=== PATIENT | female | born 1965 | race Caucasian/White ===

== ENCOUNTER 2023-05-20 13:52 | Outpatient (OUT) | payer OTHER, SELFPAY ==
--- NOTE | 2023-05-20 14:00 | XR_ITS ---
The [address] [address] Patient Name: GLORY MCKEON MRN: [id number] date: 1965 Sex: F Assigned Patient Location: [facility] Current Patient Location: [facility] Accession/Order Number: [id number] Exam Date: 05/20/2023 14:06 Report Date: 05/21/2023 07:06 At the request of: ÁLVARO SANTANA Procedure: XR lumbar spine 2-3V EXAMINATION: XR lumbar spine 2-3V HISTORY: Low back pain M54.50 COMPARISON: No relevant comparison available. FINDINGS: BONES: Normal alignment with no acute fracture or spondylolisthesis. Mild degenerative spondylosis. Moderate facet osteoarthropathy DISC SPACES: Normal. No significant disc height narrowing, subluxation, or endplate abnormality. PARASPINOUS: Negative. No paraspinous abnormality is seen. OTHER: Vascular calcifications. Moderate amount of stool throughout the colon IMPRESSION: Degenerative changes Electronically authenticated by: ROBYN MULLIGAN Date: 05/21/2023 07:06
== END 2023-05-20 13:53 ==
LOC: RAD 13:56
PROVIDERS: PCP Family Medicine; Visit Provider Family Medicine
DX: M54.50 Low back pain, unspecified (principal)
CPT/HCPCS: 72100

== ENCOUNTER 2023-05-22 09:10 | Day surgery (SDC) | payer OTHER, SELFPAY ==
[2023-05-22 09:25] VITALS: BP 125/67; PULSE 72; RESP 14; TEMP 36.4; O2SAT 99; BMI 29.9
[2023-05-22] MEDS: LACTATED RINGER'S SOLUTION 1,000 ML 50 ML IV (09:36)
[2023-05-22 11:11] VITALS: BP 126/75; PULSE 70; RESP 20; O2SAT 98
--- NOTE | 2023-05-22 11:12 | OP_ITS ---
OPERATION DATE: ??05/22/2023 PREOPERATIVE DIAGNOSIS:? Personal history of colon polyps, change in bowel habits. POSTOPERATIVE DIAGNOSIS:? Redundant colon with spasm. PROCEDURE:? Colonoscopy to cecum. SURGEON:? Gael Hong M.D. ANESTHESIA:? Monitored anesthesia care. ESTIMATED BLOOD LOSS:? Zero. INDICATIONS AND CONSENT:? Patient is a 57-year-old female with personal history of colon polyps.? 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 She recently had a diarrheal illness with Enterotoxigenic E. coli that has resolved.? She has had some looser stools that have been persistent and had recently formed back up to normal.? She now presents for surveillance colonoscopy. ??Indications, risks, benefits, alternatives of proceeding with colonoscopy were explained extensively to the patient, including the risks of bleeding, colon perforation or anesthetic complications.? All of her questions were answered.? Informed consent was obtained. PROCEDURE:? Patient brought to the operating room, placed in the left lateral decubitus position.? Monitored anesthesia care was provided.? Rectal exam was performed which showed no masses or blood.? The scope was inserted into the anal canal.? Under direct visualization was advanced.? With the aid of abdominal compression, it was advanced to the cecum where cecal markings were clearly identified.? There was noted to be redundancy of the colon with spasm.? There was a good prep.? Upon withdrawal of the scope, mucosal surfaces were carefully examined.? There were no mass lesions or polyps.? No inflammatory changes or ulcerations.? No significant diverticulosis.? The scope was retroflexed in the anal canal.? There was no significant hemorrhoidal disease.? Scope was then withdrawn.? Patient tolerated procedure well, was sent to recovery room in good condition. Follow up colonoscopy should be in five years due to the history of polyps. CC:? Patient?s family physician. FRANCIS
[2023-05-22 11:26] VITALS: BP 141/73; PULSE 61; RESP 20; O2SAT 100
== END 2023-05-22 11:45 ==
PROVIDERS: PCP Family Medicine; Visit Provider Surgery
PROC: (CPT 45378; principal; 2023-05-22 10:20)
DX: R19.4 Change in bowel habit (principal); Q43.8 Other specified congenital malformations of intestine; Z86.010 Personal history of colon polyps; J44.9 Chronic obstructive pulmonary disease, unspecified; M50.30 Other cervical disc degeneration, unspecified cervical region; F32.A Depression, unspecified; G47.33 Obstructive sleep apnea (adult) (pediatric); F17.210 Nicotine dependence, cigarettes, uncomplicated; F41.9 Anxiety disorder, unspecified; M47.817 Spondylosis without myelopathy or radiculopathy, lumbosacral region; Z79.82 Long term (current) use of aspirin; Z79.899 Other long term (current) drug therapy; Z79.890 Hormone replacement therapy
CPT/HCPCS: 45378; J2704

== ENCOUNTER 2023-10-19 18:28 | Observation (INO) | payer OTHER, SELFPAY ==
[2023-10-19 18:32] VITALS: BP 120/91; PULSE 83; RESP 18; TEMP 36.5; O2SAT 18; BMI 29.1
--- NOTE | 2023-10-19 18:33 | XR_ITS ---
The [address] [address] Patient Name: GLORY MCKEON MRN: [id number] date: 1965 Sex: F Assigned Patient Location: ER Current Patient Location: ED.MAIN Accession/Order Number: [id number] Exam Date: 10/19/2023 18:43 Report Date: 10/19/2023 19:37 At the request of: FEDERICO VILLAFANA Procedure: XR hand LT min 3V EXAM: XR hand LT min 3V HISTORY: Dog bite COMPARISON: None. TECHNIQUE: 3 views FINDINGS: IMPRESSION: No radiodense foreign body, osseous lesion, fracture, dislocation or subluxation. Joint spaces are normal. Approximately 3.4 mm of positive ulnar variance. No visualized effusion. No gross soft tissue edema. No soft tissue emphysema. Electronically authenticated by: ROBYN FULTON Date: 10/19/2023 19:37
--- NOTE | 2023-10-19 18:34 | ED_ITS ---
HPI - Extremity Injury (Upper) General Chief Complaint: Extremity Problem, Nontraumatic Stated Complaint: DOG BITE Time Seen by Provider: 10/19/23 18:31 History of Present Illness HPI narrative: 57-year-old female presents for dog bite to her left hand. This was sustained the day before yesterday. She contacted her doctor yesterday who phoned her in a prescription and she took her 1st dose today at 1:00. It's been more than ten years since her last tetanus shot. No other injury was sustained. Related Data Home Medications Medication Instructions Recorded Confirmed aripiprazole 2 mg tablet (Abilify) 2 mg PO DAILY 05/14/23 10/19/23 aspirin 81 mg tablet,delayed 81 mg PO DAILY 05/14/23 10/19/23 release desvenlafaxine 100 mg 100 mg PO DAILY 05/14/23 10/19/23 tablet,extended release 24 hr diltiazem HCl 240 mg 240 mg PO DAILY 05/14/23 10/19/23 capsule,extended release 24 hr (Cartia XT) dupilumab 200 mg/1.14 mL 300 mg subcut QWEEK 05/14/23 10/19/23 subcutaneous pen injector (Dupixent) famotidine 40 mg tablet 40 mg PO DAILY 05/14/23 10/19/23 ibuprofen 800 mg tablet 800 mg PO TID PRN pain 05/14/23 10/19/23 levothyroxine 75 mcg tablet 75 mcg PO DAILY 05/14/23 10/19/23 (Euthyrox) liothyronine 5 mcg tablet (Cytomel) 5 mcg PO DAILY 05/14/23 10/19/23 metoprolol succinate 25 mg 25 mg PO DAILY 05/14/23 10/19/23 tablet,extended release 24 hr amoxicillin 875 mg-potassium 1 tab PO Q12H 10/19/23 10/19/23 clavulanate 125 mg tablet Allergies Allergy/AdvReac Type Severity Reaction Status Date / Time ciprofloxacin Allergy Rash Verified 05/14/23 14:34 latex Allergy Rash Verified 05/14/23 14:34 Sulfa (Sulfonamide Allergy Rash Verified 05/14/23 14:34 Antibiotics) sulfamethoxazole AdvReac Intermediate Verified 10/19/23 18:32 [From Bactrim] trimethoprim [From Bactrim] AdvReac Intermediate Verified 10/19/23 18:32 Review of Systems ROS Narrative A ten point review of systems is negative except as noted above. [facility] Medical History (Updated 10/19/23 @ 18:58 by Ranjeet Lopez MD) Acid reflux ?K21.9 - Gastro-esophageal reflux disease without esophagitis (ICD-10) Anxiety ?F41.9 - Anxiety disorder, unspecified (ICD-10) Arm fracture ?S42.309A - Unspecified fracture of shaft of humerus, unspecified arm, initial encounter for closed fracture (ICD-10) Colorectal polyps ?K63.5 - Polyp of colon (ICD-10) ?K62.1 - Rectal polyp (ICD-10) Degenerative disc disease, cervical ?M50.30 - Other cervical disc degeneration, unspecified cervical region (ICD- 10) Depression ?F32.A - Depression, unspecified (ICD-10) Escherichia coli infection ?A49.8 - Other bacterial infections of unspecified site (ICD-10) Hypertension ?I10 - Essential (primary) hypertension (ICD-10) Insomnia ?G47.00 - Insomnia, unspecified (ICD-10) Lumbosacral spondylosis without myelopathy ?M47.817 - Spondylosis without myelopathy or radiculopathy, lumbosacral region (ICD-10) Menopause ?Z78.0 - Asymptomatic menopausal state (ICD-10) Migraine ?G43.909 - Migraine, unspecified, not intractable, without status migrainosus (ICD-10) Mitral valve prolapse ?I34.1 - Nonrheumatic mitral (valve) prolapse (ICD-10) Obstructive sleep apnea ?G47.33 - Obstructive sleep apnea (adult) (pediatric) (ICD-10) Panic disorder ?F41.0 - Panic disorder [episodic paroxysmal anxiety] (ICD-10) Surgical History (Updated 05/14/23 @ 14:34 by Tracy Boswell) H/O colonoscopy ?Z98.890 - Other specified postprocedural states (ICD-10) H/O excision of ganglion cyst ?Z98.890 - Other specified postprocedural states (ICD-10) History of kyphoplasty ?Z98.890 - Other specified postprocedural states (ICD-10) Hx of appendectomy ?Z90.49 - Acquired absence of other specified parts of digestive tract (ICD- 10) Family History (Updated 05/14/23 @ 14:08 by Tracy Boswell) Other Family history of hypertension Family history of stroke Social History (Updated 05/14/23 @ 14:42 by Tracy Boswell) Within the past year, how often did you have a drink containing alcohol: 2-3 times a week Within the past year, how many standard drinks containing alcohol did you have on a typical day: 1 or 2 Within the past year, how often did you have six or more drinks on one occasion: never Total score: 0 Score interpretation: Questions 2 and 3 are 0. It can be assumed that the patient's drinking is below the recommended limits. However, please confirm the accuracy of the patient's alcohol intake over the last few months. Smoking status: Former smoker What tobacco products do you use: cigarettes Pack-years instructions: Please document either packs per day or cigarettes per day in order for pack years to calculate correctly. If using both packs per day and cigarettes per day, please make sure that they denote the same thing. If they differ, pack- years will calculate based on packs per day. Packs Per Day Cigarettes Per Day 1/4 of a pack 5 1/2 a pack 10 3/4 of a pack 15 1 pack 20 1.5 pack 30 2 packs 40 2.5 packs 50 3 packs 60 Cigarettes per day: 10 Years smoked: 40 Smoking pack-years: 20.00 Smoking quit date/years: <= 15 years ago Non-prescribed substance use: denies use Exam Narrative Exam Narrative: Nurses note and vital signs reviewed and patient is not hypoxic. General: The patient appears well and in no apparent distress. Patient is resting comfortably on cart. Skin: Warm, dry, no pallor noted. There is no rash noted. Head: Normocephalic, atraumatic Eye: Normal conjunctiva, no drainage Ears, Nose, Mouth, and Throat: oral mucosa is moist. Nares patent. Cardiovascular: Regular Rate and Rhythm Respiratory: Patient is in no distress, no accessory muscle use, lungs are clear to auscultation, no wheezing, rales or rhonchi Back: non-tender GI: nontender Musculoskeletal: left hand is examined. There are healing puncture waller on the dorsum of her left hand. There is erythema and some mild swelling on the dorsum of her hand. Fingers have for range of motion. No lymphangitis. Neurological: A&O, normal speech Psychiatric: Cooperative Constitutional Vital Signs, click to edit/add: Last Vital Signs Temp 97.7 F 10/19/23 18:32 Pulse 83 10/19/23 18:32 Resp 18 10/19/23 18:32 BP 120/91 10/19/23 18:32 Pulse Ox 18 L 10/19/23 18:32 O2 Del Method Room Air 10/19/23 18:32 Course Vital Signs Vital signs: Vital Signs Temperature 97.7 F 10/19/23 18:32 Pulse Rate 83 10/19/23 18:32 Respiratory Rate 18 10/19/23 18:32 Blood Pressure 120/91 10/19/23 18:32 Pulse Oximetry 18 L 10/19/23 18:32 Oxygen Delivery Method Room Air 10/19/23 18:32 Temperature 97.7 F 10/19/23 18:32 Pulse Rate 83 10/19/23 18:32 Respiratory Rate 18 10/19/23 18:32 Blood Pressure 120/91 10/19/23 18:32 Pulse Oximetry 18 L 10/19/23 18:32 Oxygen Delivery Method Room Air 10/19/23 18:32 MDM - Extremity Injury (Upper) MDM Narrative Medical decision making narrative: tests are ordered including x-ray and the patient is signed out to Dr. Prieto at change of shift. Differential Diagnosis Differential diagnosis: Likely other (foreign body, fracture, cellulitis) Discharge Plan Discharge Chief Complaint: Extremity Problem, Nontraumatic Clinical Impression: Dog bite, Cellulitis Patient Disposition: Still a Patient Prescriptions / Home Meds: No Action aripiprazole [Abilify] 2 mg tablet 2 mg PO DAILY aspirin 81 mg tablet,delayed release (DR/EC) 81 mg PO DAILY diltiazem HCl [Cartia XT] 240 mg capsule,extended release 24hr 240 mg PO DAILY desvenlafaxine 100 mg tablet extended release 24 hr 100 mg PO DAILY Dupixent Pen 200 mg/1.14 mL pen injector 300 mg subcut QWEEK Patient Comments: takes every 2 weeks famotidine 40 mg tablet 40 mg PO DAILY ibuprofen 800 mg tablet 800 mg PO TID PRN (Reason: pain) Patient Comments: takes bid levothyroxine [Euthyrox] 75 mcg tablet 75 mcg PO DAILY liothyronine [Cytomel] 5 mcg tablet 5 mcg PO DAILY metoprolol succinate 25 mg tablet extended release 24 hr 25 mg PO DAILY amoxicillin-pot clavulanate 875-125 mg tablet 1 tab PO Q12H Referrals: Lonnie Sheehan MD [Primary Care Provider] - 1 week
[2023-10-19 18:53] LABS: Basophils Percent Auto 0.3 % (0.2-2.0); Eosinophils Absolute Auto 0.1 10^3/uL (0.0-0.7); Eosinophils Percent Auto 0.6 % (0.9-7.0); Hematocrit 41.3 % (36.0-48.0); Hemoglobin 13.9 g/dL (12.0-16.0); Immature Granulocytes Abs Auto 0.05 10^3/uL (0.00-0.03); Immature Granulocytes Pct Auto 0.5 % (0.0-0.5); Lymphocytes Absolute Auto 2.5 10^3/uL (1.2-3.8); Lymphocytes Percent Auto 24.2 % (20.5-60.0); Mean Corpuscular HGB Conc 33.7 g/dL (29.9-35.2); Mean Corpuscular Hemoglobin 32.1 pg (26.7-34.0); Mean Corpuscular Volume 95.4 fL (81.0-99.0); Mean Platelet Volume 8.4 fL (9.5-13.5); Monocytes Percent Auto 9.4 % (1.7-12.0); Neutrophils Absolute Auto 6.7 10^3/uL (1.4-6.5); Platelet Count 318 10^3/uL (150-450); Red Blood Count 4.33 10^6/uL (4.20-5.40); Red Cell Distribution Width 12.7 % (11.0-15.0); White Blood Count 10.3 10^3/uL (4.0-11.0)
[2023-10-19] MEDS: ADACEL DIPH,PERTUSS(ACELL),TET VAC/PF 0.5 ML ADULT SYRINGE IM (18:59)
[2023-10-19 19:04] LABS: Anion Gap 10.8; BUN Creatinine Ratio 8.5; Calcium 9.2 mg/dL (8.5-10.1); Carbon Dioxide 29.7 mmol/L (21.0-32.0); Chloride 98 mmol/L (98-107); Estimated GFR (African America 51 (>=60); Estimated GFR (Non-African Ame 42 (>=60); Glucose 98 mg/dL (74-106); Potassium 3.5 mmol/L (3.5-5.1); Sodium 135 mmol/L (136-145)
[2023-10-19 21:02] VITALS: BP 151/82; PULSE 64; RESP 20; TEMP 36.7; O2SAT 98; BMI 31.0
[2023-10-19] MEDS: 0.9 % SODIUM CHLORIDE 1,000 ML 100 ML IV (22:11)
[2023-10-19] MEDS: L. ACIDOPHILUS/L.BULGARICUS 1 PACKET GRAN.PACK PO (22:11)
--- NOTE | 2023-10-20 00:19 | P.PN_ITS ---
Progress Note: Subjective Subjective Interval history: Patient is a 57-year-old female with history of HTN, hypothyroid, sleep apnea not on CPAP presenting with complaint of left hand pain. Patient reports that her personal dog bit her left hand night, 2 to 3 days ago. She reports that it happened around 11 PM but she was able to go to sleep and only had mild discomfort initially. Upon waking up Saturday, she reports that she could barely move her hand but as the day progressed, she was able to move her hand with much more ease. She did call her PCP Dr. Burns earlier that day and was prescribed amoxicillin and an ointment cream. Patient states that she had difficulty with obtaining from the pharmacy therefore she was not able to start it until 10/19 as her first and only dose received. She reports that on Saturday, she noticed that her left hand was becoming incr easingly red and warm to touch. She sanchez a line around the red area and reports that the redness extended beyond that line therefore she decided to come to the ED. She denies any tracking of the left arm.. She denies any fever or chills at home and denies any drainage from the bite area. Upon arrival to the ED, vital signs were stable and patient was afebrile. Labs noted for sodium of 135, creatinine 1.29 otherwise rest of labs within normal limits including normal CBC. X-ray of left hand with 3.4 mm positive ulnar variance. No evidence of soft tissue edema, no fracture, no foreign body no dislocation, no effusion. Patient was treated in the ED with Unasyn and did receive a tetanus shot and she is being admitted for further management. Exam Constitutional Vital Signs, click to edit/add: Last Vital Signs Temp 98.0 F 10/19/23 21:02 Pulse 64 10/19/23 21:02 Resp 20 10/19/23 21:02 BP 151/82 H 10/19/23 21:02 Pulse Ox 98 10/19/23 21:02 O2 Del Method Room Air 10/19/23 21:12 Common normals: no apparent distress Exam limitations: altered mental status General appearance: cooperative and comfortable Orientation/consciousness: Yes awake, Yes oriented to person, Yes oriented to place and Yes oriented to time [facility] Common normals: normocephalic Head and scalp: normal to inspection Neck & C-Spine Common normals: full ROM General: normal visual inspection Respiratory Common normals: normal respiratory effort Auscultation: clear to auscultation bilaterally Cardio Common normals: regular rate, regular rhythm, S1 normal heart sound and S2 normal heart sound GI Inspection: normal to inspection Palpation: soft Extremity General: normal exam except as noted Other: left hand with punctured site abrasion from dig bite dorsum of hand just below index. no actuve drainage apprec. erythema of left hand incl 1st 4 fingers and dorsum area to mid hand. mild swelling mid left dorsum of hand. sensation intact.from of all fingers but some mild limitation with making a fist. no tracking apprec Neuro Common normals: oriented x3 and CN's II-XII intact bilaterally Sensorium/orientation: awake, alert, oriented to person, oriented to place and oriented to time Motor exam: strength 5/5 throughout Psych Common normals: mental status grossly normal and thought process normal Attitude: calm and engaged Activity/motor behavior: appropriate eye contact Insight: insight good Judgement: judgment good Progress Note: Objective Labs Labs: Short CBC 10/19/23 Range/Units 18:44 WBC 10.3 (4.0-11.0) 10^3/uL Hgb 13.9 (12.0-16.0) g/dL Hct 41.3 (36.0-48.0) % Plt Count 318 (150-450) 10^3/uL BMP 10/19/23 18:44 Sodium 135 L Potassium 3.5 Chloride 98 Carbon Dioxide 29.7 BUN 11.0 Creatinine 1.29 H Glucose 98 Calcium 9.2 Progress Note: A&P Assessment and Plan (1) Cellulitis: (2) Dog bite: (3) EMILIE (acute kidney injury): Plan Cellulitis of left hand from personal dog bite EMILIE HTN, controlled Hypothyroid Mild hyponatremia History of sleep apnea, not on CPAP Anxiety Plan: Continue Unasyn IV fluids Pain control with as needed Tylenol, [place] Arm elevation. Per RN, swelling of handappears to have improved since arrival to the floor with arm elevation. Continue Monitor renal function. Check UA Avoidance of nephrotoxic agents.. Hold ibuprofen Repeat BMP in a.m. IV fluids Continue home BP meds diltiazem, Toprol-XL Continue hypothyroid home meds DVT prophylaxis subcu heparin twice daily Full code Telemedicine Attestation Telemedicine Attestation I conducted this encounter from [] via secure live, [id number] video conference with the patient, located at [facility] with [Melissa]. Prior to the interview, the risks and benefits of telemedicine were discussed with the patient and verbal consent was obtained.
[2023-10-20] MEDS: HYDROCODONE/ACET 5-325 MG TABLET 1 TAB PO (00:38)
[2023-10-20 04:55] LABS: Basophils Absolute Auto 0.1 10^3/uL (0.0-0.1); Basophils Percent Auto 0.8 % (0.2-2.0); Eosinophils Absolute Auto 0.1 10^3/uL (0.0-0.7); Eosinophils Percent Auto 1.8 % (0.9-7.0); Hematocrit 39.2 % (36.0-48.0); Hemoglobin 12.8 g/dL (12.0-16.0); Immature Granulocytes Abs Auto 0.03 10^3/uL (0.00-0.03); Immature Granulocytes Pct Auto 0.5 % (0.0-0.5); Lymphocytes Absolute Auto 1.7 10^3/uL (1.2-3.8); Lymphocytes Percent Auto 25.9 % (20.5-60.0); Mean Corpuscular HGB Conc 32.7 g/dL (29.9-35.2); Mean Corpuscular Hemoglobin 31.8 pg (26.7-34.0); Mean Corpuscular Volume 97.3 fL (81.0-99.0); Mean Platelet Volume 8.6 fL (9.5-13.5); Monocytes Absolute Auto 0.7 10^3/uL (0.3-0.8); Monocytes Percent Auto 10.1 % (1.7-12.0); Neutrophils Percent Auto 60.9 % (43.0-75.0); Platelet Count 272 10^3/uL (150-450); Red Blood Count 4.03 10^6/uL (4.20-5.40); Red Cell Distribution Width 12.9 % (11.0-15.0); White Blood Count 6.6 10^3/uL (4.0-11.0)
[2023-10-20 05:13] LABS: Anion Gap 10.2; BUN Creatinine Ratio 10.7; Calcium 8.7 mg/dL (8.5-10.1); Carbon Dioxide 28.6 mmol/L (21.0-32.0); Chloride 104 mmol/L (98-107); Estimated GFR (African America 55 (>=60); Estimated GFR (Non-African Ame 45 (>=60); Glucose 152 mg/dL (74-106); Potassium 3.8 mmol/L (3.5-5.1); Sodium 139 mmol/L (136-145)
[2023-10-20 05:40] VITALS: BP 102/67; PULSE 66; RESP 20; TEMP 36.7; O2SAT 91
[2023-10-20] MEDS: AMPICILLIN SODIUM/SULBACTAM NA 3 GM in 0.9 % SODIUM CHLORIDE 100 ML IV ×2 (06:43→13:09)
[2023-10-20] MEDS: 0.9 % SODIUM CHLORIDE 1,000 ML 100 ML IV (06:43)
[2023-10-20] MEDS: ACETAMINOPHEN 325 MG TABLET 650 MG PO (09:24)
[2023-10-20] MEDS: L. ACIDOPHILUS/L.BULGARICUS 1 PACKET GRAN.PACK PO (09:24)
[2023-10-20 09:55] LABS: C Reactive Protein 4.34 mg/dL (<=0.30)
[2023-10-20 10:25] LABS: Erythrocyte Sedimentation Rate 23 mm/hr (<=30)
--- NOTE | 2023-10-20 10:53 | P.HP_ITS ---
H&P: HPI History of Present Illness Chief complaint: DOG BITE LEFT HAND CELLULITIS Narrative: Patient sustained a dog bite on her left hand. Started on oral antibiotics but pain and swelling increased. Presented to the emergency room. Has significant erythema going up her left arm. Unable to move fingers significantly secondary to swelling more so than pain upper arm. By my examination today of this morning she does have better range of motion in her fingers per patient, erythema is inside line of demarcation. Review of Systems ROS Status of ROS 10 or more systems reviewed and unremarkable except as noted in history and below [facility] Medical History (Updated 10/20/23 @ 05:57 by Sonya Kinney MD) Acid reflux ?K21.9 - Gastro-esophageal reflux disease without esophagitis (ICD-10) Anxiety ?F41.9 - Anxiety disorder, unspecified (ICD-10) Arm fracture ?S42.309A - Unspecified fracture of shaft of humerus, unspecified arm, initial encounter for closed fracture (ICD-10) Colorectal polyps ?K63.5 - Polyp of colon (ICD-10) ?K62.1 - Rectal polyp (ICD-10) Degenerative disc disease, cervical ?M50.30 - Other cervical disc degeneration, unspecified cervical region (ICD- 10) Depression ?F32.A - Depression, unspecified (ICD-10) Escherichia coli infection ?A49.8 - Other bacterial infections of unspecified site (ICD-10) Hypertension ?I10 - Essential (primary) hypertension (ICD-10) Insomnia ?G47.00 - Insomnia, unspecified (ICD-10) Lumbosacral spondylosis without myelopathy ?M47.817 - Spondylosis without myelopathy or radiculopathy, lumbosacral region (ICD-10) Menopause ?Z78.0 - Asymptomatic menopausal state (ICD-10) Migraine ?G43.909 - Migraine, unspecified, not intractable, without status migrainosus (ICD-10) Mitral valve prolapse ?I34.1 - Nonrheumatic mitral (valve) prolapse (ICD-10) Obstructive sleep apnea ?G47.33 - Obstructive sleep apnea (adult) (pediatric) (ICD-10) Panic disorder ?F41.0 - Panic disorder [episodic paroxysmal anxiety] (ICD-10) Surgical History (Updated 05/14/23 @ 14:34 by Tracy Boswell) H/O colonoscopy ?Z98.890 - Other specified postprocedural states (ICD-10) H/O excision of ganglion cyst ?Z98.890 - Other specified postprocedural states (ICD-10) History of kyphoplasty ?Z98.890 - Other specified postprocedural states (ICD-10) Hx of appendectomy ?Z90.49 - Acquired absence of other specified parts of digestive tract (ICD- 10) Family History (Updated 05/14/23 @ 14:08 by Tracy Boswell) Other Family history of hypertension Family history of stroke Social History (Updated 05/14/23 @ 14:42 by Tracy Boswell) Within the past year, how often did you have a drink containing alcohol: 2-3 times a week Within the past year, how many standard drinks containing alcohol did you have on a typical day: 1 or 2 Within the past year, how often did you have six or more drinks on one occasion: never Total score: 0 Score interpretation: Questions 2 and 3 are 0. It can be assumed that the patient's drinking is below the recommended limits. However, please confirm the accuracy of the patient's alcohol intake over the last few months. Smoking status: Former smoker What tobacco products do you use: cigarettes Pack-years instructions: Please document either packs per day or cigarettes per day in order for pack years to calculate correctly. If using both packs per day and cigarettes per day, please make sure that they denote the same thing. If they differ, pack- years will calculate based on packs per day. Packs Per Day Cigarettes Per Day 1/4 of a pack 5 1/2 a pack 10 3/4 of a pack 15 1 pack 20 1.5 pack 30 2 packs 40 2.5 packs 50 3 packs 60 Cigarettes per day: 10 Years smoked: 40 Smoking pack-years: 20.00 Smoking quit d ate/years: <= 15 years ago Non-prescribed substance use: denies use Highest level of school completed/degree received: some college, no degree Meds Home Medications and Allergies Home Medications Medication Instructions Recorded Confirmed Type aripiprazole 2 mg tablet (Abilify) 2 mg PO DAILY 05/14/23 10/19/23 History aspirin 81 mg tablet,delayed 81 mg PO DAILY 05/14/23 10/19/23 History release desvenlafaxine 100 mg 100 mg PO DAILY 05/14/23 10/19/23 History tablet,extended release 24 hr diltiazem HCl 240 mg 240 mg PO DAILY 05/14/23 10/19/23 History capsule,extended release 24 hr (Cartia XT) dupilumab 200 mg/1.14 mL 300 mg subcut QWEEK 05/14/23 10/19/23 History subcutaneous pen injector (Dupixent) famotidine 40 mg tablet 40 mg PO DAILY 05/14/23 10/19/23 History levothyroxine 75 mcg tablet 75 mcg PO DAILY 05/14/23 10/19/23 History (Euthyrox) liothyronine 5 mcg tablet (Cytomel) 5 mcg PO DAILY 05/14/23 10/19/23 History metoprolol succinate 25 mg 25 mg PO Q12H 05/14/23 10/20/23 History tablet,extended release 24 hr amoxicillin 875 mg-potassium 1 tab PO Q12H 10/19/23 10/19/23 History clavulanate 125 mg tablet olanzapine 2.5 mg tablet 2.5 mg PO DAILY 10/20/23 10/20/23 History Allergies Allergy/AdvReac Type Severity Reaction Status Date / Time ciprofloxacin Allergy Rash Verified 05/14/23 14:34 latex Allergy Rash Verified 05/14/23 14:34 Sulfa (Sulfonamide Allergy Rash Verified 05/14/23 14:34 Antibiotics) sulfamethoxazole AdvReac Intermediate Verified 10/19/23 18:32 [From Bactrim] trimethoprim [From Bactrim] AdvReac Intermediate Verified 10/19/23 18:32 Exam Constitutional Vital Signs, click to edit/add: Last Vital Signs Temp 98.0 F 10/20/23 05:40 Pulse 66 10/20/23 05:40 Resp 20 10/20/23 05:40 BP 102/67 10/20/23 05:40 Pulse Ox 91 L 10/20/23 05:40 O2 Del Method Room Air 10/20/23 05:40 Documenting provider has reviewed patient's vital signs: yes Common normals: no apparent distress Chest Common normals: inspection of chest normal Respiratory Common normals: normal respiratory effort, no retractions and clear to auscultation bilaterally Cardio Common normals: regular rate, regular rhythm and no murmurs Extremity Common normals: abnormal to inspection (Erythema of the left hand, inside the line of demarcation, ) Other: Good range of motion of fingers, no pain up forearm Results Labs Labs: Short CBC 10/19/23 10/20/23 Range/Units 18:44 04:22 WBC 10.3 6.6 (4.0-11.0) 10^3/uL Hgb 13.9 12.8 (12.0-16.0) g/dL Hct 41.3 39.2 (36.0-48.0) % Plt Count 318 272 (150-450) 10^3/uL BMP 10/19/23 10/20/23 18:44 04:22 Sodium 135 L 139 Potassium 3.5 3.8 Chloride 98 104 Carbon Dioxide 29.7 28.6 BUN 11.0 13.0 Creatinine 1.29 H 1.22 H Glucose 98 152 H Calcium 9.2 8.7 Assessment and Plan Assessment and Plan (1) Cellulitis: (2) Dog bite: (3) EMILIE (acute kidney injury): Plan Hyponatremia acute kidney injury likely secondary to dehydration or medication induced-secondary to cellulitis of left hand-improved so far with Unasyn. We will repeat doses later today. If stable later today discharged home. Acute kidney injury-somewhat better. Likely related to Motrin. We will DC that off her home medication list Significant hyperglycemia secondary to the above-we will monitor as an outpatient BP elevation-monitor as an outpatient Continue patient as observation status-likely discharged home later today
== END 2023-10-20 14:24 | disposition home or self-care (01) ==
LOC: ER 19:45 → MS 20:58
PROVIDERS: Internal Medicine; Admitting Provider Family Medicine; Emergency Provider Emergency Medicine; PCP Family Medicine; Visit Provider Family Medicine
DX: L03.114 Cellulitis of left upper limb (principal); S61.452A Open bite of left hand, initial encounter; N17.9 Acute kidney failure, unspecified; E87.1 Hypo-osmolality and hyponatremia; E86.0 Dehydration; R73.9 Hyperglycemia, unspecified; I10 Essential (primary) hypertension; E03.9 Hypothyroidism, unspecified; F41.9 Anxiety disorder, unspecified; K21.9 Gastro-esophageal reflux disease without esophagitis; W54.0XXA Bitten by dog, initial encounter; F32.A Depression, unspecified; G47.33 Obstructive sleep apnea (adult) (pediatric); I34.1 Nonrheumatic mitral (valve) prolapse; M50.30 Other cervical disc degeneration, unspecified cervical region; Z23 Encounter for immunization; Z90.49 Acquired absence of other specified parts of digestive tract; Z86.010 Personal history of colon polyps; Z87.19 Personal history of other diseases of the digestive system; Z98.890 Other specified postprocedural states; Z87.891 Personal history of nicotine dependence; Z79.899 Other long term (current) drug therapy; Z79.890 Hormone replacement therapy; Z78.0 Asymptomatic menopausal state; Z79.82 Long term (current) use of aspirin
CPT/HCPCS: 36415; 73130; 80048; 81001; 85025; 85652; 86140; 87040; 90471; 90715; 96365; 96366; 99285; G0378; J0295; Q3014

== ENCOUNTER 2023-11-18 16:47 | Outpatient (OUT) | payer OTHER, SELFPAY ==
[2023-11-18 17:05] LABS: Basophils Absolute Auto 0.1 10^3/uL (0.0-0.1); Basophils Percent Auto 0.6 % (0.2-2.0); Eosinophils Absolute Auto 0.1 10^3/uL (0.0-0.7); Eosinophils Percent Auto 1.7 % (0.9-7.0); Hemoglobin 13.9 g/dL (12.0-16.0); Immature Granulocytes Abs Auto 0.03 10^3/uL (0.00-0.03); Immature Granulocytes Pct Auto 0.4 % (0.0-0.5); Lymphocytes Absolute Auto 2.9 10^3/uL (1.2-3.8); Lymphocytes Percent Auto 35.1 % (20.5-60.0); Mean Corpuscular HGB Conc 33.1 g/dL (29.9-35.2); Mean Corpuscular Hemoglobin 31.9 pg (26.7-34.0); Mean Corpuscular Volume 96.3 fL (81.0-99.0); Mean Platelet Volume 8.4 fL (9.5-13.5); Monocytes Absolute Auto 0.6 10^3/uL (0.3-0.8); Monocytes Percent Auto 7.2 % (1.7-12.0); Neutrophils Absolute Auto 4.6 10^3/uL (1.4-6.5); Platelet Count 286 10^3/uL (150-450); Red Blood Count 4.36 10^6/uL (4.20-5.40); Red Cell Distribution Width 12.6 % (11.0-15.0); White Blood Count 8.3 10^3/uL (4.0-11.0)
[2023-11-18 17:47] LABS: Alanine Aminotransferase 28 U/L (14-59); Aspartate Amino Transferase 18 U/L (15-37)
== END 2023-11-18 16:48 | disposition home or self-care (01) ==
PROVIDERS: PCP Family Medicine
DX: L20.89 Other atopic dermatitis (principal)
CPT/HCPCS: 36415; 84450; 84460; 85025

== ENCOUNTER 2023-11-29 07:32 | Outpatient (OUT) | payer OTHER, SELFPAY ==
--- OUTSIDE RECORDS SUMMARY | 2023-11-29 07:35 | XMS_ITS | CCD ---
Author Name Unknown Address [address] [facility] [address] [place] [address] Organization [facility] Care Team Providers Care Theatre Program Director Name Role Phone PHYSICIAN, DEFAULT Unavailable Unavailable PHYSICIAN, DEFAULT Unavailable Unavailable HOY, ÁLVARO Unavailable Unavailable HOY, ÁLVARO Admitting Unavailable HOY, ÁLVARO Primary Care Unavailable HOY, ÁVLARO Attending Unavailable HOY, ÁLVARO Primary Care Unavailable HOY, ÁLVARO Consulting Unavailable HOY, ÁLVARO Attending Unavailable HOY, ÁLVARO Admitting Unavailable HOY, ÁLVARO Admitting Unavailable HOY, ÁLVARO Primary Care Unavailable HOY, ÁLVARO Attending Unavailable HOY, ÁLVARO Admitting Unavailable HOY, ÁLVARO Primary Care Unavailable HOY, ÁLVARO Consulting Unavailable HOY, ÁLVARO Attending Unavailable DR ASHIA OGDEN Consulting Unavailable HOY, ÁLVARO Primary Care Unavailable HOY, ÁLVARO Consulting Unavailable HOY, ÁLVARO Attending Unavailable HOY, ÁLVARO Admitting Unavailable Hoy, Álvaro Primary Care Physician [phone] Gael WATERS Attending Unavailable Gael WATERS Attending Unavailable Allergies Allergy Classification Reported Allergen(s) Allergy Type Date of Onset Reaction(s) Facility (2 sources) ciprofloxacin; Translations: [ciprofloxacin] Drug Allergy 2 AOF [facility] Repository (3 sources) sulfamethoxazole / trimethoprim Drug Allergy 2 AOF [facility] (2 sources) Ciprofloxacin Drug Allergy 5 [facility] Repository (4 sources) Latex; Translations: [Latex] Drug allergy (disorder) 5 Unknown (qualifier value) [facility] Repository (1 source) Ciprofloxacin; Translations: [ciprofloxacin] Drug Allergy 1 Eruption of skin (disorder) [facility] (2 sources) Sulfamethoxazole / Trimethoprim; Translations: [sulfamethoxazole-tr imethoprim] Drug Allergy 0 Unknown [facility] Medications Current Medications Medication Drug Class(es) Dates Sig (Normalized) Sig (Original) 1.14 ML dupilumab 175 MG/ML Auto-Injector [Dupixent] (1 source) Start: 04-26-2023 Dupixent Pre-filled Pen 200 mg/1.14 mL subcutaneous solution as directed, Refills(s) 0 Start Date: 04/26/23 Status: Ordered ARIPiprazole 2 mg oral tablet (1 source) Atypical Antipsychotic Start: 04-26-2023 24 hr dilTIAZem hydrochloride 240 mg extended release oral capsule (1 source) Calcium Channel Rubén Start: 04-26-2023 take 1 capsule by mouth once daily ibuprofen 800 mg oral tablet (1 source) Nonsteroidal Anti-inflammatory Drug Start: 04-26-2023 levothyroxine sodium 0.075 mg oral tablet (1 source) l-Thyroxine Start: 04-26-2023 liothyronine sodium 0.005 mg oral tablet (1 source) l-Triiodothyronine Start: 04-26-2023 24 hr metoprolol succinate 25 mg extended release oral tablet (1 source) beta-Adrenergic Rubén Start: 04-26-2023 take 1 tablet by mouth once daily metoprolol 25 mg ER Tab 25 mg = 1 tab(s), Oral, Daily, Refills(s) 0 Start Date: 04/26/23 Status: Ordered Completed/Discontinued Medications Medication Drug Class(es) Dates Sig (Normalized) Sig (Original) aspirin 81 mg delayed release oral tablet (1 source) Platelet Aggregation Inhibitor, Nonsteroidal Anti-inflammatory Drug Start: 04-26-2023 take 1 mg by mouth once daily desvenlafaxine 100 mg oral tablet (1 source) Serotonin and Norepinephrine Reuptake Inhibitor Start: 04-26-2023 take 1 tablet by mouth once daily famotidine 40 mg oral tablet (1 source) Histamine-2 Receptor Antagonist Start: 04-26-2023 take 1 mg by mouth in the morning Problems Active Problems Problem Classification Problem Date Documented Da te Episodic/Chronic Anxiety disorders (2 sources) Anxiety; Translations: [Panic disorder] 04-26-2023 Chronic Chronic obstructive pulmonary disease and bronchiectasis (1 source) Chronic obstructive lung disease 04-26-2023 Chronic Deficiency and other anemia (1 source) Anemia, unspecified; Translations: [ANEMIA UNSPECIFIED] Onset: 3 Episodic Diabetes mellitus without complication (1 source) Other abnormal glucose; Translations: [OTHER ABNORMAL GLUCOSE] Onset: 3 Episodic Headache; including migraine (1 source) Migraine 04-26-2023 Chronic Heart valve disorders (1 source) Mitral valve prolapse 04-26-2023 Chronic Intestinal infection (2 sources) Enterotoxigenic Escherichia coli gastrointestinal tract infection ; Translations: [Enterotoxigenic Escherichia coli infection] Onset: 3 Episodic Mood disorders (1 source) Depressive disorder 04-26-2023 Chronic Other and unspecified benign neoplasm (3 sources) History of polyp of colon; Translations: [Personal history of colonic polyps] Onset: 3 Episodic Other gastrointestinal disorders (2 sources) Altered bowel function; Translations: [Change in bowel habit] Onset: 3 Episodic Other nutritional; endocrine; and metabolic disorders (1 source) Body mass index 30+ - obesity 05-02-2023 Chronic Other screening for suspected conditions (not mental disorders or infectious disease) (1 source) Encounter for screening for malignant neoplasm of rectum; Translations: [ENC SCREEN MALIG NEOPLASM RECTUM] Onset: 3 Episodic Other upper respiratory disease (1 source) Allergic rhinitis 04-26-2023 Chronic Residual codes; unclassified (1 source) Obstructive sleep apnea syndrome 04-26-2023 Chronic Residual codes; unclassified (1 source) Insomnia 04-26-2023 Episodic Spondylosis; intervertebral disc disorders; other back problems (2 sources) Degeneration of cervical intervertebral disc; Translations: [Lumbosacral spondylosis without myelopathy] Onset: 0 04-26-2023 Chronic Unclassified (1 source) LOW BACK PAIN, UNSPECIFIED; Translations: [LOW BACK PAIN, UNSPECIFIED] Onset: 2 Past or Other Problems Problem Classification Problem Date Documented Da te Episodic/Chronic Other non-traumatic joint disorders (4 sources) Pain in right knee; Translations: [PAIN IN RIGHT KNEE] Onset: 04-20-2022 Episodic Results Test Name Value Interpretation Reference Range Facility Outside Colonoscopyon 2022 Outside Colonoscopy [id number]#1. 00CD:127 [facility] Reminderson 05-23-2023 Reminders - From: Radha Mi LPN To: N - Clinical; Sent: 05/23/2023 13:31:07 EDT Show up: 04/21/2028 07:00:00 EDT Subject: colonoscopy recall Due Date/Time: 05/22/2028 07:00:00 EDT Reminder/Recall Patient due for surveillance colonoscopy 05/22/2028. [facility] Pre-Certification Formon Pre-Certification Form [id number]# 1.00CD:127 [facility] Consent for Procedure/Surger yon 05-03-2023 Consent for Procedure/Surgery [id number] .00CD:127 [facility] Ambulatory Visit Summaryon 0 05-02-2023 Ambulatory Visit Summary GLORY MCKEON :1965 Visit Date:05/02/2023 Ambulatory Visit Instructions Your Diagnosis Change in bowel habits Your Care Team Attending Physician - EVELIN ROBLES, Gael Amaya Primary Care Physician - Álvaro Sheehan MD This Is Your Medications List aripiprazole (aripiprazole 2 mg Tab) aspirin (aspirin 81 mg Oral EC Tab) desvenlafaxine (desvenlafaxine 100 mg Tab-) diltiazem (Cartia XT 240 mg/24 hours oral capsule, extended release) dupilumab (Dupixent Pre-filled Pen 200 mg/1.14 mL subcutaneous solution) famotidine (famotidine 40 mg Tab) ibuprofen (ibuprofen 800 mg Tab) levothyroxine (levothyroxine 75 mcg (0.075 mg) Tab) liothyronine (liothyronine 5 mcg Tab) metoprolol (metoprolol 25 mg ER Tab) Procedures Performed Colonoscopy (2014), Appendectomy, Closed reduction of fracture of arm, Excision of ganglion cyst. Discharge Vitals Heart Rate (Peripheral) 63 Respiratory Rate 16 Blood Pressure 130/82 Height 162.56 cm Height 64 in Weight 81.6 kg Weight 179.52 lb BMI 30.88 Medications What How Much When Instructions Unchanged aripiprazole (aripiprazole 2 mg Tab) 2 Unknown, oral, 1 Refill(s), Take 2 mg by mouth daily. Unchanged aspirin (aspirin 81 mg Oral EC Tab) 81 Unknown, oral, 1 Refill(s), Take 81 mg by mouth daily. Unchanged desvenlafaxine (desvenlafaxine 100 mg Tab-) 1 Unknown, oral, 1 Refill(s), Take 1 tablet by mouth daily. Unchanged diltiazem (Cartia XT 240 mg/ 24 hours oral capsule, extended release) 1 Unknown, oral, 12 Refill(s), Take 1 capsule by mouth daily. Unchanged dupilumab (Dupixent Pre-filled Pen 200 mg/ 1.14 mL subcutaneous solution) as directed Unchanged famotidine (famotidine 40 mg Tab) 40 Unknown, oral, 1 Refill(s), Take 40 mg by mouth in the morning. Unchanged ibuprofen (ibuprofen 800 mg Tab) 2 times a day 800 Unknown, oral, 1 Refill(s), Take 1 tablet (800 mg total) by mouth in the morning and 1 tablet (800 mg total) at noon and 1 tablet (800 mg total) before bedtime. Unchanged levothyroxine (levothyroxine 75 mcg (0.075 mg) Tab) 1 Unknown, oral, 3 Refill(s), Take 1 tablet by mouth daily. Unchanged liothyronine (liothyronine 5 mcg Tab) 1 Unknown, oral, 12 Refill(s), Take 1 tablet by mouth daily. Unchanged metoprolol (metoprolol 25 mg ER Tab) 1 Tablets By Mouth Every day Allergies Latex (Unknown) ciprofloxacin (Eruption) sulfamethoxazole-trim ethoprim (Unknown) Problems Ongoing - Any problem that you are currently receiving treatment for. Allergic rhinitis Anxiety BMI 30.0-30.9,adult Change in bowel habits Chronic obstructive pulmonary disease DDD (degenerative disc disease), cervical Depression History of colon polyps Insomnia Lumbosacral spondylosis without myelopathy Migraines Mitral valve prolapse LAURA (obstructive sleep apnea) Panic disorder Normal [facility] Reportson 05-02-2023 Lab Reports [id number] .00CD:127 Normal [facility] 04-24-2023 Lab Reports [id number] .00CD:127 Normal [facility] Physician Referralon 023 Physician Referral [id number] .00CD:127 Normal [facility] C. DIFF PCRon 04-16-2023 C. DIFFICILE PCR Negative Normal NEGATIVE [facility] Comment on above: Performed By: #### C DIFPOC #### [facility] [address] [place] [address] Dr. Kassandra Bowen INSULINon 02-09-2023 Insulin 17.8 uIU/mL Normal 2.6-24.9 [facility] Comment on above: Performed By: #### I NSULIN ####[facility] [id number] [address]Dr. Kassandra Bowen CBC AUTO DIFFon 02-08-2023 BASO # 0.0 103/ul Normal 0.0-0.1 [facility] Comment on above: Performed By: #### C BC #### [facility] [address] [place] [address] Dr. Kassandra Bowen Basophils/100 WBC (Bld) 0.7 % Normal 0.2-2.0 [facility] Comment on above: Performed By: #### C BC #### [facility] [address] [place] [address] Dr. Kassandra Bowen EO # 0.1 103/ul Normal 0.0-0.7 [facility] Comment on above: Performed By: #### C BC #### [facility] [address] [place] [address] Dr. Kassandra Bowen Eosinophils/100 WBC (Bld) 2.5 % Normal 0.9-7.0 [facility] Comment on above: Performed By: #### C BC #### [facility] [address] [place] [address] Dr. Kassandra Bowen Erythrocyte distribution width (RBC) [Ratio] 12.4 % Normal 11.0-15.0 [facility] Comment on above: Performed By: #### C BC #### [facility] [address] [place] [address] Dr. Kassandra Bowen Hematocrit (Bld) [Volume fraction] 41.2 % Normal 36.0-48.0 [facility] Comment on above: Performed By: #### C BC #### [facility] [address] [place] [address] Dr. Kassandra Bowen Hemoglobin (Bld) [Mass/Vol] 13.8 g/dL Normal 12.0-16.0 [facility] Comment on above: Performed By: #### C BC #### [facility] [address] [place] [address] Dr. Kassandra Bowen IG # 0.02 10e3/ul Normal 0.00-0.03 [facility] Comment on above: Performed By: #### C BC #### [facility] [address] [place] [address] Dr. Kassandra Bowen IG % 0.4 % Normal 0.0-0.5 [facility] Comment on above: Performed By: #### C BC #### [facility] [address] [place] [address] Dr. Kassandra Bowen LYMPH # 1.5 103/ul Normal 1.2-3.8 [facility] Comment on above: Performed By: #### C BC #### [facility] [address] [place] [address] Dr. Kassandra Bowen Lymphocytes/100 WBC (Bld) 26.0 % Normal 20.5-60.0 [facility] Comment on above: Performed By: #### C BC #### [facility] [address] [place] [address] Dr. Kassandra Bowen MANUAL DIFF REQ NO Normal [facility] Comment on above: Performed By: #### C BC #### [facility] [address] [place] [address] Dr. Kassandra Bowen MCH (RBC) [Entitic mass] 31.5 pg Normal 26.7-34.0 [facility] Comment on above: Performed By: #### C BC #### [facility] [address] [place] [address] Dr. Kassandra Bowen MCHC (RBC) [Mass/Vol] 33.5 g/dL Normal 29.9-35.2 [facility] Comment on above: Performed By: #### C BC #### [facility] [address] [place] [address] Dr. Kassandra Bowen MCV (RBC) [Entitic vol] 94.1 fL Normal 81.0-99.0 [facility] Comment on above: Performed By: #### C BC #### [facility] [address] [place] [address] Dr. Kassandra Bowen MONO # 0.5 103/ul Normal 0.3-0.8 [facility] Comment on above: Performed By: #### C BC #### [facility] [address] [place] [address] Dr. Kassandra Bowen Monocytes/100 WBC (Bld) 8.7 % Normal 1.7-12.0 [facility] Comment on above: Performed By: #### C BC #### [facility] [address] [place] [address] Dr. Kassandra Bowen NEUT # 3.5 103/ul Normal 1.4-6.5 [facility] Comment on above: Performed By: #### C BC #### [facility] [address] [place] [address] Dr. Kassandra Bowen Neutrophils/100 WBC (Bld) 61.7 % Normal 43.0-75.0 [facility] Comment on above: Performed By: #### C BC #### [facility] [address] [place] [address] Dr. Kassandra Bowen Platelet mean volume (Bld) [Entitic vol] 8.3 fL Critically low 9.5-13.5 [facility] Comment on above: Performed By: #### C BC #### [facility] [address] [place] [address] Dr. Kassandra Bowen PLT 395 103/ul Normal 150-450 [facility] Comment on above: Performed By: #### C BC #### [facility] [address] [place] [address] Dr. Kassandra Bowen RBC 4.38 106/ul Normal 4.20-5.40 [facility] Comment on above: Performed By: #### C BC #### [facility] [address] [address] [address] Kassandra Bowen WBC 5.7 103/ul Normal 4.0-11.0 [facility] Comment on above: Performed By: #### C BC #### [facility] [address] [place] [address] Dr. Kassandra Bowen FREE THYROXINE INDEX T7on FTI 2.12 Normal 1.30-4.50 [facility] Comment on above: Performed By: #### L IPID, TSH, T7, CMP #### [facility] [address] [place] [address] Dr. Kassandra Bowen T3U 36.0 % Normal 30.0-39.0 [facility] Comment on above: Performed By: #### L IPID, TSH, T7, CMP #### [facility] [address] [place] [address] Dr. Kassandra Bowen T4 [Mass/Vol] 5.90 ug/dL Normal 4.80-13.90 [facility] Comment on above: Performed By: #### L IPID, TSH, T7, CMP #### [facility] [address] [place] [address] Dr. Kassandra Bowen GLYCOHEMOGLOBIN A1Con 2022 ADA RECOMMENDATION SEE BELOW Normal [facility] Comment on above: Result Comment: ADA RECOMMENDED LIMIT 4.0 - 6.0 ADA THERAPEUTIC TARGET < 7.0 ACTION SUGGESTED > 7.0 Performed By: #### A 1C #### [facility] [address] [place] [address] Dr. Kassandra Bowen Glucose [Mass/Vol] 114 mg/dL Normal [facility] Comment on above: Performed By: #### A 1C #### [facility] [address] [address] [address] Kassandra Bowen HbA1c (Bld) [Mass fraction] 5.6 % Normal 4.5-6.2 [facility] Comment on above: Performed By: #### A 1C #### [facility] [address] [address] [address] Kassandra Bowen IRONon 02-08-2023 Iron [Mass/Vol] 75.0 ug/dL Normal 50.0-170.0 [facility] Comment on above: Performed By: #### I LUCAS #### [facility] [address] [address] [address] Kassandra Bowen LIPID PROFILEon 02-08-2023 CHOL-HDL RATIO NORM SEE BELOW Normal [facility] Comment on above: Result Comment: 3.3 - 4.4 LOW RISK 4.4 - 7.1 AVERAGE RISK 7.1 - 11.0 MODERATE RISK >11.0 HIGH RISK Performed By: #### L IPID, TSH, T7, CMP #### [facility] [address] [address] [address] Kassandra Bowen Cholesterol [Mass/Vol] 211 mg/dL Critically high <=200 [facility] Comment on above: Performed By: #### L IPID, TSH, T7, CMP #### [facility] [address] [address] [address] Kassandra Bowen Cholesterol in HDL [Mass/Vol] 51 mg/dL Normal 40-60 [facility] Comment on above: Performed By: #### L IPID, TSH, T7, CMP #### [facility] [address] [address] [address] Kassandra Bowen Cholesterol in LDL [Mass/Vol] 147.2 mg/dL Normal [facility] Comment on above: Performed By: #### L IPID, TSH, T7, CMP #### [facility] [address] [address] [address] Kassandra Bowen Cholesterol.total/Cho lesterol in HDL [Mass ratio] 4.1 {ratio} Normal [facility] Comment on above: Performed By: #### L IPID, TSH, T7, CMP #### [facility] [address] [address] [address] Kassandra Bowen HDL NORMAL > or = 60 mg/dl - LO W CARDIOVASCULAR RISK <40 mg/dl - HIGH CARDIOVASCULAR RISK Normal [facility] Comment on above: Performed By: #### L IPID, TSH, T7, CMP #### [facility] [address] [address] [address] Kassandra Bowen LDL CALC NORMAL SEE BELOW Normal [facility] Comment on above: Result Comment: <100 mg/dl OPTIMAL 100 - 129 mg/dl NEAR OR ABOVE OPTIMAL 130 - 159 mg/dl BORDERLINE HIGH 160 - 189 mg/dl HIGH >190 mg/dl VERY HIGH Performed By: #### L IPID, TSH, T7, CMP #### [facility] [address] [address] [address] Kassandra Bowen Triglyceride [Mass/Vol] 64 mg/dL Normal <=150 [facility] Comment on above: Performed By: #### L IPID, TSH, T7, CMP #### [facility] [address] [address] [address] Kassandra Bowen VLDL CALC 12.8 mg/dL Normal [facility] Comment on above: Performed By: #### L IPID, TSH, T7, CMP #### [facility] [address] [address] [address] Kassandra Bowen PROF 14(COMP METB)on 023 Albumin [Mass/Vol] 3.6 g/dL Normal 3.4-5.0 [facility] Comment on above: Performed By: #### L IPID, TSH, T7, CMP #### [facility] [address] [address] [address] Kassandra Bowen Albumin/Globulin [Mass ratio] 1.0 {ratio} Normal [facility] Comment on above: Performed By: #### L IPID, TSH, T7, CMP #### [facility] [address] [address] [address] Kassandra Bowen ALP [Catalytic activity/Vol] 110 U/L Normal 46-116 [facility] Comment on above: Performed By: #### L IPID, TSH, T7, CMP #### [facility] [address] [address] [address] Kassandra Bowen ALT [Catalytic activity/Vol] 21 U/L Normal 14-59 [facility] Comment on above: Performed By: #### L IPID, TSH, T7, CMP #### [facility] [address] [place] [address] Dr. Kassandra Bowen Anion gap [Moles/Vol] 10.0 mmol/L Normal [facility] Comment on above: Performed By: #### L IPID, TSH, T7, CMP #### [facility] [address] [place] [address] Dr. Kassandra Bowen AST [Catalytic activity/Vol] 14 U/L Critically low 15-37 [facility] Comment on above: Performed By: #### L IPID, TSH, T7, CMP #### [facility] [address] [place] [address] Dr. Kassandra Bowen Bilirubin [Mass/Vol] 0.3 mg/dL Normal 0.2-1.0 [facility] Comment on above: Performed By: #### L IPID, TSH, T7, CMP #### [facility] [address] [place] [address] Dr. Kassandra Bowen Calcium [Mass/Vol] 9.5 mg/dL Normal 8.5-10.1 [facility] Comment on above: Performed By: #### L IPID, TSH, T7, CMP #### [facility] [address] [place] [address] Dr. Kassandra Bowen Chloride [Moles/Vol] 104 mmol/L Normal 98-107 [facility] Comment on above: Performed By: #### L IPID, TSH, T7, CMP #### [facility] [address] [place] [address] Dr. Kassandra Bowen CO2 [Moles/Vol] 28.4 mmol/L Normal 21.0-32.0 [facility] Comment on above: Performed By: #### L IPID, TSH, T7, CMP #### [facility] [address] [place] [address] Dr. Kassandra Bowen Creatinine [Mass/Vol] 1.20 mg/dL Critically high 0.55-1.02 [facility] Comment on above: Performed By: #### L IPID, TSH, T7, CMP #### [facility] [address] [address] [address] Kassandra Bowen EGFR-AF BOLIVIAN 56 mL/min/1.73m2 Critically low >=60 [facility] Comment on above: Performed By: #### L IPID, TSH, T7, CMP #### [facility] [address] [address] [address] Kassandra Bowen EGFR-NON AF BOLIVIAN 46 mL/min/1.73m2 Critically low >=60 [facility] Comment on above: Performed By: #### L IPID, TSH, T7, CMP #### [facility] [address] [place] [address] Dr. Kassandra Bowen Globulin (S) [Mass/Vol] 3.7 g/dL Normal [facility] Comment on above: Performed By: #### L IPID, TSH, T7, CMP #### [facility] [address] [address] [address] Kassandra Bowen Glucose [Mass/Vol] 120 mg/dL Critically high 74-106 [facility] Comment on above: Performed By: #### L IPID, TSH, T7, CMP #### [facility] [address] [address] [address] Kassandra Bowen Potassium [Moles/Vol] 4.4 mmol/L Normal 3.5-5.1 [facility] Comment on above: Performed By: #### L IPID, TSH, T7, CMP #### [facility] [address] [address] [address] Kassandra Bowen Protein [Mass/Vol] 7.3 g/dL Normal 6.4-8.2 [facility] Comment on above: Performed By: #### L IPID, TSH, T7, CMP #### [facility] [address] [address] [address] Kassandra Bowen Sodium [Moles/Vol] 138 mmol/L Normal 136-145 [facility] Comment on above: Performed By: #### L IPID, TSH, T7, CMP #### [facility] [address] [address] [address] Kassandra Bowen Urea nitrogen [Mass/Vol] 8.0 mg/dL Normal 7.0-18.0 [facility] Comment on above: Performed By: #### L IPID, TSH, T7, CMP #### [facility] [address] [address] [address] Kassandra Bowen Urea nitrogen/Creatinine [Mass ratio] 6.7 mg/mg Normal [facility] Comment on above: Performed By: #### L IPID, TSH, T7, CMP #### [facility] [address] [address] [address] Kassandra Bowen TSHon 02-08-2023 TSH 1.651 uIU/mL Normal 0.358-3.[address] [facility] Comment on above: Performed By: #### L IPID, TSH, T7, CMP #### [facility] [address] [address] [address] Kassandra Bowen XR LSPINE MIN 4 VIEWSon 04-02 XR LSPINE MIN 4 VIEWS EXAMINATION: XR LSPINE MIN 4 VIEWS HISTORY: Low back pain since falling one week ago COMPARISON: XR lumbar spine 08/03/2020 FINDINGS: BONES: Mild degenerative facet arthropathy L4-L5, L5-S1. No fracture spondylolisthesis. DISC SPACES: Slight narrowing L5-S1. PARASPINOUS: Atherosclerotic disease of aorta without visible aneurysm. OTHER: Negative. IMPRESSION: Mild degenerative changes of the lower lumbar spine; slightly progressed since prior study. Electronically authenticated by: ASHIA OGDEN Date: 2022-04-20 17:21 Normal [facility] Vital Signs Date Time Vital Sign Value Performing Clinician Joanna rothman 05-02-2023 08:56-0400 Blood Pressure Location Gael WATERS [facility] [place] 05-02-2023 08:56-0400 Diastolic blood pressure 82 mm[Hg] Gael WATERS [facility] 05-02-2023 08:56-0400 Heart rate 63 /min Gael NILL [facility] 05-02-2023 08:56-0400 Respiratory rate 16 /min Gael NILL [facility] 05-02-2023 08:56-0400 Systolic blood pressure 130 mm[Hg] Gael NILL [facility] Encounters Encounter Date Encounter Type Care Provider Facility Start: 05-22-2023 End: 05-23-2023 ambulatory Gael R NILL Facility:CD:[id number] Start: 05-02-2023 End: 05-03-2023 ambulatory Gael R NILL Facility: [place] Start: 05-02-2023 End: 05-02-2023 Patient encounter procedure Gael R NILL [facility] Start: 04-19-2023 ambulatory Gael NILL Facility: [facility] Start: 04-16-2023 ambulatory ÁLVARO HOY Facility:[facility] Start: 02-12-2023 Encounter for genera l adult medical examination without abnormal findings ÁLVARO HOY [facility] Start: 02-08-2023 End: 02-09-2023 ambulatory ÁLVARO HOY Facility:[facility] Start: 02-08-2023 End: 02-09-2023 Encounter for general adult medical examination without abnormal findings ÁLVARO HOY Facility:[facility] Start: 12-12-2022 ambulatory ÁLVARO HOY Facility:[facility] Start: 09-11-2022 ambulatory ÁLVARO HOY Facility:[facility] Start: 04-20-2022 End: 04-21-2022 ambulatory ÁLVARO HOY Facility:[facility] Start: 09-12-2017 End: 09-13-2017 Ambulatory DEFAULT PHYSICIAN Facility:[facility] Procedures Date Procedure Procedure Detail Performing Clinician Start: 12-02-2014 Colonoscopy Gael KIRBY Appendectomy Gael NILL Closed reduction of fracture of upper limb Gael WATERS Excision of ganglion cyst Yoli WATERS Immunizations Immunization Date Immunization Notes Care Provider Owen galarzadillon 08-31-2022 influenza virus vaccine, unspecified formulation Gael WATERS [facility] 08-31-2022 SARS-CoV-2 (COVID-19 ) mRNAMUL.[id number] Gael WATERS [facility] 09-24-2021 SARS-CoV-2 (COVID-19 ) mRNA-1273 vaccine Gael WATERS [facility] 08-22-2021 SARS-CoV-2 (COVID-19 ) mRNA-1273 vaccine Gael WATERS [facility] Payers Date Payer Category Payer Unknown [id number] 2.16.84 [id number] 1965 Unknown [id number] 2.16.84 [id number] 1965 Unknown [id number] 2.16.84 [id number] 1965 Unknown [id number] 2.16.84 [id number] 1965 Unknown [id number] 2.16.84 [id number] 1965 Unknown [id number] 2.16.8 [id number] 1965 Unknown [id number] 2.16.8 [id number] 1961 Self-pay [id number] 1961 Unknown [id number] 1961 Unknown [id number] Unknown Social History Date Type Detail Facility Start: 05-02-2023 Tobacco smoking status Light t obacco smoker (finding) [facility] Tobacco smoking status Never [facility] Sex Assigned At Female [facility] Functional Status Date Assessment Result Facility 05-02-2023 Functional Status N/A [facility] Clinical Note 05-02-2023 Note Date & Type Note Facility 05-02-2023 Note Chief Complaint consultation for diarrhea HPI Staff 57 year old female presents on consultation from Dr. Sheehan for diarrhea. Reports 5 week history of liquid to soft stools. Stools have been more formed and frequency of bowel movements have lessened. Prescribed Zithromax by PCP which did improve diarrhea. Stool studies completed. Denies abdominal or rectal pain. No rectal bleeding. No nausea or vomiting. No unexplained weight loss. Last colonoscopy completed 05/2015 with tubulovillous adenoma, internal hemorrhoids and IBS. History of Present Illness 57 yo female with h/o COPD, migraines, panic d/o; anxiety, DDD, cervical; depression, LAURA, referred for bowel changes; was having frequent loose stools for past several weeks, treated with Azithromycin; stools studies 8 days ago positive for enterotoxigenic E coli; frequent watery diarrhea resolved, still with softer stools in am, occasionally some urgency and soft stools later in day; no blood; abd operations significant for appendectomy; last colonoscopy 2014 with removal of 1 cm sigmoid tubulovillous adenoma; on baby asa daily, ibuprofen prn, no SBE prophylaxis; no fmhx of GI malignancy or IBD; smokes daily. Review of Systems PHQ Score Initial Depression Screen Score: 0 ROS - Provider Constitutional: no fever, no sweats, no weight loss. Eyes: yes glasses, no blurred vision, no visual loss. ENMT: no dentures, no hoarseness, no swallowing difficulties, no hearing loss, no ear infection(s), no nose bleeds. Cardiovascular: normal blood pressure, no chest pain, regular heartbeat, no heart murmur. Respiratory: no shortness of breath, no cough, no asthma, no wheezing. Gastrointestinal: no nausea, no vomiting, no diarrhea, no constipation, no blood in stool, no change in bowel habits, no abdominal pain, no hepatitis. Genitourinary: no kidney stones, no urine infection, no dysuria. Musculoskeletal: no pain, no weakness. Skin: no changing moles, no rash, no skin lumps. Neurologic: no seizures, no epilepsy, no headache. Psychiatric: no emotional or psychiatric problem. Heme/Lymph: no bleeding problems, no anemia, no blood clots, no transfusions. Allergy/Immunologic: no swollen lymph nodes/glands, no IV drug abuse. Other: Additional ROS info: Except as noted in the above Review of Systems and in the History of Present Illness, all other systems have been reviewed and are negative or noncontributory. Physical Exam Vitals & Measurements HR: 63(Peripheral) RR: 16 BP: 130/82 HT: 64 in HT: 162.56 cm WT: 81.6 kg WT: 179.52 lb BMI: 30.88 HEENT: normal conjunctiva, sclera clear, no scleral icterus, EOM intact, PERRLA, oral mucosa moist without lesions. Neck: trachea midline, no mass, symmetric, no thyromegaly or nodules, no adenopathy Respiratory: lungs CTA, respirations non labored. Cardiovascular: regular rate and rhythm, no murmur, no pedal edema or varicosities. Gastrointestinal: obese, soft, non distended, no tenderness, no masses, no palpable hernias, diastasis recti no, no hepatosplenomegaly; normal bs Lymphatic: no cervical adenopathy, no axillary adenopathy, no inguinal adenopathy. Musculoskeletal: normal gait, digits and nails without infection, nodes, cyanosis, clubbing. Skin: no rashes, no lesions, no ulcers, no subcutaneous nodules, induration. Psychiatric/Neuro: oriented to time, place, person, judgement normal, affect appropriate for age, insight intact, no focal deficits. Tests: labs reviewed, review of old records completed, Discussed surgical options, risks, and possible complications with patient. Assessment/Plan 1. Personal history of colonic polyps (Z86.010: Personal history of colonic polyps) plan surveillance colonoscopy under anesthesia, informed consent obtained. 2. Enterotoxigenic Escherichia coli infection (A04.1: Enterotoxigenic Escherichia coli infection) acute infection appears to have resolved; recommend yogurt or probiotic for next several weeks, no additional antibiotics required; call with problems/questions. 3. Change in bowel habits (R19.4: Change in bowel habit) see # 1 Follow-up No qualifying data available Problem List/Past Medical History Ongoing Allergic rhinitis Anxiety BMI 30.0-30.9,adult Change in bowel habits Chronic obstructive pulmonary disease DDD (degenerative disc disease), cervical Depression Enterotoxigenic Escherichia coli infection History of colon polyps Insomnia Lumbosacral spondylosis without myelopathy Migraines Mitral valve prolapse LAURA (obstructive sleep apnea) Panic disorder Personal history of colonic polyps Historical No qualifying data Procedure/Surgical History Colonoscopy (2014), Appendectomy, Closed reduction of fracture of arm, Excision of ganglion cyst. Medications aripiprazole 2 mg Tab aspirin 81 mg Oral EC Tab Cartia XT 240 mg/24 hours oral capsule, extended release desvenlafaxine 100 mg Tab- Dupixent Pre-filled Pen 200 mg/1.14 mL subcutaneous solution famoti (more content not included)... [facility] Comment on above: Result Comment: Elec tronically Signed By: EVELIN ROBLES, Gael Falcon.addy\Date and Time Signed: 05/02/23 16:35 EDT Clinical Note 04-20-2022 Note Date & Type Note Facility 04-20-2022 Note PROCEDURE: XR KNEE R T 4V or > HISTORY: Pain in right knee since falling one week ago COMPARISON: None. FINDINGS: BONES:No fracture, acute abnormality, or significant arthropathy. SOFT TISSUES:No visible soft tissue swelling. EFFUSION:None visible. OTHER: Negative. IMPRESSION: 1. No acute bone abnormality. Electronically authenticated by: ASHIA OGDEN Date: 2022-04-20 17:22 [facility] Evaluation + Plan note Note Date & Type Note Facility Evaluation + Plan note No data available for this section [facility] [place] [facility] Discharge instructions Note Date & Type Note Facility Hospital Discharge instructions No data available for this section [facility] [place] Progress note Note Date & Type Note Facility Progress note No data available for this section [facility] [place] Summary Purpose Family History No Family History Records FoundNo Family History Records FoundNo Family History Records Found Advance Directives No Advanced Directives Records FoundNo Advanced Directives Records FoundNo Advanced Directives Records Found Additional Source Comments INFORMATION SOURCE (unrecogn ized section and content) DATE CREATED AUTHOR 05/27/2018 [facility] DATE CREATED AUTHOR AUTHOR'S ORGANIZ ATION [facility]/17/2023 [facility] DATE CREATED AUTHOR AUTHOR'S ORGANIZ ATION 05/30/2023 [facility] informatio n (unrecognized section and content) Personnel Name: Álvaro Sheehan MD Address: Address: [address] [place] [address] FOR RECORDS PERTAINING TO PATIENTS WHO ARE OR HAVE BEEN ENROLLED IN A CHEMICAL DEPENDENCY/SUBSTANCEABUSE PROGRAM, SOME INFORMATION MAY BE OMITTED. This clinical summary was aggregated from multiple sources. Caution should be exercised in using it in the provision of clinical care. This summary normalizes information from multiple sources, and as a consequence, information in this document may materially change the coding, format and clinical context of patient data. In addition, data may be omitted in some cases. CLINICAL DECISIONS SHOULD BE BASED ON THE PRIMARY CLINICAL RECORDS. [facility] [employer] provides no warranty or guarantee of the accuracy or completeness of information in this document.
--- NOTE | 2023-11-29 07:36 | MR_ITS ---
[address] [address] Patient Name: GLORY MCKEON MRN: [facility]:[id number] date: 1965 Sex: F Assigned Patient Location: MRI Current Patient Location: MRI Accession/Order Number: [id number] Exam Date: 11/29/2023 07:47 Report Date: 11/29/2023 11:02 At the request of: ÁLVARO SANTANA Procedure: MR lumbar spine wo con EXAM: MR thoracic spine wo con, MR lumbar spine wo con HISTORY: Low Back Pain M54.50, Pain In Thoracic Spine M54.6 COMPARISON: MR thoracic spine 09/21/2020, MR lumbar spine 08/25/2020. TECHNIQUE: Multiplanar multisequence MR imaging of the thoracic and lumbar spine was performed without intravenous contrast. FINDINGS: Alignment: No substantial subluxation. Vertebrae: Vertebral body heights are maintained. No marrow signal abnormalities to suggest neoplasm. There is redemonstration of presumed vertebroplasty cement at T8. Spinal cord/Conus medullaris: The spinal cord and conus demonstrate normal signal and contour. Conus terminates at L2. Degenerative changes: Thoracic spine: Moderate degenerative change of the midthoracic spine with multilevel disc herniations with small right central protrusion at T5-T6, small left central protrusion at T6-T7 and small left central protrusion at T7-T8. There is associated minimal canal stenosis. Multilevel mild facet arthropathy. No substantial foraminal stenosis. Lumbar spine T12-L1: No substantial canal or foraminal stenosis. L1-L2: No substantial canal or foraminal stenosis. L2-L3: Disc desiccation without substantial disc bulge. Mild facet arthropathy. No substantial canal or foraminal stenosis. L3-L4: Disc desiccation without substantial disc height loss. Mild facet arthropathy. No substantial canal stenosis. Minimal bilateral foraminal stenosis. L4-L5: Disc desiccation without substantial disc height loss. Mild facet arthropathy.No substantial canal or foraminal stenosis. L5-S1: No substantial canal or foraminal stenosis. Upper Sacrum: No focal lesion identified. Additional comments: Visualized soft tissues of the chest and abdomen appear grossly unremarkable. MR/MR lumbar spine wo con IMPRESSION: 1. Redemonstration of vertebroplasty change at T8. 2. Multilevel small disc herniations involving the thoracic spine associated mild canal stenosis. 3. Minimal degenerative changes of the lumbar spine without substantial canal or foraminal stenosis. 4. No abnormal spinal cord signal. Electronically authenticated by: YAQUELIN OLIVA Date: 11/29/2023 11:02
--- NOTE | 2023-11-29 07:36 | MR_ITS ---
[address] [address] Patient Name: GLORY MCKEON MRN: [facility]:[id number] date: 1965 Sex: F Assigned Patient Location: MRI Current Patient Location: MRI Accession/Order Number: [id number] Exam Date: 11/29/2023 07:47 Report Date: 11/29/2023 11:02 At the request of: ÁLVARO SANTANA Procedure: MR thoracic spine wo con EXAM: MR thoracic spine wo con, MR lumbar spine wo con HISTORY: Low Back Pain M54.50, Pain In Thoracic Spine M54.6 COMPARISON: MR thoracic spine 09/21/2020, MR lumbar spine 08/25/2020. TECHNIQUE: Multiplanar multisequence MR imaging of the thoracic and lumbar spine was performed without intravenous contrast. FINDINGS: Alignment: No substantial subluxation. Vertebrae: Vertebral body heights are maintained. No marrow signal abnormalities to suggest neoplasm. There is redemonstration of presumed vertebroplasty cement at T8. Spinal cord/Conus medullaris: The spinal cord and conus demonstrate normal signal and contour. Conus terminates at L2. Degenerative changes: Thoracic spine: Moderate degenerative change of the midthoracic spine with multilevel disc herniations with small right central protrusion at T5-T6, small left central protrusion at T6-T7 and small left central protrusion at T7-T8. There is associated minimal canal stenosis. Multilevel mild facet arthropathy. No substantial foraminal stenosis. Lumbar spine T12-L1: No substantial canal or foraminal stenosis. L1-L2: No substantial canal or foraminal stenosis. L2-L3: Disc desiccation without substantial disc bulge. Mild facet arthropathy. No substantial canal or foraminal stenosis. L3-L4: Disc desiccation without substantial disc height loss. Mild facet arthropathy. No substantial canal stenosis. Minimal bilateral foraminal stenosis. L4-L5: Disc desiccation without substantial disc height loss. Mild facet arthropathy.No substantial canal or foraminal stenosis. L5-S1: No substantial canal or foraminal stenosis. Upper Sacrum: No focal lesion identified. Additional comments: Visualized soft tissues of the chest and abdomen appear grossly unremarkable. MR/MR thoracic spine wo con IMPRESSION: 1. Redemonstration of vertebroplasty change at T8. 2. Multilevel small disc herniations involving the thoracic spine associated mild canal stenosis. 3. Minimal degenerative changes of the lumbar spine without substantial canal or foraminal stenosis. 4. No abnormal spinal cord signal. Electronically authenticated by: YAQUELIN OLIVA Date: 11/29/2023 11:02
== END 2023-11-29 07:33 | disposition home or self-care (01) ==
LOC: MRI 07:32
PROVIDERS: PCP Family Medicine; Visit Provider Family Medicine
DX: M54.50 Low back pain, unspecified (principal); M54.6 Pain in thoracic spine
CPT/HCPCS: 72146; 72148

== ENCOUNTER 2024-02-21 10:02 | Outpatient (OUT) | payer OTHER, SELFPAY ==
--- NOTE | 2024-02-21 10:04 | US_ITS ---
The [address] [address] Patient Name: GLORY MCKEON MRN: [id number] date: 1965 Sex: F Assigned Patient Location: US Current Patient Location: US Accession/Order Number: [id number] Exam Date: 02/21/2024 10:10 Report Date: 02/21/2024 12:48 At the request of: ÁLVARO SANTANA Procedure: US venous doppler LE BI EXAMINATION: US venous doppler LE BI HISTORY: Bilateral Edema COMPARISON: No relevant comparison available. FINDINGS: REGION: Bilateral lower extremities THROMBI: None. COMPRESSIBILITY: Normal compressibility. FLOW: Normal waveform and antegrade flow between 5 and 20 cm/s. OTHER: None. US/US venous doppler LE BI IMPRESSION: 1. No deep vein thrombus within the right or left lower extremity. Electronically authenticated by: ASHIA OGDEN Date: 02/21/2024 12:48
--- OUTSIDE RECORDS SUMMARY | 2024-02-21 10:08 | XMS_ITS | CCD ---
Author Organization [facility] Care Team Providers Care Varnish Filterer Name Role Phone PHYSICIAN, DEFAULT Unavailable Unavailable PHYSICIAN, DEFAULT Unavailable Unavailable HOY, ÁLVARO Unavailable Unavailable HOY, ÁLVARO Admitting Unavailable HOY, ÁLVARO Primary Care Unavailable HOY, ÁLVARO Attending Unavailable HOY, ÁLVARO Primary Care Unavailable [...] Admitting Unavailable Hoy, Álvaro Primary Care Physician Gael WATERS Attending Unavailable Gael WATERS Attending Unavailable Allergies Allergy Classification Reported Allergen(s) Allergy Type Date of Onset Reaction(s) Facility (2 sources) ciprofloxacin; Translations: [ciprofloxacin] Drug Allergy 2 [facility] Repository (3 sources) sulfamethoxazole / trimethoprim Drug Allergy 2 [facility] Repository (2 sources) Ciprofloxacin Drug Allergy [address] [facility] Repository (4 sources) Latex; Translations: [Latex] Drug allergy (disorder) 5 Unknown (qualifier value) [facility] Repository (1 source) Ciprofloxacin; Translations: [ciprofloxacin] Drug Allergy 1 Eruption of skin (disorder) [facility] [place] (2 sources) Sulfamethoxazole / Trimethoprim; Translations: [sulfamethoxazole-tr imethoprim] Drug Allergy 0 Unknown [facility] [place] Medications Current Medications Medication Drug Class(es) Dates [...] Range Facility Outside Colonoscopyon 2022 Outside Colonoscopy [id number]#1. 00CD:127 [facility] Reminderson 05-23-2023 Reminders - From: Radha Mi LPN To: WALTER - Clinical; Sent: 05/23/2023 13:31:07 EDT Show up: 04/21/2028 07:00:00 EDT Subject: colonoscopy recall Due Date/Time: 05/22/2028 07:00:00 EDT Reminder/Recall Patient due for surveillance colonoscopy 05/22/2028. [facility] Pre-Certification Formon Pre-Certification Form [id number]# 1.00CD:127 [facility] Consent for Procedure/Surger yon 05-03-2023 Consent for Procedure/Surgery [id number] .00CD:127 [facility] Ambulatory Visit Summaryon 0 05-02-2023 Ambulatory [...] LAURA (obstructive sleep apnea) Panic disorder Normal [facility] Reportson 05-02-2023 Lab Reports [id number]#1 .00CD:127 Normal [facility] 04-24-2023 Lab Reports [id number]#1 .00CD:127 Normal [facility] Physician Referralon 023 Physician Referral [id number]#1 .00CD:127 Normal [facility] C. DIFF PCRon 04-16-2023 C. DIFFICILE PCR Negative Normal NEGATIVE [facility] Comment on above: Performed By: #### C DIFPOC #### [facility] [address] [address] [address] Kassandra Bowen INSULINon 02-09-2023 Insulin 17.8 uIU/mL Normal 2.6-24.9 [facility] Comment on above: Performed By: #### I NSULIN ####[facility] [id number] [address]Dr. Kassandra Boewn CBC AUTO DIFFon 02-08-2023 BASO # 0.0 103/ul Normal 0.0-0.1 [facility] Comment on above: Performed By: #### C BC #### [facility] [address] [address] [address] Kassandra Bowen Basophils/100 WBC (Bld) 0.7 % Normal 0.2-2.0 [facility] Comment on above: Performed By: #### C BC #### [facility] [address] [address] [address] Kassandra Bowen EO # 0.1 103/ul Normal 0.0-0.7 [facility] Comment on above: Performed By: #### C BC #### [facility] [address] [address] [address] Kassandra Bowen Eosinophils/100 WBC (Bld) 2.5 % Normal 0.9-7.0 [facility] Comment on above: Performed By: #### C BC #### [facility] [address] [place] [address] Dr. Kassandra Bowen Erythrocyte distribution width (RBC) [Ratio] 12.4 % Normal 11.0-15.0 [facility] Comment on above: Performed By: #### C BC #### [facility] [address] [place] [address] Dr. Kassandra Bowen Hematocrit (Bld) [Volume fraction] 41.2 % Normal 36.0-48.0 [facility] Comment on above: Performed By: #### C BC #### [facility] [address] [place] [address] Dr. Kassandra Bowen Hemoglobin (Bld) [Mass/Vol] 13.8 g/dL Normal 12.0-16.0 [facility] Comment on above: Performed By: #### C BC #### [facility] [address] [place] [address] Dr. Kassandra Bowen IG # 0.02 10e3/ul Normal 0.00-0.03 [facility] Comment on above: Performed By: #### C BC #### [facility] [address] [place] [address] Dr. Kassandra Bowen IG % 0.4 % Normal 0.0-0.5 [facility] Comment on above: Performed By: #### C BC #### [facility] [address] [place] [address] Dr. Kassandra Bowen LYMPH # 1.5 103/ul Normal 1.2-3.8 [facility] Comment on above: Performed By: #### C BC #### [facility] [address] [place] [address] Dr. Kassandra Bowen Lymphocytes/100 WBC (Bld) 26.0 % Normal 20.5-60.0 [facility] Comment on above: Performed By: #### C BC #### [facility] [address] [place] [address] Dr. Kassandra Bowen MANUAL DIFF REQ NO Normal [facility] Comment on above: Performed By: #### C BC #### [facility] [address] [place] [address] Dr. Kassandra Bowen MCH (RBC) [Entitic mass] 31.5 pg Normal 26.7-34.0 [facility] Comment on above: Performed By: #### C BC #### [facility] [address] [address] [address] Kassandra Bowen MCHC (RBC) [Mass/Vol] 33.5 g/dL Normal 29.9-35.2 [facility] Comment on above: Performed By: #### C BC #### [facility] [address] [address] [address] Kassandra Bowen MCV (RBC) [Entitic vol] 94.1 fL Normal 81.0-99.0 [facility] Comment on above: Performed By: #### C BC #### [facility] [address] [address] [address] Kassandra Bowen MONO # 0.5 103/ul Normal 0.3-0.8 [facility] Comment on above: Performed By: #### C BC #### [facility] [address] [place] [address] Dr. Kassandra Bowen Monocytes/100 WBC (Bld) 8.7 % Normal 1.7-12.0 [facility] Comment on above: Performed By: #### C BC #### [facility] [address] [address] [address] Kassandra Bowen NEUT # 3.5 103/ul Normal 1.4-6.5 [facility] Comment on above: Performed By: #### C BC #### [facility] [address] [place] [address] Dr. Kassandra Bowen Neutrophils/100 WBC (Bld) 61.7 % Normal 43.0-75.[address] [facility] Comment on above: Performed By: #### C BC #### [facility] [address] [place] [address] Dr. Kassandra Bowen Platelet mean volume (Bld) [Entitic vol] 8.3 fL Critically low 9.5-13.5 [facility] Comment on above: Performed By: #### C BC #### [facility] [address] [place] [address] Dr. Kassandra Bowen PLT 395 103/ul Normal 150-[address] [facility] Comment on above: Performed By: #### C BC #### [facility] [address] [place] [address] Dr. Kassandra Bowen RBC 4.38 106/ul Normal 4.20-5.40 [facility] Comment on above: Performed By: #### C BC #### [facility] [address] [place] [address] Dr. Kassandra Bowen WBC 5.7 103/ul Normal 4.0-11.0 [facility] Comment on above: Performed By: #### C BC #### [facility] [address] [place] [address] Dr. Kassandra Bowen FREE THYROXINE INDEX T7on FTI 2.12 Normal 1.30-4.50 [facility] Comment on above: Performed By: #### L IPID, TSH, T7, CMP #### [facility] [address] [place] [address] Dr. Kassandra Bowen T3U 36.0 % Normal 30.0-39.0 [facility] Comment on above: Performed By: #### L IPID, TSH, T7, CMP #### [facility] [address] [place] [address] Dr. Kassandra Bowen T4 [Mass/Vol] 5.90 ug/dL Normal 4.80-13.90 [facility] Comment on above: Performed By: #### L IPID, TSH, T7, CMP #### [facility] [address] [place] [address] Dr. Kassandra Bowen GLYCOHEMOGLOBIN A1Con 2022 ADA RECOMMENDATION SEE BELOW Normal [facility] Comment on above: Result Comment: ADA RECOMMENDED LIMIT 4.0 - 6.0 ADA THERAPEUTIC TARGET < 7.0 ACTION SUGGESTED > 7.0 Performed By: #### A 1C #### [facility] [address] [place] [address] Dr. Kassandra Bowen Glucose [Mass/Vol] 114 mg/dL Normal [facility] Comment on above: Performed By: #### A 1C #### [facility] [address] [place] [address] Dr. Kassandra Bowen HbA1c (Bld) [Mass fraction] 5.6 % Normal 4.5-6.2 [facility] Comment on above: Performed By: #### A 1C #### [facility] [address] [place] [address] Dr. Kassandra Bowen IRONon 02-08-2023 Iron [Mass/Vol] 75.0 ug/dL Normal 50.0-170.0 [facility] Comment on above: Performed By: #### I LUCAS #### [facility] [address] [place] [address] Dr. Kassandra Bowen LIPID PROFILEon 02-08-2023 CHOL-HDL RATIO NORM SEE BELOW Normal [facility] Comment on above: Result Comment: 3.3 - 4.4 LOW RISK 4.4 - 7.1 AVERAGE RISK 7.1 - 11.0 MODERATE RISK >11.0 HIGH RISK Performed By: #### L IPID, TSH, T7, CMP #### [facility] [address] [place] [address] Dr. Kassandra Bowen Cholesterol [Mass/Vol] 211 mg/dL Critically high <=200 [facility] Comment on above: Performed By: #### L IPID, TSH, T7, CMP #### [facility] [address] [place] [address] Dr. Kassandra Bowen Cholesterol in HDL [Mass/Vol] 51 mg/dL Normal 40-60 [facility] Comment on above: Performed By: #### L IPID, TSH, T7, CMP #### [facility] [address] [place] [address] Dr. Kassandra Bowen Cholesterol in LDL [Mass/Vol] 147.2 mg/dL Normal [facility] Comment on above: Performed By: #### L IPID, TSH, T7, CMP #### [facility] [address] [place] [address] Dr. Kassandra Bowen Cholesterol.total/Cho lesterol in HDL [Mass ratio] 4.1 {ratio} Normal [facility] Comment on above: Performed By: #### L IPID, TSH, T7, CMP #### [facility] [address] [place] [address] Dr. Kassandra Bowen HDL NORMAL > or = 60 mg/dl - LO W CARDIOVASCULAR RISK <40 mg/dl - HIGH CARDIOVASCULAR RISK Normal [facility] Comment on above: Performed By: #### L IPID, TSH, T7, CMP #### [facility] [address] [address] [address] Kassandra Bowen LDL CALC NORMAL SEE BELOW Normal [facility] Comment on above: Result Comment: <100 mg/dl OPTIMAL 100 - 129 mg/dl NEAR OR ABOVE OPTIMAL 130 - 159 mg/dl BORDERLINE HIGH 160 - 189 mg/dl HIGH >190 mg/dl VERY HIGH Performed By: #### L IPID, TSH, T7, CMP #### [facility] [address] [address] [address] Kassandra Bowen Triglyceride [Mass/Vol] 64 mg/dL Normal <=150 [facility] Comment on above: Performed By: #### L IPID, TSH, T7, CMP #### [facility] [address] [address] [address] Kassandra Bowen VLDL CALC 12.8 mg/dL Normal [facility] Comment on above: Performed By: #### L IPID, TSH, T7, CMP #### [facility] [address] [address] [address] Kassandra Bowen PROF 14(COMP METB)on 023 Albumin [Mass/Vol] 3.6 g/dL Normal 3.4-5.0 [facility] Comment on above: Performed By: #### L IPID, TSH, T7, CMP #### [facility] [address] [address] [address] Kassandra Bowen Albumin/Globulin [Mass ratio] 1.0 {ratio} Normal [facility] Comment on above: Performed By: #### L IPID, TSH, T7, CMP #### [facility] [address] [address] [address] Kassandra Bowen ALP [Catalytic activity/Vol] 110 U/L Normal 46-116 [facility] Comment on above: Performed By: #### L IPID, TSH, T7, CMP #### [facility] [address] [place], [place] [id number] Dr. Kassandra Bowen ALT [Catalytic activity/Vol] 21 U/L Normal 14-59 [facility] Comment on above: Performed By: #### L IPID, TSH, T7, CMP #### [facility] [address] [place] [address] Dr. Kassandra Bowen Anion gap [Moles/Vol] 10.0 mmol/L Normal [facility] Comment on above: Performed By: #### L IPID, TSH, T7, CMP #### [facility] [address] [place] [address] Dr. Kassandra Bowen AST [Catalytic activity/Vol] 14 U/L Critically low 15-37 [facility] Comment on above: Performed By: #### L IPID, TSH, T7, CMP #### [facility] [address] [place] [address] Dr. Kassandra Bowen Bilirubin [Mass/Vol] 0.3 mg/dL Normal 0.2-1.0 [facility] Comment on above: Performed By: #### L IPID, TSH, T7, CMP #### [facility] [address] [place] [address] Dr. Kassandra Bowen Calcium [Mass/Vol] 9.5 mg/dL Normal 8.5-10.1 [facility] Comment on above: Performed By: #### L IPID, TSH, T7, CMP #### [facility] [address] [place] [address] Dr. Kassandra Bowen Chloride [Moles/Vol] 104 mmol/L Normal 98-107 [facility] Comment on above: Performed By: #### L IPID, TSH, T7, CMP #### [facility] [address] [address] [address] Kassandra Bowen CO2 [Moles/Vol] 28.4 mmol/L Normal 21.0-32.0 [facility] Comment on above: Performed By: #### L IPID, TSH, T7, CMP #### [facility] [address] [address] [address] Kassandra Bowen Creatinine [Mass/Vol] 1.20 mg/dL Critically high 0.55-1.02 [facility] Comment on above: Performed By: #### L IPID, TSH, T7, CMP #### [facility] [address] [place] [address] Dr. Kassandra Bowen EGFR-AF SERBIAN 56 mL/min/1.73m2 Critically low >=60 [facility] Comment on above: Performed By: #### L IPID, TSH, T7, CMP #### [facility] [address] [place] [address] Dr. Kassandra Bowen EGFR-NON AF SERBIAN 46 mL/min/1.73m2 Critically low >=60 [facility] Comment on above: Performed By: #### L IPID, TSH, T7, CMP #### [facility] [address] [place] [address] Dr. Kassandra Bowen Globulin (S) [Mass/Vol] 3.7 g/dL Normal [facility] Comment on above: Performed By: #### L IPID, TSH, T7, CMP #### [facility] [address] [place] [address] Dr. Kassandra Bowen Glucose [Mass/Vol] 120 mg/dL Critically high 74-106 [facility] Comment on above: Performed By: #### L IPID, TSH, T7, CMP #### [facility] [address] [place] [address] Dr. Kassandra Bowen Potassium [Moles/Vol] 4.4 mmol/L Normal 3.5-5.1 [facility] Comment on above: Performed By: #### L IPID, TSH, T7, CMP #### [facility] [address] [place] [address] Dr. Kassandra Bowen Protein [Mass/Vol] 7.3 g/dL Normal 6.4-8.2 [facility] Comment on above: Performed By: #### L IPID, TSH, T7, CMP #### [facility] [address] [place] [address] Dr. Kassandra Bowen Sodium [Moles/Vol] 138 mmol/L Normal 136-145 [facility] Comment on above: Performed By: #### L IPID, TSH, T7, CMP #### [facility] [address] [address] [address] Kassandra Bowen Urea nitrogen [Mass/Vol] 8.0 mg/dL Normal 7.0-18.0 [facility] Comment on above: Performed By: #### L IPID, TSH, T7, CMP #### [facility] [address] [address] [address] Kassandra Bowen Urea nitrogen/Creatinine [Mass ratio] 6.7 mg/mg Normal [facility] Comment on above: Performed By: #### L IPID, TSH, T7, CMP #### [facility] [address] [address] [address] Kassandra Bowen TSHon 02-08-2023 TSH 1.651 uIU/mL Normal 0.358-3.740 [facility] Comment on above: Performed By: #### L IPID, TSH, T7, CMP #### [facility] [address] [address] [address] Kassandra Bowen XR LSPINE MIN 4 [...] by: ASHIA OGDEN Date: 2022-04-20 17:21 Normal [facility] Vital Signs Date Time Vital Sign Value Performing Clinician Jeromei lorna 05-02-2023 08:56-0400 Blood Pressure Location Gael WATERS [facility] [place] 05-02-2023 08:56-0400 Diastolic blood pressure 82 mm[Hg] Gael WATERS [facility] [place] 05-02-2023 08:56-0400 Heart rate 63 /min Gael NILL [facility] 05-02-2023 08:56-0400 Respiratory rate 16 /min Gael NILL [facility] 05-02-2023 08:56-0400 Systolic blood pressure 130 mm[Hg] Gael NILL [facility] Encounters Encounter Date Encounter Type Care Provider Facility Start: 05-22-2023 End: 05-23-2023 ambulatory Gael R NILL Facility:CD:[id number] Start: 05-02-2023 End: 05-03-2023 ambulatory Gael R NILL [facility] Start: 05-02-2023 End: 05-02-2023 Patient encounter procedure Gael R NILL [facility] Start: 04-19-2023 ambulatory Gael NILL Facility:[facility] [place] Start: 04-16-2023 ambulatory ÁLVARO HOY Facility:[facility] Start: 02-12-2023 Encounter for genera l adult medical examination without abnormal findings ÁLVARO HOY [facility] Start: 02-08-2023 End: 02-09-2023 ambulatory ÁLVARO HOY Facility:[facility] Start: 02-08-2023 End: 02-09-2023 Encounter for general adult medical examination without abnormal findings ÁLVARO HOY Facility:[facility] Start: 12-12-2022 ambulatory ÁLVARO HOY Facility:[facility] Start: 09-11-2022 ambulatory ÁLVARO HOY Facility:[facility] Start: 04-20-2022 End: 04-21-2022 ambulatory ÁLVARO HOY Facility:[facility] Start: 09-12-2017 End: 09-13-2017 Ambulatory DEFAULT PHYSICIAN Facility:[facility] Procedures Date Procedure Procedure Detail Performing Clinician Start: 12-02-2014 Colonoscopy Gael CHAVEZ LL Appendectomy Gael NILL Closed reduction of fracture of upper limb Gael NILL Excision of ganglion cyst Yoli WATERS Immunizations Immunization Date Immunization Notes Care Provider Fa cilidillon 08-31-2022 influenza virus vaccine, unspecified formulation Gael WATERS [facility] 08-31-2022 SARS-CoV-2 (COVID-19 ) mRNAMUL.[id number] Gael WATERS [facility] 09-24-2021 SARS-CoV-2 (COVID-19 ) mRNA-1273 vaccine Gael WATERS [facility] 08-22-2021 SARS-CoV-2 (COVID-19 ) mRNA-1273 vaccine Gael WATERS [facility] Payers Date Payer Category Payer Unknown [id number] 2.16.84 [id number] 1965 Unknown [id number] 2.16.84 [id number] 1963 Unknown [id number] 2.16.84 [id number] 1963 Unknown [id number] 2.16.84 [id number] 1963 Unknown [id number] 2.16.84 [id number] 1963 Unknown [id number] 2.16.8 [id number] 1963 Unknown [id number] 2.16.8 [id number] 1959 Self-pay [id number] 1959 Unknown [id number] 1961 Unknown [id number] Unknown Social History Date Type Detail Facility Start: 05-02-2023 Tobacco smoking status Light t obacco smoker (finding) [facility] [place] Tobacco smoking status Never [facility] Sex Assigned At Female [facility] Functional Status Date Assessment Result Facility 05-02-2023 Functional Status N/A [facility] Clinical Note 05-02-2023 Note Date & Type [...] subcutaneous solution famoti (more content not included)... [facility] Comment on above: Result Comment: Elec tronically [...] authenticated by: ASHIA OGDEN Date: 2022-04-20 17:22 [facility] Evaluation + Plan note Note Date & Type Note Facility Evaluation + Plan note No data available for this section [facility] [place] [facility] Discharge instructions Note Date & Type Note Facility Hospital Discharge instructions No data available for this section [facility] [place] Progress note Note Date & Type Note Facility Progress note No data available for this section [facility] [place] Summary Purpose Family History No Family History Records FoundNo Family History Records FoundNo Family History Records Found Advance Directives No Advanced Directives Records FoundNo Advanced Directives Records FoundNo Advanced Directives Records Found Additional Source Comments INFORMATION SOURCE (unrecogn ized section and content) DATE CREATED AUTHOR 05/27/2018 [facility] DATE CREATED AUTHOR AUTHOR'S ORGANIZ ATION 04/17/2023 [facility] DATE CREATED AUTHOR AUTHOR'S ORGANIZ ATION 05/30/2023 [place] [facility] Patient Care team informatio n (unrecognized section and content) Personnel Name: Álvaro Sheehan MD Address: Address: [address] [place] [address] FOR RECORDS PERTAINING TO PATIENTS WHO ARE [...] BE BASED ON THE PRIMARY CLINICAL RECORDS. [facility] [employer] provides no warranty or guarantee of the accuracy or completeness of information in this document.
--- NOTE | 2024-02-21 10:16 | US_ITS ---
[place] [id number] Patient Name: GLORY MCKEON MRN: [id number] date: 1965 Sex: F Assigned Patient Location: Current Patient Location: Accession/Order Number: [id number] Exam Date: 02/21/2024 10:20 Report Date: 02/24/2024 07:13 At the request of: ÁLVARO SANTANA Procedure: US arterial duplex LE BI EXAMINATION: US arterial duplex LE BI HISTORY: Edema COMPARISON: No relevant comparison available. TECHNIQUE: Color duplex Doppler ultrasound evaluation analysis was performed in the usual manner. FINDINGS: RIGHT LOWER EXTREMITY ARTERIAL Normal triphasic waveforms throughout the right leg External Iliac PSV: 160.2 cm/s External Iliac EDV: 10.3 cm/s Common Femoral PSV: 110.9 cm/s Common Femoral EDV: 12.3 cm/s Superficial Femoral Proximal PSV: 99.0 cm/s Proximal EDV: 0.0 cm/s Mid PSV: 116.7 cm/s Mid EDV: 0.0 cm/s Distal PSV: 67.4 cm/s Distal EDV: 0.0 cm/s Popliteal Proximal PSV: 41.7 cm/s Popliteal Proximal EDV: 0.0 cm/s Posterior Tibial Proximal PSV: 71.5 cm/s Proximal EDV: 5.5 cm/s Mid PSV: 74.1 cm/s Mid EDV: 0.0 cm/s Distal PSV: 74.1 cm/s Distal EDV: 8.1 cm/s Anterior Tibial Proximal PSV: 50.7 cm/s Proximal EDV: 0.0 cm/s Mid PSV: 63.7 cm/s Mid EDV: 0.0 cm/s Distal PSV: 56.0 cm/s Distal EDV: 5.5 cm/s LEFT LOWER EXTREMITY ARTERIAL Triphasic waveform throughout the left leg with the exception of the distal anterior tibial artery where a biphasic waveform is observed External Iliac PSV: 112.8 cm/s External Iliac EDV: 0.0 cm/s Common Femoral PSV: 65.5 cm/s Common Femoral EDV: 0.0 cm/s Superficial Femoral Proximal PSV: 112.8 cm/s Proximal EDV: 0.0 cm/s Mid PSV: 109.8 cm/s Mid EDV: 0.0 cm/s Distal PSV: 93.5 cm/s Distal EDV: 0.0 cm/s Popliteal Proximal PSV: Popliteal Proximal EDV: Posterior Tibial Proximal PSV: 62.4 cm/s Proximal EDV: 0.0 cm/s Mid PSV: 65.0 cm/s Mid EDV: 0.0 cm/s Distal PSV: 48.2 cm/s Distal EDV: Anterior Tibial Proximal PSV: 48.2 cm/s Proximal EDV: 0.0 cm/s Mid PSV: 70.1 cm/s Mid EDV: 0.0 cm/s Distal PSV: 48.2 cm/s Distal EDV: 0.0 cm/s US/US arterial duplex LE BI IMPRESSION: No flow significant arterial stenosis identified in the right leg Minimal biphasic ischemic waveform limited to the distal left anterior tibial artery, otherwise normal left leg Electronically authenticated by: ROBYN MULLIGAN Date: 02/24/2024 07:13
== END 2024-02-21 10:03 | disposition home or self-care (01) ==
LOC: US 10:02
PROVIDERS: PCP Family Medicine; Visit Provider Family Medicine
DX: L20.89 Other atopic dermatitis (principal); R60.9 Edema, unspecified
CPT/HCPCS: 36415; 84450; 84460; 85025; 93925; 93970

== ENCOUNTER 2024-02-21 11:07 | Outpatient (OUT) | payer OTHER, SELFPAY ==
--- OUTSIDE RECORDS SUMMARY | 2024-02-21 11:10 | XMS_ITS | CCD ---
Author Organization [facility] Care Team Providers Care Core Feeder Name Role Phone PHYSICIAN, DEFAULT Unavailable Unavailable [...] Translations: [ciprofloxacin] Drug Allergy [address] [facility] Repository (3 sources) sulfamethoxazole / trimethoprim Drug Allergy [address] [facility] Repository (2 sources) Ciprofloxacin Drug Allergy 5 [facility] Repository (4 sources) Latex; Translations: [Latex] Drug allergy (disorder) 5 Unknown (qualifier value) [facility] Repository (1 source) Ciprofloxacin; Translations: [ciprofloxacin] Drug Allergy 1 Eruption of skin (disorder) [facility] [place] (2 sources) Sulfamethoxazole / Trimethoprim; Translations: [sulfamethoxazole-tr imethoprim] Drug Allergy 0 Unknown [facility] [place] Medications Current Medications Medication Drug Class(es) Dates [...] Range Facility Outside Colonoscopyon 2022 Outside Colonoscopy [id number]#1. 00CD:127 [facility] Reminderson 05-23-2023 Reminders - From: Radha Mi LPN To: WALTER - Clinical; Sent: 05/23/2023 13:31:07 EDT Show up: 04/21/2028 07:00:00 EDT Subject: colonoscopy recall Due Date/Time: 05/22/2028 07:00:00 EDT Reminder/Recall Patient due for surveillance colonoscopy 05/22/2028. [facility] Pre-Certification Formon Pre-Certification Form [id number]# 1.00CD:127 [facility] Consent for Procedure/Surger yon 05-03-2023 Consent for Procedure/Surgery [id number]#1 .00CD:127 [facility] Ambulatory Visit Summaryon 0 05-02-2023 Ambulatory Visit [...] LAURA (obstructive sleep apnea) Panic disorder Normal [facility] Lab Reportson 05-02-2023 Lab Reports [id number] .00CD:127 Normal [facility] Lab Reportson 04-24-2023 Lab Reports [id number] .00CD:127 Normal [facility] Physician Referralon 023 Physician Referral [id number] .00CD:127 Normal [facility] C. DIFF PCRon 04-16-2023 C. DIFFICILE PCR Negative Normal NEGATIVE [facility] Comment on above: Performed By: #### C DIFPOC #### [facility] [address] [address] [address] Kassandra Bowen INSULINon 02-09-2023 Insulin 17.8 uIU/mL Normal 2.6-24.9 [facility] Comment on above: Performed By: #### I NSULIN ####[facility] [address] [place] [address]Dr. Kassandra Bowen CBC AUTO DIFFon 02-08-2023 BASO # 0.0 103/ul Normal 0.0-0.1 [facility] Comment on above: Performed By: #### C BC #### [facility] [address] [address] [address] Kassandra Bowen Basophils/100 WBC (Bld) 0.7 % Normal 0.2-2.0 [facility] Comment on above: Performed By: #### C BC #### [facility] [address] [address] [address] Kassandra Bowen EO # 0.1 103/ul Normal 0.0-0.7 [facility] Comment on above: Performed By: #### C BC #### [facility] [address] [address] [address] Kassandra Bowen Eosinophils/100 WBC (Bld) 2.5 % Normal 0.9-7.0 [facility] Comment on above: Performed By: #### C BC #### [facility] [address] [place] [address] Dr. Kassandra Bowen Erythrocyte distribution width (RBC) [Ratio] 12.4 % Normal 11.0-15.0 [facility] Comment on above: Performed By: #### C BC #### [facility] [address] [place] [address] Dr. Kassandra Bowen Hematocrit (Bld) [Volume fraction] 41.2 % Normal 36.0-48.0 [facility] Comment on above: Performed By: #### C BC #### [facility] [address] [place] [address] Dr. Kassandra Bowen Hemoglobin (Bld) [Mass/Vol] 13.8 g/dL Normal 12.0-16.0 [facility] Comment on above: Performed By: #### C BC #### [facility] [address] [place] [address] Dr. Kassandra Bowen IG # 0.02 10e3/ul Normal 0.00-0.03 [facility] Comment on above: Performed By: #### C BC #### [facility] [address] [place] [address] Dr. Kassandra Bowen IG % 0.4 % Normal 0.0-0.5 [facility] Comment on above: Performed By: #### C BC #### [facility] [address] [place] [address] Dr. Kassandra Bowen LYMPH # 1.5 103/ul Normal 1.2-3.8 [facility] Comment on above: Performed By: #### C BC #### [facility] [address] [place] [address] Dr. Kassandra Bowen Lymphocytes/100 WBC (Bld) 26.0 % Normal 20.5-60.0 [facility] Comment on above: Performed By: #### C BC #### [facility] [address] [place] [address] Dr. Kassandra Bowen MANUAL DIFF REQ NO Normal [facility] Comment on above: Performed By: #### C BC #### [facility] [address] [place] [address] Dr. Kassandra Bowen MCH (RBC) [Entitic mass] 31.5 pg Normal 26.7-34.0 [facility] Comment on above: Performed By: #### C BC #### [facility] [address] [address] [address] Kassandra Bowen MCHC (RBC) [Mass/Vol] 33.5 g/dL Normal 29.9-35.2 [facility] Comment on above: Performed By: #### C BC #### [facility] [address] [address] [address] Kassandra Bowen MCV (RBC) [Entitic vol] 94.1 fL Normal 81.0-99.0 [facility] Comment on above: Performed By: #### C BC #### [facility] [address] [address] [address] Kassandra Bowen MONO # 0.5 103/ul Normal 0.3-0.8 [facility] Comment on above: Performed By: #### C BC #### [facility] [address] [place] [address] Dr. Kassandra Bowen Monocytes/100 WBC (Bld) 8.7 % Normal 1.7-12.0 [facility] Comment on above: Performed By: #### C BC #### [facility] [address] [address] [address] Kassandra Bowen NEUT # 3.5 103/ul Normal 1.4-6.5 [facility] Comment on above: Performed By: #### C BC #### [facility] [address] [place] [address] Dr. Kassandra Bowen Neutrophils/100 WBC (Bld) 61.7 % Normal 43.0-75.0 [facility] Comment on above: Performed By: #### C BC #### [facility] [address] [place] [address] Dr. Kassandra Bowen Platelet mean volume (Bld) [Entitic vol] 8.3 fL Critically low 9.5-13.5 [facility] Comment on above: Performed By: #### C BC #### [facility] [address] [place] [address] Dr. Kassandra Bowen PLT 395 103/ul Normal 150-450 [facility] Comment on above: Performed By: #### C BC #### [facility] [address] [place] [address] Dr. Kassandra Bowen RBC 4.38 106/ul Normal 4.20-5.40 [facility] Comment on above: Performed By: #### C BC #### [facility] [address] [place] [address] Dr. Kassandra Bowen WBC 5.7 103/ul Normal 4.0-11.0 [facility] Comment on above: Performed By: #### C BC #### [facility] [address] [place] [address] Dr. Kassandra Bowen FREE THYROXINE INDEX T7on FTI 2.12 Normal 1.30-4.50 [facility] Comment on above: Performed By: #### L IPID, TSH, T7, CMP #### [facility] [address] [place] [address] Dr. Kassandra Bowen T3U 36.0 % Normal 30.0-39.0 [facility] Comment on above: Performed By: #### L IPID, TSH, T7, CMP #### [facility] [address] [place] [address] Dr. Kassandra Bowen T4 [Mass/Vol] 5.90 ug/dL Normal 4.80-13.90 [facility] Comment on above: Performed By: #### L IPID, TSH, T7, CMP #### [facility] [address] [place] [address] Dr. Kassandra Bowen GLYCOHEMOGLOBIN A1Con 2022 ADA RECOMMENDATION SEE BELOW Normal [facility] Comment on above: Result Comment: ADA RECOMMENDED LIMIT 4.0 - 6.0 ADA THERAPEUTIC TARGET < 7.0 ACTION SUGGESTED > 7.0 Performed By: #### A 1C #### [facility] [address] [place] [address] Dr. Kassandra Bowen Glucose [Mass/Vol] 114 mg/dL Normal [facility] Comment on above: Performed By: #### A 1C #### [facility] [address] [place] [address] Dr. Kassandra Bowen HbA1c (Bld) [Mass fraction] 5.6 % Normal 4.5-6.2 [facility] Comment on above: Performed By: #### A 1C #### [facility] [address] [place] [address] Dr. Kassandra Bowen IRONon 02-08-2023 Iron [Mass/Vol] 75.0 ug/dL Normal 50.0-170.0 [facility] Comment on above: Performed By: #### I LUCAS #### [facility] [address] [place] [address] Dr. Kassandra Bowen LIPID PROFILEon 02-08-2023 CHOL-HDL RATIO NORM SEE BELOW Normal [facility] Comment on above: Result Comment: 3.3 - 4.4 LOW RISK 4.4 - 7.1 AVERAGE RISK 7.1 - 11.0 MODERATE RISK >11.0 HIGH RISK Performed By: #### L IPID, TSH, T7, CMP #### [facility] [address] [place] [address] Dr. Kassandra Bowen Cholesterol [Mass/Vol] 211 mg/dL Critically high <=200 [facility] Comment on above: Performed By: #### L IPID, TSH, T7, CMP #### [facility] [address] [place] [address] Dr. Kassandra Bowen Cholesterol in HDL [Mass/Vol] 51 mg/dL Normal 40-60 [facility] Comment on above: Performed By: #### L IPID, TSH, T7, CMP #### [facility] [address] [place] [address] Dr. Kassandra Bowen Cholesterol in LDL [Mass/Vol] 147.2 mg/dL Normal [facility] Comment on above: Performed By: #### L IPID, TSH, T7, CMP #### [facility] [address] [place] [address] Dr. Kassandra Bowen Cholesterol.total/Cho lesterol in HDL [Mass ratio] 4.1 {ratio} Normal [facility] Comment on above: Performed By: #### L IPID, TSH, T7, CMP #### [facility] [address] [place] [address] Dr. Kassandra Bowen HDL NORMAL > or = 60 mg/dl - LO W CARDIOVASCULAR RISK <40 mg/dl - HIGH CARDIOVASCULAR RISK Normal [facility] Comment on above: Performed By: #### L IPID, TSH, T7, CMP #### [facility] [address] [address] [address] Kassandra Bowen LDL CALC NORMAL SEE BELOW Normal [facility] Comment on above: Result Comment: <100 mg/dl OPTIMAL 100 - 129 mg/dl NEAR OR ABOVE OPTIMAL 130 - 159 mg/dl BORDERLINE HIGH 160 - 189 mg/dl HIGH >190 mg/dl VERY HIGH Performed By: #### L IPID, TSH, T7, CMP #### [facility] [address] [address] [address] Kassandra Bowen Triglyceride [Mass/Vol] 64 mg/dL Normal <=150 [facility] Comment on above: Performed By: #### L IPID, TSH, T7, CMP #### [facility] [address] [address] [address] Kassandra Bowen VLDL CALC 12.8 mg/dL Normal [facility] Comment on above: Performed By: #### L IPID, TSH, T7, CMP #### [facility] [address] [address] [address] Kassandra Bowen PROF 14(COMP METB)on 023 Albumin [Mass/Vol] 3.6 g/dL Normal 3.4-5.0 [facility] Comment on above: Performed By: #### L IPID, TSH, T7, CMP #### [facility] [address] [address] [address] Kassandra Bowen Albumin/Globulin [Mass ratio] 1.0 {ratio} Normal [facility] Comment on above: Performed By: #### L IPID, TSH, T7, CMP #### [facility] [address] [address] [address] Kassandra Bowen ALP [Catalytic activity/Vol] 110 U/L Normal 46-116 [facility] Comment on above: Performed By: #### L IPID, TSH, T7, CMP #### [facility] [address] [place], [place] [id number] Dr. Kassandra Bowen ALT [Catalytic activity/Vol] 21 U/L Normal 14-59 [facility] Comment on above: Performed By: #### L IPID, TSH, T7, CMP #### [facility] [address] [place] [address] Dr. Kassandra Bowen Anion gap [Moles/Vol] 10.0 mmol/L Normal [facility] Comment on above: Performed By: #### L IPID, TSH, T7, CMP #### [facility] [address] [place] [address] Dr. Kassandra Bowen AST [Catalytic activity/Vol] 14 U/L Critically low 15-37 [facility] Comment on above: Performed By: #### L IPID, TSH, T7, CMP #### [facility] [address] [place] [address] Dr. Kassandra Bowen Bilirubin [Mass/Vol] 0.3 mg/dL Normal 0.2-1.0 [facility] Comment on above: Performed By: #### L IPID, TSH, T7, CMP #### [facility] [address] [place] [address] Dr. Kassandra Bowen Calcium [Mass/Vol] 9.5 mg/dL Normal 8.5-10.1 [facility] Comment on above: Performed By: #### L IPID, TSH, T7, CMP #### [facility] [address] [place] [address] Dr. Kassandra Bowen Chloride [Moles/Vol] 104 mmol/L Normal 98-107 [facility] Comment on above: Performed By: #### L IPID, TSH, T7, CMP #### [facility] [address] [address] [address] Kassandra Bowen CO2 [Moles/Vol] 28.4 mmol/L Normal 21.0-32.0 [facility] Comment on above: Performed By: #### L IPID, TSH, T7, CMP #### [facility] [address] [address] [address] Kassandra Bowen Creatinine [Mass/Vol] 1.20 mg/dL Critically high 0.55-1.02 [facility] Comment on above: Performed By: #### L IPID, TSH, T7, CMP #### [facility] [address] [place] [address] Dr. Kassandra Bowen EGFR-AF TOGOLESE 56 mL/min/1.73m2 Critically low >=60 [facility] Comment on above: Performed By: #### L IPID, TSH, T7, CMP #### [facility] [address] [place] [address] Dr. Kassandra Bowen EGFR-NON AF TOGOLESE 46 mL/min/1.73m2 Critically low >=60 [facility] Comment on above: Performed By: #### L IPID, TSH, T7, CMP #### [facility] [address] [place] [address] Dr. Kassandra Bowen Globulin (S) [Mass/Vol] 3.7 g/dL Normal [facility] Comment on above: Performed By: #### L IPID, TSH, T7, CMP #### [facility] [address] [place] [address] Dr. Kassandra Bowen Glucose [Mass/Vol] 120 mg/dL Critically high 74-106 [facility] Comment on above: Performed By: #### L IPID, TSH, T7, CMP #### [facility] [address] [place] [address] Dr. Kassandra Bowen Potassium [Moles/Vol] 4.4 mmol/L Normal 3.5-5.1 [facility] Comment on above: Performed By: #### L IPID, TSH, T7, CMP #### [facility] [address] [place] [address] Dr. Kassandra Bowen Protein [Mass/Vol] 7.3 g/dL Normal 6.4-8.2 [facility] Comment on above: Performed By: #### L IPID, TSH, T7, CMP #### [facility] [address] [place] [address] Dr. Kassandra Bowen Sodium [Moles/Vol] 138 mmol/L Normal 136-145 [facility] Comment on above: Performed By: #### L IPID, TSH, T7, CMP #### [facility] [address] [address] [address] Kassandra Bowen Urea nitrogen [Mass/Vol] 8.0 mg/dL Normal 7.0-18.0 [facility] Comment on above: Performed By: #### L IPID, TSH, T7, CMP #### [facility] [address] [address] [address] Kassandra Bowen Urea nitrogen/Creatinine [Mass ratio] 6.7 mg/mg Normal [facility] Comment on above: Performed By: #### L IPID, TSH, T7, CMP #### [facility] [address] [address] [address] Kassandra Bowen TSHon 02-08-2023 TSH 1.651 uIU/mL Normal 0.358-3.740 [facility] Comment on above: Performed By: #### L IPID, TSH, T7, CMP #### [facility] [address] [address] [address] Kassandra Bowen XR LSPINE MIN 4 [...] by: ASHIA OGDEN Date: 2022-04-20 17:21 Normal [facility] Vital Signs Date Time Vital Sign Value Performing Clinician Jeromei lorna 05-02-2023 08:56-0400 Blood Pressure Location Gael WATERS [facility] [place] 05-02-2023 08:56-0400 Diastolic blood pressure 82 mm[Hg] Gael WATERS [facility] [place] 05-02-2023 08:56-0400 Heart rate 63 /min Gael NILL [facility] 05-02-2023 08:56-0400 Respiratory rate 16 /min Gael NILL [facility] 05-02-2023 08:56-0400 Systolic blood pressure 130 mm[Hg] Gael NILL [facility] Encounters Encounter Date Encounter Type Care Provider Facility Start: 05-22-2023 End: 05-23-2023 ambulatory Gael R NILL Facility:CD:[id number] Start: 05-02-2023 End: 05-03-2023 ambulatory [facility] Start: 05-02-2023 End: 05-02-2023 Patient encounter procedure Gael R NILL [facility] Start: 04-19-2023 ambulatory Gael NILL Facility:[facility] [place] Start: 04-16-2023 ambulatory ÁLVARO HOY Facility:[facility] Start: 02-12-2023 Encounter for genera l adult medical examination without abnormal findings ÁLVARO HOY [facility] Start: 02-08-2023 End: 02-09-2023 ambulatory ÁLVARO HOY Facility:[facility] Start: 02-08-2023 End: 02-09-2023 Encounter for general adult medical examination without abnormal findings ÁLVARO HOY Facility:[facility] Start: 12-12-2022 ambulatory ÁLVARO HOY Facility:[facility] Start: 09-11-2022 ambulatory ÁLVARO HOY Facility:[facility] Start: 04-20-2022 End: 04-21-2022 ambulatory ÁLVARO HOY Facility:[facility] Start: 09-12-2017 End: 09-13-2017 Ambulatory DEFAULT PHYSICIAN Facility:[facility] Procedures Date Procedure Procedure Detail Performing Clinician Start: 12-02-2014 Colonoscopy Gael CHAVEZ LL Appendectomy Gael NILL Closed reduction of fracture of upper limb Gael NILL Excision of ganglion cyst Yoli WATERS Immunizations Immunization Date Immunization Notes Care Provider Fa cilidillon 08-31-2022 influenza virus vaccine, unspecified formulation Gael WATERS [facility] 08-31-2022 SARS-CoV-2 (COVID-19 ) [id number] Gael WATERS [facility] 09-24-2021 SARS-CoV-2 (COVID-19 ) mRNA-1273 vaccine Gael WATERS [facility] 08-22-2021 SARS-CoV-2 (COVID-19 ) mRNA-1273 vaccine Gael WATERS [facility] Payers Date Payer Category Payer Unknown [id number] 2.16.84 [id number] 1965 Unknown [id number] 2.16.84 [id number] 1965 Unknown [id number] 2.16.84 [id number] 1965 Unknown [id number] 2.16.84 [id number] 1965 Unknown [id number] 2.16.84 [id number] 1965 Unknown [id number] 2.16.8 [id number] 1965 Unknown [id number] 2.16.8 [id number] 1961 Self-pay [id number] 1961 Unknown [id number] 1961 Unknown [id number] Unknown Social History Date Type Detail Facility Start: 05-02-2023 Tobacco smoking status Light t obacco smoker (finding) [facility] [place] Tobacco smoking status Never [facility] Sex Assigned At Female [facility] Functional Status Date Assessment Result Facility 05-02-2023 Functional Status N/A [facility] Clinical Note 05-02-2023 Note Date & Type [...] subcutaneous solution famoti (more content not included)... [facility] Comment on above: Result Comment: Elec tronically [...] authenticated by: ASHIA OGDEN Date: 2022-04-20 17:22 [facility] Evaluation + Plan note Note Date & Type Note Facility Evaluation + Plan note No data available for this section [facility] [place] [facility] Discharge instructions Note Date & Type Note Facility Hospital Discharge instructions No data available for this section [facility] [place] Progress note Note Date & Type Note Facility Progress note No data available for this section [facility] [place] Summary Purpose Family History No Family History Records FoundNo Family History Records FoundNo Family History Records Found Advance Directives No Advanced Directives Records FoundNo Advanced Directives Records FoundNo Advanced Directives Records Found Additional Source Comments INFORMATION SOURCE (unrecogn ized section and content) DATE CREATED AUTHOR 05/27/2018 [facility] DATE CREATED AUTHOR AUTHOR'S ORGANIZ ATION 04/17/2023 [facility] DATE CREATED AUTHOR AUTHOR'S ORGANIZ ATION 05/30/2023 [place] Patient Care team informatio n (unrecognized section and content) Personnel Name: Álvaro Sheehan MD Address: Address: [address] [place] [address] FOR RECORDS PERTAINING TO PATIENTS WHO ARE [...] BE BASED ON THE PRIMARY CLINICAL RECORDS. [facility] [employer] provides no warranty or guarantee of the accuracy or completeness of information in this document.
[2024-02-21 11:41] LABS: Basophils Absolute Auto 0.1 10^3/uL (0.0-0.1); Basophils Percent Auto 0.9 % (0.2-2.0); Eosinophils Absolute Auto 0.1 10^3/uL (0.0-0.7); Hematocrit 41.5 % (36.0-48.0); Hemoglobin 13.6 g/dL (12.0-16.0); Immature Granulocytes Abs Auto 0.03 10^3/uL (0.00-0.03); Immature Granulocytes Pct Auto 0.4 % (0.0-0.5); Lymphocytes Absolute Auto 1.8 10^3/uL (1.2-3.8); Lymphocytes Percent Auto 23.6 % (20.5-60.0); Mean Corpuscular HGB Conc 32.8 g/dL (29.9-35.2); Mean Corpuscular Volume 100.7 fL (81.0-99.0); Mean Platelet Volume 8.5 fL (9.5-13.5); Monocytes Absolute Auto 0.7 10^3/uL (0.3-0.8); Monocytes Percent Auto 9.5 % (1.7-12.0); Neutrophils Percent Auto 64.6 % (43.0-75.0); Platelet Count 342 10^3/uL (150-450); Red Blood Count 4.12 10^6/uL (4.20-5.40); Red Cell Distribution Width 14.4 % (11.0-15.0); White Blood Count 7.7 10^3/uL (4.0-11.0)
[2024-02-21 12:30] LABS: Alanine Aminotransferase 67 U/L (14-59); Aspartate Amino Transferase 24 U/L (15-37)
== END 2024-02-21 11:08 | disposition home or self-care (01) ==
LOC: LAB 11:08
PROVIDERS: PCP Family Medicine
DX: L20.89 Other atopic dermatitis (principal)
CPT/HCPCS: 36415; 84450; 84460; 85025

== ENCOUNTER 2024-03-23 13:01 | Outpatient (OUT) | payer OTHER, SELFPAY ==
--- NOTE | 2024-03-23 13:02 | VEIN_ITS ---
Patient Name: GLORY MCKEON MR#: [id number] : 1965 Exam Date: 03/23/2024 Ordering Doctor: DR Lonnie Sheehan . RADIOLOGY REPORT PROCEDURE: VC EXT VENOUS REFLUX JULIEN LMTD COMPARISON: None. INDICATIONS: Edema R60.9 TECHNIQUE: Duplex imaging of the lower extremity to assess the deep and superficial venous system for the presence of deep or superficial venous incompetence and to document the location and severity of disease. The study includes evaluation of the great saphenous vein (GSV), anterior accessory saphenous vein (AASV) and small saphenous vein (SSV). Patient scanned in reverse Trendelenburg and standing. FINDINGS: RIGHT LOWER EXTREMITY: Saphenofemoral Junction Reflux: Yes 6.6mm 0.2 sec GSV: Diam (mm) Reflux/ Time (sec) Proximal Thigh 3.3 Yes 0.6 Mid Thigh 2.6 Yes 0.3 Distal Thigh 2.8 No Prox Calf 1.7 No Mid Calf 1.5 Yes 0.8 Saphenopopliteal Junction Reflux: 2.8mm Yes 0.3 SSV: Proximal Calf 1.9 Yes 0.3 Mid Calf 1.5 No AASV: Proximal Thigh 2.4 No Mid Thigh Distal Thigh Thrombi: No acute or chronic thrombus. Compressibility: Normal. Flow: Minimal deep venous reflux. Preforator: None. Tech Note: Thigh extention of SSV. No significant varicose veins. LEFT LOWER EXTREMITY: Saphenofemoral Junction Reflux: Yes 5.5 mm 0.6 sec GSV: Diam (mm) Reflux/Time (sec) Proximal Thigh 4.2 Yes 0.1 Mid Thigh 1.2 Yes 0.2 Distal Thigh 1.8 Yes 0.2 Prox Calf 1.1 Yes 0.1 Mid Calf 1.3 Yes 0.2 Saphenopopliteal Junction Relux: 2.7 mm Yes 2.0 SSV: Proximal Calf 1.7 Yes 0.2 Mid Calf 0.8 Yes 0.2 AASV: Proximal Thigh 2.4 Yes 0.4 Mid Thigh Distal Thigh Thrombi: No acute or chronic thrombus. Compressibility: Normal. Flow: Mild deep venous reflux. Sample Builder: None. Tech Note: Thigh extention of SSV. No significant varicose veins in left leg. CONCLUSION: 1. Minimal reflux identified in the right great saphenous vein with no saphenofemoral junction reflux 2. Minimal saphenofemoral junction reflux in the left great saphenous vein with otherwise normal great saphenous vein 3. Left saphenopopliteal junction reflux with otherwise normal small saphenous vein 4. Minimal right and mild left deep vein reflux 5. No significant varicose veins Dictated by: Rd Malone MD on 03/23/2024 at 14:34 Approved by: Rd Malone MD on 03/23/2024 at 14:36
== END 2024-03-23 13:02 | disposition home or self-care (01) ==
LOC: VC 13:01
PROVIDERS: PCP Family Medicine; Visit Provider Family Medicine
DX: R60.9 Edema, unspecified (principal)
CPT/HCPCS: 93970

== ENCOUNTER 2024-05-19 18:17 | Emergency (ER) | payer OTHER, SELFPAY ==
[2024-05-19 18:20] VITALS: BP 144/75; PULSE 97; TEMP 36.9; O2SAT 95; BMI 29.9
--- OUTSIDE RECORDS SUMMARY | 2024-05-19 18:26 | XMS_ITS | CCD ---
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 Name Role Phone PHYSICIAN, DEFAULT Unavailable Unavailable [...] Translations: [ciprofloxacin] Drug Allergy 2 [facility]OF [facility] Repository (3 sources) sulfamethoxazole / trimethoprim Drug Allergy 2 AOF [facility] (2 sources) Ciprofloxacin Drug Allergy 5 [facility] (4 sources) Latex; Translations: [Latex] Drug allergy (disorder) 5 Unknown (qualifier value) [facility] (1 source) Ciprofloxacin; Translations: [ciprofloxacin] Drug Allergy 1 Eruption of skin (disorder) [facility] (2 sources) Sulfamethoxazole / Trimethoprim; Translations: [sulfamethoxazole-tr imethoprim] Drug Allergy 0 Unknown [facility] Medications Current Medications Medication Drug Class(es) Dates [...] Range Facility Outside Colonoscopyon 2022 Outside Colonoscopy [id number]#1. 00CD:127 [facility] Reminderson 05-23-2023 Reminders - From: Radha Mi LPN To: Ricky - Clinical; Sent: 05/23/2023 13:31:07 EDT Show up: 04/21/2028 07:00:00 EDT Subject: colonoscopy recall Due Date/Time: 05/22/2028 07:00:00 EDT Reminder/Recall Patient due for surveillance colonoscopy 05/22/2028. [facility] Pre-Certification Formon Pre-Certification Form [id number]# 1.00CD:127 [facility] Consent for Procedure/Surger yon 05-03-2023 Consent for Procedure/Surgery [id number] .00CD:127 [facility] Ambulatory Visit Summaryon 0 05-02-2023 Ambulatory Visit Summary GLORY MCKEON :1965 Visit Date:05/02/2023 Ambulatory Visit Instructions Your Diagnosis Change in bowel habits Your Care Team Attending Physician - EVELIN ROBLES, Gael Amaya Primary Care Physician - Aguila ROBLES, Álvaro This Is Your Medications List aripiprazole (aripiprazole [...] LAURA (obstructive sleep apnea) Panic disorder Normal [facility] Lab Reportson 05-02-2023 Lab Reports [id number]#1 .00CD:127 Normal [facility] Lab Reportson 04-24-2023 Lab Reports [id number]#1 .00CD:127 Normal [facility] Physician Referralon 023 Physician Referral [id number] .00CD:127 Normal [facility] C. DIFF PCRon 04-16-2023 C. DIFFICILE PCR Negative Normal NEGATIVE [facility] Comment on above: Performed By: #### C DIFPOC #### [facility] [address] [place] [address] Dr. Kassandra Bowen INSULINon 02-09-2023 Insulin 17.8 uIU/mL Normal 2.6-24.9 [facility] Comment on above: Performed By: #### I NSULIN ####[facility] [address] [place], [place] [address]Dr. Kassandra Bowen CBC AUTO DIFFon 02-08-2023 BASO # 0.0 103/ul Normal 0.0-0.1 [facility] Comment on above: Performed By: #### C BC #### [facility] [address] [place] [address] Dr. Kassandra Bowen Basophils/100 WBC (Bld) 0.7 % Normal 0.2-2.0 [facility] Comment on above: Performed By: #### C BC #### [facility] [address] [place] [address] Dr. Kassandra Bowen EO # 0.1 103/ul Normal 0.0-0.7 [facility] Comment on above: Performed By: #### C BC #### [facility] [address] [place] [address] Dr. Kassandra Bowen Eosinophils/100 WBC (Bld) 2.5 % Normal 0.9-7.0 [facility] Comment on above: Performed By: #### C BC #### [facility] [address] [place] [address] Dr. Kassandra Bowen Erythrocyte distribution width (RBC) [Ratio] 12.4 % Normal 11.0-15.0 [facility] Comment on above: Performed By: #### C BC #### [facility] [address] [place] [address] Dr. Kassandra Bowen Hematocrit (Bld) [Volume fraction] 41.2 % Normal 36.0-48.0 [facility] Comment on above: Performed By: #### C BC #### [facility] [address] [place] [address] Dr. Kassandra Bowen Hemoglobin (Bld) [Mass/Vol] 13.8 g/dL Normal 12.0-16.0 [facility] Comment on above: Performed By: #### C BC #### [facility] [address] [place] [address] Dr. Kassandra Bowen IG # 0.02 10e3/ul Normal 0.00-0.03 [facility] Comment on above: Performed By: #### C BC #### [facility] [address] [place] [address] Dr. Kassandra Bowen IG % 0.4 % Normal 0.0-0.5 [facility] Comment on above: Performed By: #### C BC #### [facility] [address] [place] [address] Dr. Kassandra Bowen LYMPH # 1.5 103/ul Normal 1.2-3.8 [facility] Comment on above: Performed By: #### C BC #### [facility] [address] [place] [address] Dr. Kassandra Bowen Lymphocytes/100 WBC (Bld) 26.0 % Normal 20.5-60.0 [facility] Comment on above: Performed By: #### C BC #### [facility] [address] [place] [address] Dr. Kassandra Bowen MANUAL DIFF REQ NO Normal [facility] Comment on above: Performed By: #### C BC #### [facility] [address] [place] [address] Dr. Kassandra Bowen MCH (RBC) [Entitic mass] 31.5 pg Normal 26.7-34.0 [facility] Comment on above: Performed By: #### C BC #### [facility] [address] [address] [address] Kassandra Bowen MCHC (RBC) [Mass/Vol] 33.5 g/dL Normal 29.9-35.2 [facility] Comment on above: Performed By: #### C BC #### [facility] [address] [address] [address] Kassandra Bowen MCV (RBC) [Entitic vol] 94.1 fL Normal 81.0-99.0 [facility] Comment on above: Performed By: #### C BC #### [facility] [address] [address] [address] Kassandra Bowen MONO # 0.5 103/ul Normal 0.3-0.8 [facility] Comment on above: Performed By: #### C BC #### [facility] [address] [place] [address] Dr. Kassandra Bowen Monocytes/100 WBC (Bld) 8.7 % Normal 1.7-12.0 [facility] Comment on above: Performed By: #### C BC #### [facility] [address] [place] [address] Dr. Kassandra Bowen NEUT # 3.5 103/ul Normal 1.4-6.5 [facility] Comment on above: Performed By: #### C BC #### [facility] [address] [place] [address] Dr. Kassandra Bowen Neutrophils/100 WBC (Bld) 61.7 % Normal 43.0-75.0 [facility] Comment on above: Performed By: #### C BC #### [facility] [address] [address] [address] Kasasndra Bowen Platelet mean volume (Bld) [Entitic vol] 8.3 fL Critically low 9.5-13.5 [facility] Comment on above: Performed By: #### C BC #### [facility] [address] [address] [address] Kassandra Bowen PLT 395 103/ul Normal 150-450 [facility] Comment on above: Performed By: #### C BC #### [facility] [address] [place] [address] Dr. Kassandra Bowen RBC 4.38 106/ul Normal 4.20-5.40 [facility] Comment on above: Performed By: #### C BC #### [facility] [address] [place] [address] Dr. Kassandra Bowen WBC 5.7 103/ul Normal 4.0-11.0 [facility] Comment on above: Performed By: #### C BC #### [facility] [address] [place] [address] Dr. Kassandra Bowen FREE THYROXINE INDEX T7on FTI 2.12 Normal 1.30-4.50 [facility] Comment on above: Performed By: #### L IPID, TSH, T7, CMP #### [facility] [address] [place] [address] Dr. Kassandra Bowen T3U 36.0 % Normal 30.0-39.0 [facility] Comment on above: Performed By: #### L IPID, TSH, T7, CMP #### [facility] [address] [place] [address] Dr. Kassandra Bowen T4 [Mass/Vol] 5.90 ug/dL Normal 4.80-13.[address] [facility] Comment on above: Performed By: #### L IPID, TSH, T7, CMP #### [facility] [address] [place] [address] Dr. Kassandra Bowen GLYCOHEMOGLOBIN A1Con 2022 ADA RECOMMENDATION SEE BELOW Normal [facility] Comment on above: Result Comment: ADA RECOMMENDED LIMIT 4.0 - 6.0 ADA THERAPEUTIC TARGET < 7.0 ACTION SUGGESTED > 7.0 Performed By: #### A 1C #### [facility] [address] [place] [address] Dr. Kassandra Bowen Glucose [Mass/Vol] 114 mg/dL Normal [facility] Comment on above: Performed By: #### A 1C #### [facility] [address] [place] [address] Dr. Kassandra Bowen HbA1c (Bld) [Mass fraction] 5.6 % Normal 4.5-6.2 [facility] Comment on above: Performed By: #### A 1C #### [facility] [address] [place] [address] Dr. Kassandra Bowen IRONon 02-08-2023 Iron [Mass/Vol] 75.0 ug/dL Normal 50.0-170.[address] [facility] Comment on above: Performed By: #### I LUCAS #### [facility] [address] [place] [address] Dr. Kassandra Bowen LIPID PROFILEon 02-08-2023 CHOL-HDL RATIO NORM SEE BELOW Normal [facility] Comment on above: Result Comment: 3.3 - 4.4 LOW RISK 4.4 - 7.1 AVERAGE RISK 7.1 - 11.0 MODERATE RISK >11.0 HIGH RISK Performed By: #### L IPID, TSH, T7, CMP #### [facility] [address] [address] [address] Kassandra Bowen Cholesterol [Mass/Vol] 211 mg/dL Critically high <=200 [facility] Comment on above: Performed By: #### L IPID, TSH, T7, CMP #### [facility] [address] [place] [address] Dr. Kassandra Bowen Cholesterol in HDL [Mass/Vol] 51 mg/dL Normal 40-60 [facility] Comment on above: Performed By: #### L IPID, TSH, T7, CMP #### [facility] [address] [address] [address] Kassandra Bowen Cholesterol in LDL [Mass/Vol] 147.2 mg/dL Normal [facility] Comment on above: Performed By: #### L IPID, TSH, T7, CMP #### [facility] [address] [place] [address] Dr. Kassandra Bowen Cholesterol.total/Cho lesterol in HDL [Mass ratio] 4.1 {ratio} Normal [facility] Comment on above: Performed By: #### L IPID, TSH, T7, CMP #### [facility] [address] [place] [address] Dr. Kassandra Bowen HDL NORMAL > or = 60 mg/dl - LO W CARDIOVASCULAR RISK <40 mg/dl - HIGH CARDIOVASCULAR RISK Normal [facility] Comment on above: Performed By: #### L IPID, TSH, T7, CMP #### [facility] [address] [address] [address] Kassandra Bowen LDL CALC NORMAL SEE BELOW Normal [facility] Comment on above: Result Comment: <100 mg/dl OPTIMAL 100 - 129 mg/dl NEAR OR ABOVE OPTIMAL 130 - 159 mg/dl BORDERLINE HIGH 160 - 189 mg/dl HIGH >190 mg/dl VERY HIGH Performed By: #### L IPID, TSH, T7, CMP #### [facility] [address] [address] [address] Kassandra Bowen Triglyceride [Mass/Vol] 64 mg/dL Normal <=150 [facility] Comment on above: Performed By: #### L IPID, TSH, T7, CMP #### [facility] [address] [address] [address] Kassandra Bowen VLDL CALC 12.8 mg/dL Normal [facility] Comment on above: Performed By: #### L IPID, TSH, T7, CMP #### [facility] [address] [address] [address] Kassandra Bowen PROF 14(COMP METB)on 023 Albumin [Mass/Vol] 3.6 g/dL Normal 3.4-5.0 [facility] Comment on above: Performed By: #### L IPID, TSH, T7, CMP #### [facility] [address] [address] [address] Kassandra Bowen Albumin/Globulin [Mass ratio] 1.0 {ratio} Normal [facility] Comment on above: Performed By: #### L IPID, TSH, T7, CMP #### [facility] [address] [address] [address] Kassandra Bowen ALP [Catalytic activity/Vol] 110 U/L Normal 46-116 [facility] Comment on above: Performed By: #### L IPID, TSH, T7, CMP #### [facility] [address] [address] [address] Kassandra Bowen ALT [Catalytic activity/Vol] 21 U/L Normal 14-59 [facility] Comment on above: Performed By: #### L IPID, TSH, T7, CMP #### [facility] [address] [address] [address] Kassandra Bowen Anion gap [Moles/Vol] 10.0 mmol/L Normal [facility] Comment on above: Performed By: #### L IPID, TSH, T7, CMP #### [facility] [address] [address] [address] Kassandra Bowen AST [Catalytic activity/Vol] 14 U/L Critically low 15-37 [facility] Comment on above: Performed By: #### L IPID, TSH, T7, CMP #### [facility] [address] [address] [address] Kassandra Bowen Bilirubin [Mass/Vol] 0.3 mg/dL Normal 0.2-1.0 [facility] Comment on above: Performed By: #### L IPID, TSH, T7, CMP #### [facility] [address] [address] [address] Kassandra Bowen Calcium [Mass/Vol] 9.5 mg/dL Normal 8.5-10.1 [facility] Comment on above: Performed By: #### L IPID, TSH, T7, CMP #### [facility] [address] [address] [address] Kassandra Bowen Chloride [Moles/Vol] 104 mmol/L Normal 98-107 [facility] Comment on above: Performed By: #### L IPID, TSH, T7, CMP #### [facility] [address] [address] [address] Kassandra Bowen CO2 [Moles/Vol] 28.4 mmol/L Normal 21.0-32.0 [facility] Comment on above: Performed By: #### L IPID, TSH, T7, CMP #### [facility] [address] [address] [address] Kassandra Bowen Creatinine [Mass/Vol] 1.20 mg/dL Critically high 0.55-1.02 [facility] Comment on above: Performed By: #### L IPID, TSH, T7, CMP #### [facility] [address] [place] [address] Dr. Kassandra Bowen EGFR-AF MOSOTHO 56 mL/min/1.73m2 Critically low >=60 [facility] Comment on above: Performed By: #### L IPID, TSH, T7, CMP #### [facility] [address] [place] [address] Dr. Kassandra Bowen EGFR-NON AF [place] 46 mL/min/1.73m2 Critically low >=60 [facility] Comment on above: Performed By: #### L IPID, TSH, T7, CMP #### [facility] [address] [place] [address] Dr. Kassandra Bowen Globulin (S) [Mass/Vol] 3.7 g/dL Normal [facility] Comment on above: Performed By: #### L IPID, TSH, T7, CMP #### [facility] [address] [place] [address] Dr. Kassandra Bowen Glucose [Mass/Vol] 120 mg/dL Critically high 74-106 T [facility] Comment on above: Performed By: #### L IPID, TSH, T7, CMP #### [facility] [address] [place] [address] Dr. Kassandra Bowen Potassium [Moles/Vol] 4.4 mmol/L Normal 3.5-5.1 [facility] Comment on above: Performed By: #### L IPID, TSH, T7, CMP #### [facility] [address] [place] [address] Dr. Kassandra Bowen Protein [Mass/Vol] 7.3 g/dL Normal 6.4-8.2 [facility] Comment on above: Performed By: #### L IPID, TSH, T7, CMP #### [facility] [address] [place] [address] Dr. Kassandra Bowen Sodium [Moles/Vol] 138 mmol/L Normal 136-145 [facility] Comment on above: Performed By: #### L IPID, TSH, T7, CMP #### [facility] [address] [address] [address] Kassandra Bowen Urea nitrogen [Mass/Vol] 8.0 mg/dL Normal 7.0-18.0 [facility] Comment on above: Performed By: #### L IPID, TSH, T7, CMP #### [facility] [address] [address] [address] Kassandra Bowen Urea nitrogen/Creatinine [Mass ratio] 6.7 mg/mg Normal [facility] Comment on above: Performed By: #### L IPID, TSH, T7, CMP #### [facility] [address] [address] [address] Kassandra Bowen TSHon 02-08-2023 TSH 1.651 uIU/mL Normal 0.358-3.[address] [facility] Comment on above: Performed By: #### L IPID, TSH, T7, CMP #### [facility] [address] [address] [address] Kassandra Bowen XR LSPINE MIN 4 [...] by: ASHIA OGDEN Date: 2022-04-20 17:21 Normal [facility] Vital Signs Date Time Vital Sign Value Performing Clinician Joanna rothman 05-02-2023 08:56-0400 Blood Pressure Location Gael WATERS [facility] 05-02-2023 08:56-0400 Diastolic blood pressure 82 mm[Hg] Gael WATERS [facility] 05-02-2023 08:56-0400 Heart rate 63 /min Gael NILL [facility] 05-02-2023 08:56-0400 Respiratory rate 16 /min Gael NILL [facility] 05-02-2023 08:56-0400 Systolic blood pressure 130 mm[Hg] Gael NILL [facility] Encounters Encounter Date Encounter Type Care Provider Facility Start: 05-22-2023 End: 05-23-2023 ambulatory Gael R NILL Facility:CD:[id number] Start: 05-02-2023 End: 05-03-2023 ambulatory Gael R NILL Facility:[facility] Start: 05-02-2023 End: 05-02-2023 Patient encounter procedure Gael R NILL [facility] Start: 04-19-2023 ambulatory Gael NILL Facility:[facility] Start: 04-16-2023 ambulatory ÁLVARO HOY Facility:[facility] Start: 02-12-2023 Encounter for genera l adult medical examination without abnormal findings ÁLVARO HOY [facility] Start: 02-08-2023 End: 02-09-2023 ambulatory ÁLVARO HOY Facility:[facility] Start: 02-08-2023 End: 02-09-2023 Encounter for general adult medical examination without abnormal findings ÁLVARO HOY Facility:[facility] Start: 12-12-2022 ambulatory ÁLVARO HOY Facility:[facility] Start: 09-11-2022 ambulatory ÁLVARO HOY Facility:[facility] Start: 04-20-2022 End: 04-21-2022 ambulatory ÁLVARO HOY Facility:[facility] Start: 09-12-2017 End: 09-13-2017 Ambulatory DEFAULT PHYSICIAN Facility:[facility] Procedures Date Procedure Procedure Detail Performing Clinician Start: 12-02-2014 Colonoscopy Gael NI LL Appendectomy Gael NILL Closed reduction of fracture of upper limb Gael NILL Excision of ganglion cyst Yoli WATERS Immunizations Immunization Date Immunization Notes Care Provider Fa [facility] 08-31-2022 influenza virus vaccine, unspecified formulation Gael WATERS [facility] 08-31-2022 SARS-CoV-2 (COVID-19 ) mRNAMUL.ORD![id number] Gael WATERS [facility] 09-24-2021 SARS-CoV-2 (COVID-19 ) mRNA-1273 vaccine Gael WATERS [facility] 08-22-2021 SARS-CoV-2 (COVID-19 ) mRNA-1273 vaccine Gael WATERS [facility] Payers Date Payer Category Payer Unknown [id number] 2.16.84 [id number] 1965 Unknown [id number] 2.16.84 [id number] 1965 Unknown [id number] 2.16.84 [id number] 1965 Unknown [id number] 2.16.84 [id number] 1965 Unknown [id number] 2.16.84 [id number] 1965 Unknown [id number] 2.16.8 [id number] 1965 Unknown [id number] 2.16.8 [id number] 1961 Self-pay [id number] 1961 Unknown [id number] 1961 Unknown [id number] Unknown Social History Date Type Detail Facility Start: 05-02-2023 Tobacco smoking status Light t obacco smoker (finding) [facility] Tobacco smoking status Never [facility] Sex Assigned At Female [facility] Functional Status Date Assessment Result Facility 05-02-2023 Functional Status N/A [facility] Clinical Note 05-02-2023 Note Date [...] subcutaneous solution famoti (more content not included)... [facility] Comment on above: Result Comment: Elec [...] authenticated by: ASHIA OGDEN Date: 2022-04-20 17:22 [facility] Evaluation + Plan note Note Date & Type Note Facility Evaluation + Plan note No data available for this section [facility] Discharge instructions Note Date & Type Note Facility Hospital Discharge instructions No data available for this section [facility] Progress note Note Date & Type Note Facility Progress note No data available for this section [facility] Summary Purpose Family History No Family History Records FoundNo Family History Records FoundNo Family History Records Found Advance Directives No Advanced Directives Records FoundNo Advanced Directives Records FoundNo Advanced Directives Records Found Additional Source Comments INFORMATION SOURCE (unrecogn ized section and content) DATE CREATED AUTHOR 05/27/2018 [facility] DATE CREATED AUTHOR AUTHOR'S ORGANIZ ATION [facility]17/2023 [facility] DATE CREATED AUTHOR AUTHOR'S ORGANIZ ATION 05/30/2023 [facility] Care team informatio n (unrecognized section and content) Personnel Name: Álvaro Sheehan MD Address: Address: [address] [place] [address] FOR RECORDS PERTAINING TO PATIENTS WHO ARE [...] BE BASED ON THE PRIMARY CLINICAL RECORDS. [facility] [employer] provides no warranty or guarantee of the accuracy or completeness of information in this document.
--- NOTE | 2024-05-19 18:35 | US_ITS ---
The [address] [address] Patient Name: GLORY MCKEON MRN: [id number] date: 1965 Sex: F Assigned Patient Location: ED.MAIN Current Patient Location: Accession/Order Number: [id number] Exam Date: 05/19/2024 18:58 Report Date: 05/19/2024 20:13 At the request of: DHRUV GANDHI Procedure: US venous doppler LE RT EXAM: US venous doppler LE RT HISTORY: Concern for DVT, right leg tingling. COMPARISON: 02/21/2024 PROCEDURE: High resolution duplex sonography of the right lower extremity was performed using B-mode, color-flow, and spectral analysis. FINDINGS: The visualized deep veins of the right lower extremity are compressible. Venous segments show normal waveforms. Color doppler patency preserved. No abnormal intraluminal echogenicity to suggest thrombus. US/US venous doppler LE RT IMPRESSION: No evidence of deep venous thrombosis. Electronically authenticated by: DRE KEYES Date: 05/19/2024 20:13
--- NOTE | 2024-05-19 18:36 | ED.EXTPRO1 ---
HPI - Extremity Problem General Chief complaint: Extremity Problem, Nontraumatic Stated complaint: Lower Extremity Pain Time Seen by Provider: 05/19/24 18:19 Source: patient Mode of arrival: walk-in Limitations: no limitations History of Present Illness HPI Narrative: Is a 58-year-old female who presents to the emergency department for intermittent tingling in the right lower extremity for the last several weeks. She has an appointment tomorrow with her PCP for this, however she states she went to her mother's house this evening and reported tingling in the lower leg after she has been sitting for a long period of time and her mother was concerned she may have a blood clot. She states she has a family history of blood clots and this is her primary concern. She has not noticed any pain, redness or swelling to the lower leg. She states she initially noted the symptoms after sitting with her legs crossed for an extended period of time. She has no back or hip pain. No other focal medical complaints. Related Data Home Medications ?Medication ?Instructions ?Recorded ?Confirmed aripiprazole 2 mg tablet (Abilify) 2 mg PO DAILY 05/14/23 10/19/23 aspirin 81 mg tablet,delayed 81 mg PO DAILY 05/14/23 05/19/24 release desvenlafaxine 100 mg 100 mg PO DAILY 05/14/23 10/19/23 tablet,extended release 24 hr diltiazem HCl 240 mg 240 mg PO DAILY 05/14/23 05/19/24 capsule,extended release 24 hr (Cartia XT) dupilumab 200 mg/1.14 mL 300 mg subcut QWEEK 05/14/23 10/19/23 subcutaneous pen injector (Dupixent) famotidine 40 mg tablet 40 mg PO DAILY 05/14/23 05/19/24 levothyroxine 75 mcg tablet 75 mcg PO DAILY 05/14/23 05/19/24 (Euthyrox) liothyronine 5 mcg tablet (Cytomel) 5 mcg PO DAILY 05/14/23 05/19/24 metoprolol succinate 25 mg 25 mg PO Q12H 05/14/23 05/19/24 tablet,extended release 24 hr olanzapine 2.5 mg tablet 2.5 mg PO DAILY 10/20/23 05/19/24 Allergies Allergy/AdvReac Type Severity Reaction Status Date / Time ciprofloxacin Allergy Rash Verified 05/14/23 14:34 latex Allergy Rash Verified 05/14/23 14:34 Sulfa (Sulfonamide Allergy Rash Verified 05/14/23 14:34 Antibiotics) sulfamethoxazole AdvReac Intermediate Verified 10/19/23 18:32 [From Bactrim] trimethoprim [From Bactrim] AdvReac Intermediate Verified 10/19/23 18:32 Review of Systems ROS Constitutional Denies: fever or chills Ears, nose, mouth, and throat Denies: throat pain Respiratory Denies: shortness of breath or cough Gastrointestinal Denies: nausea or vomiting Musculoskeletal Denies: back pain Integumentary/Breast Denies: rash Neurological Denies: headache Hematologic/Lymphatic Denies: easy bruising or easy bleeding PFSH [facility] Medical History (Updated 05/19/24 @ 19:17 by SIMONE Wei) EMILIE (acute kidney injury) ?N17.9 - Acute kidney failure, unspecified (ICD-10) Cellulitis ?L03.90 - Cellulitis, unspecified (ICD-10) Dog bite ?W54.0XXA - Bitten by dog, initial encounter (ICD-10) Acid reflux ?K21.9 - Gastro-esophageal reflux disease without esophagitis (ICD-10) Hypertension ?I10 - Essential (primary) hypertension (ICD-10) Menopause ?Z78.0 - Asymptomatic menopausal state (ICD-10) Anxiety ?F41.9 - Anxiety disorder, unspecified (ICD-10) Degenerative disc disease, cervical ?M50.30 - Other cervical disc degeneration, unspecified cervical region (ICD-10) Depression ?F32.A - Depression, unspecified (ICD-10) Escherichia coli infection ?A49.8 - Other bacterial infections of unspecified site (ICD-10) Insomnia ?G47.00 - Insomnia, unspecified (ICD-10) Lumbosacral spondylosis without myelopathy ?M47.817 - Spondylosis without myelopathy or radiculopathy, lumbosacral region (ICD-10) Migraine ?G43.909 - Migraine, unspecified, not intractable, without status migrainosus (ICD-10) Mitral valve prolapse ?I34.1 - Nonrheumatic mitral (valve) prolapse (ICD-10) Obstructive sleep apnea ?G47.33 - Obstructive sleep apnea (adult) (pediatric) (ICD-10) Panic disorder ?F41.0 - Panic disorder [episodic paroxysmal anxiety] (ICD-10) Colorectal polyps ?K63.5 - Polyp of colon (ICD-10) ?K62.1 - Rectal polyp (ICD-10) Arm fracture ?S42.309A - Unspecified fracture of shaft of humerus, unspecified arm, initial encounter for closed fracture (ICD-10) Surgical History (Updated 05/14/23 @ 14:34 by Tracy Boswell) History of kyphoplasty ?Z98.890 - Other specified postprocedural states (ICD-10) H/O excision of ganglion cyst ?Z98.890 - Other specified postprocedural states (ICD-10) Hx of appendectomy ?Z90.49 - Acquired absence of other specified parts of digestive tract (ICD-10) H/O colonoscopy ?Z98.890 - Other specified postprocedural states (ICD-10) Family History (Updated 05/14/23 @ 14:08 by Tracy Boswell) Other Family history of hypertension Family history of stroke Social History Within the past year, how often did you have a drink containing alcohol: 2-3 times a week Within the past year, how many standard drinks containing alcohol did you have on a typical day: 1 or 2 Within the past year, how often did you have six or more drinks on one occasion: never Total score: 0 Score interpretation: Questions 2 and 3 are 0. It can be assumed that the patient's drinking is below the recommended limits. However, please confirm the accuracy of the patient's alcohol intake over the last few months. Smoking status: Former smoker What tobacco products do you use: cigarettes Cigarettes per day: 10 Years smoked: 40 Smoking pack-years: 20.00 Smoking quit date/years: <= 15 years ago Non-prescribed substance use: denies use Highest level of school completed/degree received: some college, no degree Exam Narrative Exam Narrative: Gen.: Awake, alert, in no distress Head: Normocephalic, atraumatic ENT: Moist mucous membranes Respiratory: No respiratory distress Extremities: Moves extremities equally, Calves are soft, symmetric bilaterally with no posterior calf pain. Normal dorsiflexion and plantarflexion in the right foot. Strong 2+ DP pulse in the right foot. Right leg is warm, no evidence of vascular compromise. Normal flexion and extension of the knees. Psych: Normal mood and affect Neuro: No focal neuro deficit Skin: Warm, dry, intact Constitutional Vital Signs, click to edit/add: Last Vital Signs Temp 98.4 F 05/19/24 18:20 Pulse 97 H 05/19/24 18:20 Resp 16 05/19/24 18:20 BP 144/75 H 05/19/24 18:20 Pulse Ox 95 05/19/24 18:20 Course Vital Signs Vital signs: Vital Signs Temperature 98.4 F 05/19/24 18:20 Pulse Rate 97 H 05/19/24 18:20 Respiratory Rate 16 05/19/24 18:20 Blood Pressure 144/75 H 05/19/24 18:20 Pulse Oximetry 95 05/19/24 18:20 Temperature 98.4 F 05/19/24 18:20 Pulse Rate 97 H 05/19/24 18:20 Respiratory Rate 16 05/19/24 18:20 Blood Pressure 144/75 H 05/19/24 18:20 Pulse Oximetry 95 05/19/24 18:20 MDM - Extremity (Nontraumatic) MDM Narrative Medical decision making narrative: Ultrasound with no evidence of DVT. No evidence of cellulitis, patient with no pain in the ER and stable vital signs. She has a strong DP pulse in the right foot, no evidence of vascular compromise and she is discharged home to follow-up with her PCP tomorrow as scheduled. SUPERVISED APC VISIT, PHYSICIAN ATTESTATION: Based on the medical record the care appears appropriate. ? Medical Records Attestation: I reviewed the patient's medical records. Imaging Data Venous US: Attestation: I have reviewed the pertinent imaging results. Discharge Plan Discharge Stand Alone Forms: Portal Instructions Chief Complaint: Extremity Problem, Nontraumatic Clinical Impression: Paresthesia of right leg Patient Disposition: Home, Self-Care Time of Disposition Decision: 19:16 Condition: Good Prescriptions / Home Meds: No Action aripiprazole [Abilify] 2 mg tablet 2 mg PO DAILY aspirin 81 mg tablet,delayed release (DR/EC) 81 mg PO DAILY diltiazem HCl [Cartia XT] 240 mg capsule,extended release 24hr 240 mg PO DAILY desvenlafaxine 100 mg tablet extended release 24 hr 100 mg PO DAILY Dupixent Pen 200 mg/1.14 mL pen injector 300 mg subcut QWEEK Patient Comments: takes every 2 weeks famotidine 40 mg tablet 40 mg PO DAILY levothyroxine [Euthyrox] 75 mcg tablet 75 mcg PO DAILY liothyronine [Cytomel] 5 mcg tablet 5 mcg PO DAILY metoprolol succinate 25 mg tablet extended release 24 hr 25 mg PO Q12H olanzapine 2.5 mg tablet 2.5 mg PO DAILY Print Language: Bahamian Instructions: Paresthesia (ED) Referrals: Lonnie Sheehan MD [Primary Care Provider] - 05/20/24
== END 2024-05-19 19:31 | disposition home or self-care (01) ==
PROVIDERS: Emergency Provider Emergency Medicine Emergency Medical Services; PCP Family Medicine
DX: R20.2 Paresthesia of skin (principal); Z87.891 Personal history of nicotine dependence
CPT/HCPCS: 93971; 99284

== ENCOUNTER 2024-12-14 11:27 | Outpatient (OUT) | payer OTHER, SELFPAY ==
--- OUTSIDE RECORDS SUMMARY | 2024-12-14 11:35 | XMS_ITS | CCD ---
Author Organization [facility] Care Team Providers Care Record Pressman Name Role Phone PHYSICIAN, DEFAULT Unavailable Unavailable [...] Translations: [ciprofloxacin] Drug Allergy 2 AOF [facility] Repository (3 sources) sulfamethoxazole / trimethoprim Drug Allergy 2 AOF [facility] Repository (2 sources) Ciprofloxacin Drug Allergy 5 The [facility] Repository (4 sources) Latex; Translations: [Latex] Drug allergy (disorder) 5 Unknown (qualifier value) [facility] Repository (1 source) Ciprofloxacin; Translations: [ciprofloxacin] Drug Allergy 1 Eruption of skin (disorder) [facility] [place] (2 sources) Sulfamethoxazole / Trimethoprim; Translations: [sulfamethoxazole-tr imethoprim] Drug Allergy 0 Unknown [facility] [place] Medications Current Medications Medication Drug Class(es) Dates [...] Range Facility Outside Colonoscopyon 2022 Outside Colonoscopy [id number]#1. 00CD:127 [facility] Reminderson 05-23-2023 Reminders - From: Radha Mi LPN To: Ricky - Clinical; Sent: 05/23/2023 13:31:07 EDT Show up: 04/21/2028 07:00:00 EDT Subject: colonoscopy recall Due Date/Time: 05/22/2028 07:00:00 EDT Reminder/Recall Patient due for surveillance colonoscopy 05/22/2028. [facility] Pre-Certification Formon Pre-Certification Form [id number]# 1.00CD:127 [facility] Consent for Procedure/Surger yon 05-03-2023 Consent for Procedure/Surgery [id number] .00CD:127 [facility] Ambulatory Visit Summaryon 0 05-02-2023 Ambulatory [...] LAURA (obstructive sleep apnea) Panic disorder Normal [facility] Lab Reportson 05-02-2023 Lab Reports [id number] .00CD:127 Normal [facility] Lab Reportson 04-24-2023 Lab Reports [id number] .00CD:127 Normal [facility] Physician Referralon 023 Physician Referral [id number] .00CD:127 Normal [facility] C. DIFF PCRon 04-16-2023 C. DIFFICILE PCR Negative Normal NEGATIVE [facility] Comment on above: Performed By: #### C DIFPOC #### [facility] [address] [place] [address] Dr. Kassandra Bowen INSULINon 02-09-2023 Insulin 17.8 uIU/mL Normal 2.6-24.9 [facility] Comment on above: Performed By: #### I NSULIN ####[facility] [address] [place], [place] [address]Dr. Kassandra Bowen CBC AUTO DIFFon 02-08-2023 BASO # 0.0 103/ul Normal 0.0-0.1 [facility] Comment on above: Performed By: #### C BC #### [facility] [address] [place] [address] Dr. Kassandra Bowen Basophils/100 WBC (Bld) 0.7 % Normal 0.2-2.0 [facility] Comment on above: Performed By: #### C BC #### [facility] [address] [place] [address] Dr. Kassandra Bowen EO # 0.1 103/ul Normal 0.0-0.7 [facility] Comment on above: Performed By: #### C BC #### [facility] [address] [place] [address] Dr. Kassandra Bowen Eosinophils/100 WBC (Bld) 2.5 % Normal 0.9-7.0 [facility] Comment on above: Performed By: #### C BC #### [facility] [address] [place] [address] Dr. Kassandra Bowen Erythrocyte distribution width (RBC) [Ratio] 12.4 % Normal 11.0-15.0 [facility] Comment on above: Performed By: #### C BC #### [facility] [address] [place] [address] Dr. Kassandra Bowen Hematocrit (Bld) [Volume fraction] 41.2 % Normal 36.0-48.0 [facility] Comment on above: Performed By: #### C BC #### [facility] [address] [place] [address] Dr. Kassandra Bowen Hemoglobin (Bld) [Mass/Vol] 13.8 g/dL Normal 12.0-16.0 [facility] Comment on above: Performed By: #### C BC #### [facility] [address] [place] [address] Dr. Kassandra Bowen IG # 0.02 10e3/ul Normal 0.00-0.03 [facility] Comment on above: Performed By: #### C BC #### [facility] [address] [place] [address] Dr. Kassandra Bowen IG % 0.4 % Normal 0.0-0.5 [facility] Comment on above: Performed By: #### C BC #### [facility] [address] [place] [address] Dr. Kassandra Bowen LYMPH # 1.5 103/ul Normal 1.2-3.8 [facility] Comment on above: Performed By: #### C BC #### [facility] [address] [place] [address] Dr. Kassandra Bowen Lymphocytes/100 WBC (Bld) 26.0 % Normal 20.5-60.0 [facility] Comment on above: Performed By: #### C BC #### [facility] [address] [place] [address] Dr. Kassandra Bowen MANUAL DIFF REQ NO Normal [facility] Comment on above: Performed By: #### C BC #### [facility] [address] [place] [address] Dr. Kassandra Bowen MCH (RBC) [Entitic mass] 31.5 pg Normal 26.7-34.0 [facility] Comment on above: Performed By: #### C BC #### [facility] [address] [address] [address] Kassandra Bowen MCHC (RBC) [Mass/Vol] 33.5 g/dL Normal 29.9-35.2 [facility] Comment on above: Performed By: #### C BC #### [facility] [address] [address] [address] Kassandra Bowen MCV (RBC) [Entitic vol] 94.1 fL Normal 81.0-99.0 [facility] Comment on above: Performed By: #### C BC #### [facility] [address] [address] [address] Kassandra Bowen MONO # 0.5 103/ul Normal 0.3-0.8 [facility] Comment on above: Performed By: #### C BC #### [facility] [address] [place] [address] Dr. Kassandra Bowen Monocytes/100 WBC (Bld) 8.7 % Normal 1.7-12.0 [facility] Comment on above: Performed By: #### C BC #### [facility] [address] [place] [address] Dr. Kassandra Bowen NEUT # 3.5 103/ul Normal 1.4-6.5 [facility] Comment on above: Performed By: #### C BC #### [facility] [address] [place] [address] Dr. Kassandra Bowen Neutrophils/100 WBC (Bld) 61.7 % Normal 43.0-75.0 [facility] Comment on above: Performed By: #### C BC #### [facility] [address] [address] [address] Kassandra Bowen Platelet mean volume (Bld) [Entitic vol] 8.3 fL Critically low 9.5-13.5 [facility] Comment on above: Performed By: #### C BC #### [facility] [address] [address] [address] Kassandra Bowen PLT 395 103/ul Normal 150-450 [facility] Comment on above: Performed By: #### C BC #### [facility] [address] [place] [address] Dr. Kassandra Bowen RBC 4.38 106/ul Normal 4.20-5.40 [facility] Comment on above: Performed By: #### C BC #### [facility] [address] [place] [address] Dr. Kassandra Bowen WBC 5.7 103/ul Normal 4.0-11.0 [facility] Comment on above: Performed By: #### C BC #### [facility] [address] [place] [address] Dr. Kassandra Bowen FREE THYROXINE INDEX T7on FTI 2.12 Normal 1.30-4.50 [facility] Comment on above: Performed By: #### L IPID, TSH, T7, CMP #### [facility] [address] [place] [address] Dr. Ksasandra Bowen T3U 36.0 % Normal 30.0-39.0 [facility] Comment on above: Performed By: #### L IPID, TSH, T7, CMP #### [facility] [address] [place] [address] Dr. Kassandra Bowen T4 [Mass/Vol] 5.90 ug/dL Normal 4.80-13.90 [facility] Comment on above: Performed By: #### L IPID, TSH, T7, CMP #### [facility] [address] [place] [address] Dr. Kassandra Bowen GLYCOHEMOGLOBIN A1Con 2022 ADA RECOMMENDATION SEE BELOW Normal [facility] Comment on above: Result Comment: ADA RECOMMENDED LIMIT 4.0 - 6.0 ADA THERAPEUTIC TARGET < 7.0 ACTION SUGGESTED > 7.0 Performed By: #### A 1C #### [facility] [address] [place] [address] Dr. Kassandra Bowen Glucose [Mass/Vol] 114 mg/dL Normal [facility] Comment on above: Performed By: #### A 1C #### [facility] [address] [place] [address] Dr. Kassandra Bowen HbA1c (Bld) [Mass fraction] 5.6 % Normal 4.5-6.2 [facility] Comment on above: Performed By: #### A 1C #### [facility] [address] [place] [address] Dr. Kassandra Bowen IRONon 02-08-2023 Iron [Mass/Vol] 75.0 ug/dL Normal 50.0-170.0 [facility] Comment on above: Performed By: #### I LUCAS #### [facility] [address] [place] [address] Dr. Kassandra Bowen LIPID PROFILEon 02-08-2023 CHOL-HDL RATIO NORM SEE BELOW Normal [facility] Comment on above: Result Comment: 3.3 - 4.4 LOW RISK 4.4 - 7.1 AVERAGE RISK 7.1 - 11.0 MODERATE RISK >11.0 HIGH RISK Performed By: #### L IPID, TSH, T7, CMP #### [facility] [address] [address] [address] Kassandra Bowen Cholesterol [Mass/Vol] 211 mg/dL Critically high <=200 [facility] Comment on above: Performed By: #### L IPID, TSH, T7, CMP #### [facility] [address] [place] [address] Dr. Kassandra Bowen Cholesterol in HDL [Mass/Vol] 51 mg/dL Normal 40-60 [facility] Comment on above: Performed By: #### L IPID, TSH, T7, CMP #### [facility] [address] [address] [address] Kassandra Bowen Cholesterol in LDL [Mass/Vol] 147.2 mg/dL Normal [facility] Comment on above: Performed By: #### L IPID, TSH, T7, CMP #### [facility] [address] [place] [address] Dr. Kassandra Bowen Cholesterol.total/Cho lesterol in HDL [Mass ratio] 4.1 {ratio} Normal [facility] Comment on above: Performed By: #### L IPID, TSH, T7, CMP #### [facility] [address] [place] [address] Dr. Kassandra Bowen HDL NORMAL > or = 60 mg/dl - LO W CARDIOVASCULAR RISK <40 mg/dl - HIGH CARDIOVASCULAR RISK Normal [facility] Comment on above: Performed By: #### L IPID, TSH, T7, CMP #### [facility] [address] [address] [address] Kassandra Bowen LDL CALC NORMAL SEE BELOW Normal [facility] Comment on above: Result Comment: <100 mg/dl OPTIMAL 100 - 129 mg/dl NEAR OR ABOVE OPTIMAL 130 - 159 mg/dl BORDERLINE HIGH 160 - 189 mg/dl HIGH >190 mg/dl VERY HIGH Performed By: #### L IPID, TSH, T7, CMP #### [facility] [address] [address] [address] Kassandra Bowen Triglyceride [Mass/Vol] 64 mg/dL Normal <=150 [facility] Comment on above: Performed By: #### L IPID, TSH, T7, CMP #### [facility] [address] [address] [address] Kassandra Bowen VLDL CALC 12.8 mg/dL Normal [facility] Comment on above: Performed By: #### L IPID, TSH, T7, CMP #### [facility] [address] [address] [address] Kassandra Bowen PROF 14(COMP METB)on 023 Albumin [Mass/Vol] 3.6 g/dL Normal 3.4-5.0 [facility] Comment on above: Performed By: #### L IPID, TSH, T7, CMP #### [facility] [address] [address] [address] Kassandra Bowen Albumin/Globulin [Mass ratio] 1.0 {ratio} Normal [facility] Comment on above: Performed By: #### L IPID, TSH, T7, CMP #### [facility] [address] [address] [address] Kassandra Bowen ALP [Catalytic activity/Vol] 110 U/L Normal 46-116 [facility] Comment on above: Performed By: #### L IPID, TSH, T7, CMP #### [facility] [address] [address] [address] Kassandra Bowen ALT [Catalytic activity/Vol] 21 U/L Normal 14-59 [facility] Comment on above: Performed By: #### L IPID, TSH, T7, CMP #### [facility] [address] [address] [address] Kassandra oBwen Anion gap [Moles/Vol] 10.0 mmol/L Normal [facility] Comment on above: Performed By: #### L IPID, TSH, T7, CMP #### [facility] [address] [address] [address] Kassandra Bowen AST [Catalytic activity/Vol] 14 U/L Critically low 15-37 [facility] Comment on above: Performed By: #### L IPID, TSH, T7, CMP #### [facility] [address] [address] [address] Kassandra Bowen Bilirubin [Mass/Vol] 0.3 mg/dL Normal 0.2-1.0 [facility] Comment on above: Performed By: #### L IPID, TSH, T7, CMP #### [facility] [address] [address] [address] Kassandra Bowen Calcium [Mass/Vol] 9.5 mg/dL Normal 8.5-10.1 [facility] Comment on above: Performed By: #### L IPID, TSH, T7, CMP #### [facility] [address] [address] [address] Kassandra Bowen Chloride [Moles/Vol] 104 mmol/L Normal 98-107 [facility] Comment on above: Performed By: #### L IPID, TSH, T7, CMP #### [facility] [address] [address] [address] Kassandra Bowen CO2 [Moles/Vol] 28.4 mmol/L Normal 21.0-32.0 [facility] Comment on above: Performed By: #### L IPID, TSH, T7, CMP #### [facility] [address] [address] [address] Kassandra Bowen Creatinine [Mass/Vol] 1.20 mg/dL Critically high 0.55-1.02 [facility] Comment on above: Performed By: #### L IPID, TSH, T7, CMP #### [facility] [address] [place] [address] Dr. Kassandra Bowen EGFR-AF PALESTINIAN 56 mL/min/1.73m2 Critically low >=60 [facility] Comment on above: Performed By: #### L IPID, TSH, T7, CMP #### [facility] [address] [place] [address] Dr. Kassandra Bowen EGFR-NON AF PALESTINIAN 46 mL/min/1.73m2 Critically low >=60 [facility] Comment on above: Performed By: #### L IPID, TSH, T7, CMP #### [facility] [address] [place] [address] Dr. Kassandra Bowen Globulin (S) [Mass/Vol] 3.7 g/dL Normal [facility] Comment on above: Performed By: #### L IPID, TSH, T7, CMP #### [facility] [address] [place] [address] Dr. Kassandra Bowen Glucose [Mass/Vol] 120 mg/dL Critically high 74-106 [facility] Comment on above: Performed By: #### L IPID, TSH, T7, CMP #### [facility] [address] [place] [address] Dr. Kassandra Bowen Potassium [Moles/Vol] 4.4 mmol/L Normal 3.5-5.1 [facility] Comment on above: Performed By: #### L IPID, TSH, T7, CMP #### [facility] [address] [place] [address] Dr. Kassandra Bowen Protein [Mass/Vol] 7.3 g/dL Normal 6.4-8.2 [facility] Comment on above: Performed By: #### L IPID, TSH, T7, CMP #### [facility] [address] [place] [address] Dr. Kassandra Bowen Sodium [Moles/Vol] 138 mmol/L Normal 136-145 [facility] Comment on above: Performed By: #### L IPID, TSH, T7, CMP #### [facility] [address] [address] [address] Kassandra Bowen Urea nitrogen [Mass/Vol] 8.0 mg/dL Normal 7.0-18.0 [facility] Comment on above: Performed By: #### L IPID, TSH, T7, CMP #### [facility] [address] [address] [address] Kassandra Bowen Urea nitrogen/Creatinine [Mass ratio] 6.7 mg/mg Normal [facility] Comment on above: Performed By: #### L IPID, TSH, T7, CMP #### [facility] [address] [address] [address] Kassandra Bowen TSHon 02-08-2023 TSH 1.651 uIU/mL Normal 0.358-3.740 [facility] Comment on above: Performed By: #### L IPID, TSH, T7, CMP #### [facility] [address] [address] [address] Kassandra Bowen XR LSPINE MIN 4 [...] by: ASHIA OGDEN Date: 2022-04-20 17:21 Normal [facility] Vital Signs Date Time Vital Sign Value Performing Clinician Joanna rothman 05-02-2023 08:56-0400 Blood Pressure Location Gael WATERS [facility] [place] 05-02-2023 08:56-0400 Diastolic blood pressure 82 mm[Hg] Gael WATERS [facility] [place] 05-02-2023 08:56-0400 Heart rate 63 /min Gael NILL [facility] 05-02-2023 08:56-0400 Respiratory rate 16 /min Gael NILL [facility] 05-02-2023 08:56-0400 Systolic blood pressure 130 mm[Hg] Gael NILL [facility] Encounters Encounter Date Encounter Type Care Provider Facility Start: 05-22-2023 End: 05-23-2023 ambulatory Gael R NILL Facility:CD:[id number] Start: 05-02-2023 End: 05-03-2023 ambulatory Gael R NILL Facility:[facility] Start: 05-02-2023 End: 05-02-2023 Patient encounter procedure Gael R NILL [facility] Start: 04-19-2023 ambulatory Gael NILL Facility:[facility] [place] Start: 04-16-2023 ambulatory ÁLVARO HOY Facility:[facility] Start: 02-12-2023 Encounter for genera l adult medical examination without abnormal findings ÁLVARO HOY [facility] Start: 02-08-2023 End: 02-09-2023 ambulatory ÁLVARO HOY Facility:[facility] Start: 02-08-2023 End: 02-09-2023 Encounter for general adult medical examination without abnormal findings ÁLVARO HOY Facility:[facility] Start: 12-12-2022 ambulatory ÁLVARO HOY Facility:[facility] Start: 09-11-2022 ambulatory ÁLVARO HOY Facility:[facility] Start: 04-20-2022 End: 04-21-2022 ambulatory ÁLVARO HOY Facility:[facility] Start: 09-12-2017 End: 09-13-2017 Ambulatory DEFAULT PHYSICIAN Facility:[facility] Procedures Date Procedure Procedure Detail Performing Clinician Start: 12-02-2014 Colonoscopy Gael NI LL Appendectomy Gael NILL Closed reduction of fracture of upper limb Gael NILL Excision of ganglion cyst Yoli WATERS Immunizations Immunization Date Immunization Notes Care Provider Fa [facility] 08-31-2022 influenza virus vaccine, unspecified formulation Gael WATERS [facility] 08-31-2022 SARS-CoV-2 (COVID-19 ) mRNAMUL.[id number] Gael WATERS [facility] 09-24-2021 SARS-CoV-2 (COVID-19 ) mRNA-1273 vaccine Gael WATERS [facility] 08-22-2021 SARS-CoV-2 (COVID-19 ) mRNA-1273 vaccine Gael WATERS [facility] Payers Date Payer Category Payer Unknown [id number] 2.16.84 [id number] 1965 Unknown [id number] 2.16.84 [id number] 1965 Unknown [id number] 2.16.84 [id number] 1965 Unknown [id number] 2.16.84 [id number] 1965 Unknown [id number] 2.16.84 [id number] 1965 Unknown [id number] 2.16.8 [id number] 1965 Unknown [id number] 2.16.8 [id number] 1961 Self-pay [id number] 1961 Unknown [id number] 1961 Unknown [id number] Unknown Social History Date Type Detail Facility Start: 05-02-2023 Tobacco smoking status Light t obacco smoker (finding) [facility] [place] Tobacco smoking status Never [facility] Sex Assigned At Female [facility] Functional Status Date Assessment Result Facility 05-02-2023 Functional Status N/A [facility] Clinical Note 05-02-2023 Note Date & [...] subcutaneous solution famoti (more content not included)... [facility] Comment on above: Result Comment: Elec tronically [...] authenticated by: ASHIA OGDEN Date: 2022-04-20 17:22 [facility] Evaluation + Plan note Note Date & Type Note Facility Evaluation + Plan note No data available for this section [facility] [place] [facility] Discharge instructions Note Date & Type Note Facility Hospital Discharge instructions No data available for this section [facility] [place] Progress note Note Date & Type Note Facility Progress note No data available for this section [facility] [place] Summary Purpose Family History No Family History Records FoundNo Family History Records FoundNo Family History Records Found Advance Directives No Advanced Directives Records FoundNo Advanced Directives Records FoundNo Advanced Directives Records Found Additional Source Comments INFORMATION SOURCE (unrecogn ized section and content) DATE CREATED AUTHOR 05/27/2018 [facility] DATE CREATED AUTHOR AUTHOR'S ORGANIZ ATION 04/17/2023 [facility] DATE CREATED AUTHOR AUTHOR'S ORGANIZ ATION 05/30/2023 [facility] team informatio n (unrecognized section and content) Personnel Name: Álvaro Sheehan MD Address: Address: [address] [place] [address] FOR RECORDS PERTAINING TO PATIENTS WHO ARE [...] BE BASED ON THE PRIMARY CLINICAL RECORDS. [facility] [employer] provides no warranty or guarantee of the accuracy or completeness of information in this document.
[2024-12-14 12:19] LABS: Basophils Percent Auto 0.7 % (0.2-2.0); Eosinophils Absolute Auto 0.1 10^3/uL (0.0-0.7); Eosinophils Percent Auto 0.9 % (0.9-7.0); Hematocrit 44.1 % (36.0-48.0); Hemoglobin 14.7 g/dL (12.0-16.0); Immature Granulocytes Abs Auto 0.08 10^3/uL (0.00-0.03); Immature Granulocytes Pct Auto 1.4 % (0.0-0.5); Lymphocytes Absolute Auto 1.6 10^3/uL (1.2-3.8); Lymphocytes Percent Auto 26.6 % (20.5-60.0); Mean Corpuscular HGB Conc 33.3 g/dL (29.9-35.2); Mean Corpuscular Hemoglobin 31.5 pg (26.7-34.0); Mean Corpuscular Volume 94.4 fL (81.0-99.0); Mean Platelet Volume 8.6 fL (9.5-13.5); Monocytes Absolute Auto 0.5 10^3/uL (0.3-0.8); Monocytes Percent Auto 8.1 % (1.7-12.0); Neutrophils Absolute Auto 3.6 10^3/uL (1.4-6.5); Neutrophils Percent Auto 62.3 % (43.0-75.0); Platelet Count 334 10^3/uL (150-450); Red Blood Count 4.67 10^6/uL (4.20-5.40); Red Cell Distribution Width 12.1 % (11.0-15.0); White Blood Count 5.8 10^3/uL (4.0-11.0)
[2024-12-14 12:54] LABS: Estimated Average Glucose 97 mg/dL
[2024-12-14 13:13] LABS: Alanine Aminotransferase 22 U/L (14-59); Albumin Globulin Ratio 0.9; Albumin Level 3.3 g/dL (3.4-5.0); Alkaline Phosphatase 109 U/L (46-116); Anion Gap 8.7; Aspartate Amino Transferase 12 U/L (15-37); BUN Creatinine Ratio 9.8; Bilirubin Total 0.3 mg/dL (0.2-1.0); Calcium 9.5 mg/dL (8.5-10.1); Carbon Dioxide 29.8 mmol/L (21.0-32.0); Chloride 107 mmol/L (98-107); Chol HDL Ratio 3.7; Cholesterol 205 mg/dL (<=200); Estimated GFR (African America 54 (>=60 mL/min/1.73m^2); Estimated GFR (Non-African Ame 45 (>=60 mL/min/1.73m^2); Free T3 2.21 pg/mL (2.18-3.98); Globulin 3.6 g/dL; Glucose 94 mg/dL (74-106); HDL Cholesterol 55 mg/dL (40-60); Potassium 4.5 mmol/L (3.5-5.1); Sodium 141 mmol/L (136-145); Thyroid Stimulating Hormone 0.088 uIU/mL (0.358-3.740); Total Protein 6.9 g/dL (6.4-8.2); Triglycerides 81 mg/dL (<=150); VLDL CHOLESTEROL 16.2 mg/dL
[2024-12-15 10:08] LABS: Insulin 12.8 uIU/mL (2.6-24.9)
== END 2024-12-14 11:28 | disposition home or self-care (01) ==
LOC: LAB 11:28
PROVIDERS: PCP Family Medicine; Visit Provider Family Medicine
DX: Z00.00 Encounter for general adult medical examination without abnormal findings (principal); E78.5 Hyperlipidemia, unspecified; R53.83 Other fatigue; R73.09 Other abnormal glucose; I10 Essential (primary) hypertension; D64.9 Anemia, unspecified; E03.9 Hypothyroidism, unspecified
CPT/HCPCS: 36415; 80053; 80061; 83036; 83525; 83540; 84436; 84443; 84481; 85025

== ENCOUNTER 2025-03-15 12:20 | Outpatient (OUT) | payer OTHER, SELFPAY ==
--- NOTE | 2025-03-15 12:26 | MR_ITS ---
The [address] [address] Patient Name: GLORY MCKEON MRN: [facility]:[id number] date: 1965 Sex: F Assigned Patient Location: MRI Current Patient Location: Accession/Order Number: [id number] Exam Date: 03/15/2025 15:14 Report Date: 03/16/2025 09:37 At the request of: ÁLVAOR SANTANA MD Procedure: MR head/brain wo/w con MRI the Brain with and without contrast TECHNIQUE: Multiplanar T1 and T2-weighted imaging of the brain. 14 cc of contrast HISTORY: Left facial droop. Lightheaded. Fatigue. COMPARISON: none VENTRICLES: Unremarkable BRAIN VOLUME: Adequate volume of brain parenchyma identified. BRAIN PARENCHYMAL SIGNAL INTENSITY: Scattered foci of increased T2/FLAIR signal intensity of the brain parenchyma is consistent with chronic small vessel ischemic changes. BLEED: None MASS EFFECT: No mass effect DIFFUSION RESTRICTION: None GRADIENT ECHO PARENCHYMAL SIGNAL LOSS: None MIDBRAIN: The midbrain structures are unremarkable. LARRY: Unremarkable MEDULLA: Unremarkable INTERNAL AUDITORY CANALS: Unremarkable SINUSES: Unremarkable ORBITS: Grossly unremarkable MASTOIDS: Unremarkable ENHANCEMENT: No pathologic enhancement MR/MR head/brain wo/w con IMPRESSION: No acute intracranial process. Mild diffuse atrophy and chronic small vessel ischemic changes. No pathologic enhancement. Impression dictated by: Juan Pablo Garcia M.D.03/16/2025 9:37 AM Dictation Location: [place] [address] Electronically authenticated by: [id number] Y Date: 03/16/2025 09:37
[2025-03-15 12:50] LABS: Estimated GFR (African America 51 (>=60 mL/min/1.73m^2); Estimated GFR (Non-African Ame 42 (>=60 mL/min/1.73m^2)
== END 2025-03-15 12:21 | disposition home or self-care (01) ==
PROVIDERS: PCP Family Medicine; Visit Provider Family Medicine
DX: R29.810 Facial weakness (principal)
CPT/HCPCS: 36415; 70553; 82565; A9575

== ENCOUNTER 2025-03-25 14:25 | Emergency (ER) | payer OTHER, SELFPAY ==
[2025-03-25] VITALS (9 sets, daily range): BP systolic 139–155; BP diastolic 83–106; PULSE 81–90; TEMP 36.4; O2SAT 98–100; BMI 27.5
--- NOTE | 2025-03-25 14:42 | ECG_ITS ---
The [facility] Test Date: 2025-03-25 Pat Name: GLORY MCKEON Department: Room: - Gender: Female Keno Writer: : 1965 Requested By: [id number] Order Number: [id number] Reading MD: EDDIE MCKEON M.D. Measurements Intervals [place] Rate: 79 P: 13 NC: 140 QRS: -4 QRSD: 84 T: 18 QT: 358 QTc: 393 Interpretive Statements 1100 Sinus rhythm [address] depression Abnormal ECG Compared to ECG 12/17/2019 13:26:58 Myocardial infarct finding no longer present ST (T wave) deviation still present Electronically Signed On 03-25-2025 20:45:47 EDT by EDDIE MCKEON M.D.
--- NOTE | 2025-03-25 14:43 | ED_ITS ---
HPI - SOB/Dyspnea General Chief Complaint: Shortness of Breath/Dyspnea Stated Complaint: SOB ARM NUMBNESS Time Seen by Provider: 03/25/25 14:31 Source: patient Mode of arrival: walk-in Limitations: no limitations History of Present Illness HPI Narrative: 59 year old female presents to the ED for generalized weakness, fatigue, SOB. Onset was 2 hours ago. Symptoms have been intermittent for the past 3 weeks. Denies fever, chills, KOEHLER, vision changes. Denies CP, cough, edema, emesis, diarrhea. Reports nausea. States she has been sleeping more than usual. She did have an MRI of her brain 03/15/25 that was negative for acute findings. She is requesting something for anxiety. Related Data Home Medications ?Medication ?Instructions ?Recorded ?Confirmed aripiprazole 2 mg tablet (Abilify) 2 mg PO DAILY 05/14/23 10/19/23 aspirin 81 mg tablet,delayed 81 mg PO DAILY 05/14/23 05/19/24 release desvenlafaxine 100 mg 100 mg PO DAILY 05/14/23 03/25/25 tablet,extended release 24 hr diltiazem HCl 240 mg 240 mg PO DAILY 05/14/23 03/25/25 capsule,extended release 24 hr (Cartia XT) dupilumab 200 mg/1.14 mL 300 mg subcut QWEEK 05/14/23 10/19/23 subcutaneous pen injector (Dupixent) famotidine 40 mg tablet 40 mg PO DAILY 05/14/23 03/25/25 levothyroxine 75 mcg tablet 75 mcg PO DAILY 05/14/23 03/25/25 (Euthyrox) liothyronine 5 mcg tablet (Cytomel) 5 mcg PO DAILY 05/14/23 03/25/25 metoprolol succinate 25 mg 25 mg PO Q12H 05/14/23 03/25/25 tablet,extended release 24 hr olanzapine 2.5 mg tablet 2.5 mg PO DAILY 10/20/23 05/19/24 aspirin 81 mg chewable tablet 03/25/25 dupixident 03/25/25 quetiapine 50 mg tablet 50 mg PO DAILY 03/25/25 03/25/25 semaglutide 2.5 mg/mL subcutaneous mg subcut 03/25/25 solution Allergies Allergy/AdvReac Type Severity Reaction Status Date / Time ciprofloxacin Allergy Rash Verified 03/25/25 14:29 latex Allergy Rash Verified 03/25/25 14:29 Sulfa (Sulfonamide Allergy Rash Verified 03/25/25 14:29 Antibiotics) sulfamethoxazole (From AdvReac Intermediate Rash Verified 03/25/25 14:29 Bactrim) trimethoprim (From Bactrim) AdvReac Intermediate Rash Verified 03/25/25 14:29 Review of Systems ROS Constitutional Reports: fatigue; Denies: fever or chills Ears, nose, mouth, and throat Denies: neck pain Cardiovascular Denies: chest pain Respiratory Reports: shortness of breath; Denies: cough, wheezing or stridor Gastrointestinal Reports: nausea; Denies: abdominal pain, vomiting or diarrhea Musculoskeletal Denies: back pain or neck pain Neurological Reports: dizziness; Denies: headache, numbness in extremities or weakness in extremities PFSH [facility] Medical History (Updated 03/25/25 @ 16:08 by Melina Heath) EMILIE (acute kidney injury) ?N17.9 - Acute kidney failure, unspecified (ICD-10) Cellulitis ?L03.90 - Cellulitis, unspecified (ICD-10) Dog bite ?W54.0XXA - Bitten by dog, initial encounter (ICD-10) Acid reflux ?K21.9 - Gastro-esophageal reflux disease without esophagitis (ICD-10) Hypertension ?I10 - Essential (primary) hypertension (ICD-10) Menopause ?Z78.0 - Asymptomatic menopausal state (ICD-10) Anxiety ?F41.9 - Anxiety disorder, unspecified (ICD-10) Degenerative disc disease, cervical ?M50.30 - Other cervical disc degeneration, unspecified cervical region (ICD- 10) Depression ?F32.A - Depression, unspecified (ICD-10) Escherichia coli infection ?A49.8 - Other bacterial infections of unspecified site (ICD-10) Insomnia ?G47.00 - Insomnia, unspecified (ICD-10) Lumbosacral spondylosis without myelopathy ?M47.817 - Spondylosis without myelopathy or radiculopathy, lumbosacral region (ICD-10) Migraine ?G43.909 - Migraine, unspecified, not intractable, without status migrainosus (ICD-10) Mitral valve prolapse ?I34.1 - Nonrheumatic mitral (valve) prolapse (ICD-10) Obstructive sleep apnea ?G47.33 - Obstructive sleep apnea (adult) (pediatric) (ICD-10) Panic disorder ?F41.0 - Panic disorder [episodic paroxysmal anxiety] (ICD-10) Colorectal polyps ?K63.5 - Polyp of colon (ICD-10) ?K62.1 - Rectal polyp (ICD-10) Arm fracture ?S42.309A - Unspecified fracture of shaft of humerus, unspecified arm, initial encounter for closed fracture (ICD-10) Surgical History (Updated 05/14/23 @ 14:34 by Tracy Boswell) History of kyphoplasty ?Z98.890 - Other specified postprocedural states (ICD-10) H/O excision of ganglion cyst ?Z98.890 - Other specified postprocedural states (ICD-10) Hx of appendectomy ?Z90.49 - Acquired absence of other specified parts of digestive tract (ICD- 10) H/O colonoscopy ?Z98.890 - Other specified postprocedural states (ICD-10) Family History (Updated 05/14/23 @ 14:08 by Tracy Boswell) Other Family history of hypertension Family history of stroke Social History Within the past year, how often did you have a drink containing alcohol: 2-3 times a week Within the past year, how many standard drinks containing alcohol did you have on a typical day: 1 or 2 Within the past year, how often did you have six or more drinks on one occasion: never Total score: 0 Score interpretation: Questions 2 and 3 are 0. It can be assumed that the patient's drinking is below the recommended limits. However, please confirm the accuracy of the patient's alcohol intake over the last few months. Smoking status: Former smoker What tobacco products do you use: cigarettes Cigarettes per day: 10 Years smoked: 40 Smoking pack-years: 20.00 Smoking quit date/years: <= 15 years ago Non-prescribed substance use: denies use Highest level of school completed/degree received: some college, no degree Little interest or pleasure in doing things: not at all Feeling down, depressed, or hopeless: not at all Exam Constitutional Vital Signs, click to edit/add: Last Vital Signs Temp 97.5 F L 03/25/25 14:29 Pulse 82 03/25/25 15:30 Resp 12 03/25/25 15:30 BP 155/83 H 03/25/25 15:04 Pulse Ox 99 03/25/25 15:30 O2 Del Method Room Air 03/25/25 14:29 Common normals: no apparent distress and oriented x3 General appearance: cooperative HENMT Common normals: moist oral mucous membranes Eye Common normals: conjunctivae normal and no scleral icterus Neck & C-Spine Common normals: supple Chest Chest: symmetrical chest wall rise Respiratory Common normals: normal respiratory effort and clear to auscultation bilaterally Effort & inspection: able to speak in complete sentences and symmetric chest movement Cardio Common normals: regular rate and regular rhythm Neuro Common normals: oriented x3, moves all extremities and no focal motor deficits Sensorium/orientation: awake and alert Speech: speech normal Gait (neuro): normal gait Psych Mood and affect: anxious Course Vital Signs Vital signs: Vital Signs Temperature 97.5 F L 03/25/25 14:29 Pulse Rate 90 03/25/25 14:29 Respiratory Rate 20 03/25/25 14:29 Blood Pressure 139/106 H 03/25/25 14:29 Pulse Oximetry 100 03/25/25 14:29 Oxygen Delivery Method Room Air 03/25/25 14:29 Temperature 97.5 F L 03/25/25 14:29 Pulse Rate 82 03/25/25 15:30 Respiratory Rate 12 03/25/25 15:30 Blood Pressure 155/83 H 03/25/25 15:04 Pulse Oximetry 99 03/25/25 15:30 Oxygen Delivery Method Room Air 03/25/25 14:29 MDM - SOB/Dyspnea MDM Narrative Medical decision making narrative: Laboratory studies were unremarkable. Chest x-ray was negative for acute findings. She was given Xanax here after requesting something to help her relax. Findings were discussed. The possibility of anxiety was discussed. She has a pcp appointment tomorrow; follow up as scheduled. Medical Records Attestation: I reviewed the patient's medical records. Lab Data Attestation: I reviewed the patient's lab results. Labs: Lab Results 03/25/25 Range/Units 14:40 WBC 7.4 (4.0-11.0) 10^3/uL RBC 4.55 (4.20-5.40) 10^6/uL Hgb 14.6 (12.0-16.0) g/dL Hct 41.9 (36.0-48.0) % MCV 92.1 (81.0-99.0) fL MCH 32.1 (26.7-34.0) pg MCHC 34.8 (29.9-35.2) g/dL RDW 12.6 (11.0-15.0) % Plt Count 353 (150-450) 10^3/uL MPV 8.5 L (9.5-13.5) fL Neut % (Auto) 53.5 (43.0-75.0) % Lymph % (Auto) 36.2 (20.5-60.0) % [place] % (Auto) 8.2 (1.7-12.0) % Eos % (Auto) 1.3 (0.9-7.0) % Baso % (Auto) 0.5 (0.2-2.0) % Neut # (Auto) 4.0 (1.4-6.5) 10^3/uL Lymph # (Auto) 2.7 (1.2-3.8) 10^3/uL [place] # (Auto) 0.6 (0.3-0.8) 10^3/uL Eos # (Auto) 0.1 (0.0-0.7) 10^3/uL Baso # (Auto) 0.0 (0.0-0.1) 10^3/uL Abs Immat Gran (auto) 0.02 (0.00-0.03) 10^3/uL Imm/Tot Granulo (auto) 0.3 (0.0-0.5) % D-Dimer 0.34 (<=0.59) mg/L FEU Sodium 137 (136-145) mmol/L Potassium 4.0 (3.5-5.1) mmol/L Chloride 101 (98-107) mmol/L Carbon Dioxide 26.1 (21.0-32.0) mmol/L Anion Gap 13.9 BUN 12.0 (7.0-18.0) mg/dL Creatinine 1.27 H (0.55-1.02) mg/dL Est GFR ( Amer) 52 L (>=60 mL/min/1.73m^2) Est GFR (Non-Af Amer) 43 L (>=60 mL/min/1.73m^2) BUN/Creatinine Ratio 9.4 Glucose 114 H (74-106) mg/dL Calcium 9.3 (8.5-10.1) mg/dL Total Bilirubin 0.3 (0.2-1.0) mg/dL AST 18 (15-37) U/L ALT 36 (14-59) U/L Alkaline Phosphatase 117 H (46-116) U/L Troponin I High Sens <4.0 L (4.0-51.3) pg/mL NT-Pro-B Natriuret Pep 61.0 (<=900.0) pg/mL Total Protein 7.1 (6.4-8.2) g/dL Albumin 3.7 (3.4-5.0) g/dL Globulin 3.4 g/dL Albumin/Globulin Ratio 1.1 Imaging Data Chest x-ray: Attestation: I have reviewed the pertinent imaging results. Radiologist's impression: No acute process. ECG Data Attestation: ?I have reviewed the pertinent ECG results. (EKG was reviewed by the attending physician. It showed sinus rhythm at a rate of 79. No STEMI) Interpretation: Measurements Intervals [place] Rate: 79 P: 13 PA: 140 QRS: -4 QRSD: 84 T: 18 QT: 358 QTc: 393 Interpretive Statements 1100 Sinus rhythm [address] depression 9130 borderline ECG No previous ECG available for comparison Discharge Plan Discharge Chief Complaint: Shortness of Breath/Dyspnea Clinical Impression: Dyspnea Patient Disposition: Home, Self-Care Time of Disposition Decision: 16:05 Condition: Good Mode of Transportation: Private Vehicle Prescriptions / Home Meds: No Action aspirin 81 mg tablet,chewable quetiapine 50 mg tablet 50 mg PO DAILY dupixident semaglutide 2.5 mg/mL solution subcut aripiprazole [Abilify] 2 mg tablet 2 mg PO DAILY aspirin 81 mg tablet,delayed release (DR/EC) 81 mg PO DAILY diltiazem HCl [Cartia XT] 240 mg capsule,extended release 24hr 240 mg PO DAILY desvenlafaxine 100 mg tablet extended release 24 hr 100 mg PO DAILY Dupixent Pen 200 mg/1.14 mL pen injector 300 mg subcut QWEEK Patient Comments: takes every 2 weeks famotidine 40 mg tablet 40 mg PO DAILY levothyroxine [Euthyrox] 75 mcg tablet 75 mcg PO DAILY liothyronine [Cytomel] 5 mcg tablet 5 mcg PO DAILY metoprolol succinate 25 mg tablet extended release 24 hr 25 mg PO Q12H olanzapine 2.5 mg tablet 2.5 mg PO DAILY Print Language: Croatian Instructions: Dyspnea (ED) Additional Instructions: Return to the ER for worsening symptoms. Follow up with Dr. Sheehan tomorrow as scheduled. Referrals: Lonnie Sheehan MD [Primary Care Provider] - 1 week
[2025-03-25 14:48] LABS: Basophils Percent Auto 0.5 % (0.2-2.0); Eosinophils Absolute Auto 0.1 10^3/uL (0.0-0.7); Eosinophils Percent Auto 1.3 % (0.9-7.0); Hematocrit 41.9 % (36.0-48.0); Hemoglobin 14.6 g/dL (12.0-16.0); Immature Granulocytes Abs Auto 0.02 10^3/uL (0.00-0.03); Immature Granulocytes Pct Auto 0.3 % (0.0-0.5); Lymphocytes Absolute Auto 2.7 10^3/uL (1.2-3.8); Lymphocytes Percent Auto 36.2 % (20.5-60.0); Mean Corpuscular HGB Conc 34.8 g/dL (29.9-35.2); Mean Corpuscular Hemoglobin 32.1 pg (26.7-34.0); Mean Corpuscular Volume 92.1 fL (81.0-99.0); Mean Platelet Volume 8.5 fL (9.5-13.5); Monocytes Absolute Auto 0.6 10^3/uL (0.3-0.8); Monocytes Percent Auto 8.2 % (1.7-12.0); Neutrophils Percent Auto 53.5 % (43.0-75.0); Platelet Count 353 10^3/uL (150-450); Red Blood Count 4.55 10^6/uL (4.20-5.40); Red Cell Distribution Width 12.6 % (11.0-15.0); White Blood Count 7.4 10^3/uL (4.0-11.0)
[2025-03-25 15:03] LABS: D Dimer 0.34 mg/L FEU (<=0.59)
[2025-03-25 15:06] LABS: Alanine Aminotransferase 36 U/L (14-59); Albumin Globulin Ratio 1.1; Albumin Level 3.7 g/dL (3.4-5.0); Alkaline Phosphatase 117 U/L (46-116); Anion Gap 13.9; Aspartate Amino Transferase 18 U/L (15-37); BUN Creatinine Ratio 9.4; Bilirubin Total 0.3 mg/dL (0.2-1.0); Calcium 9.3 mg/dL (8.5-10.1); Carbon Dioxide 26.1 mmol/L (21.0-32.0); Chloride 101 mmol/L (98-107); Estimated GFR (African America 52 (>=60 mL/min/1.73m^2); Estimated GFR (Non-African Ame 43 (>=60 mL/min/1.73m^2); Globulin 3.4 g/dL; Glucose 114 mg/dL (74-106); Sodium 137 mmol/L (136-145); Total Protein 7.1 g/dL (6.4-8.2)
[2025-03-25] MEDS: ALPRAZOLAM 0.5 MG TABLET PO (15:10)
[2025-03-25 15:14] LABS: Troponin I High Sensitivity <4.0 pg/mL (4.0-51.3)
== END 2025-03-25 16:13 | disposition home or self-care (01) ==
PROVIDERS: Nurse Practitioner Family; Emergency Provider Emergency Medicine; PCP Family Medicine
DX: R06.00 Dyspnea, unspecified (principal); Z90.49 Acquired absence of other specified parts of digestive tract; Z87.891 Personal history of nicotine dependence
CPT/HCPCS: 36415; 71045; 80053; 83880; 84484; 85025; 85378; 93005; 99285

== ENCOUNTER 2025-04-05 13:55 | Outpatient (OUT) | payer OTHER, SELFPAY ==
--- NOTE | 2025-04-05 14:21 | CT_ITS ---
The [address] [address] Patient Name: GLORY MCKEON MRN: [id number] date: 1965 Sex: F Assigned Patient Location: CT Current Patient Location: CT Accession/Order Number: [id number] Exam Date: 04/05/2025 15:15 Report Date: 04/05/2025 15:23 At the request of: ÁLVARO SANATNA MD Procedure: CT lung screening low-dose CT CHEST WITHOUT CONTRAST, LOW DOSE SCREENING: CLINICAL DATA: A 59-year old former smoker COMPARISON: None TECHNIQUE: Noncontrast axial CT scan images of the chest were obtained under the low dose screening CT protocol. Coronal and sagittal reconstructed images were also submitted. FINDINGS: Mediastinum : Suboptimal evaluation due to low-dose technique. Thoracic aorta appears normal in caliber. Pulmonary trunk appears nondilated. No pericardial effusion. No lymphadenopathy. The esophagus is grossly unremarkable. Lungs: No focal consolidation, pneumothorax or pleural effusion. Trachea and distal airways appear patent. Mild lung scarring. Emphysema. No suspicious noncalcified pulmonary nodule or mass. Upper abdomen: No acute findings. Liver cysts. Bony thorax and chest wall: Soft tissues surrounding the chest wall demonstrate no acute findings. Osseous structures demonstrate degenerative change. CT/CT lung screening low-dose IMPRESSION: LUNG - RADS Version 1.0 Assessment: Impression dictated by: Jack Leon Jr., D.O. 04/05/2025 3:23 PM Dictation Location: [place] [address] Electronically authenticated by: [id number] Y Date: 04/05/2025 15:23
--- NOTE | 2025-04-05 14:21 | CT_ITS ---
The [address] [address] Patient Name: GLORY MCKEON MRN: [id number] date: 1965 Sex: F Assigned Patient Location: CT Current Patient Location: CT Accession/Order Number: [id number] Exam Date: 04/05/2025 14:41 Report Date: 04/05/2025 15:15 At the request of: ÁLVARO SANTANA MD Procedure: CT sinus wo con CT PARANASAL SINUSES WITHOUT CONTRAST: CLINICAL HISTORY: Acute Sinusitis COMPARISON: None TECHNIQUE: Contiguous axial unenhanced images were obtained through the paranasal sinuses. Coronal reconstructions were also performed. This CT exam was performed using one or more following dose reduction techniques: Automated exposure control, adjustment of the mA and/or kV according to patient size, or use of iterative reconstruction technique. FINDINGS: There is appropriate development and pneumatization. There is no mucosal thickening or air-fluid levels. The ostiomeatal complexes are patent. There is no bony destruction. No soft tissue swelling. Nasopharynx appears unremarkable. CT/CT sinus wo con IMPRESSION: NO EVIDENCE OF INFLAMMATORY DISEASE Impression dictated by: Jack Leon Jr., D.O. 04/05/2025 3:15 PM Dictation Location: [place] [address] Electronically authenticated by: [id number] Y Date: 04/05/2025 15:15
== END 2025-04-05 13:56 | disposition home or self-care (01) ==
LOC: CT 13:56
PROVIDERS: PCP Family Medicine; Visit Provider Family Medicine
DX: J01.90 Acute sinusitis, unspecified (principal); Z72.0 Tobacco use
CPT/HCPCS: 70486; 71271

== ENCOUNTER 2025-06-09 14:17 | Emergency (ER) | payer OTHER, SELFPAY ==
--- OUTSIDE RECORDS SUMMARY | 2025-05-17 11:45 | XMS_ITS ---
Author Organization The [facility] in [place] Address [address] [place] [address] Care Team Providers Care Hvac Controls Technician Name Role Phone Konrad Sheehan Primary Care Provider [phone] Allergies Allergen (clinical drug ingredient) Drug/Non Drug Allergy documented on EMR Reaction Allergy Type Onset Date Status sulfamethoxazole / trimethoprim Bactrim Unknown Drug Allergy Active ciprofloxacin Cipro Unknown Drug Allergy Act jarvis Latex Latex Unknown Allergy Active Substance with sulfonamide structure and antibacterial mechanism of action (substance) Sulfa Antibiotics Unknown Drug Allergy A ctive REASON FOR VISIT med f/u to olanzapine, helping her anxiety some but still feels her anxiety Medications Medication SIG (Take, Route, Frequency, Duration) Notes Start Date End Date Status Liothyronine Sodium 5 MCG 1 tablet on an empty stomach Orally Once a day for 90 days Active Metoprolol Succinate ER 25 MG 1 tablet Orally Once a day- with 50mg tablet for 90 days 12/28/2024 Active Metoprolol Succinate ER 50 MG 1 tablet Orally Once a day for 90 days Active Semaglutide 2.268 mg/0.63 mL Buderer Active OLANZapine 10 MG 1 tablet Orally Once a day for 30 days 04/27/2025 Active Dupixent 300 MG/2ML as directed Subcutaneous Active Famotidine 40 MG 1 tablet at bedtime Orally Once a day for 90 days Active hydrOXYzine HCl 25 MG 1 tablet as needed Orally qid for 10 days 04/06/2025 Active Ibuprofen 800 MG 1 tablet with food o r milk as needed Orally every 8 hrs PRN Active Levothyroxine Sodium 75 MCG 1 tablet in the morning on an empty stomach Orally Once a day for 90 days Active Ammonium Lactate 12 % 1 application Exte rnally Twice a day 04/14/2025 Active Aspirin 81 81 MG 1 tablet Orally Once a day for 90 days Active Biotin Active Desvenlafaxine Succinate ER 100 MG 1 tablet Orally Once a day for 90 days Active dilTIAZem HCl ER Coated Beads 240 MG 1 capsule Orally Once a day for 90 days Active ALPRAZolam 0.5 MG 1 tablet Orally Twic e a day for 5 days 04/23/2025 Active Social History Tobacco Use: Social History Observation Description Date Details (start date - stop date) Former Smoker 12/02/1981 - 08/20/2024 Tobacco Control (Standard) Question Answer Notes Tobacco use: Former smoker When did you start smoking? 12/02/1981 When did you stop smoking? 08/20/2024 How long has it been since you last smoked? Less than 1 month Vital Signs Weight 171.6 lbs 05/17/2025 Height 64 in 05/17/2025 Blood pressure systolic 132 mm Hg 05/17/20 25 Blood pressure diastolic 80 mm Hg 025 BMI 29.45 kg/m2 05/17/2025 Encounters Encounter Location Date Provider Diagnosis [facility] [address] [place] [address] 05/17/2025 Konrad Sheehan Insomnia G47.00 ; Anxiety F41.9 and Depression F32.9 Assessments Encounter Date Diagnosis (ICD Code) Assessment Notes Treatment Notes Treatment Clinical Notes Section Notes 05/17/2025 Insomnia (ICD-10 - G47.00) 05/17/2025 Anxiety (ICD-10 - F41.9) 05/17/2025 Depression (ICD-10 - F32.9) Plan Of Treatment Medication Medication Name Sig Start Date Stop Date Notes OLANZapine 10 MG 1 tablet Orally Once a day for 30 days Next Appt Details Provider Name:Konrad Warren Aguila, 01:00:00 PM, [address] [place], [address], Progress Notes * Ciara KENDALL MDOB:[birth year] (59 yo F)Acc No.[id number]:05/17/2025 Progress Note Patient: Kelvin Ciara CR Provider: Jazzmine Sheehan ([facility])MD :1965 A ge:59 Y S ex:Female Date:05/17/2025 Address:[address] [place] [address], [id number] Check In:03:28 PM ESTCheck O ut:04:24 PM EST Subjective: * Chief Complaints: * M ed f/u to olanzapine, helping her anxiety some but still feels her anxiety * HPI: G eneral: Anxiety been acoituy up - just starting councelign cpmp;leted paperwork. * ROS: E ENT: hearing changes d enies. v isual changes d enies.?non-healing mouth sores d enies. s wollen glands or neck lumps d enies. h oarseness d enies. s ore throat d enies. d ifficulty swallowing d enies. n ose bleeds d enies. n sydnee congestion d enies. e ar ache d enies. e ar discharge?denies. r inging in ears d enies. l ight sensitivity d enies. e ye pain d enies. b lurring d enies. e ye irritation d enies. d ouble vision d enies.?vision loss d enies. G eneral/Constitutional: Sweats: D enies. F atigue d enies. S leep problems d enies. A norexia d enies. M alaise d enies. W eight loss d enies.?Fatigue or Weakness d enies. F ever or Chills d enies. C ardiovascular: Shortness of Breath w/lying flat d enies. L ightheadedness/dizziness d enies. C hest tightness/ heavy pressure d enies. S welling of legs, ankles, or feet d enies. W aking up with shortness of breath d enies. C hest pain denies. P alpitations d enies. W eight gain d enies. R espiratory: Chronic or frequent cough d enies. C oughing up blood?denies. D ifficulty breathing d enies. P roductive cough d enies. S noring?denies. S hortness of breath that awakens from sleep (PND) d enies. C hest pain d enies. S putum production d enies. W heezing d enies. M usculoskeletal: Joint pain d enies. J oint Fluid d enies. B ack pain d enies. K nee pain d enies. N jostin pain d enies. J oint Stiffness d enies. M uscle cramps d enies. W eakness of muscles d enies. A rthritis d enies. M uscle aches d enies. P ain in shoulder(s) d enies. S wollen joints d enies. 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 Modified On:01/17/2024U Status:confirmed M79.609 Pain in unspecified limb Modified On:04/04/2023 Status:confirmed N30.00 Acute cystitis witho ut hematuria Modified On:04/04/2023U Status:confirmed N30.01 Acute cystitis with hematuria Modified On:04/04/2023U Status:confirmed S93.412S Sprain of calcaneofi bular ligament of left ankle, sequela Modified On:04/04/2023U Status:confirmed R07.9 Chest pain Modified On:04/04/2023U Status:confirmed G43.909 Migraine headache Modified On:12/16/2023U Status:confirmed F41.9 Anxiety Modified On:10/02/2023U Status:confirmed I34.1 Mitral valve prolaps e Modified On:04/04/2023U Status:confirmed F32.9 Depression Modified On:10/02/2023U Status:confirmed G47.33 Obstructive sleep ap phuc Modified On:12/11/2023U Status:confirmed G47.00 Insomnia Modified On:04/04/2023U Status:confirmed M79.643 Pain in joint, hand Modified On:04/04/2023U Status:confirmed D12.6 Tubular adenoma of c olon Modified On:04/04/2023U Status:confirmed M25.561 Knee pain, right Modified On:04/04/2023 Status:confirmed K59.00 Constipation Modified On:04/04/2023 Status:confirmed Z00.00 Well adult Modified On:02/20/2024 Status:confirmed F41.0 Panic disorder Modified On:04/04/2023 Status:confirmed R55 Near syncope Modified On:04/04/2023 Status:confirmed M50.30 DDD (degenerative di sc disease), cervical Modified On:05/15/2023 Status:confirmed E66.3 Over weight Modified On:04/04/2023 Status:confirmed I80.8 Superficial phlebiti s of arm Modified On:04/04/2023 Status:confirmed J30.2 Allergic rhinitis, s easonal Modified On:04/04/2023 Status:confirmed R10.11 Abdominal pain, RUQ Modified On:04/04/2023 Status:confirmed J34.89 Rhinorrhea Modified On:04/04/2023 Status:confirmed I20.1 Coronary artery spas m Modified On:04/04/2023 Status:confirmed M75.40 Shoulder impingement syndrome Modified On:04/04/2023 Status:confirmed M54.50 Low back pain, unspe cified Modified On:10/15/2023 Status:confirmed R05.9 Cough, unspecified Modified On:12/16/2023 Status:confirmed J44.9 COPD, mild Modified On:04/04/2023 Status:confirmed J21.9 Acute bronchiolitis Modified On:04/15/2023 Status:confirmed R19.7 Acute diarrhea Modified On:04/15/2023 Status:confirmed R19.7 Diarrhea Modified On:04/30/2023 Status:confirmed Z86.010 Personal history of colonic polyps Modified On:05/15/2023 Status:confirmed R19.4 Change in bowel habi t Modified On:05/15/2023 Status:confirmed K58.9 Irritable bowel Modified On:06/14/2023W/U Status:confirmed W54.0XXA Dog bite Modified On:11/07/2023U Status:confirmed R60.9 Edema Modified On:02/24/2024U Status:confirmed M79.604 Right leg pain Modified On:02/20/2024U Status:confirmed I87.2 Venous insufficiency (chronic) (peripheral) Modified On:03/23/2024U Status:confirmed T63.301A Spider bite Modified On:05/04/2024U Status:confirmed M54.50 Low back pain at mul tiple sites Modified On:08/11/2024U Status:confirmed I10 Hypertension Modified On:09/03/2024U Status:confirmed H66.90 Otitis media Modified On:01/18/2025U Status:confirmed R29.810 Facial droop Modified On:03/04/2025U Status:confirmed R29.898 Arm weakness Modified On:03/04/2025U Status:confirmed R53.83 Fatigue Modified On:03/17/2025 Status:confirmed * Medical History: * Surgical History: A PPENDECTOMY Kyphoplasty Ganglion cyst removal Broken left arm- child Colonoscopy 05/2023 * Hospitalization/Major Diagno stic Procedure: P neumonia/Influenza B/Bronchitis Exhaustion * Family History: F ather: 48 yrs, stroke- 48 years old. M other: alive. B rother(s): alive.?Sister(s): alive. S on(s): alive. 1 brother(s) , 2 sister(s) . 1 son(s) . . * Social History: T obacco Use: T obacco Control (Standard) T obacco use: F ormer smoker W hen did you start smoking? 0 12/02/1981 W hen did you stop smoking? 0 08/20/2024 H ow long has it been since you last smoked??Less than 1 month * Medications: T akingALPRAZolam 0.5 MG Tablet 1 tablet Orally Twice a day Ammonium Lactate 12 % Lotion 1 application Externally Twice a day Aspirin 81(Aspirin) 81 MG Tablet Chewable 1 tablet Orally Once a day Biotin Desvenlafaxine Succinate ER 100 MG Tablet Extended Release 24 Hour 1 tablet Orally Once a day dilTIAZem HCl ER Coated Beads 240 MG Capsule Extended Release 24 Hour 1 capsule Orally Once a day Dupixent(Dupilumab) 300 MG/2ML Solution Prefilled Syringe as directed Subcutaneous Famotidine 40 MG Tablet 1 tablet at bedtime Orally Once a day hydrOXYzine HCl 25 MG Tablet 1 tablet as needed Orally qid Ibuprofen 800 MG Tablet 1 tablet with food or milk as needed Orally every 8 hrs , Notes to Pharmacist: PRNLevothyroxine Sodium 75 MCG Tablet 1 tablet in the morning on an empty stomach Orally Once a day Liothyronine Sodium 5 MCG Tablet 1 tablet on an empty stomach Orally Once a day Metoprolol Succinate ER 25 MG Tablet Extended Release 24 Hour 1 tablet Orally Once a day- with 50mg tablet Metoprolol Succinate ER 50 MG Tablet Extended Release 24 Hour 1 tablet Orally Once a day OLANZapine 5 MG Tablet 1 tablet Orally Once a day Semaglutide 2.268 mg/0.63 mL , Notes to Pharmacist: BudererMedication List reviewed and reconciled with the patientTaking ALPRAZolam 0.5 MG Tablet 1 tablet Orally Twice a day Taking Ammonium Lactate 12 % Lotion 1 application Externally Twice a day Taking Aspirin 81(Aspirin) 81 MG Tablet Chewable 1 tablet Orally Once a day Taking Biotin Taking Desvenlafaxine Succinate ER 100 MG Tablet Extended Release 24 Hour 1 tablet Orally Once a day Taking dilTIAZem HCl ER Coated Beads 240 MG Capsule Extended Release 24 Hour 1 capsule Orally Once a day Taking Dupixent(Dupilumab) 300 MG/2ML Solution Prefilled Syringe as directed Subcutaneous Taking Famotidine 40 MG Tablet 1 tablet at bedtime Orally Once a day Taking hydrOXYzine HCl 25 MG Tablet 1 tablet as needed Orally qid Taking Ibuprofen 800 MG Tablet 1 tablet with food or milk as needed Orally every 8 hrs , Notes to Pharmacist: PRNTaking Levothyroxine Sodium 75 MCG Tablet 1 tablet in the morning on an empty stomach Orally Once a day Taking Liothyronine Sodium 5 MCG Tablet 1 tablet on an empty stomach Orally Once a day Taking Metoprolol Succinate ER 25 MG Tablet Extended Release 24 Hour 1 tablet Orally Once a day- with 50mg tablet Taking Metoprolol Succinate ER 50 MG Tablet Extended Release 24 Hour 1 tablet Orally Once a day Taking OLANZapine 5 MG Tablet 1 tablet Orally Once a day Taking Semaglutide 2.268 mg/0.63 mL , Notes to Pharmacist: BudererMedication List reviewed and reconciled with the patient * Allergies: S ulfa AntibioticsLatex - Criticality HighBactrimCiprono[Allergies Verified] Objective: * Vitals: W t:171.6lbs, Ht: 64 in, BP:132/80mm Hg, BMI:29.45Index, Ht-cm: 162.56 cm, Wt-k.84 kg. * Examination: P hysical Exam: GENERAL: w ell developed, well nourished, in no acute distress. HEAD: n ormocephalic/atraumatic. EYES: p upils equal, round and reactive to light, conjunctivae and sclerae normal. EARS: n o deformity or lesion of external ear, canals and TM appear normal bilaterally, TM's intact, not inflamed with normal light reflex, hearing grossly normal to conversational speech. NOSE: n o deformity, discharge, inflammation, or lesions.? MOUTH: m ucous membranes moist, normal oropharynx and posterior pharynx without lesions or exudates, tongue normal, dentition normal. NECK: n jostin supple, no masses or palpable cervical nodes, trachea midline, thyroid without nodules, masses, tenderness, or enlargement. CHEST: n o chest wall deformity, no chest wall tenderness.? LUNGS: n ormal respiratory effort and clear to auscultation, no wheezes, rales, or rhonchi, good air exchange. CARDIO: r egular rate and rhythm, normal S1 and S2, nor murmur, rub, or gallop. PULSES: n ormal capillary refill. ABDOMEN: s oft, non-distended, non-tender, no masses. MUSCULOSKELETAL: n o deformity or scoliosis noted, normal range of motion, joints normal, no erythema, edema, effusion, or ecchymosis. EXTREMITY: n o clubbing, cyanosis, edema, or deformity with normal ROM in both upper and lower bilateral extremities. NEUROLOGIC: g rossly normal. SKIN: n o rashes, ulcerations, or suspicious lesions. LYMPH NODES: n o cervical adenopathy, nodes normal. MENTAL STATUS: a lert and oriented x3, normal mood and affect. Assessment: * Assessment: 1. I nsomnia - G47.00 (Primary) 2 . A nxiety - F41.9 3 .?Depression - F32.9 Plan: * Treatment: * Procedure Codes: * Preventive Medicine: Screenings/Counseling: B [place] ACTION PLAN Above Normal BMI Follow-up D ietary management education, guidance, and counseling * * Sign off status: Completed Visit Status: C HK (Check Out) true * Provider: Jazzmine Sheehan ([facility])MD Date: 0 05/17/2025 Generated for Printi ng/Faxing/eTransmitting on: 0 06/09/2025 02:57 PM EDT History and Physical Notes * HPI (History of Present Illness) Category Sub-Category Detail Notes Category Not es General Anxiety been acoituy up - just starting councelign cpmp;leted paperwork Examination Category Sub-Category Detail Notes Category Not es Physical Exam GENERAL: well developed, well nourished, in no acute distress HEAD: normocephalic/atraum atic EYES: pupils equal, round and reactive to light, conjunctivae and sclerae normal EARS: no deformity or lesi on of external ear, canals and TM appear normal bilaterally, TM's intact, not inflamed with normal light reflex, hearing grossly normal to conversational speech NOSE: no deformity, discha rge, inflammation, or lesions MOUTH: mucous membranes gildardo st, normal oropharynx and posterior pharynx without lesions or exudates, tongue normal, dentition normal NECK: neck supple, no mass es or palpable cervical nodes, trachea midline, thyroid without nodules, masses, tenderness, or enlargement CHEST: no chest wall deform ity, no chest wall tenderness LUNGS: normal respiratory e ffort and clear to auscultation, no wheezes, rales, or rhonchi, good air exchange CARDIO: regular rate and rhy thm, normal S1 and S2, nor murmur, rub, or gallop PULSES: normal capillary ref ill ABDOMEN: soft, non-distended, non-tender, no masses RECTAL: MUSCULOSKELETAL: no deformity or scol iosis noted, normal range of motion, joints normal, no erythema, edema, effusion, or ecchymosis EXTREMITY: no clubbing, cyanosi s, edema, or deformity with normal ROM in both upper and lower bilateral extremities NEUROLOGIC: grossly normal SKIN: no rashes, ulceratio ns, or suspicious lesions LYMPH NODES: no cervical adenopat hy, nodes normal MENTAL STATUS: alert and oriented x 3, normal mood and affect
--- OUTSIDE RECORDS SUMMARY | 2025-05-24 10:35 | XMS_ITS ---
Author Organization The [facility] in [place] Address [address] [place] [address] Care Team Providers Care Vessel Liner Name Role Phone Konrad Sheehan Primary Care Provider [phone] REASON FOR VISIT xanax refill Medications Medication SIG (Take, Route, Fr equency, Duration) Notes Start Date End Date Status ALPRAZolam 0.5 MG 1 tablet Orally Twic e a day for 5 days 05/24/2025 Active hydrOXYzine HCl 25 MG 1 tablet as needed Orally qid for 10 days 04/06/2025 Active Encounters Encounter Location Date Provider Diagnosis [facility] [address] [place] [address] 05/24/2025 Konrad Sheehan Insomnia G47.00 and Acute non-recurrent sinusitis, unspecified location J01.90 Assessments Encounter Date Diagnosis (ICD Code) Assessment Notes Treatment Notes Treatment Clinical Notes Section Notes 05/24/2025 Insomnia (ICD-10 - G47.00) 05/24/2025 Acute non-recurrent sinusitis, unspecified location (ICD-10 - J01.90) Plan Of Treatment Medication Medication Name Sig Start Date Stop Date Notes ALPRAZolam 0.5 MG 1 tablet Orally Twic e a day for 5 days 05/24/2025 hydrOXYzine HCl 25 MG 1 tablet as needed Orally qid for 10 days 04/06/2025 Next Appt Details Provider Name:Konrad Sheehan, 01:00:00 PM, [address] [place], [address], Progress Notes * Ciara KENDALL MDOB:[birth year] (59 yo F)Acc No.[id number]:05/24/2025 Patient: Ciara LONG :1965 A ge:59 Y S ex:Female Address:[address] [place] [id number] * Refills Refill hydrOXYzine HCl Tablet, 25 MG, Orally, 40 Tablet, 1 tablet as needed, qid, 10 days, Refills=0 Refill ALPRAZolam Tablet, 0.5 MG, Orally, 10 Tablet, 1 tablet, Twice a day, 5 days, Refills=0 * true * Date: Generated for Eli flannery/Nic/Tiaraitting on: 0 06/09/2025 02:56 PM EDT
--- OUTSIDE RECORDS SUMMARY | 2025-06-07 12:00 | XMS_ITS ---
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 Phone Konrad Sheehan Primary Care Provider Allergies Allergen (clinical drug ingredient) Drug/Non Drug Allergy documented on EMR Reaction Allergy Type Onset Date Status sulfamethoxazole / trimethoprim Bactrim Unknown Drug Allergy Active ciprofloxacin Cipro Unknown Drug Allergy Act jarvis Latex Latex Unknown Allergy Active Substance with sulfonamide structure and antibacterial mechanism of action (substance) Sulfa Antibiotics Unknown Drug Allergy A ctive REASON FOR VISIT patient would like to discuss panic attacks/anxiety she reports anxiety has improved some Medications Medication SIG (Take, Route, Frequency, Duration) Notes Start Date End Date Status hydrOXYzine HCl 25 MG 1 tablet as needed Orally qid for 10 days 04/06/2025 Not-Bridget g Semaglutide 2.268 mg/0.63 mL Buderer Active OLANZapine 10 MG 1 tablet Orally Once a day for 30 days 04/27/2025 Active Metoprolol Succinate ER 50 MG 1 tablet Orally Once a day for 90 days Active Metoprolol Succinate ER 25 MG 1 tablet Orally Once a day- with 50mg tablet for 90 days 12/28/2024 Active Liothyronine Sodium 5 MCG 1 tablet on an empty stomach Orally Once a day for 90 days Active Levothyroxine Sodium 75 MCG 1 tablet in the morning on an empty stomach Orally Once a day for 90 days Active Ibuprofen 800 MG 1 tablet with food o r milk as needed Orally every 8 hrs PRN Active Famotidine 40 MG 1 tablet at bedtime Orally Once a day for 90 days Active Dupixent 300 MG/2ML as directed Subcutaneous Active dilTIAZem HCl ER Coated Beads 240 MG 1 capsule Orally Once a day for 90 days Active Desvenlafaxine Succinate ER 100 MG 1 tablet Orally Once a day for 90 days Active Biotin Active Aspirin 81 81 MG 1 tablet Orally Once a day for 90 days Active Ammonium Lactate 12 % 1 application Externally Twice a day 04/14/2025 Active ALPRAZolam 0.5 MG 1 tablet Orally Twic e a day for 5 days 05/24/2025 Active Social History Tobacco Use: Social History Observation Description Date Details (start date - stop date) Former Smoker 12/02/1981 - 08/20/2024 Tobacco Control (Standard) Question Answer Notes Tobacco use: Former smoker When did you start smoking? 12/02/1981 When did you stop smoking? 08/20/2024 How long has it been since you last smoked? Less than 1 month AUDIT-C (Standard) Question Answer Notes Did you have a drink contain ing alcohol in the past year? Yes How often did you have a dri nk containing alcohol in the past year? Never (0 point) How many drinks did you have on a typical day when you were drinking in the past year? 1 or 2 drinks (0 point) How often did you have six o r more drinks on one occasion in the past year? 2 to 3 times per week (3 points) Points 3 Interpretation Positive Vital Signs Weight 174.4 lbs 06/07/2025 Height 64 in 06/07/2025 Blood pressure systolic 134 mm Hg 06/07/20 25 Blood pressure diastolic 70 mm Hg 025 BMI 29.93 kg/m2 06/07/2025 Encounters Encounter Location Date Provider Diagnosis [facility] [address] [place] [address] 06/07/2025 Konrad Sheehan Anxiety F41.9 and Hypertension I10 Assessments Encounter Date Diagnosis (ICD Code) Assessment Notes Treatment Notes Treatment Clinical Notes Section Notes 06/07/2025 Anxiety (ICD-10 - F41.9) just staterd 10 mg - needs 2 adde weeks for 06/07/2025 Hypertension (ICD-10 - I10) Plan Of Treatment Treatment Notes Assessment Notes Anxiety just staterd 10 mg - needs 2 adde weeks for Next Appt Details Provider Name:Konrad Sheehan, 01:00:00 PM, [address] [place], [address], Progress Notes * Ciara KENDALL MDOB:[birth year] (59 yo F)Acc No.[id number]:06/07/2025 Progress Note Patient: Ciara LONG Provider: Jazzmine Sheehan ([facility])MD :1965 A ge:59 Y S ex:Female Date:06/07/2025 Address:[address] [place], [place] [id number] Check In:03:40 PM ESTCheck O ut:04:55 PM EST Subjective: * Chief Complaints: * P atient would like to discuss panic attacks/anxiety she reports anxiety has improved some * HPI: G eneral: anxiety some better - just starte th3 10 mg - no SE so far. * ROS: E ENT: hearing changes d [...] Status:confirmed M79.609 Pain in unspecified limb Modified On:04/04/2023U Status:confirmed N30.00 Acute cystitis witho ut hematuria [...] phuc Modified On:12/11/2023U Status:confirmed G47.00 Insomnia Modified On:04/04/2023 Status:confirmed M79.643 Pain in joint, hand Modified On:04/04/2023 Status:confirmed D12.6 Tubular adenoma of jaylin dominguez Modified On:04/04/2023 Status:confirmed M25.561 Knee pain, right Modified On:04/04/2023 [...] diarrhea Modified On:04/15/2023 Status:confirmed R19.7 Diarrhea Modified On:05/30/2023W/U Status:confirmed Z86.010 Personal history of colonic polyps Modified On:05/15/2023 Status:confirmed R19.4 Change in bowel habi t Modified On:05/15/2023 Status:confirmed K58.9 Irritable bowel Modified On:05/15/2023 Status:confirmed W54.0XXA Dog bite Modified On:11/07/2023 Status:confirmed R60.9 Edema Modified On:02/24/2024U Status:confirmed M79.604 Right leg pain Modified On:02/20/2024U Status:confirmed I87.2 Venous insufficiency (chronic) (peripheral) Modified On:03/23/2024U Status:confirmed T63.301A Spider bite Modified On:05/04/2024 Status:confirmed M54.50 Low back pain at mul tiple sites Modified On:08/11/2024 Status:confirmed I10 Hypertension Modified On:09/03/2024 Status:confirmed H66.90 Otitis media Modified On:01/18/2025U Status:confirmed R29.810 Facial droop Modified On:03/04/2025 Status:confirmed R29.898 Arm weakness Modified On:03/04/2025 Status:confirmed R53.83 Fatigue Modified On:03/17/2025 Status:confirmed * [...] since you last smoked??Less than 1 month D rug/Alcohol: A GM-C (Standard) D id you have a drink containing alcohol in the past year? Y es H ow often did you have a drink containing alcohol in the past year? N ever (0 point) H ow many drinks did you have on a typical day when you were drinking in the past year? 1 or 2 drinks (0 point) H ow often did you have six or more drinks on one occasion in the past year? 2 to 3 times per week (3 points) P oints 3 I nterpretation P ositive * Medications: T akingALPRAZolam 0.5 MG Tablet [...] tablet at bedtime Orally Once a day Ibuprofen 800 MG Tablet 1 tablet with [...] 1 tablet Orally Once a day OLANZapine 10 MG Tablet 1 tablet Orally Once a day Semaglutide 2.268 mg/0.63 mL , Notes to Pharmacist: BudererTaking ALPRAZolam 0.5 MG Tablet 1 tablet Orally [...] at bedtime Orally Once a day Taking Ibuprofen 800 MG Tablet 1 tablet [...] tablet Orally Once a day Taking OLANZapine 10 MG Tablet 1 tablet Orally Once a day Taking Semaglutide 2.268 mg/0.63 mL , Notes to Pharmacist: BudererNot-Taking/PRNhydrOXYzine HCl 25 MG Tablet 1 tablet as needed Orally qid Medication List reviewed and reconciled with the patientNot-Taking/PRN hydrOXYzine HCl 25 MG Tablet 1 tablet as needed Orally qid Medication List reviewed and reconciled with the patient * Allergies: S ulfa AntibioticsLatex - Criticality HighBactrimCiprono[Allergies Verified] Objective: * Vitals: W t:174.4lbs, Ht: 64 in, BP:134/70mm Hg, BMI:29.93Index, Ht-cm: 162.56 cm, Wt-k.11 kg. * Examination: P hysical Exam: GENERAL: [...] mood and affect. Assessment: * Assessment: 1. H ypertension - I10 (Primary) 2 . A nxiety - F41.9 Plan: * Treatment: * Procedure Codes: * Preventive Medicine: Screenings/Counseling: B MN ACTION PLAN Above Normal BMI Follow-up D ietary management education, guidance, and counseling * * Sign off status: Completed Visit Status: C HK (Check Out) true * Provider: Jazzmine Sheehan ([facility])MD Date: 06/07/2025 Generated for Printi ng/Fayahairag/eTransmitting on: 06/09/2025 02:56 PM EDT History and Physical Notes * HPI (History of Present Illness) Category Sub-Category Detail Notes Category Not es General anxiety some be tter - just starte th3 10 mg - no SE so far Examination Category Sub-Category Detail Notes Category Not [...]
[2025-06-09] VITALS (25 sets, daily range): BP systolic 150–167; BP diastolic 80–106; PULSE 0–80; TEMP 36.8; O2SAT 98; BMI 29.2
--- NOTE | 2025-06-09 14:35 | ED.GENADUL1 ---
Documented by User: Ranjeet Lopez MD 06/09/25 18:26 HPI HPI - General Adult General Chief complaint: Dizziness Stated complaint: DIZINESS Time Seen by Provider: 06/09/25 14:30 Related Data Home Medications ?Medication ?Instructions ?Recorded ?Confirmed aripiprazole 2 mg tablet (Abilify) 2 mg PO DAILY 05/14/23 10/19/23 aspirin 81 mg tablet,delayed 81 mg PO DAILY 05/14/23 05/19/24 release desvenlafaxine 100 mg 100 mg PO DAILY 05/14/23 03/25/25 tablet,extended release 24 hr diltiazem HCl 240 mg 240 mg PO DAILY 05/14/23 06/09/25 capsule,extended release 24 hr (Cartia XT) dupilumab 200 mg/1.14 mL 300 mg subcut QWEEK 05/14/23 10/19/23 subcutaneous pen injector (Dupixent) famotidine 40 mg tablet 40 mg PO DAILY 05/14/23 06/09/25 levothyroxine 75 mcg tablet 75 mcg PO DAILY 05/14/23 06/09/25 (Euthyrox) liothyronine 5 mcg tablet (Cytomel) 5 mcg PO DAILY 05/14/23 06/09/25 metoprolol succinate 25 mg 25 mg PO Q12H 05/14/23 06/09/25 tablet,extended release 24 hr olanzapine 2.5 mg tablet 2.5 mg PO DAILY 10/20/23 05/19/24 aspirin 81 mg chewable tablet 03/25/25 dupixident 03/25/25 quetiapine 50 mg tablet 50 mg PO DAILY 03/25/25 03/25/25 semaglutide 2.5 mg/mL subcutaneous mg subcut 03/25/25 solution alprazolam 0.5 mg tablet mg 06/09/25 ammonium lactate 12 % lotion topical 06/09/25 desvenlafaxine succinate 100 mg mg PO 06/09/25 tablet,extended release 24 hr hydroxyzine HCl 25 mg tablet mg 06/09/25 metoprolol succinate 50 mg mg PO 06/09/25 tablet,extended release 24 hr olanzapine 10 mg tablet mg 06/09/25 Allergies Allergy/AdvReac Type Severity Reaction Status Date / Time ciprofloxacin Allergy Rash Verified 06/09/25 14:30 latex Allergy Rash Verified 06/09/25 14:30 Sulfa (Sulfonamide Allergy Rash Verified 06/09/25 14:30 Antibiotics) sulfamethoxazole (From AdvReac Intermediate Rash Verified 06/09/25 14:30 Bactrim) trimethoprim (From Bactrim) AdvReac Intermediate Rash Verified 06/09/25 14:30 Opioid HPI Opioid Management Most Recent Opioid Data: Last Pain Scale 0 10/20/23, 11:45 PFSH PFSH Medical History (Updated 06/09/25 @ 18:22 by Ranjeet Lopez MD) EMILIE (acute kidney injury) ?N17.9 - Acute kidney failure, unspecified (ICD-10) Cellulitis ?L03.90 - Cellulitis, unspecified (ICD-10) Dog bite ?W54.0XXA - Bitten by dog, initial encounter (ICD-10) Acid reflux ?K21.9 - Gastro-esophageal reflux disease without esophagitis (ICD-10) Hypertension ?I10 - Essential (primary) hypertension (ICD-10) Menopause ?Z78.0 - Asymptomatic menopausal state (ICD-10) Anxiety ?F41.9 - Anxiety disorder, unspecified (ICD-10) Degenerative disc disease, cervical ?M50.30 - Other cervical disc degeneration, unspecified cervical region (ICD-10) Depression ?F32.A - Depression, unspecified (ICD-10) Escherichia coli infection ?A49.8 - Other bacterial infections of unspecified site (ICD-10) Insomnia ?G47.00 - Insomnia, unspecified (ICD-10) Lumbosacral spondylosis without myelopathy ?M47.817 - Spondylosis without myelopathy or radiculopathy, lumbosacral region (ICD-10) Migraine ?G43.909 - Migraine, unspecified, not intractable, without status migrainosus (ICD-10) Mitral valve prolapse ?I34.1 - Nonrheumatic mitral (valve) prolapse (ICD-10) Obstructive sleep apnea ?G47.33 - Obstructive sleep apnea (adult) (pediatric) (ICD-10) Panic disorder ?F41.0 - Panic disorder [episodic paroxysmal anxiety] (ICD-10) Colorectal polyps ?K63.5 - Polyp of colon (ICD-10) ?K62.1 - Rectal polyp (ICD-10) Arm fracture ?S42.309A - Unspecified fracture of shaft of humerus, unspecified arm, initial encounter for closed fracture (ICD-10) Surgical History (Updated 05/14/23 @ 14:34 by Tracy Boswell) History of kyphoplasty ?Z98.890 - Other specified postprocedural states (ICD-10) H/O excision of ganglion cyst ?Z98.890 - Other specified postprocedural states (ICD-10) Hx of appendectomy ?Z90.49 - Acquired absence of other specified parts of digestive tract (ICD-10) H/O colonoscopy ?Z98.890 - Other specified postprocedural states (ICD-10) Family History (Updated 05/14/23 @ 14:08 by Tracy Boswell) Other Family history of hypertension Family history of stroke Social History Within the past year, how often did you have a drink containing alcohol: 2-3 times a week Within the past year, how many standard drinks containing alcohol did you have on a typical day: 1 or 2 Within the past year, how often did you have six or more drinks on one occasion: never Total score: 0 Score interpretation: Questions 2 and 3 are 0. It can be assumed that the patient's drinking is below the recommended limits. However, please confirm the accuracy of the patient's alcohol intake over the last few months. Smoking status: Former smoker What tobacco products do you use: cigarettes Cigarettes per day: 10 Years smoked: 40 Smoking pack-years: 20.00 Smoking quit date/years: <= 15 years ago Non-prescribed substance use: denies use Highest level of school completed/degree received: some college, no degree Little interest or pleasure in doing things: not at all Feeling down, depressed, or hopeless: not at all Exam Constitutional Vital Signs, click to edit/add: Last Vital Signs Temp 98.2 F 06/09/25 14:24 Pulse 76 06/09/25 17:40 Resp 13 06/09/25 17:40 BP 150/80 H 06/09/25 15:55 Pulse Ox 98 06/09/25 14:24 O2 Del Method Room Air 06/09/25 14:24 Course Vital Signs Vital signs: Vital Signs Temperature 98.2 F 06/09/25 14:24 Pulse Rate 76 06/09/25 14:24 Respiratory Rate 18 06/09/25 14:24 Blood Pressure 167/106 H 06/09/25 14:24 Pulse Oximetry 98 06/09/25 14:24 Oxygen Delivery Method Room Air 06/09/25 14:24 Temperature 98.2 F 06/09/25 14:24 Pulse Rate 76 06/09/25 17:40 Respiratory Rate 13 06/09/25 17:40 Blood Pressure 150/80 H 06/09/25 15:55 Pulse Oximetry 98 06/09/25 14:24 Oxygen Delivery Method Room Air 06/09/25 14:24 Medical Decision Making MDM Narrative Medical decision making narrative: Her workup including CTA head and neck is negative as well as her CT brain Lab Data Labs: Lab Results 06/09/25 Range/Units 15:15 WBC 9.3 (4.0-11.0) 10^3/uL RBC 4.58 (4.20-5.40) 10^6/uL Hgb 14.5 (12.0-16.0) g/dL Hct 43.3 (36.0-48.0) % MCV 94.5 (81.0-99.0) fL MCH 31.7 (26.7-34.0) pg MCHC 33.5 (29.9-35.2) g/dL RDW 12.7 (11.0-15.0) % Plt Count 348 (150-450) 10^3/uL MPV 8.4 L (9.5-13.5) fL Neut % (Auto) 74.1 (43.0-75.0) % Lymph % (Auto) 17.6 L (20.5-60.0) % [place] % (Auto) 7.2 (1.7-12.0) % Eos % (Auto) 0.2 L (0.9-7.0) % Baso % (Auto) 0.5 (0.2-2.0) % Neut # (Auto) 6.9 H (1.4-6.5) 10^3/uL Lymph # (Auto) 1.6 (1.2-3.8) 10^3/uL [place] # (Auto) 0.7 (0.3-0.8) 10^3/uL Eos # (Auto) 0.0 (0.0-0.7) 10^3/uL Baso # (Auto) 0.1 (0.0-0.1) 10^3/uL Abs Immat Gran (auto) 0.04 H (0.00-0.03) 10^3/uL Imm/Tot Granulo (auto) 0.4 (0.0-0.5) % Sodium 143 (136-145) mmol/L Potassium 4.2 (3.5-5.1) mmol/L Chloride 105 (98-107) mmol/L Carbon Dioxide 28.3 (21.0-32.0) mmol/L Anion Gap 13.9 BUN 13.0 (7.0-18.0) mg/dL Creatinine 1.02 (0.55-1.02) mg/dL Est GFR ( Amer) >60 (>=60 mL/min/1.73m^2) Est GFR (Non-Af Amer) 55 L (>=60 mL/min/1.73m^2) BUN/Creatinine Ratio 12.7 Glucose 94 (74-106) mg/dL Calcium 9.3 (8.5-10.1) mg/dL Troponin I High Sens 4.1 (4.0-51.3) pg/mL Discharge Plan Discharge Chief Complaint: Dizziness Clinical Impression: Dizziness Patient Disposition: Home, Self-Care Time of Disposition Decision: 18:22 Condition: Good Mode of Transportation: Private Vehicle Prescriptions / Home Meds: No Action aspirin 81 mg tablet,chewable quetiapine 50 mg tablet 50 mg PO DAILY dupixident semaglutide 2.5 mg/mL solution subcut ammonium lactate 12 % lotion TOPICAL metoprolol succinate 50 mg tablet extended release 24 hr PO olanzapine 10 mg tablet alprazolam 0.5 mg tablet hydroxyzine HCl 25 mg tablet desvenlafaxine succinate 100 mg tablet extended release 24 hr PO aripiprazole [Abilify] 2 mg tablet 2 mg PO DAILY aspirin 81 mg tablet,delayed release (DR/EC) 81 mg PO DAILY diltiazem HCl [Cartia XT] 240 mg capsule,extended release 24hr 240 mg PO DAILY desvenlafaxine 100 mg tablet extended release 24 hr 100 mg PO DAILY Dupixent Pen 200 mg/1.14 mL pen injector 300 mg subcut QWEEK Patient Comments: takes every 2 weeks famotidine 40 mg tablet 40 mg PO DAILY levothyroxine [Euthyrox] 75 mcg tablet 75 mcg PO DAILY liothyronine [Cytomel] 5 mcg tablet 5 mcg PO DAILY metoprolol succinate 25 mg tablet extended release 24 hr 25 mg PO Q12H olanzapine 2.5 mg tablet 2.5 mg PO DAILY Print Language: Mongolian Instructions: Dizziness (ED) Referrals: Lonnie Sheehan MD [Primary Care Provider, Family Practice] - 1 week Documented by User: Natalie Awan NP HPI HPI - General Adult General Chief complaint: Dizziness Stated complaint: DIZINESS Time Seen by Provider: 06/09/25 14:30 Source: patient Mode of arrival: walk-in Limitations: no limitations Related Data Home Medications ?Medication ?Instructions ?Recorded ?Confirmed aripiprazole 2 mg tablet (Abilify) 2 mg PO DAILY 05/14/23 10/19/23 aspirin 81 mg tablet,delayed 81 mg PO DAILY 05/14/23 05/19/24 release desvenlafaxine 100 mg 100 mg PO DAILY 05/14/23 03/25/25 tablet,extended release 24 hr diltiazem HCl 240 mg 240 mg PO DAILY 05/14/23 06/09/25 capsule,extended release 24 hr (Cartia XT) dupilumab 200 mg/1.14 mL 300 mg subcut QWEEK 05/14/23 10/19/23 subcutaneous pen injector (Dupixent) famotidine 40 mg tablet 40 mg PO DAILY 05/14/23 06/09/25 levothyroxine 75 mcg tablet 75 mcg PO DAILY 05/14/23 06/09/25 (Euthyrox) liothyronine 5 mcg tablet (Cytomel) 5 mcg PO DAILY 05/14/23 06/09/25 metoprolol succinate 25 mg 25 mg PO Q12H 05/14/23 06/09/25 tablet,extended release 24 hr olanzapine 2.5 mg tablet 2.5 mg PO DAILY 10/20/23 05/19/24 aspirin 81 mg chewable tablet 03/25/25 dupixident 03/25/25 quetiapine 50 mg tablet 50 mg PO DAILY 03/25/25 03/25/25 semaglutide 2.5 mg/mL subcutaneous mg subcut 03/25/25 solution alprazolam 0.5 mg tablet mg 06/09/25 ammonium lactate 12 % lotion topical 06/09/25 desvenlafaxine succinate 100 mg mg PO 06/09/25 tablet,extended release 24 hr hydroxyzine HCl 25 mg tablet mg 06/09/25 metoprolol succinate 50 mg mg PO 06/09/25 tablet,extended release 24 hr olanzapine 10 mg tablet mg 06/09/25 Allergies Allergy/AdvReac Type Severity Reaction Status Date / Time ciprofloxacin Allergy Rash Verified 06/09/25 14:30 latex Allergy Rash Verified 06/09/25 14:30 Sulfa (Sulfonamide Allergy Rash Verified 06/09/25 14:30 Antibiotics) sulfamethoxazole (From AdvReac Intermediate Rash Verified 06/09/25 14:30 Bactrim) trimethoprim (From Bactrim) AdvReac Intermediate Rash Verified 06/09/25 14:30 Opioid HPI Opioid Management Most Recent Opioid Data: Last Pain Scale 0 10/20/23, 11:45 PFSH PFS Medical History (Updated 06/09/25 @ 18:22 by Ranjeet Lopez MD) EMILIE (acute kidney injury) ?N17.9 - Acute kidney failure, unspecified (ICD-10) Cellulitis ?L03.90 - Cellulitis, unspecified (ICD-10) Dog bite ?W54.0XXA - Bitten by dog, initial encounter (ICD-10) Acid reflux ?K21.9 - Gastro-esophageal reflux disease without esophagitis (ICD-10) Hypertension ?I10 - Essential (primary) hypertension (ICD-10) Menopause ?Z78.0 - Asymptomatic menopausal state (ICD-10) Anxiety ?F41.9 - Anxiety disorder, unspecified (ICD-10) Degenerative disc disease, cervical ?M50.30 - Other cervical disc degeneration, unspecified cervical region (ICD-10) Depression ?F32.A - Depression, unspecified (ICD-10) Escherichia coli infection ?A49.8 - Other bacterial infections of unspecified site (ICD-10) Insomnia ?G47.00 - Insomnia, unspecified (ICD-10) Lumbosacral spondylosis without myelopathy ?M47.817 - Spondylosis without myelopathy or radiculopathy, lumbosacral region (ICD-10) Migraine ?G43.909 - Migraine, unspecified, not intractable, without status migrainosus (ICD-10) Mitral valve prolapse ?I34.1 - Nonrheumatic mitral (valve) prolapse (ICD-10) Obstructive sleep apnea ?G47.33 - Obstructive sleep apnea (adult) (pediatric) (ICD-10) Panic disorder ?F41.0 - Panic disorder [episodic paroxysmal anxiety] (ICD-10) Colorectal polyps ?K63.5 - Polyp of colon (ICD-10) ?K62.1 - Rectal polyp (ICD-10) Arm fracture ?S42.309A - Unspecified fracture of shaft of humerus, unspecified arm, initial encounter for closed fracture (ICD-10) Surgical History (Updated 05/14/23 @ 14:34 by Tracy Boswell) History of kyphoplasty ?Z98.890 - Other specified postprocedural states (ICD-10) H/O excision of ganglion cyst ?Z98.890 - Other specified postprocedural states (ICD-10) Hx of appendectomy ?Z90.49 - Acquired absence of other specified parts of digestive tract (ICD-10) H/O colonoscopy ?Z98.890 - Other specified postprocedural states (ICD-10) Family History (Updated 05/14/23 @ 14:08 by Tracy Boswell) Other Family history of hypertension Family history of stroke Social History Within the past year, how often did you have a drink containing alcohol: 2-3 times a week Within the past year, how many standard drinks containing alcohol did you have on a typical day: 1 or 2 Within the past year, how often did you have six or more drinks on one occasion: never Total score: 0 Score interpretation: Questions 2 and 3 are 0. It can be assumed that the patient's drinking is below the recommended limits. However, please confirm the accuracy of the patient's alcohol intake over the last few months. Smoking status: Former smoker What tobacco products do you use: cigarettes Cigarettes per day: 10 Years smoked: 40 Smoking pack-years: 20.00 Smoking quit date/years: <= 15 years ago Non-prescribed substance use: denies use Highest level of school completed/degree received: some college, no degree Little interest or pleasure in doing things: not at all Feeling down, depressed, or hopeless: not at all Exam Constitutional Vital Signs, click to edit/add: Last Vital Signs Temp 98.2 F 06/09/25 14:24 Pulse 76 06/09/25 17:40 Resp 13 06/09/25 17:40 BP 150/80 H 06/09/25 15:55 Pulse Ox 98 06/09/25 14:24 O2 Del Method Room Air 06/09/25 14:24 Course Vital Signs Vital signs: Vital Signs Temperature 98.2 F 06/09/25 14:24 Pulse Rate 76 06/09/25 14:24 Respiratory Rate 18 06/09/25 14:24 Blood Pressure 167/106 H 06/09/25 14:24 Pulse Oximetry 98 06/09/25 14:24 Oxygen Delivery Method Room Air 06/09/25 14:24 Temperature 98.2 F 06/09/25 14:24 Pulse Rate 76 06/09/25 17:40 Respiratory Rate 13 06/09/25 17:40 Blood Pressure 150/80 H 06/09/25 15:55 Pulse Oximetry 98 06/09/25 14:24 Oxygen Delivery Method Room Air 06/09/25 14:24 Medical Decision Making Lab Data Labs: Lab Results 06/09/25 Range/Units 15:15 WBC 9.3 (4.0-11.0) 10^3/uL RBC 4.58 (4.20-5.40) 10^6/uL Hgb 14.5 (12.0-16.0) g/dL Hct 43.3 (36.0-48.0) % MCV 94.5 (81.0-99.0) fL MCH 31.7 (26.7-34.0) pg MCHC 33.5 (29.9-35.2) g/dL RDW 12.7 (11.0-15.0) % Plt Count 348 (150-450) 10^3/uL MPV 8.4 L (9.5-13.5) fL Neut % (Auto) 74.1 (43.0-75.0) % Lymph % (Auto) 17.6 L (20.5-60.0) % [place] % (Auto) 7.2 (1.7-12.0) % Eos % (Auto) 0.2 L (0.9-7.0) % Baso % (Auto) 0.5 (0.2-2.0) % Neut # (Auto) 6.9 H (1.4-6.5) 10^3/uL Lymph # (Auto) 1.6 (1.2-3.8) 10^3/uL [place] # (Auto) 0.7 (0.3-0.8) 10^3/uL Eos # (Auto) 0.0 (0.0-0.7) 10^3/uL Baso # (Auto) 0.1 (0.0-0.1) 10^3/uL Abs Immat Gran (auto) 0.04 H (0.00-0.03) 10^3/uL Imm/Tot Granulo (auto) 0.4 (0.0-0.5) % Sodium 143 (136-145) mmol/L Potassium 4.2 (3.5-5.1) mmol/L Chloride 105 (98-107) mmol/L Carbon Dioxide 28.3 (21.0-32.0) mmol/L Anion Gap 13.9 BUN 13.0 (7.0-18.0) mg/dL Creatinine 1.02 (0.55-1.02) mg/dL Est GFR ( Amer) >60 (>=60 mL/min/1.73m^2) Est GFR (Non-Af Amer) 55 L (>=60 mL/min/1.73m^2) BUN/Creatinine Ratio 12.7 Glucose 94 (74-106) mg/dL Calcium 9.3 (8.5-10.1) mg/dL Troponin I High Sens 4.1 (4.0-51.3) pg/mL Discharge Plan Discharge Chief Complaint: Dizziness Clinical Impression: Dizziness Patient Disposition: Home, Self-Care Time of Disposition Decision: 18:22 Condition: Good Mode of Transportation: Private Vehicle Prescriptions / Home Meds: No Action aspirin 81 mg tablet,chewable quetiapine 50 mg tablet 50 mg PO DAILY dupixident semaglutide 2.5 mg/mL solution subcut ammonium lactate 12 % lotion TOPICAL metoprolol succinate 50 mg tablet extended release 24 hr PO olanzapine 10 mg tablet alprazolam 0.5 mg tablet hydroxyzine HCl 25 mg tablet desvenlafaxine succinate 100 mg tablet extended release 24 hr PO aripiprazole [Abilify] 2 mg tablet 2 mg PO DAILY aspirin 81 mg tablet,delayed release (DR/EC) 81 mg PO DAILY diltiazem HCl [Cartia XT] 240 mg capsule,extended release 24hr 240 mg PO DAILY desvenlafaxine 100 mg tablet extended release 24 hr 100 mg PO DAILY Dupixent Pen 200 mg/1.14 mL pen injector 300 mg subcut QWEEK Patient Comments: takes every 2 weeks famotidine 40 mg tablet 40 mg PO DAILY levothyroxine [Euthyrox] 75 mcg tablet 75 mcg PO DAILY liothyronine [Cytomel] 5 mcg tablet 5 mcg PO DAILY metoprolol succinate 25 mg tablet extended release 24 hr 25 mg PO Q12H olanzapine 2.5 mg tablet 2.5 mg PO DAILY Print Language: Mongolian Instructions: Dizziness (ED) Referrals: Lonnie Sheehan MD [Primary Care Provider, Family Practice] - 1 week
--- NOTE | 2025-06-09 14:53 | XR_ITS ---
[place] [id number] Patient Name: GLORY MCKEON MRN: [id number] date: 1965 Sex: F Assigned Patient Location: ED.MAIN Current Patient Location: ED.MAIN Accession/Order Number: [id number] Exam Date: 06/09/2025 16:07 Report Date: 06/09/2025 16:08 At the request of: FEDERICO VILLAFANA MD Procedure: XR chest 1V Plain film chest Single view HISTORY: Chest heaviness COMPARISON: 03/25/2025 FINDINGS: SUPPORT DEVICES: None POSTSURGICAL CHANGES: None HEART: Within normal limits PULMONARY EVELYN: Within normal limits MEDIASTINUM: Unremarkable LUNGS AND PLEURA: No acute lung process, pleural effusion or pneumothorax identified. Mild interstitial changes BONY STRUCTURES: Intact ADDITIONAL FINDINGS None XR/XR chest 1V IMPRESSION: No acute process. Impression dictated by: Juan Pablo Garcia M.D. 06/09/2025 4:08 PM Dictation Location: [place] [address] Electronically authenticated by: [id number] Y Date: 06/09/2025 16:08
--- NOTE | 2025-06-09 14:53 | ECG_ITS ---
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
--- NOTE | 2025-06-09 14:53 | CT_ITS ---
The [address] [address] Patient Name: GLORY MCKEON MRN: [id number] date: 1965 Sex: F Assigned Patient Location: ED.MAIN Current Patient Location: ED.MAIN Accession/Order Number: [id number] Exam Date: 06/09/2025 16:05 Report Date: 06/09/2025 16:07 At the request of: FEDERICO VILLAFANA MD Procedure: CT head/brain wo con Unenhanced head CT TECHNIQUE: Contiguous axial imaging of the head. The CT exam was performed using one or more the following dose reduction techniques: Automated exposure control, adjustment of the MA and/or Kv according to patient size, or use of the iterative reconstruction technique. COMPARISON: MRI the brain 03/15/2025 HISTORY: Tunnel vision this morning. VENTRICLES: Within normal limits ATROPHY: Similar atrophy BRAIN PARENCHYMA: Decreased density of the white matter is most consistent with chronic small vessel disease. HEMORRHAGE: None HERNIATION: No mass effect or herniation INFARCTION: No recent vascular distribution infarction is seen. EXTRA-AXIAL FLUID COLLECTIONS None MIDBRAIN: Unremarkable LARRY: Unremarkable MEDULLA: Unremarkable SINUSES: Unremarkable ORBITS: Grossly unremarkable MASTOIDS: Unremarkable BONY STRUCTURES Intact ADDITIONAL FINDINGS: CT/CT head/brain wo con IMPRESSION: No acute findings. Impression dictated by: Juan Pablo Garcia M.D. 06/09/2025 4:07 PM Dictation Location: [place] [address] Electronically authenticated by: [id number] Y Date: 06/09/2025 16:07
--- NOTE | 2025-06-09 14:53 | ED.GENADUL1 ---
HPI HPI - General Adult General Chief complaint: Dizziness Stated complaint: DIZINESS Time Seen by Provider: 06/09/25 14:30 Source: patient Mode of arrival: walk-in Limitations: no limitations History of Present Illness HPI narrative: 59-year-old female presents for symptoms of dizziness. She states that she became dizzy when she was a cigarette yesterday and was smoking. She states that her right arm was tingling but that went away. She has had blurry vision in both eyes and sometimes it looks like she is looking through a deflating balloon. Her vision is only minimally blurry now. She called her doctor's office who advised her to come here. Related Data Home Medications ?Medication ?Instructions ?Recorded ?Confirmed aripiprazole 2 mg tablet (Abilify) 2 mg PO DAILY 05/14/23 10/19/23 aspirin 81 mg tablet,delayed 81 mg PO DAILY 05/14/23 05/19/24 release desvenlafaxine 100 mg 100 mg PO DAILY 05/14/23 03/25/25 tablet,extended release 24 hr diltiazem HCl 240 mg 240 mg PO DAILY 05/14/23 06/09/25 capsule,extended release 24 hr (Cartia XT) dupilumab 200 mg/1.14 mL 300 mg subcut QWEEK 05/14/23 10/19/23 subcutaneous pen injector (Dupixent) famotidine 40 mg tablet 40 mg PO DAILY 05/14/23 06/09/25 levothyroxine 75 mcg tablet 75 mcg PO DAILY 05/14/23 06/09/25 (Euthyrox) liothyronine 5 mcg tablet (Cytomel) 5 mcg PO DAILY 05/14/23 06/09/25 metoprolol succinate 25 mg 25 mg PO Q12H 05/14/23 06/09/25 tablet,extended release 24 hr olanzapine 2.5 mg tablet 2.5 mg PO DAILY 10/20/23 05/19/24 aspirin 81 mg chewable tablet 03/25/25 dupixident 03/25/25 quetiapine 50 mg tablet 50 mg PO DAILY 03/25/25 03/25/25 semaglutide 2.5 mg/mL subcutaneous mg subcut 03/25/25 solution alprazolam 0.5 mg tablet mg 06/09/25 ammonium lactate 12 % lotion topical 06/09/25 desvenlafaxine succinate 100 mg mg PO 06/09/25 tablet,extended release 24 hr hydroxyzine HCl 25 mg tablet mg 06/09/25 metoprolol succinate 50 mg mg PO 06/09/25 tablet,extended release 24 hr olanzapine 10 mg tablet mg 06/09/25 Allergies Allergy/AdvReac Type Severity Reaction Status Date / Time ciprofloxacin Allergy Rash Verified 06/09/25 14:30 latex Allergy Rash Verified 06/09/25 14:30 Sulfa (Sulfonamide Allergy Rash Verified 06/09/25 14:30 Antibiotics) sulfamethoxazole (From AdvReac Intermediate Rash Verified 06/09/25 14:30 Bactrim) trimethoprim (From Bactrim) AdvReac Intermediate Rash Verified 06/09/25 14:30 Opioid HPI Opioid Management Most Recent Opioid Data: Last Pain Scale 0 10/20/23, 11:45 Review of Systems ROS Narrative A ten point review of systems is negative except as noted above. [facility] Medical History (Updated 06/09/25 @ 18:22 by Ranjeet Lopez MD) EMILIE (acute kidney injury) ?N17.9 - Acute kidney failure, unspecified (ICD-10) Cellulitis ?L03.90 - Cellulitis, unspecified (ICD-10) Dog bite ?W54.0XXA - Bitten by dog, initial encounter (ICD-10) Acid reflux ?K21.9 - Gastro-esophageal reflux disease without esophagitis (ICD-10) Hypertension ?I10 - Essential (primary) hypertension (ICD-10) Menopause ?Z78.0 - Asymptomatic menopausal state (ICD-10) Anxiety ?F41.9 - Anxiety disorder, unspecified (ICD-10) Degenerative disc disease, cervical ?M50.30 - Other cervical disc degeneration, unspecified cervical region (ICD-10) Depression ?F32.A - Depression, unspecified (ICD-10) Escherichia coli infection ?A49.8 - Other bacterial infections of unspecified site (ICD-10) Insomnia ?G47.00 - Insomnia, unspecified (ICD-10) Lumbosacral spondylosis without myelopathy ?M47.817 - Spondylosis without myelopathy or radiculopathy, lumbosacral region (ICD-10) Migraine ?G43.909 - Migraine, unspecified, not intractable, without status migrainosus (ICD-10) Mitral valve prolapse ?I34.1 - Nonrheumatic mitral (valve) prolapse (ICD-10) Obstructive sleep apnea ?G47.33 - Obstructive sleep apnea (adult) (pediatric) (ICD-10) Panic disorder ?F41.0 - Panic disorder [episodic paroxysmal anxiety] (ICD-10) Colorectal polyps ?K63.5 - Polyp of colon (ICD-10) ?K62.1 - Rectal polyp (ICD-10) Arm fracture ?S42.309A - Unspecified fracture of shaft of humerus, unspecified arm, initial encounter for closed fracture (ICD-10) Surgical History (Updated 05/14/23 @ 14:34 by Tracy Boswell) History of kyphoplasty ?Z98.890 - Other specified postprocedural states (ICD-10) H/O excision of ganglion cyst ?Z98.890 - Other specified postprocedural states (ICD-10) Hx of appendectomy ?Z90.49 - Acquired absence of other specified parts of digestive tract (ICD-10) H/O colonoscopy ?Z98.890 - Other specified postprocedural states (ICD-10) Family History (Updated 05/14/23 @ 14:08 by Tracy Boswell) Other Family history of hypertension Family history of stroke Social History Within the past year, how often did you have a drink containing alcohol: 2-3 times a week Within the past year, how many standard drinks containing alcohol did you have on a typical day: 1 or 2 Within the past year, how often did you have six or more drinks on one occasion: never Total score: 0 Score interpretation: Questions 2 and 3 are 0. It can be assumed that the patient's drinking is below the recommended limits. However, please confirm the accuracy of the patient's alcohol intake over the last few months. Smoking status: Former smoker What tobacco products do you use: cigarettes Cigarettes per day: 10 Years smoked: 40 Smoking pack-years: 20.00 Smoking quit date/years: <= 15 years ago Non-prescribed substance use: denies use Highest level of school completed/degree received: some college, no degree Little interest or pleasure in doing things: not at all Feeling down, depressed, or hopeless: not at all Exam Narrative Exam Narrative: Nurses note and vital signs reviewed and patient is not hypoxic. General: The patient appears well and in no apparent distress. Patient is resting comfortably on cart. Skin: Warm, dry, no pallor noted. There is no rash noted. Head: Normocephalic, atraumatic Eye: Normal conjunctiva, no drainage, EOMI. PERRL Ears, Nose, Mouth, and Throat: oral mucosa is moist. Nares patent. Cardiovascular: Regular Rate and Rhythm Respiratory: Patient is in no distress, no accessory muscle use, lungs are clear to auscultation, no wheezing, rales or rhonchi Back: non-tender, no CVA tenderness bilaterally to percussion. GI: Soft and nontender Musculoskeletal: The patient has no evidence of calf tenderness, no pitting edema, symmetrical pulses noted bilaterally Neurological: A&O x4, normal speech; cranial nerves II through XII intact, upper and lower extremity strength 5 out of 5 and symmetric Psychiatric: Cooperative, tearful Constitutional Vital Signs, click to edit/add: Last Vital Signs Temp 98.2 F 06/09/25 14:24 Pulse 76 06/09/25 17:40 Resp 13 06/09/25 17:40 BP 150/80 H 06/09/25 15:55 Pulse Ox 98 06/09/25 14:24 O2 Del Method Room Air 06/09/25 14:24 Course Vital Signs Vital signs: Vital Signs Temperature 98.2 F 06/09/25 14:24 Pulse Rate 76 06/09/25 14:24 Respiratory Rate 18 06/09/25 14:24 Blood Pressure 167/106 H 06/09/25 14:24 Pulse Oximetry 98 06/09/25 14:24 Oxygen Delivery Method Room Air 06/09/25 14:24 Temperature 98.2 F 06/09/25 14:24 Pulse Rate 76 06/09/25 17:40 Respiratory Rate 13 06/09/25 17:40 Blood Pressure 150/80 H 06/09/25 15:55 Pulse Oximetry 98 06/09/25 14:24 Oxygen Delivery Method Room Air 06/09/25 14:24 Medical Decision Making MDM Narrative Medical decision making narrative: Her workup including CAT scan of the brain and CT angiogram of head and neck are negative. The rest of her workup is negative as well. I suspect that her symptoms are due to stress. This was discussed with the patient and I spoke to Dr. Sheehan as well. She is discharged home. Treatment diagnosis and follow-up were discussed with the patient. Differential Diagnosis Differential Diagnosis: Anxiety, intracerebral hemorrhage, cerebral artery stenosis, anemia Lab Data Lab results reviewed: Yes I reviewed the patient's lab results Labs: Lab Results 06/09/25 Range/Units 15:15 WBC 9.3 (4.0-11.0) 10^3/uL RBC 4.58 (4.20-5.40) 10^6/uL Hgb 14.5 (12.0-16.0) g/dL Hct 43.3 (36.0-48.0) % MCV 94.5 (81.0-99.0) fL MCH 31.7 (26.7-34.0) pg MCHC 33.5 (29.9-35.2) g/dL RDW 12.7 (11.0-15.0) % Plt Count 348 (150-450) 10^3/uL MPV 8.4 L (9.5-13.5) fL Neut % (Auto) 74.1 (43.0-75.0) % Lymph % (Auto) 17.6 L (20.5-60.0) % Wright % (Auto) 7.2 (1.7-12.0) % Eos % (Auto) 0.2 L (0.9-7.0) % Baso % (Auto) 0.5 (0.2-2.0) % Neut # (Auto) 6.9 H (1.4-6.5) 10^3/uL Lymph # (Auto) 1.6 (1.2-3.8) 10^3/uL Wright # (Auto) 0.7 (0.3-0.8) 10^3/uL Eos # (Auto) 0.0 (0.0-0.7) 10^3/uL Baso # (Auto) 0.1 (0.0-0.1) 10^3/uL Abs Immat Gran (auto) 0.04 H (0.00-0.03) 10^3/uL Imm/Tot Granulo (auto) 0.4 (0.0-0.5) % Sodium 143 (136-145) mmol/L Potassium 4.2 (3.5-5.1) mmol/L Chloride 105 (98-107) mmol/L Carbon Dioxide 28.3 (21.0-32.0) mmol/L Anion Gap 13.9 BUN 13.0 (7.0-18.0) mg/dL Creatinine 1.02 (0.55-1.02) mg/dL Est GFR ( Amer) >60 (>=60 mL/min/1.73m^2) Est GFR (Non-Af Amer) 55 L (>=60 mL/min/1.73m^2) BUN/Creatinine Ratio 12.7 Glucose 94 (74-106) mg/dL Calcium 9.3 (8.5-10.1) mg/dL Troponin I High Sens 4.1 (4.0-51.3) pg/mL Imaging Data CT scan - head: Radiologist's impression: ITS Impressions Chest X-Ray 06/09/25 14:53 IMPRESSION: No acute process. Impression dictated by: Juan Pablo Garcia M.D. 06/09/2025 4:08 PM Dictation Location: [facility]-16 Electronically authenticated by: [id number] Y Date: 06/09/2025 16:[address] 06/09/25 14:53 IMPRESSION: No acute findings. Impression dictated by: Juan Pablo Garcia M.D. 06/09/2025 4:07 PM Dictation Location: [facility]16 Electronically authenticated by: [id number] Y Date: 06/09/2025 16:07 Head CTA 06/09/25 16:44 Impression: Negative for large vessel occlusion or hemodynamically stenosis. Impression dictated by: Arcenio Cardona M.D. 06/09/2025 6:10 PM Dictation Location: [facility]29 Electronically authenticated by: [id number] Y Date: 06/09/2025 18:10 Neck CTA 06/09/25 16:44 Impression: Negative for large vessel occlusion or hemodynamically stenosis. Impression dictated by: Arcenio Cardona M.D. 06/09/2025 6:10 PM Dictation Location: [facility]29 Electronically authenticated by: [id number] Y Date: 06/09/2025 18:10 ECG Data Attestation: I personally reviewed and interpreted this ECG as follows: (EKG on my interpretation shows sinus rhythm with a rate of 60 and no acute change) Discharge Plan Discharge Chief Complaint: Dizziness Clinical Impression: Dizziness Patient Disposition: Home, Self-Care Time of Disposition Decision: 18:22 Condition: Good Mode of Transportation: Private Vehicle Prescriptions / Home Meds: No Action aspirin 81 mg tablet,chewable quetiapine 50 mg tablet 50 mg PO DAILY dupixident semaglutide 2.5 mg/mL solution subcut ammonium lactate 12 % lotion TOPICAL metoprolol succinate 50 mg tablet extended release 24 hr PO olanzapine 10 mg tablet alprazolam 0.5 mg tablet hydroxyzine HCl 25 mg tablet desvenlafaxine succinate 100 mg tablet extended release 24 hr PO aripiprazole [Abilify] 2 mg tablet 2 mg PO DAILY aspirin 81 mg tablet,delayed release (DR/EC) 81 mg PO DAILY diltiazem HCl [Cartia XT] 240 mg capsule,extended release 24hr 240 mg PO DAILY desvenlafaxine 100 mg tablet extended release 24 hr 100 mg PO DAILY Dupixent Pen 200 mg/1.14 mL pen injector 300 mg subcut QWEEK Patient Comments: takes every 2 weeks famotidine 40 mg tablet 40 mg PO DAILY levothyroxine [Euthyrox] 75 mcg tablet 75 mcg PO DAILY liothyronine [Cytomel] 5 mcg tablet 5 mcg PO DAILY metoprolol succinate 25 mg tablet extended release 24 hr 25 mg PO Q12H olanzapine 2.5 mg tablet 2.5 mg PO DAILY Print Language: Vietnamese Instructions: Dizziness (ED) Referrals: Lonnie Sheehan MD [Primary Care Provider, Family Practice] - 1 week
--- OUTSIDE RECORDS SUMMARY | 2025-06-09 14:56 | XMS_ITS | Clinical Summary ---
Author Organization 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 Role Phone Lonnie Sheehan MD Primary Care Provider [phone] Social History Tobacco Use Types Packs/Day Years Used Date Smoking Tobacco: Never Assessed Comments Unknown Sex and Gender Information Value Date Recorded Sex Assigned at Not on file Legal Sex Female 8:04 AM EST Gender Identity Not on file Sexual Orientation Not on file Plan of Treatment Health Maintenance Due Date Last Done Comments Anxiety Screening 1981 Depression Screening 1981 HIV Screening 1981 Hepatitis C Screening 1981 DTaP,Tdap,Td Vaccine (1 - Tdap) 1982 Cervical Cancer Screening [address] Colonography 2008 Cologuard (FIT-DNA) 2008 Colonoscopy 2008 Colorectal Cancer Screening 2008 Diabetes Screening 2008 Fecal Occult Blood 2008 Lipid Screening 2008 Sigmoidoscopy 2008 Pneumococcal Vaccine: 50+ (1 of 1 - PCV) 2013 Shingrix Vaccine (1 of 2) 2013 Covid-19 Vaccine ( - 2023-25 season) 2024 Influenza Vaccine (Season Ended) 2025 RSV Vaccine (1 - 1-dose 75+ series) 2038 Care Teams Vegetable Farm Worker Relationship Specialty Start Date End Date Lonnie Sheehan MD PCP - General Family Medicine 01/19/16
--- OUTSIDE RECORDS SUMMARY | 2025-06-09 14:57 | XMS_ITS | Clinical Summary ---
Author Organization [employer] [facility] Address 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 Active desvenlafaxine (PRISTIQ) 100 mg 24 hr tablet Take 1 tablet by mouth daily. Active CARTIA XT 240 mg 24 hr capsule Take 1 capsule by mouth daily. 11 7 Active levothyroxine (SYNTHROID, LEVOTHROID) 75 MCG tablet Take 1 tablet by mouth daily. 2 7 Active liothyronine (CYTOMEL) 5 MCG tablet Take 1 tablet by mouth daily. 11 7 Active ibuprofen (ADVIL,MOTRIN) 800 mg tablet Take 800 mg by mouth every 6 (six) hours as needed for pain. Active aspirin 81 mg Take 81 mg by mouth daily. Active ALPRAZolam (XANAX) 0.25 mg tablet alprazolam 0.25 mg tablet Active ARIPiprazole (ABILIFY) 2 mg tablet Take 2 mg by mouth daily. 0 Active ibuprofen (ADVIL,MOTRIN) 800 mg tablet Take 1 tablet (800 mg total) by mouth in the morning and 1 tablet (800 mg total) at noon and 1 tablet (800 mg total) before bedtime. 21 tablet 2 Active Active Problems Problem Noted Date Diagnosed Date Lumbosacral spondylosis without myelopathy 09/22 Overview (09/22/2020): Added automatically from request for surgery [id number] Family History Medical History Relation Name Comments Stroke Father Breast cancer Neg Hx Colon cancer Neg Hx Relation Name Status Comments Father Mother Social History Tobacco Use Types Packs/Day Years Used Date Smoking Tobacco: Every Day Cigarettes 0.3 30 Smokeless Tobacco: Never Tobacco Cessation:Ready to Q uit: No; Counseling Given: Yes Comments:d/w pt. decreased risk of stroke, HTN Alcohol Use Standard Drinks/Week Comments Yes 0 (1 standard drink = 0.6 oz pur e alcohol) Childcare Answer Date Recorded Childcare Unknown 05/13/2019 Employment Answer Date Recorded Employment Unknown 05/13/2019 Hunger Screening Answer Date Recorded Within the past 12 months we worried whether our food would run out before we got money to buy more. Never True 01/26/2023 Within the past 12 months th e food we bought just didn't last and we didn't have money to get more. Never True 01/26/2023 Purpose - Life Answer Date Recorded Purpose and direction in life Unknown Comments No Sex and Gender Information Value Date Recorded Sex Assigned at Not on file Legal Sex Female 11:23 AM EDT Gender Identity Not on file Sexual Orientation Not on file Last Filed Vital Signs Vital Sign Reading Time Taken Comments Blood Pressure 89/78 01/26/2023 9:08 PM EST Pulse 87 01/26/2023 9:08 PM EST Temperature 36.7 C (98.1 F) 01/26/2023 9:08 PM EST Respiratory Rate 18 01/26/2023 9:08 PM EST Oxygen Saturation 97% 01/26/2023 9:08 PM EST Inhaled Oxygen Concentration - - Weight 77.1 kg (170 lb) 01/26/2023 9:08 PM EST Height 162.6 cm (5' 4 ) 01/26/2023 9:08 PM EST Body Mass Index 29.18 01/26/2023 9:08 PM EST Plan of Treatment Health Maintenance Due Date Last Done Comments Depression Screening 1975 Tobacco Screening 1975 DTaP,Tdap and Td Vaccines (1 - Tdap) 1982 Pap Smear 03/21/2020 03/21/2017, 03/21/2017 Adult BMI Screening 01/26/2024 01/26/2023 COVID-19 Vaccine (2023- 5 season) 2024 08/31/2022, 09/24/2021, 08/22/2021 Influenza Vaccine 08/02/2025 08/31/2022, , 09/19/2020 Zoster (Shingles) Vaccine Completed 01/25/2021, 03/2020 Medical Devices Not on file Procedures Procedure Name Priority Date/Time Associated Diagnosis Comments HIGH RISK HPV W/JATINDER Routine 03/21/2017 9:35 AM EDT Encounter for gynecological examination without abnormal finding from Last 3 Months or Most Recently Relevant to Health Maintenance Results * High risk HPV w/jatinder (03/21/2017 9:35 AM EDT) Hpv specimen type ThinPrep 03/25/2017 9:32 AM EDT [facility] Hpv 16 Negative Negative 03/26/2017 12:55 PM EDT [facility] Hpv 18 Negative Negative 03/26/2017 12:55 PM EDT [facility] Other high risk hpv Negative Negative 03/26/2017 12:55 PM EDT [facility] Comment: HPV types 31,33,35,39,45,52,56,58,59,66 and 68 DNA were undetectable. 03/21/2017 9:35 AM EDT 03/21/2017 9:35 AM EDT us Claudia Sheehan INNER TUBE TUBER MACHINE OPERATOR-CNM LAB BLOOD ORDERABLES Final Result [facility] [address] [place] [address], [place] [facility] from Last 3 Months or Most Recently Relevant to Health Maintenance [address] [place] [address] [employer] Care Teams Sole Leveling Machine Operator Relationship Specialty Start Date End Date Lonnie Sheehan MD PCP - General Family Medicine 01/26/23
--- OUTSIDE RECORDS SUMMARY | 2025-06-09 14:57 | XMS_ITS | Patient Health Record ---
Author Organization [facility] [place] Address [address] [place] [address] Care Team Providers Care Rn Orthopedic Name Role Phone AguilaKonrad Primary Care Provider [phone] Allergies Allergen (clinical drug ingredient) Drug/Non Drug Allergy documented on EMR Reaction Allergy Type Onset Date Status sulfamethoxazole / trimethoprim Bactrim Unknown Drug Allergy Active ciprofloxacin Cipro Unknown Drug Allergy Act jarvis Latex Latex Unknown Allergy Active Substance with sulfonamide structure and antibacterial mechanism of action (substance) Sulfa Antibiotics Unknown Drug Allergy A ctive Results Component Value Reference Range Notes FREE T3 Reviewed date:12/14/2024 01:23:32 PM Interpretation: Performing Lab: Notes/Report: [facility] , Free T3 2.21 2.18-3.98 pg/mL Performing Lab: see note ML - [facility] LB INSULIN Reviewed date:2024 04:22:39 PM Interpretation: Performing Lab: Notes/Report: [facility] , Insulin 12.8 2.6-24.9 uIU/mL Performed at: - [facility] [address] [id number] Requirements Analyst: Rico Hidalgo PhD, Phone: [phone] Performing Lab: see note LC - [facility] LB LIPID PROFILE Reviewed date:12/14/2024 01:23:32 PM Interpretation: Performing Lab: Notes/Report: [facility] , Triglycerides 81 <=150 mg/dL Cholesterol 205 <=200 mg/dL HDL Cholesterol 55 40-60 mg/dL <40 mg/dl - HIGH CARDIOVASCULAR RISK > or =60 mg/dl - LOW CARDIOVASCULAR RISK LDL Cholesterol Calculated 134.0 160-189 mg/dl HIGH <100 mg/dl OPTIMAL 130-159 mg/dl BORDERLINE HIGH 100-129 mg/dl NEAR OR ABOVE OPTIMAL >190 mg/dl VERY HIGH VLDL CHOLESTEROL 16.2 Chol HDL Ratio 3.7 4.4 - 7.1 AVERAGE RISK >11.0 HIGH RISK 3.3 - 4.4 LOW RISK 7.1 - 11.0 MODERATE RISK Performing Lab: see note ML - [facility] PROF 14(COMP METB) Reviewed date:12/14/2024 01:23:32 PM Interpretation: Performing Lab: Notes/Report: [facility] , Sodium 141 136-145 mmol/L Potassium 4.5 3.5-5.1 mmol/L Chloride 107 98-107 mmol/L Carbon Dioxide 29.8 21.0-32.0 mmol/L Anion Gap 8.7 Glucose 94 74-106 mg/dL Blood Urea Nitrogen 12.0 7.0-18.0 mg/dL Creatinine 1.23 0.55-1.02 mg/dL Estimated GFR ( Lupe 54 >=60 mL/min/1.73m 2 Estimated GFR (Non- Laura 45 >=60 mL/min/1.73m 2 BUN Creatinine Ratio 9.8 Calcium 9.5 8.5-10.1 mg/dL Bilirubin Total 0.3 0.2-1.0 mg/dL Aspartate Amino Transferase 12 15-37 U/L Alanine Aminotransferase 22 14-59 U/L Alkaline Phosphatase 109 46-116 U/L Total Protein 6.9 6.4-8.2 g/dL Albumin Level 3.3 3.4-5.0 g/dL Globulin 3.6 Albumin Globulin Ratio 0.9 Performing Lab: see note ML - [facility] LB T4 Reviewed date:12/14/2024 01:23:32 PM Interpretation: Performing Lab: Notes/Report: [facility] , T4 Thyroxine 6.70 4.80-13.90 ug/dL Performing Lab: see note ML - [facility] LB TSH Reviewed date:12/14/2024 01:23:32 PM Interpretation: Performing Lab: Notes/Report: [facility] , Thyroid Stimulating Hormone 0.088 0.358-3.740 uIU/mL Performing Lab: see note ML - [facility] LB CREATININE Reviewed date:03/15/2025 08:32:31 PM Interpretation: Performing Lab: Notes/Report: [facility] , Creatinine 1.29 0.55-1.02 mg/dL Estimated GFR ( Lupe 51 >=60 mL/min/1.73m 2 Estimated GFR (Non- Laura 42 >=60 mL/min/1.73m 2 Performing Lab: see note - [facility] LB BNP Reviewed date:03/25/2025 07:10:39 PM Interpretation: Performing Lab: Notes/Report: [facility] , NT Pro B Type Natriuretic Pept 61.0 <=900.0 pg/mL Performing Lab: see note - [facility] LB PROF 14(COMP METB) Reviewed date:03/25/2025 07:10:39 PM Interpretation: Performing Lab: Notes/Report: [facility] , Sodium 137 136-145 mmol/L Potassium 4.0 3.5-5.1 mmol/L Chloride 101 98-107 mmol/L Carbon Dioxide 26.1 21.0-32.0 mmol/L Anion Gap 13.9 Glucose 114 74-106 mg/dL Blood Urea Nitrogen 12.0 7.0-18.0 mg/dL Creatinine 1.27 0.55-1.02 mg/dL Estimated GFR ( Lupe 52 >=60 mL/min/1.73m 2 Estimated GFR (Non- Laura 43 >=60 mL/min/1.73m 2 BUN Creatinine Ratio 9.4 Calcium 9.3 8.5-10.1 mg/dL Bilirubin Total 0.3 0.2-1.0 mg/dL Aspartate Amino Transferase 18 15-37 U/L Alanine Aminotransferase 36 14-59 U/L Alkaline Phosphatase 117 46-116 U/L Total Protein 7.1 6.4-8.2 g/dL Albumin Level 3.7 3.4-5.0 g/dL Globulin 3.4 Albumin Globulin Ratio 1.1 Performing Lab: see note - [facility] LB Troponin I High Sensitivity Reviewed date:03/25/2025 07:10:39 PM Interpretation: Performing Lab: Notes/Report: [facility] , Troponin I High Sensitivity <4.0 4.0-51.3 pg/mL HAS BEEN CONFIRMED THE DECISION THRESHOLD FOR FL CUT-OFF POINTS HAVE BEEN ESTABLISHED BASED ON THE FOURTH NOTE: HIGH-SENSITIVITY TROPONIN ASSAY IS NOT INTENDED TO BE 99TH PERCENTILE = 51.4 PG/ML UNIVERSAL DEFINITION OF MYOCARDIAL INFARCTION. THE UPPER REFERENCE LIMIT (URL) OF TROPONIN, DEFINED THE 99TH DIAGNOSIS. PERCENTILE OF cTnI DISTRIBUTION IN A REFERENCE POPULATION, USED IN ISOLATION BUT SHOULD BE INTERPRETED IN CONJUNCTION WITH OTHER DIAGNOSTIC AND CLINICAL INFORMATION. Performing Lab: see note ML - [facility] CT lung screening low-dose Reviewed date:04/05/2025 07:51:39 PM Interpretation: Performing Lab: Notes/Report: Source Facility: [place] [address] [place] [address] CT Scan Report Signed Patient: GLORY KENDALL MR#: [id number] : 1965 Acct:[id number] Age/Sex: 59 / F ADM Date: 04/05/25 Loc: CT Attending Dr: Álvaro Santana M.D. Ordering Physician: Álvaro Santana M.D. Date of Service: 04/05/25 Procedure(s): CT lung screening low-dose Accession Number(s): [id number] cc: Álvaro Santana M.D. [place] [address] Patient Name: GLORY KENDALL MRN: [id number] date: 1965 Sex: F Assigned Patient Location: CT Current Patient Location: CT Accession/Order Number: [id number] Exam Date: 04/05/2025 15:15 Report Date: 04/05/2025 15:23 At the request of: ÁLVARO SANTANA MD Procedure: CT lung screening low-dose CT CHEST WITHOUT CONTRAST, LOW DOSE SCREENING: CLINICAL DATA: A 59-year old former smoker COMPARISON: None TECHNIQUE: Noncontrast axial CT scan images of the chest were obtained under the low dose screening CT protocol. Coronal and sagittal reconstructed images were also submitted. FINDINGS: Mediastinum : Suboptimal evaluation due to low-dose technique. Thoracic aorta appears normal in caliber. Pulmonary trunk appears nondilated. No pericardial effusion. No lymphadenopathy. The esophagus is grossly unremarkable. Lungs: No focal consolidation, pneumothorax or pleural effusion. Trachea and distal airways appear patent. Mild lung scarring. Emphysema. No suspicious noncalcified pulmonary nodule or mass. Upper abdomen: No acute findings. Liver cysts. Bony thorax and chest wall: Soft tissues surrounding the chest wall demonstrate no acute findings. Osseous structures demonstrate degenerative change. CT/CT lung screening low-dose IMPRESSION: LUNG - RADS Version 1.0 Assessment: Impression dictated by: Jack Leon Jr., D.O. 04/05/2025 3:23 PM Dictation Location: [place] [address] Electronically authenticated by: [id number] Y Date: 04/05/2025 15:23 Dictated By: Jack Leon M.D. Signed By: 04/05/25 1526 DD/ 22 TD/TT: Sign Installer: [place] [address] CT Scan Report Signed Patient: ODILIA KENDALL MR#: [id number] : 1965 Acct:[id number] Age/Sex: 59 / F ADM Date: 04/05/25 Loc: CT Attending Dr: Philly Santana M.D. Ordering Physician: Álvaro Santana M.D. Date of Service: 04/05/25 Procedure(s): CT ed g screening low-dose Accession Number(s): [id number] cc: Álvaro Santana M.D. [place] [address] Patient Name: GLORY KENDALL MRN: [id number] date: 1965 Sex: F Assigned Patient Location: CT Current Patient Loca tion: CT Accession/Order Numb er: [id number] Exam Date: 04/05/2025 15:15 Report Date: 04/05/2025 15:23 At the request of: ÁLVARO SANTANA MD Procedure: CT lung screening low-dose CT CHEST WITHOUT CONTRAST, LOW DOSE SCREENING: CLINICAL DATA: A 59- year old former smoker COMPARISON: None TECHNIQUE: Noncontra st axial CT scan images of the chest were obtained under the low dose [facility] CT protocol. Coronal and sagittal reconstructed images were also submitted. FINDINGS: Mediastinum : Subopt imal evaluation due to low-dose technique. Thoracic aorta appears normal in caliber. Pulmonary trunk appears nondilated. No pericardial effusion . No lymphadenopathy. The esophagus is grossly unremarkable. Lungs: No focal consolidation, pneumothorax or pleural effusion. Trachea and distal airways appea r patent. Mild lung scarring. Emphysema. No suspicious noncalcified pulmonary nodule or mass. Upper abdomen: No ac perez findings. Liver cysts. Bony thorax and ches t wall: Soft tissues surrounding the chest wall demonstrate no acute findings. Osseous structures demonstrate degenerative change. C T/CT lung screening low-dose IMPRESSION: LUNG - RADS Version 1.0 Assessment: Impression dictated by: Jack Leon Jr., DCitlalyOCitlaly 04/05/2025 3:23 PM Dictation Location: [place] [address] Electronically authenticated by: [id number] Y Date: 04/05/2025 15:23 Dictated By: Jack Leon M.D. Signed By: 04/05/25 1526 DD/ 1523 TD/TT: Sign Installer: CT sinus wo con Reviewed date:04/05/2025 07:51:39 PM Interpretation: Performing Lab: Notes/Report: Source Facility: [place] [address] CT Scan Report Signed Patient: GLORY KENDALL MR#: [id number] : 1965 Acct:[id number] Age/Sex: 59 / F ADM Date: 04/05/25 Loc: CT Attending Dr: Álvaro Santana M.D. Ordering Physician: Álvaro Santana M.D. Date of Service: 04/05/25 Procedure(s): CT sinus wo con Accession Number(s): [id number] cc: Álvaro Santana M.D. [place] [address] Patient Name: GLORY KENDALL MRN: [id number] date: 1965 Sex: F Assigned Patient Location: CT Current Patient Location: CT Accession/Order Number: [id number] Exam Date: 04/05/2025 14:41 Report Date: 04/05/2025 15:15 At the request of: ÁLVARO SANTANA MD Procedure: CT sinus wo con CT PARANASAL SINUSES WITHOUT CONTRAST: CLINICAL HISTORY: Acute Sinusitis COMPARISON: None TECHNIQUE: Contiguous axial unenhanced images were obtained through the paranasal sinuses. Coronal reconstructions were also performed. This CT exam was performed using one or more following dose reduction techniques: Automated exposure control, adjustment of the mA and/or kV according to patient size, or use of iterative reconstruction technique. FINDINGS: There is appropriate development and pneumatization. There is no mucosal thickening or air-fluid levels. The ostiomeatal complexes are patent. There is no bony destruction. No soft tissue swelling. Nasopharynx appears unremarkable. CT/CT sinus wo con IMPRESSION: NO EVIDENCE OF INFLAMMATORY DISEASE Impression dictated by: Jack Leon Jr., D.OCitlaly 04/05/2025 3:15 PM Dictation Location: [place] [address] Electronically authenticated by: [id number] Y Date: 04/05/2025 15:15 Dictated By: Jack Leon M.D. Signed By: 04/05/25 1517 DD/ 14 TD/TT: Sign Installer: The [address] [address] [address] Scan Report Signed Patient: ODILIA KENDALL MR#: [id number] : 1965 Acct:[id number] Age/Sex: 59 / F ADM Date: 04/05/25 Loc: CT Attending Dr: Philly Santana M.D. Ordering Physician: Álvaro Santana M.D. Date of Service: 04/05/25 Procedure(s): CT sin us wo con Accession Number(s): [id number] cc: Álvaro Santana M.D. [address] [address] Patient Name: GLORY KENDALL MRN: [id number] date: 1965 Sex: F Assigned Patient Location: CT Current Patient Loca tion: CT Accession/Order Numb er: [id number] Exam Date: 04/05/2025 14:41 Report Date: 04/05/2025 15:15 At the request of: ÁLVARO SANTANA MD Procedure: CT sinus wo con CT PARANASAL SINUSES WITHOUT CONTRAST: CLINICAL HISTORY: Ac perez Sinusitis COMPARISON: None TECHNIQUE: Contiguou s axial unenhanced images were obtained through the paranasal sinuses. Coronal reconstructions were also performed. This CT exam was performed using one or more following dose reduction techniques: Automated exposure control, adjustment of the mA and/or kV according to patient size, or use of iterative reconstruction technique. FINDINGS: There is appropriate development and pneumatization. There is no mucosal thickening o r air-fluid levels. The ostiomeatal complexes are patent. There is no bony destruction. No soft tissue swelling. Nasopharynx appears unremarkable. C T/CT sinus wo con IMPRESSION: NO EVIDENCE OF INFLAMMATORY DISEASE Impression dictated by: Jack Leon Jr., D.O. 04/05/2025 3:15 PM Dictation Location: [place] [address] Electronically authenticated by: [id number] Y Date: 04/05/2025 15:15 Dictated By: Jack Leon M.D. Signed By: 04/05/25 1517 DD/ 1515 TD/TT: Sign Installer: ECG 12 lead Reviewed date:03/25/2025 08:57:20 PM Interpretation: Performing Lab: Notes/Report: Source Facility: [facility]-[address] [place] [address] [place] [address] Electrocardiograph Report Signed Patient: GLORY KENDALL MR#: [id number] : 1965 Acct:[id number] Age/Sex: 59 / F ADM Date: 03/25/25 Loc: ER Attending Dr: Ordering Physician: Melina Heath Date of Service: 03/25/25 Procedure(s): ECG 12 lead Accession Number(s): [id number] cc: [facility] Test Date: 2025-03-25 Pat Name: GLORY KENDALL Department: Room: - Gender: Female 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 Measurements Intervals [place] Rate: 79 P: 13 NH: 140 QRS: -4 QRSD: 84 T: 18 QT: 358 QTc: 393 Interpretive Statements 1100 Sinus rhythm [address] depression Abnormal ECG Compared to ECG 12/17/2019 13:26:58 Myocardial infarct finding no longer present ST (T wave) deviation still present Electronically Signed On 03-25-2025 20:45:47 EDT by EDDIE MCKEON M.D. 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 Measurements Intervals [place] Rate: 79 P: 13 NH: 140 QRS: -4 QRSD: 84 T: 18 QT: 358 QTc: 393 Interpretive Statements 1100 Sinus rhythm [address] depression Abnormal ECG Compared to ECG 12/17/2019 13:26:58 Myocardial infarct finding no longer present ST (T wave) deviatio n still present Electronically [place] d On 03-25-2025 20:45:47 EDT by EDDIE MCKEON M.D. Dictated By: EDDIE MCKEON Signed By: 03/25/252044 DD/ 34 TD/TT: Sign Installer: SHUN Gaspar date:03/25/2025 07:10:39 PM Interpretation: Performing Lab: Notes/Report: [facility] , D Dimer 0.34 <=0.59 mg/L FEU Increases in D-Dimer concentration observed with event cannot be diagnosed with certainty on the basis of the size, and age of the thrombus. Therefore, a thromboembolic of disorders including advanced age, , coronary or anticoagulant therapy, stress, and generalized thromboembolic events can be variable due to localization, reference range. D-Dimers may also be elevated for a variety hematoma, DIC, trauma, post-surgery, diabetes, thrombolytic disease, cancer, liver disease, infection, inflammation, hospitalization. Performing Lab: see note ML - [facility] LB CBC AUTO DIFF Reviewed date:03/25/2025 07:10:39 PM Interpretation: Performing Lab: Notes/Report: [facility] , White Blood Count 7.4 4.0-11.0 10 3/uL Red Blood Count 4.55 4.20-5.40 10 6/uL Hemoglobin 14.6 12.0-16.0 g/dL Hematocrit 41.9 36.0-48.0 % Mean Corpuscular Volume 92.1 81.0-99.0 fL Mean Corpuscular Hemoglobin 32.1 26.7-34.0 pg Mean Corpuscular HGB Conc 34.8 29.9-35.2 g/dL Red Cell Distribution Width 12.6 11.0-15.0 % Platelet Count 353 150-450 10 3/uL Mean Platelet Volume 8.5 9.5-13.5 fL Neutrophils Percent Auto 53.5 43.0-75.0 % Lymphocytes Percent Auto 36.2 20.5-60.0 % Monocytes Percent Auto 8.2 1.7-12.0 % Eosinophils Percent Auto 1.3 0.9-7.0 % Basophils Percent Auto 0.5 0.2-2.0 % Immature Granulocytes Pct Auto 0.3 0.0-0.5 % Neutrophils Absolute Auto 4.0 1.4-6.5 10 3/uL Lymphocytes Absolute Auto 2.7 1.2-3.8 10 3/uL Monocytes Absolute Auto 0.6 0.3-0.8 10 3/uL Eosinophils Absolute Auto 0.1 0.0-0.7 10 3/uL Basophils Absolute Auto 0.0 0.0-0.1 10 3/uL Immature Granulocytes Abs Auto 0.02 0.00-0.03 10 3/uL Performing Lab: see note ML - [facility] LB MR head/brain wo/w con Reviewed date:03/16/2025 01:29:47 PM Interpretation: Performing Lab: Notes/Report: Source Facility: [facility]-[address] [place] [address] [place] [address] Magnetic Resonance Report Signed Patient: GLORY KENDALL MR#: [id number] : 1965 Acct:[id number] Age/Sex: 59 / F ADM Date: 03/15/25 Loc: MRI Attending Dr: Álvaro Santana M.D. Ordering Physician: Álvaro Santana M.D. Date of Service: 03/15/25 Procedure(s): MR head/brain wo/w con Accession Number(s): [id number] cc: Álvaro Santana M.D. [facility] [place] [address] Patient Name: GLORY KENDALL MRN: [id number] date: 1965 Sex: F Assigned Patient Location: MRI Current Patient Location: Accession/Order Number: [id number] Exam Date: 03/15/2025 15:14 Report Date: 03/16/2025 09:37 At the request of: ÁLVARO SANTANA MD Procedure: MR head/brain wo/w con MRI the Brain with and without contrast TECHNIQUE: Multiplanar T1 and T2-weighted imaging of the brain. 14 cc of contrast HISTORY: Left facial droop. Lightheaded. Fatigue. COMPARISON: none VENTRICLES: Unremarkable BRAIN VOLUME: Adequate volume of brain parenchyma identified. BRAIN PARENCHYMAL SIGNAL INTENSITY: Scattered foci of increased T2/FLAIR signal intensity of the brain parenchyma is consistent with chronic small vessel ischemic changes. BLEED: None MASS EFFECT: No mass effect DIFFUSION RESTRICTION: None GRADIENT ECHO PARENCHYMAL SIGNAL LOSS: None MIDBRAIN: The midbrain structures are unremarkable. LARRY: Unremarkable MEDULLA: Unremarkable INTERNAL AUDITORY CANALS: Unremarkable SINUSES: Unremarkable ORBITS: Grossly unremarkable MASTOIDS: Unremarkable ENHANCEMENT: No pathologic enhancement MR/MR head/brain wo/w con IMPRESSION: No acute intracranial process. Mild diffuse atrophy and chronic small vessel ischemic changes. No pathologic enhancement. Impression dictated by: Juan Pablo Garcia M.D.03/16/2025 9:37 AM Dictation Location: [place] [address] Electronically authenticated by: [id number] Y Date: 03/16/2025 09:37 Dictated By: Juan Pablo Garcia D.O. Signed By: 03/16/25939 DD/ 6 TD/TT: Sign Installer: [place] [address] Magnetic Resonance Report Signed Patient: ODILIA KENDALL MR#: [id number] : 1965 Acct:[id number] Age/Sex: 59 / F ADM Date: 03/15/25 Loc: MRI Attending Dr: Philly Santana M.D. Ordering Physician: Álvaro Santana M.D. Date of Service: 03/15/25 Procedure(s): MR head/brain wo/w con Accession Number(s): [id number] cc: Álvaro Santana M.D. [place] [address] Patient Name: GLORY KENDALL MRN: [facility]:[id number] date: 1965 Sex: F Assigned Patient Location: MRI Current Patient Location: Accession/Order Numb er: [id number] Exam Date: 03/15/2025 15:14 Report Date: 03/16/2025 09:37 At the request of: ÁLVARO SANTANA MD Procedure: MR head/b rain wo/w con MRI the Brain with a nd without contrast TECHNIQUE: Multiplan ar T1 and T2-weighted imaging of the brain. 14 cc of contrast HISTORY: Left facial droop. Lightheaded. Fatigue. COMPARISON: none VENTRICLES: Unremarkable BRAIN VOLUME: Adequa te volume of brain parenchyma identified. BRAIN PARENCHYMAL SI GNAL INTENSITY: Scattered foci of increased T2/FLAIR signal intensity of the brain parenchyma is consistent with chronic small vessel ischemic changes. BLEED: None MASS EFFECT: No mass effect DIFFUSION RESTRICTIO N: None GRADIENT ECHO PARENC HYMAL SIGNAL LOSS: None MIDBRAIN: The midbra in structures are unremarkable. LARRY: Unremarkable MEDULLA: Unremarkable INTERNAL AUDITORY CA NALS: Unremarkable SINUSES: Unremarkable ORBITS: Grossly unremarkable MASTOIDS: Unremarkable ENHANCEMENT: No pathologic enhancement M R/MR head/brain wo/w con IMPRESSION: No acute intracranial process. Mild diffuse atrophy and chronic small vessel ischemi c changes. No pathologic enhancement. Impression dictated by: Juan Pablo Garcia M.D.03/16/2025 9:37 AM Dictation Location: [place] [address] Electronically authenticated by: [id number] Y Date: 03/16/2025 09:37 Dictated By: Bony Garcia D.O. Signed By: 03/16/2540 DD/ 6 TD/TT: Sign Installer: ADRIAN Reviewed date:12/14/2024 01:23:32 PM Interpretation: Performing Lab: Notes/Report: [facility] , Iron 82.0 50.0-170.0 ug/dL Performing Lab: see note - [facility] LB GLYCOHEMOGLOBIN A1C Reviewed date:12/14/2024 01:23:32 PM Interpretation: Performing Lab: Notes/Report: [facility] , Glycohemoglobin A1C 5.0 4.5-6.2 % ADA THERAPEUTIC TARGET < 7.0 ADA RECOMMENDED LIMIT 4.0 - 6.0 ACTION SUGGESTED > 7.0 Estimated Average Glucose 97 Performing Lab: see note - [facility] LB CBC AUTO DIFF Reviewed date:12/14/2024 01:23:32 PM Interpretation: Performing Lab: Notes/Report: [facility] , White Blood Count 5.8 4.0-11.0 10 3/uL Red Blood Count 4.67 4.20-5.40 10 6/uL Hemoglobin 14.7 12.0-16.0 g/dL Hematocrit 44.1 36.0-48.0 % Mean Corpuscular Volume 94.4 81.0-99.0 fL Mean Corpuscular Hemoglobin 31.5 26.7-34.0 pg Mean Corpuscular HGB Conc 33.3 29.9-35.2 g/dL Red Cell Distribution Width 12.1 11.0-15.0 % Platelet Count 334 150-450 10 3/uL Mean Platelet Volume 8.6 9.5-13.5 fL Neutrophils Percent Auto 62.3 43.0-75.0 % Lymphocytes Percent Auto 26.6 20.5-60.0 % Monocytes Percent Auto 8.1 1.7-12.0 % Eosinophils Percent Auto 0.9 0.9-7.0 % Basophils Percent Auto 0.7 0.2-2.0 % Immature Granulocytes Pct Auto 1.4 0.0-0.5 % Neutrophils Absolute Auto 3.6 1.4-6.5 10 3/uL Lymphocytes Absolute Auto 1.6 1.2-3.8 10 3/uL Monocytes Absolute Auto 0.5 0.3-0.8 10 3/uL Eosinophils Absolute Auto 0.1 0.0-0.7 10 3/uL Basophils Absolute Auto 0.0 0.0-0.1 10 3/uL Immature Granulocytes Abs Auto 0.08 0.00-0.03 10 3/uL Performing Lab: see note ML - [facility] Reason For Referral Diagnosis 1 Acute non-recurrent sinusitis, unspecified location (J01.90) Referral Organization [facility] Referring Provider First Name Konrad Referring Provider Last Name Aguila Referring Provider Speciality Family [facility] Referred Provider Katherine Cotton Referred Provider Specialty Otolaryngolo gy Referral Priority Routine Medications Medication SIG (Take, Route, Frequency, Duration) Notes Start Date End Date Status dilTIAZem HCl ER Coated Beads 240 MG 1 capsule Orally Once a day for 90 days Active Desvenlafaxine Succinate ER 100 MG 1 tablet Orally Once a day for 90 days Active hydrOXYzine HCl 25 MG 1 tablet as needed Orally qid for 10 days 04/06/2025 Not-Takin g Biotin Active Semaglutide 2.268 mg/0.63 mL Buderer Active Aspirin 81 81 MG 1 tablet Orally Once a day for 90 days Active OLANZapine 10 MG 1 tablet Orally Once a day for 30 days 04/27/2025 Active Ammonium Lactate 12 % 1 application Externally Twice a day 04/14/2025 Active Metoprolol Succinate ER 50 MG 1 tablet Orally Once a day for 90 days Active ALPRAZolam 0.5 MG 1 tablet Orally Twic e a day for 5 days 05/24/2025 Active Metoprolol Succinate ER 25 MG 1 [...] Dupixent 300 MG/2ML as directed Subcutaneous Active Social History Tobacco Use: Social History Observation Description Date Details (start date - stop date) Former Smoker 12/02/1981 - 08/20/2024 Alcohol Screen (Audit-C) Question Answer Notes Did you have a drink contain ing alcohol in the past year? Yes How often did you have 6 or more drinks on one occasion in the past year? Never (0 point) How many drinks did you have on a typical day when you were drinking in the past year? 1 or 2 drinks (0 point) How often did you have a dri nk containing alcohol in the past year? Weekly (3 points) Points 3 Interpretation Positive Tobacco Control (Standard) Question Answer Notes Tobacco [...] week (3 points) Points 3 Interpretation Positive Problems Problem Type SNOMED Code ICD Code Onset Dates Problem Status W/U Status Risk Notes Problem Syringomyelia and syringobulbia (671644984) Syringomyelia and syringobulbia (G95.0) Active confirmed Problem 78162940 Venous insufficiency (chronic) (peripheral) (I87.2) Active confirmed Problem Pain in limb (26068067) Pain in unspecified limb (M79.609) Active confirmed Problem Acute cystitis (96898524) Acute cystitis without hematuria (N30.00) Active confirmed Problem Acute cystitis (26982433) Acute cystitis with hematuria (N30.01) Active confirmed Problem 95369725 Change in bowel habit (R19.4) Active confirmed Problem Sprain of calcaneofibular ligament of left ankle, sequela (S93.412S) Active confirmed Problem 861932665 Personal history of colonic polyps (Z86.010) Active confirmed Problem Chest pain (08470634) Chest pain (R07.9) Active confirmed Problem Fatigue (68192501) Fatigue (R53.83) Active conf irmed Problem Migraine variant with headache (disorder) (075930948) Migraine headache (G43.909) Active confirmed Problem Hypertension (79395211) Hypertension (I10) Active confirmed Problem Anxiety (54307178) Anxiety (F41.9) Active confi rmed Problem Mitral valve prolapse (517564718) Mitral valve prolapse (I34.1) Active confirmed Problem Edema (96099638) Edema (R60.9) Active confirmed Problem Depression (150638584) Depression (F32.9) Active confirmed Problem Obstructive sleep apnea (25644771) Obstructive sleep apnea (G47.33) Active confirmed Problem Insomnia (898905958) Insomnia (G47.00) Active confirmed Problem Pain in limb (75349892) Pain in joint, hand (M79.643) Active confirmed Problem Tubular adenoma of colon (261132547) Tubular adenoma of colon (D12.6) Active confirmed Problem Pain of right knee region (finding) (203976358494101) Knee pain, right (M25.561) Active confirmed Problem Otitis media (76913304) Otitis media (H66.90) Active confirmed Problem Facial palsy (296072351) Facial droop (R29.810) Active confirmed Problem Constipation (11261209) Constipation (K59.00) Active confirmed Problem Diarrhea (16757512) Diarrhea (R19.7) Active confirmed Problem Well adult (998713110) Well adult (Z00.00) Active confirmed Problem Panic disorder (940979525) Panic disorder (F41.0) Active confirmed Problem Near syncope (993437535) Near syncope (R55) Active confirmed Problem Cervical disc disorder (780112579) DDD (degenerative disc disease), cervical (M50.30) Active confirmed Problem Overweight (627282865) Over weight (E66.3) Active confirmed Problem Superficial phlebitis of arm (I80.8) Active confirmed Problem Seasonal allergic rhinitis (335564114) Allergic rhinitis, seasonal (J30.2) Active confirmed Problem Pain in right leg (362174089) Right leg pain (M79.604) Active confirmed Problem Right upper quadrant pain (441587879) Abdominal pain, RUQ (R10.11) Active confirmed Problem Rhinorrhea (29192200) Rhinorrhea (J34.89) Active confirmed Problem Dog bite (296682128) Dog bite (W54.0XXA) Active confirmed Problem Acute diarrhea (196022330) Acute diarrhea (R19.7) Active confirmed Problem Chronic obstructive pulmonary disease (36512837) COPD, mild (J44.9) Active confirmed Problem Acute bronchiolitis (8178023) Acute bronchiolitis (J21.9) Active confirmed Problem Irritable bowel (78057316) Irritable bowel (K58.9) Active confirmed Problem Coronary artery spasm (80325482) Coronary artery spasm (I20.1) Active confirmed Problem Shoulder impingement syndrome (910871106) Shoulder impingement syndrome (M75.40) Active confirmed Problem Spider bite wound (492451551) Spider bite (T63.301A) Active confirmed Problem Disorder of musculoskeletal system (778390) Arm weakness (R29.898) Active confirmed Problem Low back pain (984321153) Low back pain, unspecified (M54.50) Active confirmed Problem Cough (finding) (07242058) Cough, unspecified (R05.9) Active confirmed Problem Low back pain (finding) (219710347) Low back pain at multiple sites (M54.50) Active confirmed Vital Signs Blood pressure diastolic 70 mm Hg 06/07/2025 Height 64 in 06/07/2025 Blood pressure systolic 134 mm Hg 06/07/2025 Weight 174.4 lbs 06/07/2025 BMI 29.93 kg/m2 06/07/2025 Procedures Procedure Date Ordered Date Performed Result Body Sit e Sleep Study: Retitration BIPAP/CPAP 03/04/2025 N/A Encounters Encounter Location Date Provider Diagnosis [facility] [address] [place] [address] 04/06/2025 Konrad Hoy Insomnia G47.00 ; Pa arnoldo disorder F41.0 and Hypertension I10 [address] [address] 04/22/2025 Konrad Hoy Anxiety F41.[address] [address] 05/17/2025 Konrad Hoy Insomnia G47.00 ; Anxiety F41.9 and Depression F32.[address] [address] 11/27/2024 Konrad Hoy Well adult Z00.[address] [address] 01/18/2025 Konrad Hoy Migraine headache G43.909 ; Panic disorder F41.0 ; Hypertension I10 and Otitis media H66.[address] [address] 02/12/2025 Konrad Hoy Acute non-recurrent sinusitis, unspecified location J01.90 and Nasal congestion R09.[address] [address] 03/04/2025 Konrad Hoy Facial droop R29.810 ; Arm weakness R29.898 and Obstructive sleep apnea G47.[address] [address] 03/17/2025 Konrad Hoy Hypertension I10 ; Fatigue R53.83 and Anxiety F41.[address] [address] 03/26/2025 Konrad Hoy Acute non-recurrent sinusitis, unspecified location J01.90 and Nasal congestion R09.[address] [address] 08/11/2024 Konrad Hoy Low back pain at multiple sites M54.50 ; Anxiety F41.9 and Obstructive sleep apnea G47.[address] [address] 08/25/2024 Konrad Hoy BP (high blood press ure) I10 ; Low back pain at multiple sites M54.50 and Anxiety F41.9 [facility] [address] [place] [address] 09/03/2024 Konrad Hoy Hypertension I10 [facility] [address] [facility] [facility] [place] [address] 06/07/2025 Konrad Hoy Anxiety F41.9 and Hypertension I10 [facility] [address] [facility] [facility] [place] [address] 04/28/2025 Konrad Hoy [facility] [address] [facility] [place] [address] 05/24/2025 Konrad Hoy Insomnia G47.00 and Acute non-recurrent sinusitis, unspecified location J01.90 [facility] [address] [facility] [facility] [place] [address] 04/05/2025 Konrad Hoy [facility] [address] [facility] [place] [address] 04/12/2025 Konrad Hoy Acute non-recurrent sinusitis, unspecified location J01.90 [facility] [address] [place] [address] 04/14/2025 Konrad Hoy [facility] [address] [place] [address] 04/23/2025 Konrad Hoy Acute non-recurrent sinusitis, unspecified location J01.90 [facility] [address] [place] [address] 04/23/2025 Konrad Hoy [facility] [address] [place] [address] 04/27/2025 Konrad Hoy Anxiety F41.9 [facility] [address] [place] [address] 01/19/2025 Konrad Hoy [facility] [address] [place] [address] 01/19/2025 Konrad Hoy [facility] [address] [place] [address] 01/25/2025 Konrad Hoy [facility] [address] [place] [address] 02/09/2025 Konrad yaron [facility] [address] [place] [address] 03/15/2025 Konrad yaron [facility] [address] [place] [address] 03/16/2025 Konrad yaron [facility] [address] [place] [address] 11/29/2024 Konrad [facility] [address] [place] [address] 12/14/2024 Konrad yaron [facility] [address] [facility] [place] [address] 12/14/2024 Konrad [facility] [address] [facility] [facility] [place] [address] 12/28/2024 Konrad Santana BP (high blood press ure) I10 and Hypertension I10 [facility] [address] [facility] [place] [address] 12/28/2024 Konrad Linyaron [facility] [address] [place] [address] 12/30/2024 Konrad Linyaron [facility] [address] [place] [address] 07/24/2024 Konrad yaron [facility] [address] [place] [address] 08/31/2024 Konrad Santana BP (high blood press ure) I10 [facility] [address] [place] [address] 09/01/2024 Konrad Santana [facility] [address] [place] [address] 10/13/2024 Konrad [facility] [address] [place] [address] 11/23/2024 Konrad yaron [facility] [address] [place] [address] 11/27/2024 Konrad Santana [facility] [address] [facility] [place] [address] 06/24/2024 Konrad Santana [facility] [address] [facility] [place] [address] 07/23/2024 Konrad Santana Assessments Encounter Date Diagnosis (ICD Code) Assessment Notes Treatment Notes Treatment Clinical Notes Section Notes 08/11/2024 Low back pain at multiple sites (ICD-10 - M54.50) adding musclke relaxers 08/11/2024 Anxiety (ICD-10 - F41.9) in the past neded xanax 08/25/2024 BP (high blood pressure) (ICD-10 - I10) 08/25/2024 Low back pain at multiple sites (ICD-10 - M54.50) 09/03/2024 Hypertension (ICD-10 - I10) neeeds FMLA for intermittand uncontrolled HTN 11/27/2024 Well adult (ICD-10 - Z00.00) doing well on jim jazlyn,eglutids 01/18/2025 Migraine headache (ICD-10 - G43.909) 01/18/2025 Panic disorder (ICD-10 - F41.0) 02/12/2025 Acute non-recurrent sinusitis, unspecified location (ICD-10 - J01.90) Rest and drink more liquids, especially water. You may use a humidifier or vaporizer to help keep the drainage moist. Ketj-yix-jrrrocp Nasal Saline may help the stuffy and runny nose. Use Ibuprofen and or Tylenol as needed for fever, chills, body aches or pain. Children 5 years old should not be given wiqv-oyc-mrtrsno cough and cold medications such as guaifenesin and dextromethorphan. If you're over age 5, you may try okxo-tkb-owsmhgv cold medications such as guaifenesin and dextromethorphan, or multi-symptom cold reliever such as Dayquil to help reduce the symptoms. Antibiotics have been prescribed. You should take these until completed and follow the directions. Antibiotics can sometimes cause upset stomach, and in rare cases, serious allergic reactions or serious gastrointestinal problems. If you start having severe abdominal pain, severe vomiting, or bloody diarrhea, you should be reevaluated by your physician or urgent care immediately. Follow up with your Primary Care Provider or return to clinic if symptoms do not improve within 3-5 days 03/04/2025 Facial droop (ICD-10 - R29.810) 03/04/2025 Arm weakness (ICD-10 - R29.898) 03/17/2025 Hypertension (ICD-10 - I10) 03/17/2025 Fatigue (ICD-10 - R53.83) 03/26/2025 Acute non-recurrent sinusitis, unspecified location (ICD-10 - J01.90) Rest and drink more liquids, especially water. You may use a humidifier or vaporizer to help keep the drainage moist. Wgdc-gum-qvflenc Nasal Saline may help the stuffy and runny nose. Use Ibuprofen and or Tylenol as needed for fever, chills, body aches or pain. Children 5 years old should not be given ijlx-vrq-zkdrial cough and cold medications such as guaifenesin and dextromethorphan. If you're over age 5, you may try cicn-zbj-wujoxqg cold medications such as guaifenesin and dextromethorphan, or multi-symptom cold reliever such as Dayquil to help reduce the symptoms. Antibiotics have been prescribed. You should take these until completed and follow the directions. Antibiotics can sometimes cause upset stomach, and in rare cases, serious allergic reactions or serious gastrointestinal problems. If you start having severe abdominal pain, severe vomiting, or bloody diarrhea, you should be reevaluated by your physician or urgent care immediately. Follow up with your Primary Care Provider or return to clinic if symptoms do not improve within 3-5 days 04/22/2025 Anxiety (ICD-10 - F41.9) failec on seroquel - needs rezulty - side effects and still having anxiety - despite being on the seroquel at 150 05/17/2025 Insomnia (ICD-10 - G47.00) 05/17/2025 Anxiety (ICD-10 - F41.9) 08/31/2024 BP (high blood pressure) (ICD-10 - I10) 12/28/2024 BP (high blood pressure) (ICD-10 - I10) 06/07/2025 Anxiety (ICD-10 - F41.9) just staterd 10 mg - needs 2 adde weeks for 06/07/2025 Hypertension (ICD-10 - I10) 04/12/2025 Acute non-recurrent sinusitis, unspecified location (ICD-10 - J01.90) 04/23/2025 Acute non-recurrent sinusitis, unspecified location (ICD-10 - J01.90) 04/27/2025 Anxiety (ICD-10 - F41.9) 05/24/2025 Insomnia (ICD-10 - G47.00) 04/06/2025 Insomnia (ICD-10 - G47.00) 04/06/2025 Panic disorder (ICD-10 - F41.0) 04/06/2025 Hypertension (ICD-10 - I10) 05/24/2025 Acute non-recurrent sinusitis, unspecified location (ICD-10 - J01.90) 12/28/2024 Hypertension (ICD-10 - I10) 05/17/2025 Depression (ICD-10 - F32.9) 03/26/2025 Nasal congestion (ICD-10 - R09.81) 03/17/2025 Anxiety (ICD-10 - F41.9) 03/04/2025 Obstructive sleep apnea (ICD-10 - G47.33) 02/12/2025 Nasal congestion (ICD-10 - R09.81) 01/18/2025 Hypertension (ICD-10 - I10) 08/25/2024 Anxiety (ICD-10 - F41.9) 08/11/2024 Obstructive sleep apnea (ICD-10 - G47.33) 01/18/2025 Otitis media (ICD-10 - H66.90) Plan Of Treatment Pending Test Test Name Order Date CMP (COMPLETE METABOLIC PANEL) CMP (COMPLETE METABOLIC PANEL) HEMOGLOBIN A1C (GLYCO) 04/24/2024 HEMOGLOBIN A1C (GLYCO) 11/27/2024 IRON, TOTAL 11/27/2024 LIPID PANEL (CHOL/TRIG/HDL/LDL) 04/24/20 LIPID PANEL (CHOL/TRIG/HDL/LDL) 11/27/20 CBC WITH DIFF 11/27/2024 CBC WITH DIFF 04/24/2024 XR Lumbar Spine (2-3 views) * 05/15/2023 US Lower Extremity LT 02/20/2024 US Lower Extremity RT 02/20/2024 Dressing Change- performed 10/21/2023 Insulin Level 11/27/2024 Sleep Study: Retitration BIPAP/CPAP 01/2025 CT Chest Low Dose for Screening* 024 Venous Insufficiency Study 02/23/2024 STOOL OCCULT BLOOD 04/24/2024 AMMONIA 12/16/2023 CBC AUTO DIFF 12/16/2023 CULTURE SPUTUM 04/15/2023 GI PANEL (PCR) 04/15/2023 PROF 14(COMP METB) 12/16/2023 SED RATE WESTERGREN 12/16/2023 MRI BRAIN WO W CON 03/04/2025 MRI LSPINE WO CON 10/13/2023 MRI TSPINE WO CON 10/13/2023 US ARTERY LEG JULIEN 02/20/2024 XR LSPINE 2_3 VIEWS 05/20/2023 THYROID PANEL (T4/TSH/FREE T3) 4 THYROID PANEL (T4/TSH/FREE T3) 4 MM screening mammo BI 11/27/2024 CT CHEST LOW DOSE (LDCT) 11/27/2024 CT CHEST LOW DOSE (LDCT) 03/26/2025 CT sinus w con 03/26/2025 Next Appt Details Provider Name:Konrad Santana, 01:00:00 PM, [address] [place], [address], Insurance Providers Payer Name Payer Address Payer Phone Subscriber Number Group Number Insured Name Patient Relationship to Insured Coverage Start Date Coverage End Date [employer] [address] [address] [place] [address] [id number] Faiza Glory Self - patient is the insured Medications Administered Medication Instructions Date of Administration Dosage Notes Ozempic 04/03/2024 0.25 mL Medical (General) History Medical History History ICD Code Shoulder impingement syndrome M75.40 Over weight E66.3 Sprain of calcaneofibular ligament of le ft ankle, sequela S93.412S Knee pain, right M25.561 Acute cystitis with hematuria N30.01 Cough, unspecified R05.9 Rhinorrhea J34.89 Pain in unspecified limb M79.609 Acute cystitis without hematuria N30.00 Well adult Z00.00 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 Low back pain, unspecified M54.50 Abdominal pain, RUQ R10.11 Chest pain R07.9 COPD, mild J44.9 Near syncope R55 Tubular adenoma of colon D12.6 Pain in joint, hand M79.643 DDD (degenerative disc disease), cervica l M50.30 Superficial phlebitis of arm I80.8 Obstructive sleep apnea G47.33 Insomnia G47.00 Coronary artery spasm I20.1 Migraine headache G43.909 Panic disorder F41.0 Allergic rhinitis, seasonal J30.2 Mitral valve prolapse I34.1 Anxiety F41.9 Depression F32.9 Constipation K59.00 Surgical History Surgery Date(Month/Year) Colonoscopy 05/2023 APPENDECTOMY Kyphoplasty Ganglion cyst removal Broken left arm- child Hospitalization History Reason Date(Month/Year) Exhaustion Pneumonia/Influenza B/Bronchitis
--- OUTSIDE RECORDS SUMMARY | 2025-06-09 14:57 | XMS_ITS | Encounter Summary ---
Author Organization [facility] Address [address] [place] [address] Care Team Providers Care Burglar Alarm Superintendent Name Role Phone Lonnie Sheehan MD Primary Care Provider + Reason for Visit * Reason Comments Medication Refill Encounter Details Date Type Department Care Team ([facility] Contact Info) Description 10[facility]08[facility] [address], [address] [place] [address] Guy Olguin MD Medication Refill Social History Tobacco Use Types Packs/Day Years Used Date Smoking Tobacco: Some Days Smokeless Tobacco: Never Comments Unknown Sex and Gender Information Value Date Recorded Sex Assigned at Not on file Legal Sex Female 3:21 PM EDT Gender Identity Not on file Sexual Orientation Not on file documented as of this encounter Plan of Treatment Not on file documented as of this encounter Visit Diagnoses Diagnosis Syringohydromyelia (HCC) Lumbar spondylosis Lumbosacral spondylosis without myelopathy Lumbar degenerative disc disease Degeneration of lumbar or lumbosacral intervertebral disc Thoracic back pain, unspecified back pain laterality, unspecified chronicity documented in this encounter Care Teams Burglar Alarm Superintendent Relationship Specialty Start Date End Date Lonnie Sheehan MD [address] [place] [address] PCP - General Family Medicine 08/30/20 documented as of this encounter
--- OUTSIDE RECORDS SUMMARY | 2025-06-09 14:58 | XMS_ITS | Encounter Summary ---
Author Organization [facility] tem Address [facility] [id number] [address] [place] [address] Care Team Providers Care Site Auditor Name Role Phone Lonnie Sheehan MD Primary Care Provider [phone] Encounter Details Date Type Department Care Team ([facility] st Contact Info) Description 09/22/2020 Orders Only [facility] [address] [place] [address] Lonnie Sheehan MD [address] [place] [address] Social History Tobacco Use Types Packs/Day Years Used Date Smoking Tobacco: Former Cigarettes 1 30 Smokeless Tobacco: Never Alcohol Use Standard Drinks/Week Comments Yes 5 (1 standard drink = 0.6 oz pur e alcohol) Childcare Answer Date Recorded Childcare Unknown 05/13/2019 Employment Answer Date Recorded Employment Unknown 05/13/2019 Comments No Sex and Gender Information Value Date Recorded Sex Assigned at Not on file Legal Sex Female 11:23 AM EDT Gender Identity Not on file Sexual Orientation Not on file COVID-19 Exposure Response Date Recorded In the last month, have you been in contact with someone who was confirmed or suspected to have Coronavirus / COVID-19? No / Unsure 09/22/2020 1:30 PM EDT documented as of this encounter Plan of Treatment Not on file documented as of this encounter Procedures Procedure Name Priority Date/Time Associated Diagnosis Comments MR THORACIC SPINE WO CONT Routine 08/25/2020 documented in this encounter Results * MR thoracic spine without contrast (08/25/2020) Anatomical Region Laterality Modality MSK, Neuro, Spine, T-spine, Spine Covera N/A Magnetic Resonance us Lonnie Sheehan MD IMG MRI ORDERABLES Final Result documented in this encounter Visit Diagnoses Not on filedocumented in this encounter Additional Health Concerns Assessment Noted Time A Body Mass Index follow-up plan has been documented for the patient 03/20/2017 6:34 PM EDT documented as of this encounter Care Teams Site Auditor Relationship Specialty Start Date End Date Lonnie Sheehan MD PCP - General Family Medicine 01/26/23 documented as of this encounter
--- OUTSIDE RECORDS SUMMARY | 2025-06-09 14:58 | XMS_ITS | Clinical Summary ---
Author Organization [facility] Healthcare Address [address] [place] [address] Care Team Providers Care Scarifier Operator Name Role Phone Lonnie Sheehan MD Primary Care Provider [phone] Allergies Active Allergy Reactions Criticality Noted Date Comments Ciprofloxacin 04/05/2025 Other Reaction(s): Unknown Latex 03/20/2017 Other Reaction(s): Not available, Unknown Sulfamethoxazole-Trimethoprim 2019 Other Reaction(s): Not available, Unknown Medications ALPRAZolam (Xanax) 0.25 MG tablet Take 1 tablet 3 times a day by oral route. Active aspirin 81 MG chewable tablet Chew 1 tablet every day by oral route. Active desvenlafaxine (Pristiq) 100 MG 24 hr tablet Take 100 mg by mouth Daily Active Dupilumab (Dupixent) 100 MG/0.67ML solution prefilled syringe as directed Subcutaneous Active ibuprofen 800 MG tablet every 8 (eight) hours Active levothyroxine (Synthroid, Levoxyl) 75 MCG tablet Take 75 mcg by mouth Daily Active liothyronine (Cytomel) 5 MCG tablet Take 5 mcg by mouth Daily Active metoprolol succinate XL (Toprol-XL) 25 MG 24 hr tablet Take 25 mg by mouth Daily Active metoprolol succinate XL (Toprol-XL) 50 MG 24 hr tablet Acti ve dilTIAZem CD (Cartia XT) 240 MG 24 hr capsule Take 1 capsule every day by oral route. Active ammonium lactate (Amlactin) 12 % cream Apply topically if needed for dry skin Active biotin 1 MG capsule Take by mouth Active famotidine (Pepcid) 40 MG tablet Take by mouth Active Semaglutide-Matt ght Management 2.4 MG/0.75ML solution auto-injector Inject under the skin Active QUEtiapine (SEROquel) 50 MG tablet Take 50 mg by mouth at bedtime Active loratadine (Claritin) 10 MG tablet Take by mouth Active Fluticasone Propionate (FLONASE ALLERGY RELIEF NA) Administer into affected nostril(s) Active mupirocin (Bactroban) 2 % ointmentIndicat ions:Chronic rhinitis Apply to each side of the nasal septum twice daily 15 g 1 Active Active Problems Problem Noted Date Diagnosed Date 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 Lumbosacral spondylosis without myelopathy 09/22 Overview (04/05/2025): Added automatically from request for surgery [id number] Anxiety 09/18/2017 Asthma 09/18/2017 Cervical disc disorder 09/18/2017 Coronary artery spasm 09/18/2017 Depressive disorder 09/18/2017 Migraine 09/18/2017 Mitral valve prolapse 09/18/2017 Obstructive sleep apnea syndrome 09/12/2017 Encounters Date Type Department Care Team Description 04/07/2025 2:00 PM EDT Office Visit [facility] [address] [facility] [address] [place] [address] Katherine Cotton MD Nasal septal perforation (Primary Dx); Chronic rhinitis 04/07/2025 Bamboo flowsheet [facility] [address] [place] [address] [place] [address] Katherine Cotton MD 04/07/2025 Travel from Last 3 Months Social History Tobacco Use Types Packs/Day Years Used Date Smoking Tobacco: Former Cigarettes Smokeless Tobacco: Never Tobacco Cessation:Counseling Given: Not Answered Alcohol Use Standard Drinks/Week Comments Yes 0 (1 standard drink = 0.6 oz pur e alcohol) occ Comments Unknown Sex and Gender Information Value Date Recorded Sex Assigned at Not on file Legal Sex Female 7:25 PM EDT Gender Identity Not on file Sexual Orientation Not on file Last Filed Vital Signs Vital Sign Reading Time Taken Comments Blood Pressure 108/80 04/07/2025 2:02 PM EDT Pulse 67 04/07/2025 2:02 PM EDT Temperature - - Respiratory Rate - - Oxygen Saturation - - Inhaled Oxygen Concentration - - Weight 72.6 kg (160 lb) 04/07/2025 2:02 PM EDT Height 162.6 cm (5' 4 ) 04/07/2025 2:02 PM EDT Body Mass Index 27.46 04/07/2025 2:02 PM EDT Plan of Treatment Health Maintenance Due Date Last Done Comments CT Colonography 1965 Colonoscopy 1965 Colorectal Cancer Screening 1965 FIT-DNA 1965 FIT 1965 FOBT 1965 Sigmoidoscopy 1963 Pap Smear 1984 Cervical Cancer Screening 1993 HPV/Cotest 1993 Mammogram 2003 Influenza Vaccine (#1) 2025 3, 08/31/2022, 08/10/2021, Additional history exists Insurance [employer] Care Teams Scarifier Operator Relationship Specialty Start Date End Date Lonnie Sheehan MD [address] [place] [address] PCP - General Family Medicine 04/07/25
--- OUTSIDE RECORDS SUMMARY | 2025-06-09 14:58 | XMS_ITS | Clinical Summary ---
Author Organization [facility] Address [address] [place] [address] Care Team Providers Care Final Touch Up Painter Name Role Phone Lonnie Sheehan MD Primary Care Provider [phone] Allergies Active Allergy Reactions Criticality Noted Date Comments Latex 09/09/2020 Medications BABY ASPIRIN PO Take by mouth Active ibuprofen (ADVIL;MOTRIN) 800 MG tablet Take 800 mg by mouth every 6 hours as needed for Pain Active diclofenac (VOLTAREN) 50 MG EC tabletIndications :Syringohydromyel ia (HCC),Lumbar spondylosis,Lumba r degenerative disc disease,Thoracic back pain, unspecified back pain laterality, unspecified chronicity Take 1 tablet by mouth 2 times daily 60 tablet 09/09/2020 Active Family History Medical History Relation Name Comments Stroke Father Relation Name Status Comments Father Social History Tobacco Use Types Packs/Day Years Used Date Smoking Tobacco: Some Days Smokeless Tobacco: Never Comments Unknown Sex and Gender Information Value Date Recorded Sex Assigned at Not on file Legal Sex Female 3:21 PM EDT Gender Identity Not on file Sexual Orientation Not on file Last Filed Vital Signs Vital Sign Reading Time Taken Comments Blood Pressure - - Pulse - - Temperature 36.3 C (97.4 F) 09/09/2020 11:50 AM EDT Respiratory Rate - - Oxygen Saturation - - Inhaled Oxygen Concentration - - Weight 76.2 kg (168 lb) 09/09/2020 11:50 AM EDT Height 162.6 cm (5' 4 ) 09/09/2020 11:50 AM EDT Body Mass Index 28.84 09/09/2020 11:50 AM EDT Plan of Treatment Not on file Insurance [employer] Care Teams Final Touch Up Painter Relationship Specialty Start Date End Date Lonnie Sheehan MD [address] [place] [address] PCP - General Family Medicine 08/30/20
[2025-06-09 15:33] LABS: Hematocrit 43.3 % (36.0-48.0); Hemoglobin 14.5 g/dL (12.0-16.0); Immature Granulocytes Abs Auto 0.04 10^3/uL (0.00-0.03); Immature Granulocytes Pct Auto 0.4 % (0.0-0.5); Lymphocytes Absolute Auto 1.6 10^3/uL (1.2-3.8); Mean Corpuscular HGB Conc 33.5 g/dL (29.9-35.2); Mean Corpuscular Hemoglobin 31.7 pg (26.7-34.0); Mean Corpuscular Volume 94.5 fL (81.0-99.0); Platelet Count 348 10^3/uL (150-450); Red Blood Count 4.58 10^6/uL (4.20-5.40); White Blood Count 9.3 10^3/uL (4.0-11.0)
[2025-06-09] MEDS: LORAZEPAM 1 MG TABLET PO (15:46)
[2025-06-09 15:55] LABS: Anion Gap 13.9; Blood Urea Nitrogen 13.0 mg/dL (7.0-18.0); Calcium 9.3 mg/dL (8.5-10.1); Carbon Dioxide 28.3 mmol/L (21.0-32.0); Chloride 105 mmol/L (98-107); Estimated GFR (African America >60 (>=60 mL/min/1.73m^2); Estimated GFR (Non-African Ame 55 (>=60 mL/min/1.73m^2); Glucose 94 mg/dL (74-106); Potassium 4.2 mmol/L (3.5-5.1); Sodium 143 mmol/L (136-145)
--- NOTE | 2025-06-09 16:44 | CT_ITS ---
The [address] [address] Patient Name: GLORY MCKEON MRN: [id number] date: 1965 Sex: F Assigned Patient Location: ER Current Patient Location: Accession/Order Number: [id number] Exam Date: 06/09/2025 18:00 Report Date: 06/09/2025 18:10 At the request of: FEDERICO VILLAFANA MD Procedure: CT angio neck CT angiogram head and neck HISTORY: Dizziness COMPARISON: CT head 06/09/2025 TECHNIQUE: Contiguous CT angiogram imaging head and neck performed with coronal and sagittal reformats. Evaluation degree of ICA narrowing was performed utilizing NASCET criteria. MIP reconstructions performed. The CT exam was performed using one or more the following dose reduction techniques: Automated exposure control, adjustment of the MA and/or Kv according to patient size, or use of the iterative reconstruction technique FINDINGS: Bovine configuration aortic arch. Mild plaque identified involving the great vessels. Mild to moderate plaque both bifurcations extending into the ICAs. Otherwise no significant stenosis identified. Left dominant vertebral artery. Vertebral arteries are patent throughout their course. Intracranial ICAs are patent. Mild plaque involving the ICAs. ICAs are otherwise patent. Both carotid termini patent. ACAs are patent. ACAs are patent. Distal vertebral arteries join from the basilar artery. Basilar tip and basilar bifurcation unremarkable. Posterior cerebral arteries are patent. Major dural venous sinuses are patent. No saccular aneurysm. CT/CT angio neck Impression: Negative for large vessel occlusion or hemodynamically stenosis. Impression dictated by: Arcenio Cardona M.D. 06/09/2025 6:10 PM Dictation Location: [place] [address] Electronically authenticated by: [id number] Y Date: 06/09/2025 18:10
--- NOTE | 2025-06-09 16:44 | CT_ITS ---
The [address] [address] Patient Name: GLORY MCKEON MRN: [id number] date: 1965 Sex: F Assigned Patient Location: ER Current Patient Location: Accession/Order Number: [id number] Exam Date: 06/09/2025 18:00 Report Date: 06/09/2025 18:10 At the request of: FEDERICO VILLAFANA MD Procedure: CT angio neck CT angiogram head and neck HISTORY: Dizziness COMPARISON: CT head 06/09/2025 TECHNIQUE: Contiguous CT angiogram imaging head and neck performed with coronal and sagittal reformats. Evaluation degree of ICA narrowing was performed utilizing NASCET criteria. MIP reconstructions performed. The CT exam was performed using one or more the following dose reduction techniques: Automated exposure control, adjustment of the MA and/or Kv according to patient size, or use of the iterative reconstruction technique FINDINGS: Bovine configuration aortic arch. Mild plaque identified involving the great vessels. Mild to moderate plaque both bifurcations extending into the ICAs. Otherwise no significant stenosis identified. Left dominant vertebral artery. Vertebral arteries are patent throughout their course. Intracranial ICAs are patent. Mild plaque involving the ICAs. ICAs are otherwise patent. Both carotid termini patent. ACAs are patent. ACAs are patent. Distal vertebral arteries join from the basilar artery. Basilar tip and basilar bifurcation unremarkable. Posterior cerebral arteries are patent. Major dural venous sinuses are patent. No saccular aneurysm. CT/CT angio head Impression: Negative for large vessel occlusion or hemodynamically stenosis. Impression dictated by: Arcenio Cardona M.D. 06/09/2025 6:10 PM Dictation Location: [place] [address] Electronically authenticated by: [id number] Y Date: 06/09/2025 18:10
== END 2025-06-09 18:48 | disposition home or self-care (01) ==
PROVIDERS: Emergency Provider Emergency Medicine; PCP Family Medicine
DX: R42 Dizziness and giddiness (principal); Z90.49 Acquired absence of other specified parts of digestive tract; F17.210 Nicotine dependence, cigarettes, uncomplicated
CPT/HCPCS: 36415; 70450; 70496; 70498; 71045; 80048; 84484; 85025; 93005; 99285; Q9967

== ENCOUNTER 2025-06-25 13:55 | Outpatient (OUT) | payer OTHER, SELFPAY ==
--- OUTSIDE RECORDS SUMMARY | 2025-06-07 12:00 | XMS_ITS ---
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 Phone Konrad Sheehan Primary Care [...] 06/07/2025 Encounters Encounter Location Date Provider Diagnosis [facility] [address] [place] [address] 06/07/2025 Konrad Sheehan Anxiety F41.9 and Hypertension [...] for Next Appt Details Provider Name:Konrad Sheehan, 04:30:00 PM, [address] [place], [address], Progress Notes * Ciara KENDALL MDOB:[birth year] (59 yo F)Acc No.[id number]:06/07/2025 Progress Note Patient: Ciara LONG Provider: Jazzmine Sheehan ([facility])MD :1965 A ge:59 Y S ex:Female Date:06/07/2025 Address:[address] [place], [place] [id number] Check In:03:40 PM ESTCheck O ut:04:55 PM [...] Procedure Codes: * Preventive Medicine: Screenings/Counseling: B PR ACTION PLAN Above Normal BMI Follow-up D ietary management education, guidance, and counseling * * Sign off status: Completed Visit Status: C HK (Check Out) true * Provider: Jazzmine Sheehan ([facility])MD Date: 06/07/2025 Generated for Printi ng/Fayahairag/eTransmitting on: 06/25/2025 01:57 PM EDT History and Physical Notes * [...]
--- OUTSIDE RECORDS SUMMARY | 2025-06-14 11:15 | XMS_ITS ---
Author Organization The [facility] [place] Address [address] [place] [address] Care Team Providers Care Phosphoric Acid Supervisor Name Role Phone Konrad Sheehan Primary Care Provider [phone] Allergies Allergen (clinical drug ingredient) Drug/Non Drug Allergy documented on EMR Reaction Allergy Type Onset Date Status sulfamethoxazole / trimethoprim Bactrim Unknown Drug Allergy Active ciprofloxacin Cipro Unknown Drug Allergy Act jarvis Latex Latex Unknown Allergy Active Substance with sulfonamide structure and antibacterial mechanism of action (substance) Sulfa Antibiotics Unknown Drug Allergy A ctive REASON FOR VISIT ER FU-Anxiety, asking for more testing, she wants to make sure its anxiety and more more serious Medications Medication SIG (Take, Route, Frequency, Duration) Notes Start Date End Date Status Semaglutide 2.268 mg/0.63 mL Buderer Active OLANZapine 10 MG 1 tablet Orally Once a day for 30 days 04/27/2025 Active Metoprolol Succinate ER 50 MG 1 tablet Orally Once a day for 90 days Active Metoprolol Succinate ER 25 MG 1 tablet Orally Once a day- with 50mg tablet for 90 days 12/28/2024 Active hydrOXYzine HCl 25 MG 1 tablet as needed Orally qid for 10 days 04/06/2025 Not-Bridget g Liothyronine Sodium 5 MCG 1 tablet on [...] Dupixent 300 MG/2ML as directed Subcutaneous Active Biotin Active Aspirin 81 81 MG 1 tablet Orally Once a day for 90 days Active Ammonium Lactate 12 % 1 application Externally Twice a day 04/14/2025 Active dilTIAZem HCl ER Coated Beads 240 MG 1 capsule Orally Once a day for 90 days Not-Taking Desvenlafaxine Succinate ER 100 MG 1 tablet Orally Once a day for 90 days Active ALPRAZolam 0.5 MG 1 tablet Orally Twic e a day for 5 days 05/24/2025 Not-Taking Social History Tobacco Use: Social History Observation [...] Points 3 Interpretation Positive Vital Signs Weight 178.2 lbs 06/14/2025 Height 64 in 06/14/2025 Blood pressure systolic 144 mm Hg 06/14/20 25 Blood pressure diastolic 80 mm Hg 025 BMI 30.58 kg/m2 06/14/2025 Encounters Encounter Location Date Provider Diagnosis [facility] Medicine [address] [place] [address] 06/14/2025 Konrad Hoy Chest pain R07.9 and Anxiety F41.9 Assessments Encounter Date Diagnosis (ICD Code) Assessment Notes Treatment Notes Treatment Clinical Notes Section Notes 06/14/2025 Chest pain (ICD-10 - R07.9) 06/14/2025 Anxiety (ICD-10 - F41.9) Plan Of Treatment Pending Test Test Name Order Date HEMOGLOBIN A1C (GLYCO) 06/14/2025 IRON, TOTAL 06/14/2025 LIPID PANEL (CHOL/TRIG/HDL/LDL) 06/14/20 25 VITAMIN D, 25 LEVEL (TOTAL) 06/14/2025 Insulin Level 06/14/2025 AMMONIA 06/14/2025 THYROID PANEL (T4/TSH/FREE T3) 5 CMP (COMP MET SIMMONS) w/eGFR CKD-EPI 2024 CBC WITH DIFF 06/14/2025 Next Appt Details Provider Name:Konrad Warren Aguila, 04:30:00 PM, [address] [place], [address], Progress Notes * Ciara KENDALL MDOB:[birth year] (59 yo F)Acc No.[id number]:06/14/2025 Progress Note Patient: Ciara LONG Provider: Jazzmine Sheehan ([facility])MD :1965 A ge:59 Y S ex:Female Date:06/14/2025 Address:[address] [place], [place] [address] Check In:03:06 PM ESTCheck O ut:03:42 PM EST Subjective: * Chief Complaints: * E R FU-AnxietyAsking for more testing, she wants to make sure its anxiety and more more serious * ROS: E ENT: hearing changes d [...] headache Modified On:12/16/2023U Status:confirmed F41.9 Anxiety Modified On:10/02/2023 Status:confirmed I34.1 Mitral valve prolaps e Modified On:04/04/2023 Status:confirmed F32.9 Depression Modified On:10/02/2023 Status:confirmed G47.33 Obstructive sleep ap phuc Modified On:12/11/2023 Status:confirmed G47.00 Insomnia Modified On:04/04/2023 Status:confirmed M79.643 Pain in joint, hand Modified On:04/04/2023 Status:confirmed D12.6 Tubular adenoma of c olon Modified On:04/04/2023 Status:confirmed M25.561 Knee pain, right [...] Modified On:10/15/2023 Status:confirmed R05.9 Cough, unspecified Modified On:01/15/2024W/U Status:confirmed J44.9 COPD, mild Modified On:04/04/2023U Status:confirmed J21.9 Acute bronchiolitis Modified On:04/15/2023U Status:confirmed R19.7 Acute diarrhea Modified On:04/15/2023U Status:confirmed R19.7 Diarrhea Modified On:04/30/2023U Status:confirmed Z86.010 Personal history of colonic polyps Modified On:05/15/2023U Status:confirmed R19.4 Change in bowel habi t Modified On:05/15/2023U Status:confirmed K58.9 Irritable bowel Modified On:05/15/2023U Status:confirmed W54.0XXA Dog bite Modified On:11/07/2023U Status:confirmed [...] weakness Modified On:03/04/2025U Status:confirmed R53.83 Fatigue Modified On:03/17/2025U Status:confirmed * Medical History: * Surgical History: [...] I nterpretation P ositive * Medications: T akingAmmonium Lactate 12 % Lotion 1 application Externally Twice a day Aspirin 81(Aspirin) 81 MG Tablet Chewable 1 tablet Orally Once a day Biotin Desvenlafaxine Succinate ER 100 MG Tablet Extended Release 24 Hour 1 tablet Orally Once a day Dupixent(Dupilumab) 300 MG/2ML [...] mg/0.63 mL , Notes to Pharmacist: BudererTaking Ammonium Lactate 12 % Lotion 1 application Externally Twice a day Taking Aspirin 81(Aspirin) 81 MG Tablet Chewable 1 tablet Orally Once a day Taking Biotin Taking Desvenlafaxine Succinate ER 100 MG Tablet Extended Release 24 Hour 1 tablet Orally Once a day Taking Dupixent(Dupilumab) 300 [...] 2.268 mg/0.63 mL , Notes to Pharmacist: BudererNot-Taking/PRNALPRAZolam 0.5 MG Tablet 1 tablet Orally Twice a day dilTIAZem HCl ER Coated Beads 240 MG Capsule Extended Release 24 Hour 1 capsule Orally Once a day hydrOXYzine HCl 25 MG Tablet 1 tablet as needed Orally qid Medication List reviewed and reconciled with the patientNot-Taking/PRN ALPRAZolam 0.5 MG Tablet 1 tablet Orally Twice a day Not-Taking/PRN dilTIAZem HCl ER Coated Beads 240 MG Capsule Extended Release 24 Hour 1 capsule Orally Once a day Not-Taking/PRN hydrOXYzine HCl 25 MG Tablet 1 tablet as needed Orally qid Medication List reviewed and reconciled with the patient * Allergies: S ulfa AntibioticsLatex - Criticality HighBactrimCiprono[Allergies Verified] Objective: * Vitals: W t:178.2lbs, Ht: 64 in, BP:144/80mm Hg, BMI:30.58Index, Ht-cm: 162.56 cm, Wt-k.83 kg. * Examination: P hysical Exam: GENERAL: [...] mood and affect. Assessment: * Assessment: 1. C hest pain - R07.9 (Primary) 2 . A nxiety - F41.9 Plan: * Treatment: 2. A nxiety L AB: HEMOGLOBIN A1C (GLYCO) L AB: IRON, TOTAL L AB: LIPID PANEL (CHOL/TRIG/HDL/LDL) L AB: VITAMIN D, 25 LEVEL (TOTAL) L AB: Insulin Level L AB: THYROID PANEL (T4/TSH/FREE T3) L AB: CMP (COMP MET SIMMONS) w/eGFR CKD-EPI L AB: CBC WITH DIFF * Procedure Codes: * Preventive Medicine: Screenings/Counseling: B [employer] ACTION PLAN Above Normal BMI Follow-up D ietary management education, guidance, and counseling * * Sign off status: Completed Visit Status: C HK (Check Out) true * Provider: Jazzmine Sheehan ([facility])MD Date: 06/14/2025 Generated for Printi ng/Faxing/eTransmitting on: 06/25/2025 01:57 PM EDT History and Physical Notes * Examination Category Sub-Category Detail Notes Category Not [...]
--- OUTSIDE RECORDS SUMMARY | 2025-06-23 09:00 | XMS_ITS ---
Author Organization The [facility] [place] Address [address] [place] [address] Care Team Providers Care Brick Burner Name Role Phone Konrad Sheehan Primary Care Provider [phone] Allergies Allergen (clinical drug ingredient) Drug/Non Drug Allergy documented on EMR Reaction Allergy Type Onset Date Status sulfamethoxazole / trimethoprim Bactrim Unknown Drug Allergy Active ciprofloxacin Cipro Unknown Drug Allergy Act jarvis Latex Latex Unknown Allergy Active Substance with sulfonamide structure and antibacterial mechanism of action (substance) Sulfa Antibiotics Unknown Drug Allergy A ctive REASON FOR VISIT 2wk f/u, Anxiety, Seems to be some better, patient states can take a breath now, Right Arm Issue/ Tinging and Numbness Medications Medication SIG (Take, Route, Frequency, Duration) Notes Start Date End Date Status OLANZapine 10 MG 1 tablet Orally Once a day for 30 days 04/27/2025 Active ALPRAZolam 0.5 MG 1 tablet Orally Twic e a day for 5 days 05/24/2025 Active Semaglutide 2.268 mg/0.63 mL Buderer Active hydrOXYzine HCl 25 MG 1 tablet as needed Orally qid for 10 days 04/06/2025 Active dilTIAZem HCl ER Coated Beads 240 [...] for 90 days Active Metoprolol Succinate ER 50 MG 1 tablet Orally Once a day for 90 days Active Ibuprofen 800 MG 1 tablet with food o r milk as needed Orally every 8 hrs PRN Active Biotin Active Aspirin 81 81 MG 1 tablet Orally Once a day for 90 days Active Dupixent 300 MG/2ML as directed Subcutaneous Active Desvenlafaxine Succinate ER 100 MG 1 tablet Orally Once a day for 90 days Active Famotidine 40 MG 1 tablet at bedtime Orally Once a day for 90 days Active Ammonium Lactate 12 % 1 application Exte rnally Twice a day 04/14/2025 Active Social History Tobacco Use: Social History [...] Answer Notes Did you have a drink containing alcohol in the p ast year? No Points 0 Interpretation Negative Vital Signs Weight 178 lbs 06/23/2025 Height 64 in 06/23/2025 Blood pressure systolic 144 mm Hg 06/23/20 25 Blood pressure diastolic 84 mm Hg 025 BMI 30.55 kg/m2 06/23/2025 Encounters Encounter Location Date Provider Diagnosis [address] [place] [address] 06/23/2025 Konrad Hoyaron Hypertension I10 ; P anic disorder F41.0 and Arm pain, lateral, unspecified laterality M79.603 Assessments Encounter Date Diagnosis (ICD Code) Assessment Notes Treatment Notes Treatment Clinical Notes Section Notes 06/23/2025 Hypertension (ICD-10 - I10) improvin anxiety - still to help with BP 06/23/2025 Panic disorder (ICD-10 - F41.0) 06/23/2025 Arm pain, lateral, unspecified laterality (ICD-10 - M79.603) arm paoin wrse wtih use - concerning fo circulation issues - needs u/s vasscular Plan Of Treatment Treatment Notes Assessment Notes Hypertension improvin anxiety - s till to help with BP Arm pain, lateral, unspecified lateralit y arm paoin wrse wtih use - concerning fo circulation issues - needs u/s vasscular Pending Test Test Name Order Date US arterial duplex UE BI 06/23/2025 Next Appt Details Provider Name:Konrad Warren Aguila, 04:30:00 PM, [address] [place], [address], Progress Notes * Ciara KENDALL MDOB:[birth year] (59 yo F)Acc No.[id number]:06/23/2025 Progress Note Patient: Ciara LONG Provider: Jazzmine Sheehan ([facility])MD :1965 A ge:59 Y S ex:Female Date:06/23/2025 Address:[address] [place], [place] [id number] Check In:12:58 PM ESTCheck O ut:01:28 PM EST Subjective: * Chief Complaints: * 2 wk f/uAnxietySeems to be some better, patient states can take a breath nowRight Arm Issue/ Tinging and Numbness * HPI: G eneral: stil with some anxiety -= unable to focus wel enough to go back to work. * ROS: E ENT: hearing changes d [...] Modified On:12/16/2023 Status:confirmed J44.9 COPD, mild Modified On:05/04/2023W/U Status:confirmed J21.9 Acute bronchiolitis Modified On:04/15/2023 Status:confirmed R19.7 Acute diarrhea Modified On:04/15/2023 Status:confirmed R19.7 Diarrhea Modified On:04/30/2023 Status:confirmed Z86.010 Personal history of colonic polyps Modified On:05/15/2023 Status:confirmed R19.4 Change in bowel habi t Modified On:05/15/2023 Status:confirmed K58.9 Irritable bowel Modified On:05/15/2023 Status:confirmed W54.0XXA Dog bite Modified On:11/07/2023 Status:confirmed R60.9 Edema Modified On:02/24/2024 Status:confirmed M79.604 Right leg pain Modified On:02/20/2024U Status:confirmed I87.2 Venous insufficiency (chronic) (peripheral) Modified On:03/23/2024U Status:confirmed T63.301A Spider bite Modified On:05/04/2024U Status:confirmed M54.50 Low back pain at mul tiple sites Modified On:08/11/2024 Status:confirmed I10 Hypertension Modified On:09/03/2024 Status:confirmed H66.90 Otitis media Modified On:01/18/2025 Status:confirmed R29.810 Facial droop Modified On:03/04/2025 Status:confirmed R29.898 Arm weakness Modified On:03/04/2025U Status:confirmed [...] containing alcohol in the past year? N o P oints 0 I nterpretation N egative * Medications: T akingALPRAZolam 0.5 MG Tablet [...] Criticality HighBactrimCiprono[Allergies Verified] Objective: * Vitals: W t:178lbs, Ht: 64 in, BP:144/84mm Hg, BMI:30.55Index, Ht-cm: 162.56 cm, Wt-k.74 kg. * Examination: P hysical Exam: GENERAL: [...] H ypertension - I10 (Primary) 2 . P anic disorder - F41.0 ?3. A rm pain, lateral, unspecified laterality - M79.603 Plan: * Treatment: 2. A rm pain, lateral, unspecified laterality Notes: arm paoin wrse wtih use - concerning fo circulation issues - needs u/s vasscular * Procedure Codes: * Preventive Medicine: Screenings/Counseling: B [place] ACTION PLAN Above Normal BMI Follow-up D ietary management education, guidance, and counseling * * Sign off status: Completed Visit Status: C HK (Check Out) true * Provider: Jazzmine Sheehan ([facility])MD Date: 06/23/2025 Generated for Printi ng/Faxing/eTransmitting on: 0 06/25/2025 01:57 PM EDT History and Physical Notes * HPI (History of Present Illness) Category Sub-Category Detail Notes Category Not es General stil with some anxiety -= unable to focus wel enough to go back to work Examination Category Sub-Category Detail Notes Category Not [...]
--- OUTSIDE RECORDS SUMMARY | 2025-06-25 13:57 | XMS_ITS | Clinical Summary ---
Author Organization [facility] Address [address] [place] [address] Care Team Providers Care Traffic Division Commanding Officer Name Role Phone Lonnie Sheehan MD Primary Care Provider [phone] Social History Tobacco Use Types Packs/Day Years [...] Vaccine (1 of 2) 2013 Covid-19 Vaccine (1 - 2023-25 season) 2024 Influenza Vaccine (#1) 2025 RSV Vaccine (1 - 1-dose 75+ series) 2038 Care Teams Traffic Division Commanding Officer Relationship Specialty Start Date End Date Lonnie Sheehan MD PCP - General Family Medicine 01/19/16
--- OUTSIDE RECORDS SUMMARY | 2025-06-25 13:57 | XMS_ITS | Encounter Summary ---
Author Organization [facility] Address [address] [place] [address] Care Team Providers Care Agricultural Research Director Name Role Phone Lonnie Sheehan MD Primary Care Provider [phone] Reason for Visit * Reason Onset Date Comments rx question 06/11/2025 Encounter Details Date Type Department Care Team ([facility] st Contact Info) Description 06/11/2025 Telephone [facility] [address] [facility] [address] [place] [phone] Katherine Cotton MD [address] [facility] [address] [place] [address] rx question Social History Tobacco Use Types Packs/Day Years Used Date Smoking Tobacco: Former Cigarettes Smokeless Tobacco: Never Alcohol Use Standard Drinks/Week Comments Yes 0 (1 standard drink = 0.6 oz pur e alcohol) occ Comments Unknown Sex and Gender Information Value Date Recorded Sex Assigned at Not on file Legal Sex Female 7:25 PM EDT Gender Identity Not on file Sexual Orientation Not on file documented as of this encounter Miscellaneous Notes * Telephone Encounter - Idalia Yury - 06/11/2025 3:59 PM EDT Pharmacy wants to know if she can change it from 15 to 22 for the ointment. documented in this encounter Plan of Treatment Not on file documented as of this encounter Visit Diagnoses Diagnosis Nasal septal perforation- Primary Other diseases of nasal cavity and sinuses documented in this encounter Care Teams Agricultural Research Director Relationship Specialty Start Date End Date Lonnie Sheehan MD [address] [place] [address] PCP - General Family Medicine 04/07/25 documented as of this encounter
--- OUTSIDE RECORDS SUMMARY | 2025-06-25 13:57 | XMS_ITS | Encounter Summary ---
Author Organization [facility] Address [address] [place] [address] Care Team Providers Care Medical Clerical Assistant Name Role Phone Lonnie Sheehan MD Primary Care Provider [phone] Reason for Visit * Reason Onset Date Comments lost ointment 06/11/2025 Encounter Details Date Type Department Care Team (Late st Contact Info) Description 06/11/2025 Telephone [facility] [address] [place] [address] [place] [id number] Katherine Cotton MD [address] [facility] [address] [place] [address] lost ointment Social History Tobacco Use Types Packs/Day Years [...] Miscellaneous Notes * Telephone Encounter - Idalia Cotton - 06/11/2025 3:45 PM EDT Called pt/pt verbalized understanding * Telephone Encounter - Katherine Cotton MD - 06/11/2025 3:24 PM EDT done * Telephone Encounter - Idalia Cotton - 06/11/2025 3:06 PM EDT Pt would like to know if she can have a refill on the nose ointment that was prescribed to her. [facility] the medicine. She uses [facility] in [place]. documented in this encounter Plan of Treatment Not on file documented as of this encounter Visit Diagnoses Diagnosis Nasal septal perforation- Primary Other diseases of nasal cavity and sinuses documented in this encounter Care Teams Medical Clerical Assistant Relationship Specialty Start Date End Date Lonnie Sheehan MD [address] [place] [phone] PCP - General Family Medicine 04/07/25 documented as of this encounter
--- OUTSIDE RECORDS SUMMARY | 2025-06-25 13:58 | XMS_ITS | Encounter Summary ---
Author Organization [facility] Address [address], [address] [place] [address] Care Team Providers Care Sew Out Operator Name Role Phone Lonnie Sheehan MD Primary Care Provider [phone]- Reason for Visit * Reason Comments Medication Refill Encounter Details Date Type Department Care Team ([facility] st Contact Info) Description 10/08/2020 Refill [facility] [address], [address] [place] [address] Guy Olguin MD Medication Refill Social History [...] chronicity documented in this encounter Care Teams Sew Out Operator Relationship Specialty Start Date End Date Lonnie Sheehan MD [address] [place] [address] PCP - General Family Medicine 08/30/20 documented as of this encounter
--- OUTSIDE RECORDS SUMMARY | 2025-06-25 13:58 | XMS_ITS | Clinical Summary ---
Author Organization [facility] Address [address], [address] [place] [address] Care Team Providers Care Processing Assistant Name Role Phone Lonnie Sheehan MD Primary Care Provider [phone] Allergies Active Allergy Reactions Criticality Noted Date [...] on file Insurance [employer] Care Teams Processing Assistant Relationship Specialty Start Date End Date Lonnie Sheehan MD [address] [place] [address] PCP - General Family Medicine 08/30/20
--- OUTSIDE RECORDS SUMMARY | 2025-06-25 13:58 | XMS_ITS | Clinical Summary ---
Author Organization [facility] Address [address] [place] [address] Care Team Providers Care Credit Investigator Name Role Phone Lonnie Sheehan MD Primary Care Provider [phone] Allergies Active Allergy Reactions Criticality Noted Date [...] XL (Toprol-XL) 50 MG 24 hr tablet Active dilTIAZem CD (Cartia XT) 240 MG 24 hr capsule Take 1 capsule every day by oral route. Active ammonium lactate (Amlactin) 12 % cream Apply topically if needed for dry skin Active biotin 1 MG capsule Take by mouth Active famotidine (Pepcid) 40 MG tablet Take by mouth Active Semaglutide-We ight Management 2.4 MG/0.75ML solution auto-injector Inject under the skin Active QUEtiapine (SEROquel) 50 MG tablet Take 50 mg by mouth at bedtime Active loratadine (Claritin) 10 MG tablet Take by mouth Active Fluticasone Propionate (FLONASE ALLERGY RELIEF NA) Administer into affected nostril(s) Active mupirocin (Bactroban) 2 % ointmentIndica tions:Nasal septal perforation Apply to each side of the nose BID 15 g 1 06/11/20 25 Active mupirocin (Bactroban) 2 % ointmentIndica tions:Chronic rhinitis Apply to each side of the nasal septum twice daily 15 g 1 04/07/20 25 025 Discontinued mupirocin (Bactroban) 2 % ointmentIndica tions:Nasal septal perforation Apply to each side of the nose twice daily for 1 month 15 g 1 06/11/20 25 025 Discontinued Active Problems Problem Noted Date Diagnosed Date 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 Lumbosacral spondylosis without myelopathy 09/22 Overview (04/05/2025): Added automatically from request for surgery [id number] Anxiety 09/18/2017 Asthma 09/18/2017 Cervical disc disorder 09/18/2017 Coronary artery spasm 09/18/2017 Depressive disorder 09/18/2017 Migraine 09/18/2017 Mitral valve prolapse 09/18/2017 Obstructive sleep apnea syndrome 09/12/2017 Encounters Date Type Department Care Team Description 06/11/2025 Telephone [facility] [address] [place] [address] [place] [phone] Katherine Cotton MD rx question 06/11/2025 Telephone [facility] [address] [place] [address] [place] [phone] Katherine Cotton MD lost ointment 04/07/2025 2:00 PM EDT Office Visit [facility] [address] [place] [address] [place] [phone] Katherine Cotton MD Nasal septal perforation (Primary Dx); Chronic rhinitis 04/07/2025 Bamboo flowsheet [facility] [address] [place] [address] [place] [address] Katherine Cotton MD 04/07/2025 Travel from Last [...] 08/31/2022, 08/10/2021, Additional history exists [place] [address] Care Teams Credit Investigator Relationship Specialty Start Date End Date Lonnie Sheehan MD [address] [place] [address] PCP - General Family Medicine 04/07/25
--- OUTSIDE RECORDS SUMMARY | 2025-06-25 13:58 | XMS_ITS | Encounter Summary ---
Author Organization [facility] Address [id number] [address] [place] [address] Care Team Providers Care Photo Cartographer Name Role Phone Lonnie Sheehan MD Primary Care Provider [phone] Encounter Details Date Type Department Care Team ([facility] st Contact Info) Description 09/22/2020 Orders Only [facility] [address] [place] [phone] Lonnie Sheehan MD [address] [place] [address] Social History Tobacco Use Types Packs/Day Years [...] documented as of this encounter Care Teams Photo Cartographer Relationship Specialty Start Date End Date Lonnie Sheehan MD PCP - General Family Medicine 01/26/23 documented as of this encounter
--- OUTSIDE RECORDS SUMMARY | 2025-06-25 13:58 | XMS_ITS | Clinical Summary ---
Author Organization [facility] Address [id number] [address] [place] [address] Care Team Providers Care Restoration Silversmith Name Role Phone Lonnie Sheehan MD Primary Care Provider [phone] Allergies Active Allergy Reactions Criticality Noted Date [...] (09/22/2020): Added automatically from request for surgery [id number] Family History Medical History Relation Name Comments [...] 16 Negative Negative 03/26/2017 12:55 PM EDT [facility] Hpv 18 Negative Negative 03/26/2017 12:55 PM EDT [facility] Other high risk hpv Negative Negative 03/26/2017 12:55 PM EDT [facility] Comment: HPV types 31,33,35,39,45,52,56,58,59,66 and 68 DNA were undetectable. 03/21/2017 9:35 AM EDT 03/21/2017 9:35 AM EDT us Claudia Sheehan FOOD SERVICE DRIVER-CNM LAB BLOOD ORDERABLES Final Result [facility] [address] [place] [address], [place] from Last 3 Months or Most Recently Relevant to Health Maintenance Insurance [address] [place] [address] [employer] Care Teams Restoration Silversmith Relationship Specialty Start Date End Date Lonnie Sheehan MD PCP - General Family Medicine 01/26/23
--- OUTSIDE RECORDS SUMMARY | 2025-06-25 13:58 | XMS_ITS | Patient Health Record ---
Author Organization [facility] in [place] Address [address] [place] [address] Care Team Providers Care Exercise Rider Name Role Phone Konrad Sheehan Primary Care [...] ctive Results Component Value Reference Range Notes CREATININE Reviewed date:03/15/2025 08:32:31 PM Interpretation: Performing Lab: Notes/Report: [facility] , Creatinine 1.29 0.55-1.02 mg/dL Estimated GFR ( Lupe 51 >=60 mL/min/1.73m 2 Estimated GFR (Non- Laura 42 >=60 mL/min/1.73m 2 Performing Lab: see note ML - [facility] LB MR head/brain wo/w con Reviewed date:03/16/2025 01:29:47 PM Interpretation: Performing Lab: Notes/Report: Source Facility: [facility]-[address] [place] [address] [place] [address] Magnetic Resonance Report Signed Patient: GLORY MCKEON MR#: [id number] : 1965 Acct:[id number] Age/Sex: 59 / F ADM Date: 03/15/25 Loc: MRI Attending Dr: Álvaro Sheehan M.D. Ordering Physician: Álvaro Sheehan M.D. Date of Service: 03/15/25 Procedure(s): MR head/brain wo/w con Accession Number(s): [id number] cc: Álvaro Sheehan M.D. The [place] [address] Patient Name: GLORY MCKEON MRN: [facility]:[id number] date: 1965 Sex: F Assigned Patient Location: MRI Current Patient Location: Accession/Order Number: [id number] Exam Date: 03/15/2025 15:14 Report Date: 03/16/2025 09:37 At the request of: ÁLVARO SHEEHAN MD Procedure: MR head/brain wo/w con MRI [...] Pablo Garcia M.D.03/16/2025 9:37 AM Dictation Location: [place] [address] Electronically authenticated by: [id number] Y Date: 03/16/2025 09:37 Dictated By: Juan Pablo Garcia D.O. Signed By: 03/16/2540 DD/ 6 TD/TT: Online Program Coordinator: [place] [address] Magnetic Resonance Report Signed Patient: ODILIA MCKEON MR#: [id number] : 1965 Acct:[id number] Age/Sex: 59 / F ADM Date: 03/15/25 Loc: MRI Attending Dr: Philly Sheehan M.D. Ordering Physician: Álvaro Sheehan M.D. Date of Service: 03/15/25 Procedure(s): MR head/brain wo/w con Accession Number(s): [id number] cc: Álvaro Sheehan M.D. [place] [address] Patient Name: GLORY MCKEON MRN: [facility]:[id number] date: 1965 Sex: F Assigned Patient Location: MRI Current Patient Location: Accession/Order Numb er: [id number] Exam Date: 03/15/2025 15:14 Report Date: 03/16/2025 09:37 At the request of: ÁLVARO SHEEHAN MD Procedure: MR head/b rain wo/w con [...] Pablo Garcia M.D.03/16/2025 9:37 AM Dictation Location: [place] [address] Electronically authenticated by: [id number] Y Date: 03/16/2025 09:37 Dictated By: Bony Garcia D.O. Signed By: 03/16/2540 DD/ 6 TD/TT: Online Program Coordinator: SHUN Reviewed date:03/25/2025 07:10:39 PM Interpretation: Performing Lab: Notes/Report: [facility] , D Dimer 0.34 <=0.59 mg/L FEU [...] hospitalization. Performing Lab: see note ML - [facility] PROF CHEM 8 (RUPERT CHA) Reviewed date:06/09/2025 07:02:15 PM Interpretation: Performing Lab: Notes/Report: [facility] , Sodium 143 136-145 mmol/L Potassium 4.2 3.5-5.1 mmol/L Chloride 105 98-107 mmol/L Carbon Dioxide 28.3 21.0-32.0 mmol/L Anion Gap 13.9 Glucose 94 74-106 mg/dL Blood Urea Nitrogen 13.0 7.0-18.0 mg/dL Creatinine 1.02 0.55-1.02 mg/dL Estimated GFR ( Lupe >60 >=60 mL/min/1.73m 2 Estimated GFR (Non- Laura 55 >=60 mL/min/1.73m 2 BUN Creatinine Ratio 12.7 Calcium 9.3 8.5-10.1 mg/dL Performing Lab: see note ML - [facility] Troponin I High Sensitivity Reviewed date:06/09/2025 07:02:15 PM Interpretation: Performing Lab: Notes/Report: [facility] , Troponin I High Sensitivity 4.1 4.0-51.3 pg/mL PERCENTILE OF cTnI DISTRIBUTION IN A REFERENCE POPULATION, USED IN ISOLATION BUT SHOULD BE INTERPRETED IN CONJUNCTION CUT-OFF POINTS HAVE BEEN ESTABLISHED BASED ON THE FOURTH 99TH PERCENTILE = 51.4 PG/ML DIAGNOSIS. REFERENCE LIMIT (URL) OF TROPONIN, DEFINED THE 99TH NOTE: HIGH-SENSITIVITY TROPONIN ASSAY IS NOT INTENDED TO BE HAS BEEN CONFIRMED THE DECISION THRESHOLD FOR CA UNIVERSAL DEFINITION OF MYOCARDIAL INFARCTION. THE UPPER WITH OTHER DIAGNOSTIC AND CLINICAL INFORMATION. Performing Lab: see note ML - [facility] LB CT angio neck Reviewed date:06/09/2025 07:02:15 PM Interpretation: Performing Lab: Notes/Report: Source Facility: [facility]-[address] [place] [address] [place] [address] CT Scan Report Signed Patient: GLORY MCKEON MR#: [id number] : 1965 Acct:[id number] Age/Sex: 59 / F ADM Date: 06/09/25 Loc: ER Attending Dr: Ordering Physician: Federico Villafana M.D. Date of Service: 06/09/25 Procedure(s): CT angio neck Accession Number(s): [id number] cc: Álvaro Sheehan M.D. [place] [address] Patient Name: GLORY MCKEON MRN: [id number] date: 1965 Sex: F Assigned Patient Location: ER Current Patient Location: ER Accession/Order Number: [id number] Exam Date: 06/09/2025 18:00 Report Date: 06/09/2025 18:10 At the request of: FEDERICO VILLAFANA MD Procedure: CT angio neck CT angiogram head and neck HISTORY: Dizziness COMPARISON: CT head 06/09/2025 TECHNIQUE: Contiguous CT angiogram imaging head and neck performed with coronal and sagittal reformats. Evaluation degree of ICA narrowing was performed utilizing NASCET criteria. MIP reconstructions performed. The CT exam was performed using one or more the following dose reduction techniques: Automated exposure control, adjustment of the MA and/or Kv according to patient size, or use of the iterative reconstruction technique FINDINGS: Bovine configuration aortic arch. Mild plaque identified involving the great vessels. Mild to moderate plaque both bifurcations extending into the ICAs. Otherwise no significant stenosis identified. Left dominant vertebral artery. Vertebral arteries are patent throughout their course. Intracranial ICAs are patent. Mild plaque involving the ICAs. ICAs are otherwise patent. Both carotid termini patent. ACAs are patent. ACAs are patent. Distal vertebral arteries join from the basilar artery. Basilar tip and basilar bifurcation unremarkable. Posterior cerebral arteries are patent. Major dural venous sinuses are patent. No saccular aneurysm. CT/CT angio neck Impression: Negative for large vessel occlusion or hemodynamically stenosis. Impression dictated by: Arcenio Cardona M.D. 06/09/2025 6:10 PM Dictation Location: [place] [address] Electronically authenticated by: [id number] Y Date: 06/09/2025 18:10 Dictated By: Arcenio Cardona M.D. Signed By: 06/09/251811 DD/ 09 TD/TT: Online Program Coordinator: [place] [address] CT Scan Report Signed Patient: ODILIA MCKEON MR#: [id number] : 1965 Acct:[id number] Age/Sex: 59 / F ADM Date: 06/09/25 Loc: ER Attending Dr: Ordering Physician: Fdeerico Villafana M.D. Date of Service: 06/09/25 Procedure(s): CT ang io neck Accession Number(s): [id number] cc: Álvaro Sheehan M.D. [place] [address] Patient Name: GLORY MCKEON MRN: [facility]:[id number] date: 1965 Sex: F Assigned Patient Location: ER Current Patient Loca tion: ER Accession/Order Numb er: [id number] Exam Date: 06/09/2025 18:00 Report Date: 06/09/2025 18:10 At the request of: FEDERICO VILLAFANA MD Procedure: CT angio neck CT angiogram head an d neck HISTORY: Dizziness COMPARISON: CT head 06/09/2025 TECHNIQUE: Contiguou s CT angiogram imaging head and neck performed with coronal and sagittal reformats. Evaluation degree of ICA narrowing was performed utilizing NASCET criteria. MIP reconstructions performed. The CT exam was perf ormed using one or more the following dose reduction techniques: Automate d exposure control, adjustment of the MA and/or Kv according to patient size, or use of the iterative reconstruction technique FINDINGS: Bovine configuration aortic arch. Mild plaque identified involving the great vessels. Mild to mod erate plaque both bifurcations extending into the ICAs. Otherwise no signifi cant stenosis identified. Left dominant vertebral artery. Vertebral arteries a re patent throughout their course. Intracranial ICAs ar e patent. Mild plaque involving the ICAs. ICAs are otherwise patent. Guy th carotid termini patent. ACAs are patent. ACAs are patent. Distal vertebral art eries join from the basilar artery. Basilar tip and basilar bifurcation unremarkable. Posterior cerebral arteries are patent. Major dural venous sinuses are patent. No saccular aneurysm. C T/CT angio neck Impression: Negative for large v essel occlusion or hemodynamically stenosis. Impression dictated by: Arcenio Cardona M.D. 06/09/2025 6:10 PM Dictation Location: [place] [address] Electronically authenticated by: [id number] Y Date: 06/09/2025 18:10 Dictated By: Carolina Cardona M.D. Signed By: 06/09/251811 DD/ 09 TD/TT: Online Program Coordinator: CT angio head Reviewed date:06/09/2025 07:02:15 PM Interpretation: Performing Lab: Notes/Report: Source Facility: [place] [address] CT Scan Report Signed Patient: GLORY MCKEON MR#: [id number] : 1965 Acct:[id number] Age/Sex: 59 / F ADM Date: 06/09/25 Loc: ER Attending Dr: Ordering Physician: Federico Villafana M.D. Date of Service: 06/09/25 Procedure(s): CT angio head Accession Number(s): [id number] cc: Álvaro Sheehan M.D. [place] [address] Patient Name: GLORY MCKEON MRN: [id number] date: 1965 Sex: F Assigned Patient Location: ER Current Patient Location: ER Accession/Order Number: [id number] Exam Date: 06/09/2025 18:00 Report Date: 06/09/2025 18:10 At the request of: FEDERICO VILLAFANA MD Procedure: CT angio neck CT angiogram head and neck HISTORY: Dizziness COMPARISON: CT head 06/09/2025 TECHNIQUE: Contiguous CT angiogram imaging head and neck performed with coronal and sagittal reformats. Evaluation degree of ICA narrowing was performed utilizing NASCET criteria. MIP reconstructions performed. The CT exam was performed using one or more the following dose reduction techniques: Automated exposure control, adjustment of the MA and/or Kv according to patient size, or use of the iterative reconstruction technique FINDINGS: Bovine configuration aortic arch. Mild plaque identified involving the great vessels. Mild to moderate plaque both bifurcations extending into the ICAs. Otherwise no significant stenosis identified. Left dominant vertebral artery. Vertebral arteries are patent throughout their course. Intracranial ICAs are patent. Mild plaque involving the ICAs. ICAs are otherwise patent. Both carotid termini patent. ACAs are patent. ACAs are patent. Distal vertebral arteries join from the basilar artery. Basilar tip and basilar bifurcation unremarkable. Posterior cerebral arteries are patent. Major dural venous sinuses are patent. No saccular aneurysm. CT/CT angio head Impression: Negative for large vessel occlusion or hemodynamically stenosis. Impression dictated by: Arcenio Cardona M.D. 06/09/2025 6:10 PM Dictation Location: [place] [address] Electronically authenticated by: [id number] Y Date: 06/09/2025 18:10 Dictated By: Arcenio Cardona M.D. Signed By: 06/09/251811 DD/ 09 TD/TT: Online Program Coordinator: [place] [address] CT Scan Report Signed Patient: ODILIA MCKEON MR#: [id number] : 1965 Acct:[id number] Age/Sex: 59 / F ADM Date: 06/09/25 Loc: ER Attending Dr: Ordering Physician: Federico Villafana M.D. Date of Service: 06/09/25 Procedure(s): CT ang io head Accession Number(s): [id number] cc: Álvaro Sheehan M.D. [place] [id number] Patient Name: GLORY MCKEON MRN: [id number] date: 1965 Sex: F Assigned Patient Location: ER Current Patient Loca tion: ER Accession/Order Numb er: [id number] Exam Date: 06/09/2025 18:00 Report Date: 06/09/2025 18:10 At the request of: FEDERICO VILLAFANA MD Procedure: CT angio neck CT angiogram head an d neck HISTORY: Dizziness COMPARISON: CT head 06/09/2025 TECHNIQUE: Contiguou s CT angiogram imaging head and neck performed with coronal and sagittal reformats. Evaluation degree of ICA narrowing was performed utilizing NASCET criteria. MIP reconstructions performed. The CT exam was perf ormed using one or more the following dose reduction techniques: Automate d exposure control, adjustment of the MA and/or Kv according to patient size, or use of the iterative reconstruction technique FINDINGS: Bovine configuration aortic arch. Mild plaque identified involving the great vessels. Mild to mod erate plaque both bifurcations extending into the ICAs. Otherwise no signifi cant stenosis identified. Left dominant vertebral artery. Vertebral arteries a re patent throughout their course. Intracranial ICAs ar e patent. Mild plaque involving the ICAs. ICAs are otherwise patent. Guy th carotid termini patent. ACAs are patent. ACAs are patent. Distal vertebral art eries join from the basilar artery. Basilar tip and basilar bifurcation unremarkable. Posterior cerebral arteries are patent. Major dural venous sinuses are patent. No saccular aneurysm. C T/CT angio head Impression: Negative for large v essel occlusion or hemodynamically stenosis. Impression dictated by: Arcenio Cardona M.D. 06/09/2025 6:10 PM Dictation Location: [place] [address] Electronically authenticated by: [id number] Y Date: 06/09/2025 18:10 Dictated By: Carolina Cardona M.D. Signed By: 06/09/251811 DD/ 09 TD/TT: Online Program Coordinator: [employer] chest 1V Reviewed date:06/09/2025 07:02:15 PM Interpretation: Performing Lab: Notes/Report: Source Facility: [place] [address] [place] [address] XRay Report Signed Patient: GLORY MCKEON MR#: [id number] : 1965 Acct:[id number] Age/Sex: 59 / F ADM Date: 06/09/25 Loc: ER Attending Dr: Ordering Physician: Federico Villafana M.D. Date of Service: 06/09/25 Procedure(s): XR chest 1V Accession Number(s): [id number] cc: Álvaro Sheehan M.D.; Federico Villafana M.D. [place] [id number] Patient Name: GLORY MCKEON MRN: [facility]:[id number] date: 1965 Sex: F Assigned Patient Location: ED.MAIN Current Patient Location: ED.MAIN Accession/Order Number: [id number] Exam Date: 06/09/2025 16:07 Report Date: 06/09/2025 16:08 At the request of: FEDERICO VILLAFANA MD Procedure: XR chest 1V Plain film chest Single view HISTORY: Chest heaviness COMPARISON: 03/25/2025 FINDINGS: SUPPORT DEVICES: None POSTSURGICAL CHANGES: None HEART: Within normal limits PULMONARY EVELYN: Within normal limits MEDIASTINUM: Unremarkable LUNGS AND PLEURA: No acute lung process, pleural effusion or pneumothorax identified. Mild interstitial changes BONY STRUCTURES: Intact ADDITIONAL FINDINGS None XR/XR chest 1V IMPRESSION: No acute process. Impression dictated by: Juan Pablo Garcia M.D. 06/09/2025 4:08 PM Dictation Location: [place] [address] Electronically authenticated by: [id number] Y Date: 06/09/2025 16:08 Dictated By: Juan Pablo Garcia D.O. Signed By: 06/09/25 1610 DD/ 1608 TD/TT: Online Program Coordinator: The [place] [id number] XRay Report Signed Patient: ODILIA MCKEON MR#: [id number] : 1965 Acct:[id number] Age/Sex: 59 / F ADM Date: 06/09/25 Loc: ER Attending Dr: Ordering Physician: Federico Villafana M.D. Date of Service: 06/09/25 Procedure(s): XR chest 1V Accession Number(s): [id number] cc: Álvaro Sheehan M.D. ; Federico Villafana M.D. [address] [address] Patient Name: GLORY MCKEON MRN: [facility]:[id number] date: 1965 Sex: F Assigned Patient Location: ED.MAIN Current Patient Loca tion: ED.MAIN Accession/Order Numb er: [id number] Exam Date: 06/09/2025 16:07 Report Date: 06/09/2025 16:08 At the request of: FEDERICO VILLAFANA MD Procedure: XR chest 1V Plain film chest Sin gle view HISTORY: Chest heaviness COMPARISON: 03/25/2025 FINDINGS: SUPPORT DEVICES: None POSTSURGICAL CHANGES : None HEART: Within normal limits PULMONARY EVELYN: With in normal limits MEDIASTINUM: Unremarkable LUNGS AND PLEURA: No acute lung process, pleural effusion or pneumothorax identified. Mild interstitial changes BONY STRUCTURES: Intact ADDITIONAL FINDINGS None X R/XR chest 1V IMPRESSION: No acute process. Impression dictated by: Juan Pablo Garcia M.D. 06/09/2025 4:08 PM Dictation Location: [place] [address] Electronically authenticated by: [id number] Y Date: 06/09/2025 16:08 Dictated By: Juan Pablo Garcia D.O. Signed By: 06/09/25 1610 DD/ 1608 TD/TT: Online Program Coordinator: ECG 12 lead Reviewed date:06/10/2025 06:46:40 PM Interpretation: Performing Lab: Notes/Report: Source Facility: [place] [address] Electrocardiograph Report Signed Patient: GLORY MCKEON MR#: [id number] : 1965 Acct:[id number] Age/Sex: 59 / F ADM Date: 06/09/25 Loc: ER Attending Dr: Ordering Physician: Federico Villafana M.D. Date of Service: 06/09/25 Procedure(s): ECG 12 lead Accession Number(s): [id number] cc: [facility] Test Date: 2025-06-09 Pat Name: GLORY MCKEON Department: Room: - Gender: Female [employer]: : 1965 Requested By: 1030 Order Number: [id number] Reading MD: MAVERICK RUBIO Measurements Intervals [place] Rate: 60 P: 22 CT: 150 QRS: 27 QRSD: 82 T: 18 QT: 386 QTc: 386 Interpretive Statements 1100 Sinus rhythm [address] depression 9130 borderline ECG Compared to ECG 03/25/2025 14:35:41 No significant changes Electronically Signed On 06-10-2025 9:55:26 EDT by MAVERICK RUBIO Dictated By: Maverick Rubio M.D. Signed By: 06/10/25 0955 DD/ 1513 TD/TT: Online Program Coordinator: [place] [address] Electrocardiograph Report Signed Patient: ODILIA MCKEON MR#: [id number] : 1965 Acct:[id number] Age/Sex: 59 / F ADM Date: 06/09/25 Loc: ER Attending Dr: Ordering Physician: Federico Villafana M.D. 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 Signed By: 06/10/25 0955 DD/ 1513 TD/TT: Online Program Coordinator: CBC AUTO DIFF Reviewed date:06/09/2025 07:02:15 PM Interpretation: Performing Lab: Notes/Report: [facility] , White Blood Count 9.3 4.0-11.0 10 3/uL Red Blood Count 4.58 4.20-5.40 10 6/uL Hemoglobin 14.5 12.0-16.0 g/dL Hematocrit 43.3 36.0-48.0 % Mean Corpuscular Volume 94.5 81.0-99.0 fL Mean Corpuscular Hemoglobin 31.7 26.7-34.0 pg Mean Corpuscular HGB Conc 33.5 29.9-35.2 g/dL Red Cell Distribution Width 12.7 11.0-15.0 % Platelet Count 348 150-450 10 3/uL Mean Platelet Volume 8.4 9.5-13.5 fL Neutrophils Percent Auto 74.1 43.0-75.0 % Lymphocytes Percent Auto 17.6 20.5-60.0 % Monocytes Percent Auto 7.2 1.7-12.0 % Eosinophils Percent Auto 0.2 0.9-7.0 % Basophils Percent Auto 0.5 0.2-2.0 % Immature Granulocytes Pct Auto 0.4 0.0-0.5 % Neutrophils Absolute Auto 6.9 1.4-6.5 10 3/uL Lymphocytes Absolute Auto 1.6 1.2-3.8 10 3/uL Monocytes Absolute Auto 0.7 0.3-0.8 10 3/uL Eosinophils Absolute Auto 0.0 0.0-0.7 10 3/uL Basophils Absolute Auto 0.1 0.0-0.1 10 3/uL Immature Granulocytes Abs Auto 0.04 0.00-0.03 10 3/uL Performing Lab: see note ML - [facility] LB CT sinus wo con Reviewed date:04/05/2025 07:51:39 PM Interpretation: Performing Lab: Notes/Report: Source Facility: [facility], [place] [address] [address] [address] Scan Report Signed Patient: GLORY MCKEON MR#: [id number] : 1965 Acct:[id number] Age/Sex: 59 / F ADM Date: 04/05/25 Loc: CT Attending Dr: Álvrao Sheehan M.D. Ordering Physician: Álvaro Sheehan M.D. Date of Service: 04/05/25 Procedure(s): CT sinus wo con Accession Number(s): [id number] cc: Álvaro Sheehan M.D. [address] [address] Patient Name: GLORY MCKEON MRN: [id number] date: 1965 Sex: F Assigned Patient Location: CT Current Patient Location: CT Accession/Order Number: [id number] Exam Date: 04/05/2025 14:41 Report Date: 04/05/2025 15:15 At the request of: ÁLVARO SHEEHAN MD Procedure: CT sinus wo con CT [...] Jr., D.O. 04/05/2025 3:15 PM Dictation Location: [place] [address] Electronically authenticated by: [id number] Y Date: 04/05/2025 15:15 Dictated By: Jack Leon M.D. Signed By: 04/05/25 1517 DD/ 14 TD/TT: Online Program Coordinator: The [address] [place] [address] CT Scan Report Signed Patient: ODILIA MCKEON MR#: [id number] : 1965 Acct:[id number] Age/Sex: 59 / F ADM Date: 04/05/25 Loc: CT Attending Dr: Philly Sheehan M.D. Ordering Physician: Álvaro Sheehan M.D. Date of Service: 04/05/25 Procedure(s): CT sin us wo con Accession Number(s): [id number] cc: Álvaro Sheehan M.D. [place] [id number] Patient Name: GLORY MCKEON MRN: [id number] date: 1965 Sex: F Assigned Patient Location: CT Current Patient Loca tion: CT Accession/Order Numb er: [id number] Exam Date: 04/05/2025 14:41 Report Date: 04/05/2025 15:15 At the request of: ÁLVARO SHEEHAN MD Procedure: CT sinus wo con CT PARANASAL SINUSES WITHOUT CONTRAST: CLINICAL HISTORY: Ac osage Sinusitis COMPARISON: None TECHNIQUE: Contiguou s axial [...] Jr., D.O. 04/05/2025 3:15 PM Dictation Location: [place] [address] Electronically authenticated by: [id number] Y Date: 04/05/2025 15:15 Dictated By: Jack Leon M.D. Signed By: 04/05/25 1517 DD/ 14 TD/TT: Online Program Coordinator: CT lung screening low-dose Reviewed date:04/05/2025 07:51:39 PM Interpretation: Performing Lab: Notes/Report: Source Facility: [place] [address] CT Scan Report Signed Patient: GLORY MCKEON MR#: [id number] : 1965 Acct:[id number] Age/Sex: 59 / F ADM Date: 04/05/25 Loc: CT Attending Dr: Álvaro Sheehan M.D. Ordering Physician: Álvaro Sheehan M.D. Date of Service: 04/05/25 Procedure(s): CT lung screening low-dose Accession Number(s): [id number] cc: Álvaro Sheehan M.D. [place] [address] Patient Name: GLORY MCKEON MRN: [id number] date: 1965 Sex: F Assigned Patient Location: CT Current Patient Location: CT Accession/Order Number: [id number] Exam Date: 04/05/2025 15:15 Report Date: 04/05/2025 15:23 At the request of: ÁLVARO SHEEHAN MD Procedure: CT lung screening low-dose CT [...] Jr., D.O. 04/05/2025 3:23 PM Dictation Location: [place] [address] Electronically authenticated by: [id number] Y Date: 04/05/2025 15:23 Dictated By: Jack Leon M.D. Signed By: 04/05/25 1526 DD/ 1523 TD/TT: Online Program Coordinator: [place] [address] CT Scan Report Signed Patient: ODILIA MCKEON MR#: [id number] : 1965 Acct:[id number] Age/Sex: 59 / F ADM Date: 04/05/25 Loc: CT Attending Dr: Philly Sheehan M.D. Ordering Physician: Álvaro Sheehan M.D. Date of Service: 04/05/25 Procedure(s): CT ed g screening low-dose Accession Number(s): [id number] cc: Álvaro Sheehan M.D. [place] [address] Patient Name: GLORY MCKEON MRN: [id number] date: 1965 Sex: F Assigned Patient Location: CT Current Patient Loca tion: CT Accession/Order Numb er: [id number] Exam Date: 04/05/2025 15:15 Report Date: 04/05/2025 15:23 At the request of: ÁLVARO SHEEHAN MD Procedure: CT lung screening low-dose CT CHEST WITHOUT CONTRAST, LOW DOSE SCREENING: CLINICAL DATA: A 59- year old former smoker COMPARISON: None TECHNIQUE: Noncontra st axial CT scan images of the chest were obtained under the low dose screeni CT protocol. Coronal and sagittal reconstructed images [...] nodule or mass. Upper abdomen: No ac osage findings. Liver cysts. Bony thorax and ches t wall: Soft tissues surrounding the chest wall demonstrate no acute findings. Osseous structures demonstrate degenerative change. C T/CT lung screening low-dose IMPRESSION: LUNG - RADS Version 1.0 Assessment: Impression dictated by: Jack Leon Jr., D.O. 04/05/2025 3:23 PM Dictation Location: [place] [address] Electronically authenticated by: [id number] Y Date: 04/05/2025 15:23 Dictated By: Jack Leon M.D. 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 Measurements Intervals [place] Rate: 79 P: 13 CT: 140 QRS: -4 QRSD: 84 T: 18 QT: 358 QTc: 393 Interpretive Statements 1100 Sinus rhythm [address] depression Abnormal ECG Compared to ECG 12/17/2019 13:26:58 Myocardial infarct finding no longer present ST (T wave) deviation still present Electronically Signed On 03-25-2025 20:45:47 EDT by EDDIE MCKEON M.D. 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 Measurements Intervals [place] Rate: 79 P: 13 CT: 140 QRS: -4 QRSD: 84 T: 18 QT: 358 QTc: 393 Interpretive Statements 1100 Sinus rhythm [address] depression Abnormal ECG Compared to ECG 12/17/2019 13:26:58 Myocardial infarct finding no longer present ST (T wave) deviatio n still present Electronically Suyapa d On 03-25-2025 20:45:47 EDT by EDDIE MCKEON M.D. Dictated By: EDDIE MCKEON Signed By: 03/25/252044 DD/ 34 TD/TT: Online Program Coordinator: Troponin I High Sensitivity Reviewed date:03/25/2025 07:10:39 PM Interpretation: Performing Lab: Notes/Report: The [facility] , Troponin I High Sensitivity <4.0 4.0-51.3 pg/mL HAS BEEN CONFIRMED THE DECISION THRESHOLD FOR CA CUT-OFF POINTS HAVE BEEN ESTABLISHED BASED ON [...] Performing Lab: see note ML - The [facility] LB PROF 14(COMP METB) Reviewed date:03/25/2025 07:10:39 PM Interpretation: Performing Lab: Notes/Report: The [facility] , Sodium 137 136-145 mmol/L Potassium 4.0 [...] Globulin Ratio 1.1 Performing Lab: see note ML - [facility] LB CBC AUTO DIFF Reviewed date:03/25/2025 07:10:39 PM Interpretation: Performing Lab: Notes/Report: The [facility] , White Blood Count 7.4 4.0-11.0 10 [...] 3/uL Performing Lab: see note ML - [facility] LB BNP Reviewed date:03/25/2025 07:10:39 PM Interpretation: Performing Lab: Notes/Report: The [facility] , NT Pro B Type Natriuretic Pept 61.0 <=900.0 pg/mL Performing Lab: see note ML - [facility] LB TSH Reviewed date:12/14/2024 01:23:32 PM Interpretation: Performing Lab: Notes/Report: The [facility] , Thyroid Stimulating Hormone 0.088 0.358-3.740 uIU/mL Performing Lab: see note ML - [facility] LB T4 Reviewed date:12/14/2024 01:23:32 PM Interpretation: Performing Lab: Notes/Report: The [facility] , T4 Thyroxine 6.70 4.80-13.90 ug/dL Performing Lab: see note ML - [facility] LB PROF 14(COMP METB) Reviewed date:12/14/2024 01:23:32 PM Interpretation: Performing Lab: Notes/Report: The [facility] , Sodium 141 136-145 mmol/L Potassium 4.5 [...] 0.9 Performing Lab: see note ML - [facility] LIPID PROFILE Reviewed date:12/14/2024 01:23:32 PM Interpretation: Performing Lab: Notes/Report: [facility] , Triglycerides 81 <=150 mg/dL Cholesterol 205 [...] 11.0 MODERATE RISK Performing Lab: see note - [facility] IRON Reviewed date:12/14/2024 01:23:32 PM Interpretation: Performing Lab: Notes/Report: [facility] , Iron 82.0 50.0-170.0 ug/dL Performing Lab: see note ML - [facility] INSULIN Reviewed date:2024 04:22:39 PM Interpretation: Performing Lab: Notes/Report: [facility] , Insulin 12.8 2.6-24.9 uIU/mL Performed at: [facility] [address] [id number] Egg Producer: Rico Hidalgo PhD, Phone: [phone] Performing Lab: see note [facility] LB GLYCOHEMOGLOBIN A1C Reviewed date:12/14/2024 01:23:32 PM Interpretation: Performing Lab: Notes/Report: The [facility] , Glycohemoglobin A1C 5.0 4.5-6.2 % ADA THERAPEUTIC TARGET < 7.0 ADA RECOMMENDED LIMIT 4.0 - 6.0 ACTION SUGGESTED > 7.0 Estimated Average Glucose 97 Performing Lab: see note ML - The [facility] LB FREE T3 Reviewed date:12/14/2024 01:23:32 PM Interpretation: Performing Lab: Notes/Report: The [facility] , Free T3 2.21 2.18-3.98 pg/mL Performing Lab: see note ML - [facility] LB CBC AUTO DIFF Reviewed date:12/14/2024 01:23:32 PM Interpretation: Performing Lab: Notes/Report: [facility] , White Blood Count 5.8 4.0-11.0 10 [...] Performing Lab: see note ML - [facility] LB CT head/brain wo con Reviewed date:06/09/2025 07:02:15 PM Interpretation: Performing Lab: Notes/Report: Source Facility: [facility] [place] [address] CT Scan Report Signed Patient: GLORY MCKEON MR#: [id number] : 1965 Acct:[id number] Age/Sex: 59 / F ADM Date: 06/09/25 Loc: ER Attending Dr: Ordering Physician: Federico Villafana M.D. Date of Service: 06/09/25 Procedure(s): CT head/brain wo con Accession Number(s): [id number] cc: Álvaro Sheehan M.D. [place] [address] Patient Name: GLORY MCKEON MRN: [id number] date: 1965 Sex: F Assigned Patient Location: ED.MAIN Current Patient Location: ED.MAIN Accession/Order Number: [id number] Exam Date: 06/09/2025 16:05 Report Date: 06/09/2025 16:07 At the request of: FEDERICO VILLAFANA MD Procedure: CT head/brain wo con Unenhanced head CT TECHNIQUE: Contiguous axial imaging of the head. The CT exam was performed using one or more the following dose reduction techniques: Automated exposure control, adjustment of the MA and/or Kv according to patient size, or use of the iterative reconstruction technique. COMPARISON: MRI the brain 03/15/2025 HISTORY: Tunnel vision this morning. VENTRICLES: Within normal limits ATROPHY: Similar atrophy BRAIN PARENCHYMA: Decreased density of the white matter is most consistent with chronic small vessel disease. HEMORRHAGE: None HERNIATION: No mass effect or herniation INFARCTION: No recent vascular distribution infarction is seen. EXTRA-AXIAL FLUID COLLECTIONS None MIDBRAIN: Unremarkable LARRY: Unremarkable MEDULLA: Unremarkable SINUSES: Unremarkable ORBITS: Grossly unremarkable MASTOIDS: Unremarkable BONY STRUCTURES Intact ADDITIONAL FINDINGS: CT/CT head/brain wo con IMPRESSION: No acute findings. Impression dictated by: Juan Pablo Garcia M.D. 06/09/2025 4:07 PM Dictation Location: [place] [address] Electronically authenticated by: [id number] Y Date: 06/09/2025 16:07 Dictated By: Juan Pablo Garcia D.O. Signed By: 06/09/25 1609 DD/ 160 TD/TT: Online Program Coordinator: [place] [address] CT Scan Report Signed Patient: ODILIA MCKEON MR#: [id number] : 1965 Acct:[id number] Age/Sex: 59 / F ADM Date: 06/09/25 Loc: ER Attending Dr: Ordering Physician: Federico Villafana M.D. Date of Service: 06/09/25 Procedure(s): CT head/brain wo con Accession Number(s): [id number] cc: Álvaro Sheehan M.D. [place] [address] Patient Name: GLORY MCKEON MRN: [id number] date: 1965 Sex: F Assigned Patient Location: ED.MAIN Current Patient Loca tion: ED.MAIN Accession/Order Numb er: [id number] Exam Date: 06/09/2025 16:05 Report Date: 06/09/2025 16:07 At the request of: FEDERICO VILLAFANA MD Procedure: CT head/b rain wo con Unenhanced head CT TECHNIQUE: Contiguou s axial imaging of the head. The CT exam was performed using one or more th e following dose reduction techniques: Automated exposure control, adjustment of the MA and/or Kv according to patient size, or use of the iterative reconstruction technique. COMPARISON: MRI the brain 03/15/2025 HISTORY: Tunnel visi on this morning. VENTRICLES: Within n ormal limits ATROPHY: Similar atrophy BRAIN PARENCHYMA: Decreased density of the white matter is most consistent with chronic small v essel disease. HEMORRHAGE: None HERNIATION: No mass effect or herniation INFARCTION: No recen t vascular distribution infarction is seen. EXTRA-AXIAL FLUID COLLECTIONS None MIDBRAIN: Unremarkable LARRY: Unremarkable MEDULLA: Unremarkable SINUSES: Unremarkable ORBITS: Grossly unremarkable MASTOIDS: Unremarkable BONY STRUCTURES Intact ADDITIONAL FINDINGS: C T/CT head/brain wo con IMPRESSION: No acute findings. Impression dictated by: Juan Pablo Garcia M.D. 06/09/2025 4:07 PM Dictation Location: [place] [address] Electronically authenticated by: [id number] Y Date: 06/09/2025 16:07 Dictated By: Bony Garcia D.O. Signed By: 06/09/25 1609 DD/ 06 TD/TT: Online Program Coordinator: Reason For Referral Diagnosis 1 Acute non-recurrent sinusitis, unspecified location (J01.90) Referral Organization [facility] Medicine Referring Provider First Name Konrad Referring Provider Last Name Aguila Referring Provider Speciality [facility] Referred Provider Katherine Cotton Referred Provider Specialty Otolaryngolo gy Referral Priority Routine Medications Medication SIG (Take, Route, Frequency, Duration) Notes Start Date End Date Status Levothyroxine Sodium 75 MCG 1 tablet in [...] Exte rnally Twice a day 04/14/2025 Active OLANZapine 10 MG 1 tablet Orally Once a day for 30 days 04/27/2025 Active Metoprolol Succinate ER 50 MG 1 tablet Orally Once a day for 90 days Active Biotin Active ALPRAZolam 0.5 MG 1 tablet Orally Twic e a day for 5 days 05/24/2025 Active Aspirin 81 81 MG 1 tablet Orally Once a day for 90 days Active Semaglutide 2.268 mg/0.63 mL Buderer Active Dupixent 300 MG/2ML as directed Subcutaneous Active hydrOXYzine HCl 25 MG 1 tablet as needed Orally qid for 10 days 04/06/2025 Active Desvenlafaxine Succinate ER 100 MG 1 [...] Once a day for 90 days Active Social History Tobacco Use: Social History [...] ast year? No Points 0 Interpretation Negative Problems Problem Type SNOMED Code ICD Code Onset Dates Problem Status W/U Status Risk Notes Problem Syringomyelia and syringobulbia (117658839) Syringomyelia and syringobulbia (G95.0) Active confirmed Problem 58439551 Venous insufficiency (chronic) (peripheral) (I87.2) Active confirmed Problem Pain in limb (04396401) Pain in unspecified limb (M79.609) Active confirmed Problem Acute cystitis (26651046) Acute cystitis without hematuria (N30.00) Active confirmed Problem Acute cystitis (89400653) Acute cystitis with hematuria (N30.01) Active confirmed Problem 50357421 Change in bowel habit (R19.4) Active confirmed Problem Sprain of calcaneofibular ligament of left ankle, sequela (S93.412S) Active confirmed Problem 960060523 Personal history of colonic polyps (Z86.010) Active confirmed Problem Chest pain (23742828) Chest pain (R07.9) Active confirmed Problem Fatigue (87823418) Fatigue (R53.83) Active conf irmed Problem Migraine variant with headache (disorder) (112476118) Migraine headache (G43.909) Active confirmed Problem Hypertension (63263668) Hypertension (I10) Active confirmed Problem Anxiety (42654542) Anxiety (F41.9) Active confi rmed Problem Mitral valve prolapse (186470640) Mitral valve prolapse (I34.1) Active confirmed Problem Edema (37261613) Edema (R60.9) Active confirmed Problem Depression (916322846) Depression (F32.9) Active confirmed Problem Obstructive sleep apnea (87029015) Obstructive sleep apnea (G47.33) Active confirmed Problem Insomnia (785621436) Insomnia (G47.00) Active confirmed Problem Pain in limb (73953198) Pain in joint, hand (M79.643) Active confirmed Problem Tubular adenoma of colon (420421224) Tubular adenoma of colon (D12.6) Active confirmed Problem Pain of right knee region (finding) (481212356549873) Knee pain, right (M25.561) Active confirmed Problem Otitis media (83538728) Otitis media (H66.90) Active confirmed Problem Facial palsy (632889017) Facial droop (R29.810) Active confirmed Problem Constipation (86693577) Constipation (K59.00) Active confirmed Problem Diarrhea (87136948) Diarrhea (R19.7) Active confirmed Problem Well adult (989885696) Well adult (Z00.00) Active confirmed Problem Panic disorder (066314048) Panic disorder (F41.0) Active confirmed Problem Near syncope (128722243) Near syncope (R55) Active confirmed Problem Cervical disc disorder (858579338) DDD (degenerative disc disease), cervical (M50.30) Active confirmed Problem Overweight (962558629) Over weight (E66.3) Active confirmed Problem Superficial phlebitis of arm (I80.8) Active confirmed Problem Seasonal allergic rhinitis (555423227) Allergic rhinitis, seasonal (J30.2) Active confirmed Problem Pain in right leg (486121040) Right leg pain (M79.604) Active confirmed Problem Right upper quadrant pain (430561125) Abdominal pain, RUQ (R10.11) Active confirmed Problem Rhinorrhea (66389149) Rhinorrhea (J34.89) Active confirmed Problem Dog bite (531288844) Dog bite (W54.0XXA) Active confirmed Problem Acute diarrhea (597997586) Acute diarrhea (R19.7) Active confirmed Problem Chronic obstructive pulmonary disease (73682856) COPD, mild (J44.9) Active confirmed Problem Acute bronchiolitis (6041232) Acute bronchiolitis (J21.9) Active confirmed Problem Irritable bowel (98929349) Irritable bowel (K58.9) Active confirmed Problem Coronary artery spasm (78020013) Coronary artery spasm (I20.1) Active confirmed Problem Shoulder impingement syndrome (295413008) Shoulder impingement syndrome (M75.40) Active confirmed Problem Spider bite wound (160219878) Spider bite (T63.301A) Active confirmed Problem Disorder of musculoskeletal system (135239) Arm weakness (R29.898) Active confirmed Problem Low back pain (444185392) Low back pain, unspecified (M54.50) Active confirmed Problem Cough (finding) (66325112) Cough, unspecified (R05.9) Active confirmed Problem Low back pain (finding) (741785831) Low back pain at multiple sites (M54.50) Active confirmed Vital Signs Blood pressure diastolic 84 mm Hg 06/23/2025 Height 64 in 06/23/2025 Blood pressure systolic 144 mm Hg 06/23/2025 Weight 178 lbs 06/23/2025 BMI 30.55 kg/m2 06/23/2025 Procedures Procedure Date Ordered Date Performed Result Body Sit e Sleep Study: Retitration BIPAP/CPAP 03/04/2025 N/A Encounters Encounter Location Date Provider Diagnosis [facility] [address] [place] [address] 04/28/2025 Konrad Sheehan [facility] [address] [place] [address] 05/24/2025 Konrad Sheehan Insomnia G47.00 and Acute non-recurrent sinusitis, unspecified location J01.90 [facility] [address] [place] [address] 04/05/2025 Konrad Sheehan [facility] [address] [place] [address] 04/12/2025 Konrad Liny Acute non-recurrent sinusitis, unspecified location J01.90 [facility] [address] [place] [address] 04/14/2025 Konrad Rileyy [facility] [address] [place] [address] 04/23/2025 Konrad Sheehan Acute non-recurrent sinusitis, unspecified location J01.90 [facility] [address] [place] [address] 04/23/2025 Konrad Aguila [facility] [address] [place] [address] 04/27/2025 Konrad Sheehan Anxiety F41.9 [facility] [address] [place] [address] 01/19/2025 Konrad Sheehan [facility] [address] [place] [address] 01/19/2025 Konrad Sheehan [facility] [address] [place] [address] 01/25/2025 Konrad Sheehan [facility] [address] [place] [address] 02/09/2025 Konrad Sheehan [facility] [address] [place] [address] 03/15/2025 Konrad Sheehan [facility] [address] [place] [address] 03/16/2025 Konrad yaron [facility] [address] [place] [address] 11/29/2024 Konrad Sheehan [facility] [address] [place] [address] 12/14/2024 Konrad Sheehan [facility] [address] [place] [address] 12/14/2024 Konrad Sheehan [facility] [address] [place] [address] 12/28/2024 Konrad Sheehan BP (high blood press ure) I10 and Hypertension I10 [facility] [address] [place] [address] 12/28/2024 Konrad Sheehan [facility] [address] [place] [address] 12/30/2024 Konrad Liny [facility] [address] [facility] [address] 07/24/2024 Konrad Linyaron [facility] [address] [facility] [address] 08/31/2024 Konrad Sheehan BP (high blood press ure) I10 [facility] [address] [place] [address] 09/01/2024 Konrad Liny [facility] [address] [email or web address] [place] [address] 10/13/2024 Konrad Linyaron [facility] [address] [facility] [address] 11/23/2024 Konrad yaron [facility] [address] [facility] [address] 11/27/2024 Konrad Aguila [facility] [address] [facility] [address] 07/23/2024 Konrad Liny [facility] [address] [facility] [address] 06/07/2025 Konrad Hoy Anxiety F41.9 and Hypertension I10 [facility] [address] [facility] [address] 04/06/2025 Konrad Hoy Insomnia G47.00 ; Pa arnoldo disorder F41.0 and Hypertension I10 [facility] [address] [facility] [address] 04/22/2025 Konrad Hoy Anxiety F41.9 [facility] [address] [facility] [address] 05/17/2025 Konrad Hoy Insomnia G47.00 ; Anxiety F41.9 and Depression F32.9 [facility] [address] [facility] [address] 06/14/2025 Konrad Hoy Chest pain R07.9 and Anxiety F41.9 [facility] [address] [facility] [address] 06/23/2025 Konrad Hoy Hypertension I10 ; P anic disorder F41.0 and Arm pain, lateral, unspecified laterality M79.[address] [address] 11/27/2024 Konrad Hoy Well adult Z00.[address] [address] 01/18/2025 Konrad Hoy Migraine headache G43.909 ; Panic disorder F41.0 ; Hypertension I10 and Otitis media H66.[address] [address] 02/12/2025 Konrad Hoy Acute non-recurrent sinusitis, unspecified location J01.90 and Nasal congestion R09.[address] [address] 03/04/2025 Konrad Hoy Facial droop R29.810 ; Arm weakness R29.898 and Obstructive sleep apnea G47.[address] [address] 03/17/2025 Konrad Hoy Hypertension I10 ; Fatigue R53.83 and Anxiety F41.[address] [address] 03/26/2025 Konrad Hoy Acute non-recurrent sinusitis, unspecified location J01.90 and Nasal congestion R09.[address] [address] 08/11/2024 Konrad Hoy Low back pain at multiple sites M54.50 ; Anxiety F41.9 and Obstructive sleep apnea G47.[address] [address] 08/25/2024 Konrad Hoy BP (high blood press ure) I10 ; Low back pain at multiple sites M54.50 and Anxiety F41.[address] [address] 09/03/2024 Konrad Hoy Hypertension I10 Assessments Encounter Date Diagnosis (ICD [...] vaporizer to help keep the drainage moist. Dcki-vkh-rzjjtzq Nasal Saline may help the stuffy and runny nose. Use Ibuprofen and or Tylenol as needed for fever, chills, body aches or pain. Children 5 years old should not be given nisl-gwb-yufjeyy cough and cold medications such as guaifenesin and dextromethorphan. If you're over age 5, you may try zfpp-pii-ukvfsry cold medications such as guaifenesin and dextromethorphan, [...] vaporizer to help keep the drainage moist. Ubrg-npb-ujgkual Nasal Saline may help the stuffy and runny nose. Use Ibuprofen and or Tylenol as needed for fever, chills, body aches or pain. Children 5 years old should not be given wxzy-mld-mczagql cough and cold medications such as guaifenesin and dextromethorphan. If you're over age 5, you may try zlmw-kdp-enkfktg cold medications such as guaifenesin and dextromethorphan, [...] - G47.00) 05/17/2025 Anxiety (ICD-10 - F41.9) 06/07/2025 Anxiety (ICD-10 - F41.9) just staterd 10 mg - needs 2 adde weeks for 06/07/2025 Hypertension (ICD-10 - I10) 06/23/2025 Hypertension (ICD-10 - I10) improvin anxiety - still to help with BP 06/23/2025 Panic disorder (ICD-10 - F41.0) 06/14/2025 Chest pain (ICD-10 - R07.9) 06/14/2025 Anxiety (ICD-10 - F41.9) 08/31/2024 BP (high blood pressure) (ICD-10 - I10) 12/28/2024 BP (high blood pressure) (ICD-10 - I10) 04/12/2025 Acute non-recurrent sinusitis, [...] G47.33) 01/18/2025 Otitis media (ICD-10 - H66.90) 06/23/2025 Arm pain, lateral, unspecified laterality (ICD-10 - M79.603) arm paoin wrse wtih use - concerning fo circulation issues - needs u/s vasscular Plan Of Treatment Pending Test Test Name Order Date CMP (COMPLETE METABOLIC PANEL) CMP (COMPLETE METABOLIC PANEL) HEMOGLOBIN A1C (GLYCO) 04/24/2024 HEMOGLOBIN A1C (GLYCO) 11/27/2024 HEMOGLOBIN A1C (GLYCO) 06/14/2025 IRON, TOTAL 06/14/2025 IRON, TOTAL 11/27/2024 LIPID PANEL (CHOL/TRIG/HDL/LDL) 07/14/20 25 LIPID PANEL (CHOL/TRIG/HDL/LDL) 11/27/20 24 LIPID PANEL (CHOL/TRIG/HDL/LDL) 04/24/20 24 CBC WITH DIFF 04/24/2024 CBC WITH DIFF 11/27/2024 VITAMIN D, 25 LEVEL (TOTAL) 06/14/2025 XR Lumbar Spine (2-3 views) * 05/15/2023 US Lower Extremity LT 02/20/2024 US Lower Extremity RT 02/20/2024 Dressing Change- performed 10/21/2023 Insulin Level 11/27/2024 Insulin Level 06/14/2025 Sleep Study: Retitration BIPAP/CPAP 01/2025 CT Chest Low Dose for Screening* 024 Venous Insufficiency Study 02/23/2024 STOOL OCCULT BLOOD 04/24/2024 AMMONIA 12/16/2023 AMMONIA 06/14/2025 CBC AUTO DIFF 12/16/2023 CULTURE SPUTUM 04/15/2023 GI PANEL (PCR) 04/15/2023 PROF 14(COMP METB) 12/16/2023 SED RATE WESTERGREN 12/16/2023 MRI BRAIN WO W CON 03/04/2025 MRI LSPINE WO CON 10/13/2023 MRI TSPINE WO CON 10/13/2023 US ARTERY LEG JULIEN 02/20/2024 XR LSPINE 2_3 VIEWS 05/20/2023 THYROID PANEL (T4/TSH/FREE T3) 4 THYROID PANEL (T4/TSH/FREE T3) 4 THYROID PANEL (T4/TSH/FREE T3) 5 MM screening mammo BI 11/27/2024 US arterial duplex UE BI 06/23/2025 CT CHEST LOW DOSE (LDCT) 03/26/2025 CT CHEST LOW DOSE (LDCT) 11/27/2024 CT sinus w con 03/26/2025 CMP (COMP MET SIMMONS) w/eGFR CKD-EPI 2024 CBC WITH DIFF 06/14/2025 Next Appt Details Provider Name:Konrad Warren Aguila, 04:30:00 PM, [address] [place], [address], Insurance Providers Payer Name Payer Address Payer Phone Subscriber Number Group Number Insured Name Patient Relationship to Insured Coverage Start Date Coverage End Date [employer] [address] [address] [place] [address] [id number] Glory Mckeon Self - patient is the insured Medications [...] K59.00 Surgical History Surgery Date(Month/Year) Colonoscopy 05/2023 Broken left arm- child Ganglion cyst removal Kyphoplasty APPENDECTOMY Hospitalization History Reason Date(Month/Year) Exhaustion Pneumonia/Influenza B/Bronchitis
== END 2025-06-25 13:56 | disposition home or self-care (01) ==
LOC: US 13:55
PROVIDERS: PCP Family Medicine; Visit Provider Family Medicine
DX: I10 Essential (primary) hypertension (principal)
CPT/HCPCS: 93930

== ENCOUNTER 2025-09-27 09:53 | Outpatient (OUT) | payer OTHER, SELFPAY ==
--- OUTSIDE RECORDS SUMMARY | 2025-09-27 10:00 | XMS_ITS | Clinical Summary ---
Author Organization [facility] Address [address] [place] [address] Care Team Providers Care Veterinary Toxicologist Name Role Phone Lonnie Sheehan MD Primary Care Provider [phone] Social History Tobacco UseTypesPacks/DayYears UsedDateSmoking Tobacco: Never Assessed CommentsUnknownSex and Gender InformationValueDate RecordedSex Assigned at Not on fileLegal SznDgrqps10/02/2012 8:04 AM ESTGender IdentityNot on fileSexual OrientationNot on file Plan of Treatment Health MaintenanceDue DateLast DoneCommentsAnxiety Dnwgmdhqj26/14/1982Depression Xmsosutrg37/14/1982HIV Lztxspooh13/14/1982Hepatitis C Hkhywvxqt45/14/1982 DTaP,Tdap,Td Vaccine (1 - Tdap)1982Cervical Cancer Xqdhknyxp60/14/1985 Mammogram Rqzhpumpw74/14/2004CT Mwnkvdcfnkjw01/14/2009Cologuard (FIT-DNA) 12/15/20086591Wqyfqmmmrzn85/14/2009Colorectal Cancer Krpqaqwfa08/14/2009Diabetes Cxypewiel80/14/2009Fecal Occult Blood2008Lipid Cacdiqqnh46/14/2009 Tmwasoaeccjij47/14/2009Pneumococcal Vaccine: 50+ (1 of 1 - PCV)2013 Shingrix Vaccine (1 of 2)2013Covid-19 Vaccine (1 - season) 2025Influenza Vaccine (#1)2025RSV Vaccine (1 - 1-dose 75+ series) 2038 Care Teams Team MemberRelationshipSpecialtyStart DateEnd Date Lonnie Sheehan MD [facility]
--- OUTSIDE RECORDS SUMMARY | 2025-09-27 10:00 | XMS_ITS | Clinical Summary ---
Author Organization [facility] Address [address], [address] [place] [address] Care Team Providers Care Cloth Printing Back Tender Name Role Phone Lonnie Sheehan MD Primary Care Provider [phone] Allergies Active AllergyReactionsCriticalityNoted WnhiOjagknaqBwdzf18/09/2020 Medications MedicationSigDispense QuantityRefillsLast FilledStart DateEnd DateStatus BABY ASPIRIN PO Take by mouthActive ibuprofen (ADVIL;MOTRIN) 800 MG tablet Take 800 mg by mouth every 6 hours as needed for PainActive diclofenac (VOLTAREN) 50 MG EC tablet Indications:Syringohydromyelia (HCC),Lumbar spondylosis,Lumbar degenerative disc disease,Thoracic back pain, unspecified back pain laterality, unspecified chronicityTake 1 tablet by mouth 2 times daily 60 tablet 09/09/2020Active Family History Medical HistoryRelationNameCommentsStrokeFatherRelationNameStatusCommentsFather Social History Tobacco UseTypesPacks/DayYears UsedDateSmoking Tobacco: Some DaysSmokeless Tobacco: NeverCommentsUnknownSex and Gender InformationValueDate RecordedSex Assigned at BirthNot on fileLegal TblFrkwin08/28/2020 3:21 PM EDT Gender IdentityNot on fileSexual OrientationNot on file Last Filed Vital Signs Vital SignReadingTime TakenCommentsBlood Pressure--Pulse--Crtjmrsnbld84.3 ??C (97.4 ??F)09/09/2020 11:50 AM EDTRespiratory Rate--Oxygen Saturation--Inhaled Oxygen Concentration--Jodohe16.2 kg (168 lb)09/09/2020 11:50 AM UEUKltnuy178.6 cm (5' 4 )09/09/2020 11:50 AM EDTBody Mass Index28.8409/09/2020 11:50 AM EDT Plan of Treatment Not on file Insurance Care Teams Team MemberRelationshipSpecialtyStart DateEnd Date Lonnie Sheehan MD [address] [place] [address] PCP - GeneralFamily Medicine08/30/20
--- OUTSIDE RECORDS SUMMARY | 2025-09-27 10:00 | XMS_ITS | Clinical Summary ---
Author Organization [employer] s tem Address [facility] [address] [place] [address] Care Team Providers Care Vp Ad Sales West Name Role Phone Lonnie Sheehan MD Primary Care Provider [phone] Allergies Active AllergyReactionsCriticalityNoted DateCommentsCiprofloxacin HclRashMedium 1Latex, Natural Hbfpoy5503/20/2017Sulfamethoxazole-Xhklkfxdvwfh13/22/2020 Medications MedicationSigDispense QuantityRefillsLast FilledStart DateEnd DateStatus metoprolol tartrate (LOPRESSOR) 25 mg tablet Take 1 tablet by mouth daily.Active desvenlafaxine (PRISTIQ) 100 mg 24 hr tablet Take 1 tablet by mouth daily.Active CARTIA XT 240 mg 24 hr capsule Take 1 capsule by mouth daily.Active levothyroxine (SYNTHROID, LEVOTHROID) 75 MCG tablet Take 1 tablet by mouth daily.Active liothyronine (CYTOMEL) 5 MCG tablet Take 1 tablet by mouth daily.Active ibuprofen (ADVIL,MOTRIN) 800 mg tablet Take 800 mg by mouth every 6 (six) hours as needed for pain. Active aspirin 81 mg Take 81 mg by mouth daily.Active ALPRAZolam (XANAX) 0.25 mg tablet alprazolam 0.25 mg tabletActive ARIPiprazole (ABILIFY) 2 mg tablet Take 2 mg by mouth daily.08/31/2020Active ibuprofen (ADVIL,MOTRIN) 800 mg tablet Take 1 tablet (800 mg total) by mouth in the morning and 1 tablet (800 mg total) at noon and 1 tablet (800 mg total) before bedtime. 21 tablet 2Active Active Problems ProblemNoted DateDiagnosed DateLumbosacral spondylosis without myelopathy 09/22/2020 Overview (09/22/2020): Added automatically from request for surgery [id number] Family History Medical HistoryRelationNameCommentsStrokeFatherBreast cancerNeg HxColon cancer Neg HxRelationNameStatusCommentsFatherDeceasedMotherDeceased Social History Tobacco UseTypesPacks/DayYears UsedDateSmoking Tobacco: Every DayCigarettes0.330 Smokeless Tobacco: Never Tobacco Cessation:Ready to Q uit: No; Counseling Given: Yes Comments:d/w pt. decreased risk of stroke, HTN Alcohol UseStandard Drinks/WeekCommentsYes0 (1 standard drink = 0.6 oz pure alcohol)ChildcareAnswerDate ZnwlkvmpUoalspjklMcrfmhl80/12/2019EmploymentAnswer Date CvmvqxuhVfowrlblfvXvpzpbh53/12/2019Hunger ScreeningAnswerDate Recorded Within the past 12 months we worried whether our food would run out before we got money to buy more.Never True01/26/2023Within the past 12 months the food we bought just didn't last and we didn't have money to get more.Never True 3Purpose - LifeAnswerDate RecordedPurpose and direction in lifeUnknown 1CommentsNoSex and Gender InformationValueDate RecordedSex Assigned at BirthNot on fileLegal KlpUcwcxt05/06/2015 11:23 AM EDTGender IdentityNot on fileSexual OrientationNot on file Last Filed Vital Signs Vital SignReadingTime TakenCommentsBlood Juotkgxn05/78001/26/2023 9:08 PM EST Lmnae327601/26/2023 9:08 PM BFBDfxaebnkidg77.7 ??C (98.1 ??F)01/26/2023 9:08 PM ESTRespiratory Adek179301/26/2023 9:08 PM ESTOxygen Cnkyoeulog96%01/26/2023 9:08 PM ESTInhaled Oxygen Concentration--Rdfwor54.1 kg (170 lb)01/26/2023 9:08 PM EST Fcpmhw881.6 cm (5' 4 )01/26/2023 9:08 PM ESTBody Mass Index29.18001/26/2023 9:08 PM EST Plan of Treatment Health MaintenanceDue DateLast DoneCommentsDepression Hvdtqwfkn58/14/1976Tobacco Jlpgdqdue26/14/1976DTaP,Tdap and Td Vaccines (1 - Tdap)1982Pap Smear , 03/21/2017Adult BMI Lpnbdwfcw82OVID-19 Vaccine ( season)/, 09/24/2021, 08/22/2021 Influenza Jltmcfz27, 08/10/2021, 09/19/2020Zoster (Shingles) EiqrovcJchuvnfwv07/24/2021, 11/04/2020 Medical Devices Not on file Procedures Procedure NamePriorityDate/TimeAssociated DiagnosisCommentsHIGH RISK HPV W/JATINDER Qgfkpnt8003/21/2017 9:35 AM EDT Encounter for gynecological examination without abnormal finding from Last 3 Months or Most Recently Relevant to Health Maintenance Results * High risk HPV w/jatinder (03/21/2017 9:35 AM EDT)ComponentValueRef RangeTest MethodAnalysis TimePerformed AtPathologist SignatureHpv specimen typeThinPrep 03/25/2017 9:32 AM EDTSUNQUESTHpv 87FthjixskNgszdbya72/25/2017 12:55 PM EDT [facility] 49EstnzvkyKbnzcqhc24/25/2017 12:55 PM [facility]Other high risk hpvNegativeNegative 03/26/2017 12:55 PM [facility]ATORYComment: HPV types 31,33,35,39,45,52,56,58,59,66 and 68 DNA were undetectable. Specimen (Source)Anatomical Location / LateralityCollection Method / Volume Collection TimeReceived Time03/21/2017 9:35 AM EDT03/21/2017 9:35 AM EDT Narrative Authorizing ProviderResult TypeResult StatusMesanket Sheehan VEGETABLE HANDLER-CNMLAB BLOOD ORDERABLESFinal ResultPerforming OrganizationAddressCity/State/ZIP CodePhone Number [facility] [address] [place] [address], [place] SUNQUEST from Last 3 Months or Most Recently Relevant to Health Maintenance Insurance [address] [place] [address] Care Teams Team MemberRelationshipSpecialtyStart DateEnd Lonnie Sheehan MD PCP - GeneralFamily Medicine01/26/23
--- OUTSIDE RECORDS SUMMARY | 2025-09-27 10:00 | XMS_ITS | Clinical Summary ---
Author Organization [facility] Address [address] [place] [address] Care Team Providers Care Toaster Operator Name Role Phone Lonnie Sheehan MD Primary Care Provider [phone] Allergies Active AllergyReactionsCriticalityNoted MboyHcsjhgplNxmkqicpupqwi14/05/2025 Other Reaction(s): Unknown Latex03/20/2017 Other Reaction(s): Not available, Unknown Sulfamethoxazole-Ipzodgcmgnsj58/22/2020 Other Reaction(s): Not available, Unknown Medications MedicationSigDispense QuantityRefillsLast FilledStart DateEnd DateStatus ALPRAZolam (Xanax) 0.25 MG tablet Take 1 tablet 3 times a day by oral route.Active aspirin 81 MG chewable tablet Chew 1 tablet every day by oral route.Active desvenlafaxine (Pristiq) 100 MG 24 hr tablet Take 100 mg by mouth DailyActive Dupilumab (Dupixent) 100 MG/0.67ML solution prefilled syringe as directed SubcutaneousActive ibuprofen 800 MG tablet every 8 (eight) hoursActive levothyroxine (Synthroid, Levoxyl) 75 MCG tablet Take 75 mcg by mouth DailyActive liothyronine (Cytomel) 5 MCG tablet Take 5 mcg by mouth DailyActive metoprolol succinate XL (Toprol-XL) 25 MG 24 hr tablet Take 25 mg by mouth DailyActive metoprolol succinate XL (Toprol-XL) 50 MG 24 hr tablet Active dilTIAZem CD (Cartia XT) 240 MG 24 hr capsule Take 1 capsule every day by oral route.Active ammonium lactate (Amlactin) 12 % cream Apply topically if needed for dry skinActive biotin 1 MG capsule Take by mouthActive famotidine (Pepcid) 40 MG tablet Take by mouthActive Semaglutide-Weight Management 2.4 MG/0.75ML solution auto-injector Inject under the skinActive QUEtiapine (SEROquel) 50 MG tablet Take 50 mg by mouth at bedtimeActive loratadine (Claritin) 10 MG tablet Take by mouthActive Fluticasone Propionate (FLONASE ALLERGY RELIEF NA) Administer into affected nostril(s)Active mupirocin (Bactroban) 2 % ointment Indications:Nasal septal perforationApply to each side of the nose BID 15 g 5Active Active Problems ProblemNoted DateDiagnosed DjzkJsnezzxqyyeqwexoii43/05/2025Lumbosacral spondylosis without /22/2020 Overview (04/05/2025): Added automatically from request for surgery [id number] Xiszylj7709/18/20174937Ayrlok42/18/2017Cervical disc qkceqcat22/18/2017Coronary artery spasm09/18/2017Depressive utmhgfuz06/18/4533Yqfolkcv92/18/2017Mitral valve /18/2017Obstructive sleep apnea xrniubqz47/12/2017 Social History Tobacco UseTypesPacks/DayYears UsedDateSmoking Tobacco: FormerCigarettes Smokeless Tobacco: Never Tobacco Cessation:Counseling Given: Not Answered Alcohol UseStandard Drinks/WeekCommentsYes0 (1 standard drink = 0.6 oz pure alcohol)occCommentsUnknownSex and Gender InformationValueDate Recorded Sex Assigned at BirthNot on fileLegal VmeNdtuip29/15/2023 7:25 PM EDTGender IdentityNot on fileSexual OrientationNot on file Last Filed Vital Signs Vital SignReadingTime TakenCommentsBlood Movwdtpv556/8005 2:02 PM EDT Vhror796004/07/2025 2:02 PM EDTTemperature--Respiratory Rate--Oxygen Saturation-- Inhaled Oxygen Concentration--Qavmrx62.6 kg (160 lb)04/07/2025 2:02 PM EDTHeight 162.6 cm (5' 4 )04/07/2025 2:02 PM EDTBody Mass Index27.46004/07/2025 2:02 PM EDT Plan of Treatment Not on file Insurance * Guarantor: Ciara Kendallunt TypeRelation to PatientDate of BirthPhone Billing AddressPersonal/RtucmtScqj93/14/1966 [address] [address] Care Teams Team MemberRelationshipSpecialtyStart DateEnd Date Lonnie Sheehan MD [address] [place] [id number] PCP - GeneralFamily Medicine04/07/25
[2025-09-27 10:24] LABS: Hematocrit 46.9 % (36.0-48.0); Hemoglobin 15.8 g/dL (12.0-16.0); Immature Granulocytes Abs Auto 0.02 10^3/uL (0.00-0.03); Immature Granulocytes Pct Auto 0.3 % (0.0-0.5); Lymphocytes Absolute Auto 2.0 10^3/uL (1.2-3.8); Mean Corpuscular HGB Conc 33.7 g/dL (29.9-35.2); Mean Corpuscular Hemoglobin 31.1 pg (26.7-34.0); Mean Corpuscular Volume 92.3 fL (81.0-99.0); Platelet Count 337 10^3/uL (150-450); Red Blood Count 5.08 10^6/uL (4.20-5.40); White Blood Count 7.0 10^3/uL (4.0-11.0)
[2025-09-27 10:33] LABS: Ammonia <10 umol/L (11-32)
[2025-09-27 11:08] LABS: Iron 101.0 ug/dL (50.0-170.0)
[2025-09-27 11:48] LABS: Anion Gap 10.2; Blood Urea Nitrogen 13.0 mg/dL (7.0-18.0); Carbon Dioxide 31.5 mmol/L (21.0-32.0); Chloride 105 mmol/L (98-107); Glucose 109 mg/dL (74-106); Potassium 4.7 mmol/L (3.5-5.1); Sodium 142 mmol/L (136-145)
[2025-09-27 11:49] LABS: Alanine Aminotransferase 33 U/L (14-59); Albumin Globulin Ratio 1.0; Albumin Level 3.8 g/dL (3.4-5.0); Alkaline Phosphatase 130 U/L (46-116); Aspartate Amino Transferase 15 U/L (15-37); Calcium 9.8 mg/dL (8.5-10.1); Cholesterol 205 mg/dL (<=200); Estimated GFR (African America 50 (>=60 mL/min/1.73m^2); Estimated GFR (Non-African Ame 41 (>=60 mL/min/1.73m^2); Globulin 3.8 g/dL; HDL Cholesterol 50 mg/dL (40-60); Total Protein 7.6 g/dL (6.4-8.2); Triglycerides 85 mg/dL (<=150); VLDL CHOLESTEROL 17.0 mg/dL
[2025-09-27 11:50] LABS: Free T3 2.63 pg/mL (2.18-3.98); Thyroid Stimulating Hormone 0.094 uIU/mL (0.358-3.740)
== END 2025-09-27 09:54 | disposition home or self-care (01) ==
LOC: LAB 09:55
PROVIDERS: PCP Family Medicine; Visit Provider Family Medicine
DX: R07.9 Chest pain, unspecified (principal); F41.9 Anxiety disorder, unspecified
CPT/HCPCS: 36415; 80053; 80061; 82140; 82306; 83036; 83525; 83540; 84436; 84443; 84481; 85025

== ENCOUNTER 2025-10-04 10:48 | Outpatient (OUT) | payer OTHER, SELFPAY ==
--- OUTSIDE RECORDS SUMMARY | 2025-09-15 09:00 | XMS_ITS ---
Author Organization [facility] in [place] Address [address] [place] [address] Care Team Providers Care Rehabilitation Manager Name Role Phone Konrad Sheehan Primary Care Provider [phone] REASON FOR VISIT anxiety Encounters Encounter Location Date Provider Diagnosis [facility] [address] [place] [address] 09/15/2025 Konrad Sheehan Plan Of Treatment No Information Progress Notes * Ciara KENDALL MDOB:[birth year] (59 yo F)Acc No.[id number]:09/15/2025 UNLOCKED PROGRESS NOTE Progress Note Patient: Ciara LONG :?Lonnie Sheehan (JP, MDDOB:1965???Age: 59 Y???Sex:FemaleDate:09/15/2025Phone:[phone]:[address] [place], [place] [id number] Subjective: * Chief Complaints: * 1 . Anxiety. * Medical History: Objective: * Vitals: Assessment: Plan: * Treatment: * * Electronic signature of Konrad Sheehan MD, [id number] on 10/04/2025 at 10:54 AM EST Sign off status: PendingVisit Status:?CANC (Cancelled) * Provider: Jazzmine Sheehan MD (TTC) Date: 1 Generated for Printing/Faxing/eTransmitting on:?10/04/2025 10:54 AM EST
--- OUTSIDE RECORDS SUMMARY | 2025-09-21 05:45 | XMS_ITS ---
Author Organization [facility] in [place] Address [address] [place] [address] Care Team Providers Care Production Control Analyst Name Role Phone Konrad Sheehan Primary Care Provider Allergies Allergen (clinical drug ingredient) Drug/Non Drug Allergy documented on EMR Reaction Allergy Type Onset Date Status sulfamethoxazole / trimethoprim Bactrim rash Drug Allergy ActiveciprofloxacinCiproupset stomachDrug AllergyActiveLatexLatexrashAllergy Active REASON FOR VISIT Presents to office alone for follow up. Said not ready to return to work. Still feels weak and unable to focus Medications Medication SIG (Take, Route, Frequency, Duration) Notes Start Date End Date Status LaMICtal 25 MG 1 tablet Orally daily; Duration: 30 days 5ActiveMetoprolol Succinate ER 25 MG1 tablet Orally Once a day- with 50mg tablet; Duration: 90 days5ActiveMetoprolol Succinate ER 50 MG1 tablet Orally Once a day; Duration: 90 daysActiveSemaglutide 2.268 mg/0.63 mL BudererActiveALPRAZolam 0.5 MG1 tablet Orally Twice a day; Duration: 5 days 5ActivehydrOXYzine HCl 25 MG1 tablet as needed Orally qid; Duration: 10 lvzwJFR15/06/2025ActiveIbuprofen 800 MG1 tablet with food or milk as needed Orally every 8 hrsPRNActiveLevothyroxine Sodium 75 mcgTAKE 1 TABLET BY MOUTH DAILY IN THE MORNING ON AN EMPTY STOMACH; Duration: 30ActiveLiothyronine Sodium 5 MCG1 tablet on an empty stomach Orally Once a day; Duration: 90 daysActive BiotinActiveDesvenlafaxine Succinate ER 100 MG1 tablet Orally Once a day; Duration: 90 daysActivedilTIAZem HCl ER Coated Beads 240 MG1 capsule Orally Once a day; Duration: 90 daysActiveDupixent 300 MG/2MLas directed SubcutaneousActive Famotidine 40 MG1 tablet at bedtime Orally Once a day; Duration: 90 daysActive Aspirin 81 81 MG1 tablet Orally Once a day; Duration: 90 daysActiveAmmonium Lactate 12 %1 application Externally Twice a day5Active Social History Tobacco Use: Social History Observation Description Date Details (start date - stop date) Former Smoker 12/02/1981 - 08/20/2024 Tobacco Control (Standard) Question Answer Notes Tobacco use: Former smoker When did you start smoking?12/02/1981When did you stop smoking?08/20/2024How long has it been since you last smoked?Less than 1 monthAUDIT-C (Standard) Question Answer Notes Did you have a drink containing alcohol in the p ast year? No Iekghd4VqhglnmwxxaafpLgoscwqn Vital Signs Blood pressure systolic 184 mm Hg 09/21/20 25 Blood pressure diastolic 104 mm Hg 025 Height 64 in 09/21/2025 Weight 179.6 lbs 09/21/2025 BMI 30.82 kg/m2 09/21/2025 Encounters Encounter Location Date Provider Diagnosis [address] [address] 09/21/2025 Konrad Sheehan Migraine headache G43.909 Assessments Encounter Date Diagnosis (ICD Code) Assessment Notes Treatment Notes Treatment Clinical Notes Section Notes 09/21/2025 Migraine headache (ICD-10 - G43. 909) Plan Of Treatment Medication Medication Name Sig Start Date Stop Date Notes LaMICtal 25 MG 1 tablet Orally daily; Duration: 30 day s 09/21/2025 ALPRAZolam 0.5 MG1 tablet Orally Twice a day; Duration: 5 days09/21/2025 Progress Notes * Ciara KENDALL MDOB:[birth year] (59 yo F)Acc No.[id number]:09/21/2025 Progress Note Patient: Ciara LONG :?Lonnie Sheehan ([facility]), MDDOB:1965???Age: 59 Y???Sex:FemaleDate:09/21/2025Phone:[phone]:[address]Check In:10:38 AM ESTCheck Out:11:37 AM EST Subjective: * Chief Complaints: * P resents to office alone for follow up. Said not ready to return to work. Still feels weak and unable to focus * HPI: ???General:?Monisha better but still weak and had to focus takign z=xanax BID - so unable to wprk. * ROS: ???EENT:?hearing changes?denies.?visual changes?denies. non-healing mouth sores?denies.?swollen glands or neck lumps?denies.?hoarseness?denies.?sore throat?denies.?difficulty swallowing?denies.?nose bleeds?denies.?nasal congestion?denies.?ear ache?denies.?ear discharge denies.?ringing in ears?denies.?light sensitivity?denies.?eye pain?denies.?blurring?denies.?eye irritation?denies.?double vision?denies. vision loss?denies.?General/Constitutional:?Sweats:?Denies.?Fatigue?denies.?Sleep proble ms?denies.?Anorexia?denies.?Malaise?denies.?Weight loss?denies. Fatigue or Weakness?denies.?Fever or Chills?denies.?Cardiovascular:?Shortness of Breath w/lying flat?denies.?Lightheadedne ss/dizziness?denies.?Chest tightness/ heavy pressure?denies.?Swelling of legs, a nkles, or feet?denies.?Waking up with shortness of breath?denies.?Chest pain&#16 0;denies.?Palpitations?denies.?Weight gain?denies.?Respiratory:?Chronic or frequent cough?denies.?Coughing up blood&#1 60;denies.?Difficulty breathing?denies.?Productive cough?denies.?Snoring&#1 60;denies.?Shortness of breath that awakens from sleep (PND)?denies.?Chest pain? denies.?Sputum production?denies.?Wheezing?denies.?Musculoskeletal:?Joint pain?denies.?Joint Fluid?denies.?Backpain?denies.?Knee pain?denies.?Neck pain?denies.?Joint Stiffness?denies.?Muscle cramps?denies.?Weakness of muscles?denies.?Arthritis?denies.?Muscle aches?denies.?Pain in shoulder(s)?denies.?Swollen joints?denies.? 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 Modified On:01/17/2024U Status:ocgdhysxwG19.609Pain in unspecified limb Modified On:04/04/2023U Status:izyarmzqsT09.00Acute cystitis without hematuria Modified On:04/04/2023U Status:xemxoeifvG71.01Acute cystitis with hematuria Modified On:04/04/2023U Status:dqfiixfcqF99.412SSprain of calcaneofibular ligament of left ankle, sequela Modified On:04/04/2023U Status:yxilavzktU04.9Chest pain Modified On:04/04/2023U Status:lyupegfmeT70.909Migraine headache Modified On:12/16/2023U Status:jtuvpvdlvZ72.9Anxiety Modified On:10/02/2023U Status:aocqpelytP37.1Mitral valve prolapse Modified On:04/04/2023U Status:obnipywkdI85.9Depression Modified On:10/02/2023U Status:phenxbonhH44.33Obstructive sleep apnea Modified On:12/11/2023U Status:tyczoqwyiD31.00Insomnia Modified On:04/04/2023U Status:idxplghvuV26.643Pain in joint, hand Modified On:04/04/2023 Status:lokegytzvD25.6Tubular adenoma of colon Modified On:04/04/2023 Status:gopdzqcqxT32.561Knee pain, right Modified On:04/04/2023 Status:zfleywjcnA47.00Constipation Modified On:04/04/2023 Status:lwizlzbfoO74.00Well adult Modified On:02/20/2024 Status:xxzgxtcnwT57.0Panic disorder Modified On:04/04/2023 Status:ehweezbqnI23Lrtu syncope Modified On:04/04/2023 Status:fmoqxgycdK79.30DDD (degenerative disc disease), cervical Modified On:05/15/2023 Status:egdvyfxyxF17.3Over weight Modified On:04/04/2023 Status:gwluvxdbcJ04.8Superficial phlebitis of arm Modified On:04/04/2023 Status:fmidkvszkZ89.2Allergic rhinitis, seasonal Modified On:04/04/2023 Status:jvjtuwiypY87.11Abdominal pain, RUQ Modified On:04/04/2023 Status:pwqrffjhaU62.89Rhinorrhea Modified On:04/04/2023 Status:iwvatvfgzD60.1Coronary artery spasm Modified On:04/04/2023 Status:qeqqrmycgM16.40Shoulder impingement syndrome Modified On:04/04/2023 Status:rladqclxoT05.50Low back pain, unspecified Modified On:10/15/2023 Status:koxrcksugO46.9Cough, unspecified Modified On:12/16/2023 Status:lpcsjdxzfG84.9COPD, mild Modified On:04/04/2023 Status:kvputythsP57.9Acute bronchiolitis Modified On:04/15/2023 Status:oysvxevaqR81.7Acute diarrhea Modified On:04/15/2023 Status:folrsnvxfH28.7Diarrhea Modified On:04/30/2023 Status:fiygwtvziC12.010Personal history of colonic polyps Modified On:05/15/2023U Status:zqvhkopsyK03.4Change in bowel habit Modified On:05/15/2023 Status:fsricjmxgY95.9Irritable bowel Modified On:05/15/2023 Status:ladiwxijqI93.0XXADog bite Modified On:11/07/2023 Status:wtryfpdqiZ67.9Edema Modified On:02/24/2024 Status:kdtsxrdwrZ47.604Right leg pain Modified On:02/20/2024U Status:pmzymzrsxS82.2Venous insufficiency (chronic) (peripheral) Modified On:03/23/2024 Status:aqedvamrvM81.301ASpider bite Modified On:05/04/2024 Status:rdbnwpnfqV92.50Low back pain at multiple sites Modified On:08/11/2024 Status:hhyuztawfC99Noqkypeywuyp Modified On:09/03/2024 Status:inrnssjygV23.90Otitis media Modified On:01/18/2025 Status:odjatkcgjK53.810Facial droop Modified On:03/04/2025 Status:kekcuutsuM32.898Arm weakness Modified On:03/04/2025 Status:cpumvzpdtI22.83Fatigue Modified On:03/17/2025 Status:confirmed * Medical History: * [...] 1 son(s) . . * Social History: ???Tobacco Use:?Tobacco Control (Standard)?Tobacco use:?Former smoker ?When did you start smoking??12/02/1981 ?When did you stop smoking??08/20/2024 ?How long has it been since you last smoked? Less than 1 month ???Drug/Alcohol:?AUDIT-C (Standard)?Did you have a drink containing alcohol in the past year??No ?Points?0 ?Interpretation?Negative * Medications: T akingALPRAZolam 0.5 MG Tablet [...] Tablet 1 tablet as needed Orally qid , Notes to Pharmacist: PRNIbuprofen 800 MG Tablet 1 tablet with food or milk as needed Orally every 8 hrs , Notes to Pharmacist: PRNLevothyroxine Sodium 75 mcg Tablet TAKE 1 TABLET BY MOUTH DAILY IN THE MORNING ON AN EMPTY STOMACH Liothyronine Sodium 5 MCG Tablet 1 tablet on an empty stomach Orally Once a day Metoprolol Succinate ER 25 MG Tablet Extended Release 24 Hour 1 tablet Orally Once a day- with 50mg tablet Metoprolol Succinate ER 50 MG Tablet Extended Release 24 Hour 1 tablet Orally Once a day Semaglutide [...] Tablet 1 tablet as needed Orally qid , Notes to Pharmacist: PRNTaking Ibuprofen 800 MG Tablet 1 tablet with food or milk as needed Orally every 8 hrs , Notes to Pharmacist: PRNTaking Levothyroxine Sodium 75 mcg Tablet TAKE 1 TABLET BY MOUTH DAILY IN THE MORNING ON AN EMPTY STOMACH Taking Liothyronine Sodium 5 MCG Tablet 1 tablet on an empty stomach Orally Once a day Taking Metoprolol Succinate ER 25 MG Tablet Extended Release 24 Hour 1 tablet Orally Once a day- with 50mg tablet Taking Metoprolol Succinate ER 50 MG Tablet Extended Release 24 Hour 1 tablet Orally Once a day Taking Semaglutide 2.268 mg/0.63 mL , Notes to Pharmacist: BudererDiscontinuedAmoxicillin-Pot Clavulanate 875-125 MG Tablet 1 tablet Orally every 12 hrs Pyridium(Phenazopyridine HCl) 200 MG Tablet 1 tablet after meals Orally Three times a day Medication List reviewed and reconciled with the patientDiscontinued Amoxicillin-Pot Clavulanate 875-125 MG Tablet 1 tablet Orally every 12 hrs Discontinued Pyridium(Phenazopyridine HCl) 200 MG Tablet 1 tablet after meals Orally Three times a day Medication List reviewed and reconciled with the patient * Allergies: L atex: rash - Criticality HighBactrim: rashCipro: upset stomachno[Allergies Verified] Objective: * Vitals: W t:179.6lbs, Ht: 64 in, BP:184/104mm Hg, BMI:30.82Index, Ht-cm: 162.56 cm, Wt-k.47 kg. * Examination: ???Physical Exam: ?GENERAL:?well developed, well nourished, in no acute distress.?HEAD:?normocephalic/atraumatic.?EYES:?pupils equal, round and reactive to light, conjunctivae and sclerae normal.?EARS:?no deformity or lesion of external ear, canals and TM appear normal bilaterally, TM's intact, not inflamed with normal light reflex, hearing grossly normal to conversational speech.?NOSE:?no deformity, discharge, inflammation, or lesions. ?MOUTH:?mucous membranes moist, normal oropharynx and posterior pharynx without lesions or exudates, tongue normal, dentition normal.?NECK:?neck supple, no masses or palpable cervical nodes, trachea midline, thyroid without nodules, masses, tenderness, or enlargement.?CHEST:?no chest wall deformity, no chest wall tenderness. ?LUNGS:?normal respiratory effort and clear to auscultation, no wheezes, rales, or rhonchi, good air exchange.?CARDIO:?regular rate and rhythm, normal S1 and S2, nor murmur, rub, or gallop.?PULSES:?normal capillary refill.?ABDOMEN:?soft, non-distended, non-tender, no masses.?MUSCULOSKELETAL:?no deformity or scoliosis noted, normal range of motion, joints normal, no erythema, edema, effusion, or ecchymosis.?EXTREMITY:?no clubbing, cyanosis, edema, or deformity withnormal ROM in both upper and lower bilateral extremities.?NEUROLOGIC:?grossly normal.?SKIN:?no rashes, ulcerations, or suspicious lesions.?LYMPH NODES:?no cervical adenopathy, nodes normal.?MENTAL STATUS:?alert and oriented x3, normal mood and affect.? Assessment: * Assessment: 1.?Migraine headache - G43.909 (Primary)??? Plan: * Treatment: Start LaMICtal Tablet, 25 MG, 1 tablet, Orally, daily, 30 days, 30 Tablet, Refills 11;?Refill ALPRAZolam Tablet, 0.5 MG, 1 tablet, Orally, Twice a day, 5 days, 10 Tablet, Refills 0.?? * Procedure Codes: * Preventive Medicine: ??Screenings/Counseling:?BMI ACTION PLAN?Above Normal BMI Follow-up?Dietary management education, guidance, and counseling See treatment section of progress note for complete details of management plan. * * Sign off status: CompletedVisit Status:?CHK (Check Out) true * Provider: Jazzmine Sheehan ([facility])MD Date: Generated for Printing/Faxing/eTransmitting on:?10/04/2025 10:51 AM EST History and Physical Notes * HPI (History of Present Illness) CategorySub-CategoryDetailNotesCategory NotesGeneral Monisha better but still weak and had to focus takign z=xanax BID - so unable to wprk Examination CategorySub-CategoryDetailNotesCategory NotesPhysical ExamGENERAL:well developed, well nourished, in no acute distressHEAD:normocephalic/atraumatic EYES:pupils equal, round and reactive to light, conjunctivae and sclerae normal EARS:no deformity or lesion of external ear, canals and TM appear normal bilaterally, TM's intact, not inflamed with normal light reflex, hearing grossly normal to conversational speechNOSE:no deformity, discharge, inflammation, or lesionsMOUTH:mucous membranes moist, normal oropharynx and posterior pharynx without lesions or exudates, tonguenormal, dentition normalNECK:neck supple, no masses or palpable cervical nodes, trachea midline, thyroid without nodules, masses, tenderness, or enlargementCHEST:no chest wall deformity, no chest wall tendernessLUNGS:normal respiratory effort and clear to auscultation, no wheezes, rales, or rhonchi, good air exchangeCARDIO:regular rate and rhythm, normal S1 and S2, nor murmur, rub, or gallopPULSES:normal capillary refillABDOMEN:soft, non-distended, non-tender, no massesRECTAL:MUSCULOSKELETAL:no deformity or scoliosis noted, normal range of motion, joints normal, no erythema, edema, effusion, or ecchymosisEXTREMITY:no clubbing, cyanosis, edema, or deformity with normal ROM in both upper and lower bilateral extremitiesNEUROLOGIC:grossly normalSKIN:no rashes, ulcerations, or suspicious lesionsLYMPH NODES:no cervical adenopathy, nodes normalMENTAL STATUS:alert and oriented x3, normal mood and affect
--- OUTSIDE RECORDS SUMMARY | 2025-09-27 13:57 | XMS_ITS ---
Author Organization [facility] in [place] Address [address] [place] [address] Care Team Providers Care Fire Sprinkler Designer Name Role Phone Konrad Sheehan Primary Care Provider [phone] REASON FOR VISIT labs Encounters Encounter Location Date Provider Diagnosis [facility] [address] [place] [address] 09/27/2025 Konrad Sheehan Abnormal liver function test R79.89 Assessments Encounter Date Diagnosis (ICD Code) Assessment Notes Treatment Notes Treatment Clinical Notes Section Notes 09/27/2025 Abnormal liver function test (IC D-10 - R79.89) Plan Of Treatment Pending Test Test Name Order Date US Gallbladder 09/27/2025 US Liver 09/27/2025 US KIDNEYS BLADDER 09/27/2025 Progress Notes * Ciara MCKEON MDOB:[birth year] (59 yo F)Acc No.[id number]:09/27/2025 Patient:?Ciara MCKEON :1965???Age:59 Y???Sex:FemalePhone:[phone] Address:[address] [place] [address], [address] Subjective: * Chief Complaints: * L abs * Medical History: * Surgical History: * Hospitalization/Major Diagno stic Procedure: * Medications: Objective: * Vitals: * Physical Examination: ??? Assessment: * Assessment: 1.?Abnormal liver function test - R79.89 (Primary)??? Plan: * Treatment: ?Imaging: US Gallbladder ?Imaging: US Liver ?Imaging: US KIDNEYS BLADDER* with pvr * Procedure Codes: * true * Date:?Generated for Printing/Faxing/eTransmitting on:?10/04/2025 10:52 AM EST
--- OUTSIDE RECORDS SUMMARY | 2025-09-28 06:15 | XMS_ITS ---
Author Organization [facility] [place] Address [address] [place] [address] Care Team Providers Care Import Export Coordinator Name Role Phone Konrad Sheehan Primary Care Provider Allergies Allergen (clinical drug ingredient) Drug/Non Drug Allergy documented on EMR Reaction Allergy Type Onset Date Status sulfamethoxazole / trimethoprim Bactrim rash Drug Allergy ActiveciprofloxacinCiproupset stomachDrug AllergyActiveLatexLatexrashAllergy Active Results Component Value Reference Range Notes UA DIP NONAUTO WO MICRO (810 02) - IN OFFICE Reviewed date:09/28/2025 11:39:19 AM Interpretation: Performing Lab: Notes/Report: COLOR Yellow CLARITYClearGLUCOSENegBILIRUBINNegKETONE+SPECIFIC GRAVITY1.788SQXJMRdtZT1AOIHOOP NegUROBILINOGENNegNITRITENegLEUKOCYTE ESTERASE+ REASON FOR VISIT Multiple Issues, Feels like something stuck in throat Medications Medication SIG (Take, Route, Frequency, Duration) Notes Start Date End Date Status Liothyronine Sodium 5 MCG 1 tablet on an empty stomach Orally Once a day; Duration: 90 days ActiveLevothyroxine Sodium 75 mcgTAKE 1 TABLET BY MOUTH DAILY IN THE MORNING ON AN EMPTY STOMACH; Duration: 30ActiveSemaglutide 2.268 mg/0.63 mLBudererActive Metoprolol Succinate ER 50 MG1 tablet Orally Once a day; Duration: 90 daysActive Metoprolol Succinate ER 25 MG1 tablet Orally Once a day- with 50mg tablet; Duration: 90 days5ActiveIbuprofen 800 MG1 tablet with food or milk as needed Orally every 8 hrsPRNActivehydrOXYzine HCl 25 MG1 tablet as needed Orally qid; Duration: 10 psbaKXL13/06/2025ActiveFamotidine 40 MG1 tablet at bedtime Orally Once a day; Duration: 90 daysActiveDupixent 300 MG/2MLas directed SubcutaneousActivedilTIAZem HCl ER Coated Beads 240 MG1 capsule Orally Once a day; Duration: 90 daysActiveALPRAZolam 0.5 MG1 tablet Orally Twice a day; Duration: 5 days5ActiveAmmonium Lactate 12 %1 application Externally Twice a day5ActiveDesvenlafaxine Succinate ER 100 MG1 tablet Orally Once a day; Duration: 90 daysActiveBiotinActiveAspirin 81 81 MG1 tablet Orally Once a day; Duration: 90 daysActiveOndansetron 4 MG1 tablet on the tongue and allow to dissolve Orally qid15ActiveMacrobid 100 MG1 capsule with food Orally every 12 hrs; Duration: 5 day(s)09/28/2025tiveRexulti 1 MG1 tablet Orally Once a day; Duration: 30 days5Active Social History Tobacco Use: Social History Observation Description Date Details (start date - stop date) Former Smoker 12/02/1981 - 08/20/2024 Tobacco Control (Standard) Question Answer Notes Tobacco use: Former smoker When did you start smoking?12/02/1981When did you stop smoking?08/20/2024How long has it been since you last smoked?Less than 1 month Problems Problem Type SNOMED Code ICD Code Onset Dates Problem Status W/U Status Risk Notes Problem Dysphagia (15119443) Dysphagia (R13.10) Activeconfirmed Vital Signs Blood pressure systolic 144 mm Hg 09/28/20 25 Blood pressure diastolic 84 mm Hg 025 Height 64 in 09/28/2025 Weight 180.0 lbs 09/28/2025 BMI 30.89 kg/m2 09/28/2025 Encounters Encounter Location Date Provider Diagnosis [facility] [address] [place] [address] 09/28/2025 Konrad Hoy Anxiety F41.9 ; Migraine headache G43.909 and Dysphagia R13.10 Assessments Encounter Date Diagnosis (ICD Code) Assessment Notes Treatment Notes Treatment Clinical Notes Section Notes 09/28/2025 Anxiety (ICD-10 - F41.9) didnt tolerate the lamictal and seroquel unable to focus at work - should not be operateijg heavy equiopment like she dose at work adjusting meds - counceling tomorrow 09/28/2025Migraine headache (ICD-10 - G43.909)09/28/2025Dysphagia (ICD-10 - R13.10) Plan Of Treatment Medication Medication Name Sig Start Date Stop Date Notes LaMICtal 25 MG 1 tablet Orally daily 09/21/2025 Ondansetron 4 MG1 tablet on the tongue and allow to dissolve Orally qid 09/28/2025Macrobid 100 MG1 capsule with food Orally every 12 hrs; Duration: 5 day(s)09/28/2025Rexulti 1 MG1 tablet Orally Once a day; Duration: 30 days 09/28/2025Treatment Notes Assessment Notes Anxiety didnt tolerate the lamictal and seroquel unable to focus at work - should not be operateijg heavy equiopment like she dose at work adjusting meds - counceling tomorrow Pending Test Test Name Order Date XR Upper GI w/ Esophogram 09/28/2025 Progress Notes * Ciara KENDALL MDOB:[birth year] (59 yo F)Acc No.[id number]:09/28/2025 Progress Note Patient: Ciara LONG :?Lonnie Eileen Aguila ([facility]), MDDOB:1965???Age: 59 Y???Sex:FemaleDate:09/28/2025Phone:[phone]:[address] [place], [place] [address]Check In:10:43 AM ESTCheck Out:11:48 AM EST Subjective: * Chief Complaints: * M ultiple IssuesFeels like something stuck in throat * HPI: ???General:? Fes like something stuck in throat -= troy larger pills - been three days -? - liquids are good no appetite - last 4-5 days not sleeping - mentalrumination. * ROS: ???EENT:?hearing changes?denies.?visual changes?denies. 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 Modified On:01/17/2024 Status:lckmohwmtP28.609Pain in unspecified limb Modified On:04/04/2023 Status:ufxieafpuP56.00Acute cystitis without hematuria Modified On:04/04/2023 Status:johjwskrlK83.01Acute cystitis with hematuria Modified On:04/04/2023 Status:zsbifjmbyR42.412SSprain of calcaneofibular ligament of left ankle, sequela Modified On:04/04/2023 Status:naocnkvtaJ23.9Chest pain Modified On:04/04/2023 Status:wsgomiwebW16.909Migraine headache Modified On:12/16/2023 Status:whetleowmN41.9Anxiety Modified On:10/02/2023 Status:rozmdvjqrP83.1Mitral valve prolapse Modified On:04/04/2023 Status:pfhsjcmbyI80.9Depression Modified On:10/02/2023 Status:lvkunzoblW53.33Obstructive sleep apnea Modified On:12/11/2023 Status:zxunevtiqP02.00Insomnia Modified On:04/04/2023 Status:zhkvnwmkbU75.643Pain in joint, hand Modified On:04/04/2023 Status:jnuprsnjaA92.6Tubular adenoma of colon Modified On:04/04/2023 Status:yxxaecvkjJ47.561Knee pain, right Modified On:04/04/2023 Status:estptvrdxJ88.00Constipation Modified On:04/04/2023 Status:mdhtorvbsE61.00Well adult Modified On:02/20/2024 Status:dmgxjvuiqP97.0Panic disorder Modified On:04/04/2023 Status:izzzcjmyoN46Szmb syncope Modified On:04/04/2023 Status:pegciapibG64.30DDD (degenerative disc disease), cervical Modified On:05/15/2023 Status:dzkbiqqgbK59.3Over weight Modified On:04/04/2023 Status:glajvwvueS62.8Superficial phlebitis of arm Modified On:04/04/2023 Status:cbufxmqvcI27.2Allergic rhinitis, seasonal Modified On:04/04/2023 Status:aibzuozjrF51.11Abdominal pain, RUQ Modified On:04/04/2023 Status:oysjnrglcJ75.89Rhinorrhea Modified On:04/04/2023 Status:ldoqfxaynO65.1Coronary artery spasm Modified On:04/04/2023 Status:autiwjtkuM17.40Shoulder impingement syndrome Modified On:04/04/2023 Status:etpyldcqtR63.50Low back pain, unspecified Modified On:10/15/2023 Status:bcazpvzzgV70.9Cough, unspecified Modified On:12/16/2023 Status:amrndjgxnO28.9COPD, mild Modified On:04/04/2023 Status:jvuzlzjqiO32.9Acute bronchiolitis Modified On:04/15/2023 Status:wqwqpmyrsM28.7Acute diarrhea Modified On:04/15/2023 Status:htbkrzyhfE98.7Diarrhea Modified On:04/30/2023 Status:tfwcidsraB43.010Personal history of colonic polyps Modified On:05/15/2023 Status:lccmimgusF55.4Change in bowel habit Modified On:05/15/2023 Status:inoergkveH93.9Irritable bowel Modified On:05/15/2023U Status:datxrpovhM26.0XXADog bite Modified On:11/07/2023 Status:avhgwghuvZ41.9Edema Modified On:02/24/2024U Status:fjvvqfonkF35.604Right leg pain Modified On:02/20/2024U Status:pnsdgiyldX61.2Venous insufficiency (chronic) (peripheral) Modified On:03/23/2024U Status:gdjqtlvjxG68.301ASpider bite Modified On:05/04/2024U Status:rngwinpylA92.50Low back pain at multiple sites Modified On:08/11/2024 Status:kbrdtrpgqM43Hqmshpolujxj Modified On:09/03/2024 Status:zzzsxmjzjT77.90Otitis media Modified On:01/18/2025U Status:ossobccwpB52.810Facial droop Modified On:03/04/2025 Status:netnsslhoD15.898Arm weakness Modified On:03/04/2025U Status:cbincxwspT85.83Fatigue Modified On:03/17/2025U Status:hvbgrntlhD96.10Dysphagia Modified On:09/29/2025 Status:confirmed * Medical History: * Surgical History: [...] you last smoked? Less than 1 month * Medications: T akingALPRAZolam [...] every 8 hrs , Notes to Pharmacist: PRNLaMICtal(lamoTRIgine) 25 MG Tablet 1 tablet Orally daily Levothyroxine Sodium 75 mcg Tablet TAKE 1 [...] 8 hrs , Notes to Pharmacist: PRNTaking LaMICtal(lamoTRIgine) 25 MG Tablet 1 tablet Orally daily Taking Levothyroxine Sodium 75 mcg Tablet TAKE 1 [...] 2.268 mg/0.63 mL , Notes to Pharmacist: Meghna * Allergies: L atex: rash - Criticality HighBactrim: rashCipro: upset stomachno[Allergies Verified] Objective: * Vitals: W t:180.0lbs, Ht: 64 in, BP:144/84mm Hg, BMI:30.89Index, Ht-cm: 162.56 cm, Wt-k.65 kg. * Examination: ???Physical Exam: ?GENERAL:?well developed, [...] normal mood and affect.? Assessment: * Assessment: 1.?Anxiety - F41.9 (Primary)???2.?Migraine headache - G43.909??&# 160;3.?Dysphagia - R13.10??? Plan: * Treatment: Start Ondansetron Tablet Disintegrating, 4 MG, 1 tablet on the tongue and allow to dissolve, Orally, qid, 20, Refills 1;?Start Macrobid Capsule, 100 MG, 1 capsule with food, Orally, every 12 hrs, 5 day(s), 10.?LAB: UA DIP NONAUTO WO MICRO (07643) - IN OFFICE (Collection Date & Time - 09/28/2025) Notes: didnt tolerate the lamictal and seroquel unable to focus at work - should not be operateijg heavy equiopment like she dose at work adjusting meds - counceling tomorrow??2.?Migraine headache? Stop LaMICtal Tablet, 25 MG, 1 tablet, Orally, daily;?Start Rexulti Tablet, 1 MG, 1 tablet, Orally, Once a day, 30 days, 30 Tablet, Refills 11.??3.?Others?Imaging: XR Upper GI w/ Esophogram * Labs: * L ab: UA DIP NONAUTO WO MICRO (29299) - IN OFFICE (Collection Date & Time - 09/28/2025) ?ValueReference Range?COLORYellow * C LARITY Clear * G LUCOSE Neg * B ILIRUBIN Neg * K ETONE + * S PECIFIC GRAVITY 1.010 * B LOOD Neg * P H 5 * P ROTEIN Neg * U ROBILINOGEN Neg * N ITRITE Neg * L EUKOCYTE ESTERASE + * Procedure Codes: 8 1002 URINALYSIS WO MICRO * Preventive Medicine: ??Screenings/Counseling:?BMI ACTION PLAN?Above Normal BMI Follow-up?Dietary management education, guidance, and counseling * * Sign off status: CompletedVisit Status:?CHK (Check Out) true * Provider: Jazzmine Sheehan (TTC)MD Date: 1 Generated for Printing/Faxing/eTransmitting on:?10/04/2025 10:54 AM EST History and Physical Notes * HPI (History of Present Illness) CategorySub-CategoryDetailNotesCategory NotesGeneral Fes like something stuck in throat -= troy larger pills - been three days - - liquids are good no appetite - last 4-5 days not sleeping - mentalrumination Examination CategorySub-CategoryDetailNotesCategory NotesPhysical ExamGENERAL:well developed, well nourished, [...]
--- OUTSIDE RECORDS SUMMARY | 2025-09-29 07:52 | XMS_ITS ---
Author Organization [facility] in [place] Address [address] [place] [address] Care Team Providers Care Pharmaceutical Service Representative Name Role Phone Aguila Konrad Primary Care Provider [phone] Reason For Referral Reason needs egd Diagnosis 1 Reflux gastritis (K2 9.60) Referral Organization [facility] Referring Provider First Name Konrad Referring Provider Last Name Aguila [facility] [place] Referred Provider Gael Hong Referred Provider Specialty General Surg nemo Referral Priority Routine REASON FOR VISIT reflux Medications Medication SIG (Take, Route, Frequency, Duration) Notes Start Date End Date Status Famotidine 40 MG 1 tablet at bedtime Orally bid; Duration: 90 days Active Problems Problem Type SNOMED Code ICD Code Onset Dates Problem Status W/U Status Risk Notes Problem Reflux gastritis (08853840) Reflux gastri tis (K29.60) Activeconfirmed Encounters Encounter Location Date Provider Diagnosis [facility] [address] [place] [address] 09/29/2025 Konrad Sheehan Reflux gastritis K29.60 Assessments Encounter Date Diagnosis (ICD Code) Assessment Notes Treatment Notes Treatment Clinical Notes Section Notes 09/29/2025 Reflux gastritis (ICD-10 - K29.6 0) Plan Of Treatment Medication Medication Name Sig Start Date Stop Date Notes Famotidine 40 MG 1 tablet at bedtime Orally bid; Duration: 90 days Referrals Referral Date Details 09/29/2025 09/29/2025, needs Gael genao Progress Notes * Ciara KENDALL MDOB:[birth year] (59 yo F)Acc No.[id number]:09/29/2025 Patient:?Ciara KENDALL :1965???Age:59 Y???Sex:FemalePhone:[phone] Address:[address] [place] [address], [address] * Refills Refill Famotidine Tablet, 40 MG, Orally, 180 Tablet, 1 tablet at bedtime, bid, 90 days, Refills=3 Subjective: * Chief Complaints: * R eflux * Medical History: * Surgical History: * Hospitalization/Major Diagno stic Procedure: * Medications: Objective: * Vitals: * Physical Examination: ??? Assessment: * Assessment: 1.?Reflux gastritis - K29.60 (Primary)??? Plan: * Treatment: ? Referral To:Gael Hong??General Surgery ?Reason:needs egd 2.?Others? Refill Famotidine Tablet, 40 MG, 1 tablet at bedtime, Orally, bid, 90 days, 180 Tablet, Refills 3. ? * Procedure Codes: * true * Date:?Generated for Printing/Faxing/eTransmitting on:?10/04/2025 10:55 AM EST Consultation Request Notes Referral Date Referring Provider Referred Provider Not lore 09/29/2025 Konrad Sheehan Michael needs egd
--- OUTSIDE RECORDS SUMMARY | 2025-09-29 07:56 | XMS_ITS | Encounter Summary ---
Author Organization [employer] Address [facility] [id number] [address] [place] [address] Care Team Providers Care Box Press Operator Name Role Phone Lonnie Sheehan MD Primary Care Provider [phone] Reason for Referral * Diagnostic Imaging (Routine) - Pending ReviewSpecialtyDiagnoses / Procedures Referred By ContactReferred To Contact Diagnoses Dysphagia, unspecified type Procedures Fluoroscopy [place] [address] [place] [address] Phone: tel: fax: Referral IDStatusReasonStart DateExpiration DateVisits RequestedVisits [id number] Reason for Visit * Diagnostic Imaging (Routine) - Pending ReviewSpecialtyDiagnoses / Procedures Referred By ContactReferred To Contact Diagnoses Dysphagia, unspecified type Procedures Fluoroscopy upper [place] [address] [place] [address] Phone: tel: fax: Referral IDStatusReasonStart DateExpiration DateVisits RequestedVisits [id number] Encounter Details DateTypeDepartmentCare Team (Latest Contact Info)Iksbdrdwgmr23/29/2025 8:56 AM EDT - 09/29/2025 11:59 PM EDTHospital Encounter [facility] [address] [place] [address] Dysphagia, unspecified type Discharge Disposition: Home Social History Tobacco UseTypesPacks/DayYears UsedDateSmoking Tobacco: Every DayCigarettes0.330 Smokeless Tobacco: Never Comments:d/w pt. decreased r isk of stroke, HTN Alcohol UseStandard Drinks/WeekCommentsYes0 (1 standard drink = 0.6 oz pure alcohol)ChildcareAnswerDate PesbbngaHrlitdfjkPvzqpdh59/12/2019EmploymentAnswer Date RgpwslmsLeddfazongLvolrbk98/12/2019Hunger ScreeningAnswerDate Recorded Within the past 12 months we worried whether our food would run out before we got money to buy more.Never True01/26/2023Within the past 12 months the food we bought just didn't last and we didn't have money to get more.Never True 3Purpose - LifeAnswerDate RecordedPurpose and direction in lifeUnknown 1CommentsNoSex and Gender InformationValueDate RecordedSex Assigned at BirthNot on fileLegal IjoXsxeno56/06/2015 11:23 AM EDTGender IdentityNot on fileSexual OrientationNot on filedocumented as of this encounter Medications at Time of Discharge MedicationSigDispense QuantityRefillsLast FilledStart DateEnd Date ALPRAZolam (XANAX) 0.25 mg tablet alprazolam 0.25 mg tablet ARIPiprazole (ABILIFY) 2 mg tablet Take 2 mg by mouth daily.08/31/2020 aspirin 81 mg Take 81 mg by mouth daily. CARTIA XT 240 mg 24 hr capsule Take 1 capsule by mouth daily. desvenlafaxine (PRISTIQ) 100 mg 24 hr tablet Take 1 tablet by mouth daily. ibuprofen (ADVIL,MOTRIN) 800 mg tablet Take 800 mg by mouth every 6 (six) hours as needed for pain. ibuprofen (ADVIL,MOTRIN) 800 mg tablet Take 1 tablet (800 mg total) by mouth in the morning and 1 tablet (800 mg total) at noon and 1 tablet (800 mg total) before bedtime. 21 tablet 04/15/2022 levothyroxine (SYNTHROID, LEVOTHROID) 75 MCG tablet Take 1 tablet by mouth daily. liothyronine (CYTOMEL) 5 MCG tablet Take 1 tablet by mouth daily. metoprolol tartrate (LOPRESSOR) 25 mg tablet Take 1 tablet by mouth daily.documented as of this encounter Plan of Treatment Not on file documented as of this encounter Procedures Procedure NamePriorityDate/TimeAssociated DiagnosisCommentsFL UGI WITH ESOPHAGUS Rxtlvtu2409/29/2025 9:21 AM EDT Dysphagia, unspecified type documented in this encounter Results * Fluoroscopy upper GI with esophagus (09/29/2025 9:21 AM EDT)Anatomical Region LateralityModalityAbdomen, BodyRadio FluoroscopySpecimen (Source)Anatomical Location / LateralityCollection Method / VolumeCollection TimeReceived Time 09/29/2025 9:23 AM EDT Narrative 09/29/2025 9:27 AM EDT History: ??Difficulty swallowing. Nausea. Fills getting stuck. Exam/Technique: ??Double contrast upper GI exam. The patient ingested effervescent granules, thick and thin barium in the upright and recumbent positions. ?? 2. Minute 12 seconds of fluoroscopy time was utilized. Total images: 24 Reference air kerma 33.3 mGy Comparison: ??None applicable Findings: ?? The esophagus shows normal course and caliber. ??No segments of inflammation, ulceration or narrowing. Few episodes of tertiary contractions were demonstrated. Single episode of reflux lower third of the esophagus noted as well. No hiatal hernia visualized. Gastric contour is normal. ??No mucosal lesions, ulceration or inflammation. Duodenal sweep is retroperitoneal and the ligamentum of Treitz is within the left upper quadrant. ??Normal proximal mucosal fold pattern of small bowel. IMPRESSION: ?? * ??Tertiary contractions and reflux to lower third esophagus. Finalized by Ramakrishna Krueger DO on 09/29/2025 9:27 AM Procedure Note Ramakrishna Krueger DO - 09/29/2025 History: Difficulty swallowing. Nausea. Fills getting stuck. Exam/Technique: Double contrast upper GI exam. The patient ingestedeffervescent granules, thick and thin barium in the upright and recumbentpositions. 2. Minute 12 seconds of fluoroscopy time was utilized. Total images: 24 Reference air kerma 33.3 mGy Comparison: None applicable Findings: The esophagus shows normal course and caliber. No segments ofinflammation, ulceration or narrowing. Few episodes of tertiary contractions were demonstrated. Single episode of reflux lower third of the esophagus noted as well. No hiatal hernia visualized. Gastric contour is normal. No mucosal lesions, ulceration orinflammation. Duodenal sweep is retroperitoneal and the ligamentum of Treitz is withinthe left upper quadrant. Normal proximal mucosal fold pattern of smallbowel. IMPRESSION: * Tertiary contractions and reflux to lower third esophagus. Finalized by Ramakrishna Krueger DO on 09/29/2025 9:27 AM Authorizing ProviderResult TypeResult StatusDoelisa Sheehan MDIMG FLUOROSCOPY ORDERABLESFinal Result documented in this encounter Visit Diagnoses Diagnosis Dysphagia, unspecified type documented in this encounter Administered Medications Medication OrderMAR ActionAction DateDoseRateSite barium sulfate (E-Z-HD) 98 % suspension 340 g 340 g, oral, Once in imaging, contrast, barium sulfate (E-Z-HD) 98 % suspension, Starting on Sat09/29/25 at 0859, For 1 dose Given09/29/2025 9:13 AM KUK804 g barium sulfate (E-Z-PAQUE) 96 % (w/w) powder 176 g 176 g, oral, Once in imaging, contrast, barium sulfate (E-Z-PAQUE) 96 % (w/w) powder, Starting on Sat09/29/25 at 0859, For 1 dose Given09/29/2025 9:18 AM SLY782 g sod bicarb-citric ac-simeth (E-Z GAS II) 2.21-1.53 gram/4 gram granule packet 1 packet 1 packet, oral, Once in imaging, sod bicarb-citric ac-simeth (E-Z GAS II) 2.21- 1.53 gram/4 gram granule packet, Starting on Sat09/29/25 at 0859, For 1 dose Given09/29/2025 9:12 AM EDT1 packetdocumented in this encounter Additional Health Concerns AssessmentNoted TimeA Body Mass Index follow-up plan has been documented for the vjenewq5303/20/2017 6:34 PM EDTdocumented as of this encounter Care Teams Team MemberRelationshipSpecialtyStart DateEnd Date Lonnie Sheehan MD PCP - GeneralFamily Medicine01/26/23documented as of this encounter
--- OUTSIDE RECORDS SUMMARY | 2025-09-30 09:06 | XMS_ITS ---
Author Organization [facility] [place] Address [address] [place] [address] Care Team Providers Care Summer Counselor Name Role Phone Aguila Konrad Primary Care Provider [phone] Reason For Referral Diagnosis 1 Reflux gastritis (K2 9.60) Referral Organization [facility] Referring Provider First Name Konrad Referring Provider Last Name Aguila Referring Provider [facility] icine Referred Provider Andrei Coughlin Referred Provider Specialty Gastroentero logy Referral Priority Routine REASON FOR VISIT needs referred to GI Encounters Encounter Location Date Provider Diagnosis [facility] [address] [place] [address] 09/30/2025 Konrad Sheehan Reflux gastritis K29.60 Assessments Encounter Date Diagnosis (ICD Code) Assessment Notes Treatment Notes Treatment Clinical Notes Section Notes 09/30/2025 Reflux gastritis (ICD-10 - K29.6 0) Plan Of Treatment Referrals Referral Date Details 09/30/2025 09/30/2025Andrei Progress Notes * Ciara KENDALL MDOB:[birth year] (59 yo F)Acc No.[id number]:09/30/2025 Patient:?Ciara KENDALL :1965???Age:59 Y???Sex:FemalePhone:[phone] Address:[address] [place] [address], [address] Subjective: * Chief Complaints: * n eeds referred to GI * Medical History: * Surgical History: * Hospitalization/Major Diagno stic Procedure: * Medications: Objective: * Vitals: * Physical Examination: ??? Assessment: * Assessment: 1.?Reflux gastritis - K29.60 (Primary)??? Plan: * Treatment: ? Referral To:Andrei Coughlin??Gastroenterology ?Reason: * Procedure Codes: * true * Date:?Generated for Printing/Faxing/eTransmitting on:?10/04/2025 10:56 AM EST Consultation Request Notes Referral Date Referring Provider Referred Provider Not es 09/30/2025 Konrad Sheehan, Andrei
--- OUTSIDE RECORDS SUMMARY | 2025-10-04 10:50 | XMS_ITS | Clinical Summary ---
Author Organization [facility] Address [address] [place] [address] Care Team Providers Care Chemistry Laboratory Technician Name Role Phone Lonnie Sheehan MD Primary Care Provider [phone] Social History Tobacco UseTypesPacks/DayYears UsedDateSmoking Tobacco: Never Assessed CommentsUnknownSex and Gender InformationValueDate RecordedSex Assigned at Not on fileLegal AjeOrgili30/02/2012 8:04 AM ESTGender IdentityNot on fileSexual OrientationNot on file Plan of Treatment Health MaintenanceDue DateLast DoneCommentsAnxiety Tdtwpvdve62/14/1982Depression Ikcskvciz58/14/1982HIV Cfxoshlob01/14/1982Hepatitis C Szilkpneh37/14/1982 DTaP,Tdap,Td Vaccine (1 - Tdap)1982Cervical Cancer Mqtffstzs86/14/1985 Mammogram Yfhgpdiqu84/14/2004CT Flazhfrzruan70/14/2009Cologuard (FIT-DNA) 12/15/20084804Xtmcehxsvfx87/14/2009Colorectal Cancer Knecfahpf66/14/2009Diabetes Dcxlsagxf79/14/2009Fecal Occult Blood2008Lipid Tvxceqohs04/14/2009 Efxdsguctetpu08/14/2009Pneumococcal Vaccine: 50+ (1 of 1 - PCV)2013 Shingrix Vaccine (1 of 2)2013Covid-19 Vaccine (1 - season) 2025Influenza Vaccine (#1)2025RSV Vaccine (1 - 1-dose 75+ series) 2038 Care Teams Team MemberRelationshipSpecialtyStart DateEnd Date Lonnie Sheehan MD [facility]
--- NOTE | 2025-10-04 10:52 | US_ITS ---
The [address] [address] Patient Name: GLORY MCKEON MRN: [id number] date: 1965 Sex: F Assigned Patient Location: Current Patient Location: [place] Accession/Order Number: [id number] Exam Date: 10/04/2025 10:53 Report Date: 10/04/2025 12:30 At the request of: ÁLVARO SANTANA MD Procedure: US renal bladder CLINICAL DATA: Abnormal liver functions. Frequent urinary tract infections. LIMITED RIGHT UPPER QUADRANT ABDOMINAL ULTRASOUND COMPARISON: 06/05/2019 The gallbladder is physiologically distended without shadowing calculi, wall thickening or pericholecystic fluid. No intra- or extrahepatic biliary dilatation is evident. The common duct is borderline in caliber measuring 5-6 mm. The liver is normal in echogenicity. There are a couple suspected left hepatic cysts. The larger measures 2.6 x 2.3 x 1.9 cm and there are some low-level internal echoes. There is appropriate hepatopetal flow within the main portal vein. The pancreas shows no significant sonographic abnormality. No ascites is seen. US/US right upper quadrant IMPRESSION: NO GALLBLADDER PATHOLOGY. BORDERLINE CALIBER COMMON DUCT. HEPATIC CYSTS, ONE OF WHICH APPEARS MILDLY COMPLICATED. BILATERAL RENAL AND BLADDER ULTRASOUND COMPARISON: None Estimation of renal size is approximately 10.4 cm on the right and 10.4 cm on the left. Left kidney slightly lobulated. An echogenic focus with twinkle artifact is seen at superior pole on the left measuring approximately 12 x 9 x 3 mm in size. A stone is not excluded. No hydronephrosis is seen. There is a tiny right upper pole renal cyst measuring 7 mm in size. There is no perinephric fluid. The urinary bladder is partially distended with a volume of 66 mL. No contour or intraluminal abnormalities are seen. Bilateral ureteral jets are noted. The postvoid bladder residual is 12 mL. IMPRESSION: TINY RIGHT RENAL CYST AND POSSIBLE LEFT NEPHROLITHIASIS. NO OBSTRUCTIVE UROPATHY. Impression dictated by: Salena Fox M.D. 10/04/2025 12:30 PM Dictation Location: [place] [address] Electronically authenticated by: [id number] Y Date: 10/04/2025 12:30
--- NOTE | 2025-10-04 10:52 | US_ITS ---
The [address] [address] Patient Name: GLORY MCKEON MRN: [id number] date: 1965 Sex: F Assigned Patient Location: Current Patient Location: [place] Accession/Order Number: [id number] Exam Date: 10/04/2025 10:53 Report Date: 10/04/2025 12:30 At the request of: ÁLVARO SANTANA MD Procedure: US renal bladder CLINICAL DATA: Abnormal liver functions. Frequent urinary tract infections. LIMITED RIGHT UPPER QUADRANT ABDOMINAL ULTRASOUND COMPARISON: 06/05/2019 The gallbladder is physiologically distended without shadowing calculi, wall thickening or pericholecystic fluid. No intra- or extrahepatic biliary dilatation is evident. The common duct is borderline in caliber measuring 5-6 mm. The liver is normal in echogenicity. There are a couple suspected left hepatic cysts. The larger measures 2.6 x 2.3 x 1.9 cm and there are some low-level internal echoes. There is appropriate hepatopetal flow within the main portal vein. The pancreas shows no significant sonographic abnormality. No ascites is seen. US/US renal bladder IMPRESSION: NO GALLBLADDER PATHOLOGY. BORDERLINE CALIBER COMMON DUCT. HEPATIC CYSTS, ONE OF WHICH APPEARS MILDLY COMPLICATED. BILATERAL RENAL AND BLADDER ULTRASOUND COMPARISON: None Estimation of renal size is approximately 10.4 cm on the right and 10.4 cm on the left. Left kidney slightly lobulated. An echogenic focus with twinkle artifact is seen at superior pole on the left measuring approximately 12 x 9 x 3 mm in size. A stone is not excluded. No hydronephrosis is seen. There is a tiny right upper pole renal cyst measuring 7 mm in size. There is no perinephric fluid. The urinary bladder is partially distended with a volume of 66 mL. No contour or intraluminal abnormalities are seen. Bilateral ureteral jets are noted. The postvoid bladder residual is 12 mL. IMPRESSION: TINY RIGHT RENAL CYST AND POSSIBLE LEFT NEPHROLITHIASIS. NO OBSTRUCTIVE UROPATHY. Impression dictated by: Salena Fox M.D. 10/04/2025 12:30 PM Dictation Location: [place] [address] Electronically authenticated by: [id number] Y Date: 10/04/2025 12:30
--- OUTSIDE RECORDS SUMMARY | 2025-10-04 10:54 | XMS_ITS | Patient Health Record ---
Author Organization [facility] in [place] Address [address] [place] [address] Care Team Providers Care Assistant Paralegal Name Role Phone AguilaKonrad Primary Care Provider Allergies Allergen (clinical drug ingredient) Drug/Non Drug Allergy documented on EMR Reaction Allergy Type Onset Date Status sulfamethoxazole / trimethoprim Bactrim rash Drug Allergy ActiveciprofloxacinCiproupset stomachDrug AllergyActiveLatexLatexrashAllergy Active Results Component Value Reference Range Notes UA DIP NONAUTO WO MICRO (810 02) - IN OFFICE Reviewed date:09/27/2025 06:58:57 PM Interpretation: Performing Lab: Notes/Report: COLOR yellow CLARITYclearGLUCOSEnegBILIRUBINnegKETONEnegSPECIFIC GRAVITY1.961QTQMJcztWO4 PROTEINposUROBILINOGENnegNITRITEnegLEUKOCYTE ESTERASEposUA DIP NONAUTO WO MICRO (99313) - IN OFFICE Reviewed date:09/28/2025 11:39:19 AM Interpretation: Performing Lab: Notes/Report: COLORYellowCLARITYClearGLUCOSENegBILIRUBINNegKETONE+SPECIFIC GRAVITY1.010BLOOD NqaFD4OEOIYPIRomJHHYDKDMNWANCteEQBVHXBCjgCKUYRILFC ESTERASE+CBC AUTO DIFF Reviewed date:12/14/2024 01:23:32 PM Interpretation: Performing Lab: Notes/Report: [facility] ,White Blood Count5.84.0-11.0 10 3/uLRed Blood Count4.674.20-5.40 10 6/uL Txcnmotecm57.712.0-16.0 g/aTNzutmequqg63.136.0-48.0 %Mean Corpuscular Choqss81.4 81.0-99.0 fLMean Corpuscular Wtpfyycmmo28.526.7-34.0 pgMean Corpuscular HGB Conc 33.329.9-35.2 g/dLRed Cell Distribution Width12.111.0-15.0 %Platelet Uumfj982 150-450 10 3/uLMean Platelet Volume8.69.5-13.5 fLNeutrophils Percent Auto62.3 43.0-75.0 %Lymphocytes Percent Auto26.620.5-60.0 %Monocytes Percent Auto8.11.7- 12.0 %Eosinophils Percent Auto0.90.9-7.0 %Basophils Percent Auto0.70.2-2.0 % Immature Granulocytes Pct Auto1.40.0-0.5 %Neutrophils Absolute Auto3.61.4-6.5 10 3/uLLymphocytes Absolute Auto1.61.2-3.8 10 3/uLMonocytes Absolute Auto0.50.3-0.8 10 3/uLEosinophils Absolute Auto0.10.0-0.7 10 3/uLBasophils Absolute Auto0.00.0- 0.1 10 3/uLImmature Granulocytes Abs Auto0.080.00-0.03 10 3/uLPerforming Lab:see noteML - [facility] LBFREE T3 Reviewed date:12/14/2024 01:23:32 PM Interpretation: Performing Lab: Notes/Report: [facility] ,Free T32.212.18-3.98 pg/mLPerforming Lab:see noteML - [facility] LB INSULIN Reviewed date:2024 04:22:39 PM Interpretation: Performing Lab: Notes/Report: [facility] ,Scnoltg62.82.6-24.9 uIU/mL Performed at: - [address] [id number] Transition Advisor: Rico Hidalgo PhD, Phone: [phone] Performing Lab:see noteLC - [facility] LBLIPID PROFILE Reviewed date:12/14/2024 01:23:32 PM Interpretation: Performing Lab: Notes/Report: [facility] ,Rnxpnozzwxstu59<=150 mg/nNKbnhaeeansg647<=200 mg/dLHDL Uvlyehvmxsh8585-66 mg/dL > or =60 mg/dl - LOW CARDIOVASCULAR RISK <40 mg/dl - HIGH CARDIOVASCULAR RISK LDL Cholesterol Dgluakglzg814.0 <100 mg/dl OPTIMAL 100-129 mg/dl NEAR OR ABOVE OPTIMAL 130-159 mg/dl BORDERLINE HIGH 160-189 mg/dl HIGH >190 mg/dl VERY HIGH VLDL TMUQLLDHEDY83.2Chol HDL Ratio3.7 3.3 - 4.4 LOW RISK 4.4 - 7.1 AVERAGE RISK 7.1 - 11.0 MODERATE RISK >11.0 HIGH RISK Performing Lab:see noteML - [facility] LBPROF 14(COMP METB) Reviewed date:12/14/2024 01:23:32 PM Interpretation: Performing Lab: Notes/Report: [facility] ,Ozlsfn841139-297 mmol/LPotassium4.53.5-5.1 mmol/AEmgeqdzz51301-667 mmol/LCarbon Coxiegf97.821.0-32.0 mmol/LAnion Gap8.7Pabkwak0536-166 mg/dLBlood Urea Nitrogen 12.07.0-18.0 mg/dLCreatinine1.230.55-1.02 mg/dLEstimated GFR ( Eehyfer70 >=60 mL/min/1.73m 2Estimated GFR (Non- Ame45>=60 mL/min/1.73m 2BUN Creatinine Ratio9.0Bovrssq1.58.5-10.1 mg/dLBilirubin Total0.30.2-1.0 mg/dL Aspartate Amino Wvvcnzpewtf8045-13 U/LAlanine Ndbhoykgpkrduicu3242-51 U/L Alkaline Ldxlbtfnuki50092-295 U/LTotal Protein6.96.4-8.2 g/dLAlbumin Level3.3 3.4-5.0 g/dLGlobulin3.6Albumin Globulin Ratio0.9Performing Lab:see note - [facility] LBT4 Reviewed date:12/14/2024 01:23:32 PM Interpretation: Performing Lab: Notes/Report: [facility] ,T4 Thyroxine6.704.80-13.90 ug/dLPerforming Lab:see note - [facility] LBTSH Reviewed date:12/14/2024 01:23:32 PM Interpretation: Performing Lab: Notes/Report: [facility] ,Thyroid Stimulating Hormone0.0880.358-3.740 uIU/mLPerforming Lab:see noteML - [facility] LBBNP Reviewed date:03/25/2025 07:10:39 PM Interpretation: Performing Lab: Notes/Report: [facility] ,NT Pro B Type Natriuretic Pept61.0<=900.0 pg/mLPerforming Lab:see noteML - [facility] LBD-DIMER Reviewed date:03/25/2025 07:10:39 PM Interpretation: Performing Lab: Notes/Report: [facility] ,D Dimer0.34<=0.59 mg/L FEU Increases in D-Dimer concentration observed with thromboembolic events can be variable due to localization, size, and age of the thrombus. Therefore, a thromboembolic event cannot be diagnosed with certainty on the basis of the reference range. D-Dimers may also be elevated for a variety of disorders including advanced age, , coronary disease, cancer, liver disease, infection, inflammation, hematoma, DIC, trauma, post-surgery, diabetes, thrombolytic or anticoagulant therapy, stress, and generalized hospitalization. Performing Lab:see noteML - [facility] LBPROF 14(COMP METB) Reviewed date:03/25/2025 07:10:39 PM Interpretation: Performing Lab: Notes/Report: [facility] ,Yasrfc285868-421 mmol/LPotassium4.03.5-5.1 mmol/JAxivvocp39097-869 mmol/LCarbon Sjjutkp60.121.0-32.0 mmol/LAnion Gap13.2Yrcakyj22643-481 mg/dLBlood Urea Uunbdile81.07.0-18.0 mg/dLCreatinine1.270.55-1.02 mg/dLEstimated GFR ( Xkoyieg00>=60 mL/min/1.73m 2Estimated GFR (Non- Ame43>=60 mL/min/1.73m 2 BUN Creatinine Ratio9.6Aeaqltv7.38.5-10.1 mg/dLBilirubin Total0.30.2-1.0 mg/dL Aspartate Amino Jzkhegxcoeb8513-16 U/LAlanine Mimksiyoosencpch2410-39 U/L Alkaline Ybrcryhjupo15884-218 U/LTotal Protein7.16.4-8.2 g/dLAlbumin Level3.7 3.4-5.0 g/dLGlobulin3.4Albumin Globulin Ratio1.1Performing Lab:see note - [facility] LBTroponin I High Sensitivity Reviewed date:03/25/2025 07:10:39 PM Interpretation: Performing Lab: Notes/Report: [facility] ,Troponin I High Sensitivity<4.04.0-51.3 pg/mL CUT-OFF POINTS HAVE BEEN ESTABLISHED BASED ON THE FOURTH UNIVERSAL DEFINITION OF MYOCARDIAL INFARCTION. THE UPPER REFERENCE LIMIT (URL) OF TROPONIN, DEFINED THE 99TH PERCENTILE OF cTnI DISTRIBUTION IN A REFERENCE POPULATION, HAS BEEN CONFIRMED THE DECISION THRESHOLD FOR [place] DIAGNOSIS. 99TH PERCENTILE = 51.4 PG/ML NOTE: HIGH-SENSITIVITY TROPONIN ASSAY IS NOT INTENDED TO BE USED IN ISOLATION BUT SHOULD BE INTERPRETED IN CONJUNCTION WITH OTHER DIAGNOSTIC AND CLINICAL INFORMATION. Performing Lab:see note - [facility] LBPROF CHEM 8 (BAS METB) Reviewed date:06/09/2025 07:02:15 PM Interpretation: Performing Lab: Notes/Report: [facility] ,Nvbmjg883062-036 mmol/LPotassium4.23.5-5.1 mmol/WBgdvnxcu34650-241 mmol/LCarbon Pfjxbbk27.321.0-32.0 mmol/LAnion Gap13.5Qetaewi4881-253 mg/dLBlood Urea Nitrogen 13.07.0-18.0 mg/dLCreatinine1.020.55-1.02 mg/dLEstimated GFR ( Lupe>60 >=60 mL/min/1.73m 2Estimated GFR (Non- Ame55>=60 mL/min/1.73m 2BUN Creatinine Ratio12.1Nhdhgkd1.38.5-10.1 mg/dLPerforming Lab:see note - [facility] LBTroponin I High Sensitivity Reviewed date:06/09/2025 07:02:15 PM Interpretation: Performing Lab: Notes/Report: [facility] ,Troponin I High Sensitivity4.14.0-51.3 pg/mL CUT-OFF POINTS HAVE BEEN ESTABLISHED BASED ON THE FOURTH UNIVERSAL DEFINITION OF MYOCARDIAL INFARCTION. THE UPPER REFERENCE LIMIT (URL) OF TROPONIN, DEFINED THE 99TH PERCENTILE OF cTnI DISTRIBUTION IN A REFERENCE POPULATION, HAS BEEN CONFIRMED THE DECISION THRESHOLD FOR [place] DIAGNOSIS. 99TH PERCENTILE = 51.4 PG/ML NOTE: HIGH-SENSITIVITY TROPONIN ASSAY IS NOT INTENDED TO BE USED IN ISOLATION BUT SHOULD BE INTERPRETED IN CONJUNCTION WITH OTHER DIAGNOSTIC AND CLINICAL INFORMATION. Performing Lab:see noteML - [facility] LBECG 12 lead Reviewed date:06/10/2025 06:46:40 PM Interpretation: Performing Lab: Notes/Report: Source Facility: [place] [address] [place] [address] Electrocardiograph Report Signed Patient: GLORY MCKEON MR#: [id number] : 1965 Acct:[id number] Age/Sex: 59 / F ADM Date: 06/09/25 Loc: ER Attending Dr: Ordering Physician: Federico Villafana M.D. Date of Service: 06/09/25 Procedure(s): ECG 12 lead Accession Number(s): [id number] cc: [facility] Test Date: 2025-06-09 Pat Name: GLORY MCKEON Department: Room: - Gender: Female Cq Developer: : 1965 Requested By: [id number] Order Number: [id number] Reading MD: MAVERICK RUBIO Measurements Intervals Clyde Rate: 60 P: 22 HI: 150 QRS: 27 QRSD: 82 T: 18 QT: 386 QTc: 386 Interpretive Statements 1100 Sinus rhythm [address] depression 9130 borderline ECG Compared to ECG 03/25/2025 14:35:41 No significant changes Electronically Signed On 06-10-2025 9:55:26 EDT by MAVERICK RUBIO Dictated By: Maverick Rubio M.D. Signed By: 06/10/25 0955 DD/ 1513 TD/TT: Digital Strategy Specialist:CT angio neck Reviewed date:06/09/2025 07:02:15 PM Interpretation: Performing Lab: Notes/Report: Source Facility: [facility]-[address] [place] [address] CT Scan Report Signed Patient: GLORY MCKEON MR#: [id number] : 1965 Acct:[id number] Age/Sex: 59 / F ADM Date: 06/09/25 Loc: ER Attending Dr: Ordering Physician: Federico Villafana M.D. Date of Service: 06/09/25 Procedure(s): CT angio neck Accession Number(s): [id number] cc: Álvaro Sheehan M.D. [place] [address] Patient Name: GLORY MCKEON MRN: [facility]:[id number] date: 1965 Sex: F Assigned Patient Location: ER Current Patient Location: ER Accession/Order Number: [id number] Exam Date: 06/09/2025 18:00 Report Date: 06/09/2025 [...] Cardona M.D. 06/09/2025 6:10 PM Dictation Location: [place] [address] Electronically authenticated by: [id number] Y Date: 06/09/2025 18:10 Dictated By: Arcenio Cardona M.D. Signed By: 06/09/251811 DD/ 09 TD/TT: Digital Strategy Specialist:CT angio head Reviewed date:06/09/2025 07:02:15 PM Interpretation: Performing Lab: Notes/Report: Source Facility: [place] [address] CT Scan Report Signed Patient: GLORY MCKEON MR#: [id number] : 1965 Acct:[id number] Age/Sex: 59 / F ADM Date: 06/09/25 Loc: ER Attending Dr: Ordering Physician: Federico Villafana M.D. Date of Service: 06/09/25 Procedure(s): CT angio head Accession Number(s): [id number] cc: Álvaro Sheehan M.D. [place] [address] Patient Name: GLORY MCKEON MRN: [id number] date: 1965 Sex: F Assigned Patient Location: ER Current Patient Location: ER Accession/Order Number: [id number] Exam Date: 06/09/2025 18:00 Report Date: 06/09/2025 [...] Cardona M.D. 06/09/2025 6:10 PM Dictation Location: [place] [address] Electronically authenticated by: [id number] Y Date: 06/09/2025 18:10 Dictated By: Arcenio Cardona M.D. Signed By: 06/09/251811 DD/ 09 TD/TT: Digital Strategy Specialist:CT head/brain wo con Reviewed date:06/09/2025 07:02:15 PM Interpretation: Performing Lab: Notes/Report: Source Facility: [place] [address] CT Scan Report Signed Patient: GLORY MCKEON MR#: [id number] : 1965 Acct:[id number] Age/Sex: 59 / F ADM Date: 06/09/25 Loc: ER Attending Dr: Ordering Physician: Federico Villafana M.D. Date of Service: 06/09/25 Procedure(s): CT head/brain wo con Accession Number(s): [id number] cc: Álvaro Sheehan M.D. [place] [address] Patient Name: GLORY MCKEON MRN: [id number] date: 1965 Sex: F Assigned Patient Location: ED.MAIN Current Patient Location: ED.MAIN Accession/Order Number: [id number] Exam Date: 06/09/2025 16:05 Report Date: 06/09/2025 [...] Garcia M.D. 06/09/2025 4:07 PM Dictation Location: [place] [address] Electronically authenticated by: [id number] Y Date: 06/09/2025 16:07 Dictated By: uJan Pablo Garcia D.O. Signed By: 06/09/25 1609 DD/ 1607 TD/TT: Digital Strategy Specialist:XR chest 1V Reviewed date:06/09/2025 07:02:15 PM Interpretation: Performing Lab: Notes/Report: Source Facility: [place] [address] XRay Report Signed Patient: GLORY MCKEON MR#: [id number] : 1965 Acct:[id number] Age/Sex: 59 / F ADM Date: 06/09/25 Loc: ER Attending Dr: Ordering Physician: Federico Villafana M.D. Date of Service: 06/09/25 Procedure(s): XR chest 1V Accession Number(s): [id number] cc: Álvaro Sheehan M.D.; Fedreico Villafana M.D. [place] [address] Patient Name: GLORY MCKEON MRN: [facility]:[id number] date: 1965 Sex: F Assigned Patient Location: ED.MAIN Current Patient Location: ED.MAIN Accession/Order Number: [id number] Exam Date: 06/09/2025 16:07 Report Date: 06/09/2025 [...] Garcia M.D. 06/09/2025 4:08 PM Dictation Location: [place] [address] Electronically authenticated by: [id number] Y Date: 06/09/2025 16:08 Dictated By: Juan Pablo Garcia D.O. Signed By: 06/09/25 1610 DD/ 1608 TD/TT: Digital Strategy Specialist:AMMONIA Reviewed date:09/27/2025 06:58:57 PM Interpretation: Performing Lab: Notes/Report: [facility] ,Ammonia<1011-32 umol/LPerforming Lab:see noteML - [facility] LBCBC AUTO DIFF Reviewed date:09/27/2025 06:58:57 PM Interpretation: Performing Lab: Notes/Report: [facility] ,White Blood Count7.04.0-11.0 10 3/uLRed Blood Count5.084.20-5.40 10 6/uL Lroeqqcjsr47.812.0-16.0 g/aSOfidyjgvfg07.936.0-48.0 %Mean Corpuscular Blawcg64.3 81.0-99.0 fLMean Corpuscular Zscawubfpu88.126.7-34.0 pgMean Corpuscular HGB Conc 33.729.9-35.2 g/dLRed Cell Distribution Width12.411.0-15.0 %Platelet Ygfto051 150-450 10 3/uLMean Platelet Volume8.59.5-13.5 fLNeutrophils Percent Auto63.1 43.0-75.0 %Lymphocytes Percent Auto28.920.5-60.0 %Monocytes Percent Auto7.01.7- 12.0 %Eosinophils Percent Auto0.00.9-7.0 %Basophils Percent Auto0.70.2-2.0 % Immature Granulocytes Pct Auto0.30.0-0.5 %Neutrophils Absolute Auto4.41.4-6.5 10 3/uLLymphocytes Absolute Auto2.01.2-3.8 10 3/uLMonocytes Absolute Auto0.50.3-0.8 10 3/uLEosinophils Absolute Auto0.00.0-0.7 10 3/uLBasophils Absolute Auto0.10.0- 0.1 10 3/uLImmature Granulocytes Abs Auto0.020.00-0.03 10 3/uLPerforming Lab:see note - [facility] LBFREE T3 Reviewed date:09/27/2025 06:58:57 PM Interpretation: Performing Lab: Notes/Report: [facility] ,Free T32.632.18-3.98 pg/mLPerforming Lab:see noteUniversity [facility] LB INSULIN Reviewed date:09/28/2025 07:34:00 PM Interpretation: Performing Lab: Notes/Report: [facility] [place] ,Ayqlgtx07.72.6-24.9 uIU/mL Performed at: [facility] [address] [id number] Transition Advisor: Rico Hidalgo PhD, Phone: [phone] Performing Lab:see note - [facility] LBIRON Reviewed date:09/27/2025 06:58:57 PM Interpretation: Performing Lab: Notes/Report: [facility] ,Esdm430.050.0-170.0 ug/dLPerforming Lab:see note - [facility] LB LIPID PROFILE Reviewed date:09/27/2025 06:58:57 PM Interpretation: Performing Lab: Notes/Report: [facility] ,Qruoeeexybkyd58<=150 mg/qWMbuplhwpswq392<=200 mg/dLHDL Yyqadjqfbpg6211-57 mg/dL > or =60 mg/dl - LOW CARDIOVASCULAR RISK <40 mg/dl - HIGH CARDIOVASCULAR RISK LDL Cholesterol Hraugydjrw677.0 <100 mg/dl OPTIMAL 100-129 mg/dl NEAR OR ABOVE OPTIMAL 130-159 mg/dl BORDERLINE HIGH 160-189 mg/dl HIGH >190 mg/dl VERY HIGH VLDL SROTVZONXOK79.0Chol HDL Ratio4.1 3.3 - 4.4 LOW RISK 4.4 - 7.1 AVERAGE RISK 7.1 - 11.0 MODERATE RISK >11.0 HIGH RISK Performing Lab:see note - [facility] LBPROF 14(COMP METB) Reviewed date:09/27/2025 06:58:57 PM Interpretation: Performing Lab: Notes/Report: [facility] ,Tdwnce408606-490 mmol/LPotassium4.73.5-5.1 mmol/XZqloauwk97109-556 mmol/LCarbon Vzsnrec08.521.0-32.0 mmol/LAnion Gap10.4Uvndlvv24471-638 mg/dLBlood Urea Kzkudnco15.07.0-18.0 mg/dLCreatinine1.310.55-1.02 mg/dLEstimated GFR ( Qxbjida39>=60 mL/min/1.73m 2Estimated GFR (Non- Ame41>=60 mL/min/1.73m 2 BUN Creatinine Ratio9.3Krujdvn8.88.5-10.1 mg/dLBilirubin Total0.30.2-1.0 mg/dL Aspartate Amino Mlannozdicb2843-68 U/LAlanine Vewbjtujhxlmqzvn4941-79 U/L Alkaline Awpisktuccz18978-754 U/LTotal Protein7.66.4-8.2 g/dLAlbumin Level3.8 3.4-5.0 g/dLGlobulin3.8Albumin Globulin Ratio1.0Performing Lab:see noteUniversity [facility] LBT4 Reviewed date:09/27/2025 06:58:57 PM Interpretation: Performing Lab: Notes/Report: [facility] ,T4 Thyroxine6.904.80-13.90 ug/dLPerforming Lab:see [facility] LBTSH Reviewed date:09/27/2025 06:58:57 PM Interpretation: Performing Lab: Notes/Report: [facility] ,Thyroid Stimulating Hormone0.0940.358-3.740 uIU/mLPerforming Lab:see noteML - [facility] LBVITAMIN D 25 [place] Reviewed date:09/27/2025 06:58:57 PM Interpretation: Performing Lab: Notes/Report: [facility] ,Vitamin D56.3 <20 ng/mL Vit D deficient 20-<30 ng/mL Vit D insufficient 30-100 ng/mL Vit D sufficient >100 ng/mL Potential Toxicity Performing Lab:see noteML - [facility] LBGLYCOHEMOGLOBIN A1C Reviewed date:09/27/2025 06:58:57 PM Interpretation: Performing Lab: Notes/Report: [facility] ,Glycohemoglobin A1C5.44.5-6.2 % ADA RECOMMENDED LIMIT 4.0 - 6.0 ADA THERAPEUTIC TARGET < 7.0 ACTION SUGGESTED > 7.0 Estimated Average Zgxikqt180Hprhwrcedh Lab:see note - [facility] LB CBC AUTO DIFF Reviewed date:06/09/2025 07:02:15 PM Interpretation: Performing Lab: Notes/Report: [facility] ,White Blood Count9.34.0-11.0 10 3/uLRed Blood Count4.584.20-5.40 10 6/uL Vmmsqtkkej24.512.0-16.0 g/aLBcjauwrpap78.336.0-48.0 %Mean Corpuscular Qywaci70.5 81.0-99.0 fLMean Corpuscular Doeccljitv46.726.7-34.0 pgMean Corpuscular HGB Conc 33.529.9-35.2 g/dLRed Cell Distribution Width12.711.0-15.0 %Platelet Nedxu632 150-450 10 3/uLMean Platelet Volume8.49.5-13.5 fLNeutrophils Percent Auto74.1 43.0-75.0 %Lymphocytes Percent Auto17.620.5-60.0 %Monocytes Percent Auto7.21.7- 12.0 %Eosinophils Percent Auto0.20.9-7.0 %Basophils Percent Auto0.50.2-2.0 % Immature Granulocytes Pct Auto0.40.0-0.5 %Neutrophils Absolute Auto6.91.4-6.5 10 3/uLLymphocytes Absolute Auto1.61.2-3.8 10 3/uLMonocytes Absolute Auto0.70.3-0.8 10 3/uLEosinophils Absolute Auto0.00.0-0.7 10 3/uLBasophils Absolute Auto0.10.0- 0.1 10 3/uLImmature Granulocytes Abs Auto0.040.00-0.03 10 3/uLPerforming Lab:see noteML - [facility] LBCT sinus wo con Reviewed date:04/05/2025 07:51:39 PM Interpretation: Performing Lab: Notes/Report: Source Facility: [place] [address] [place] [address] CT Scan Report Signed Patient: GLORY MCKEON MR#: [id number] : 1965 Acct:[id number] Age/Sex: 59 / F ADM Date: 04/05/25 Loc: CT Attending Dr: Álvaro Sheehan M.D. Ordering Physician: Álvaro Sheehan M.D. Date of Service: 04/05/25 Procedure(s): CT sinus wo con Accession Number(s): [id number] cc: Álvaro Sheehan M.D. [place] [address] Patient Name: GLORY MCKEON MRN: [id number] date: 1965 Sex: F Assigned Patient Location: CT Current Patient Location: CT Accession/Order Number: [id number] Exam Date: 04/05/2025 14:41 Report Date: 04/05/2025 [...] Jr., D.O. 04/05/2025 3:15 PM Dictation Location: [place] [address] Electronically authenticated by: [id number] Y Date: 04/05/2025 15:15 Dictated By: Jack Leon M.D. Signed By: 04/05/251516 DD/ 14 TD/TT: Digital Strategy Specialist:CT lung screening low-dose Reviewed date:04/05/2025 07:51:39 PM Interpretation: Performing Lab: Notes/Report: Source Facility: [place] [address] CT Scan Report Signed Patient: GLORY MCKEON MR#: [id number] : 1965 Acct:[id number] Age/Sex: 59 / F ADM Date: 04/05/25 Loc: CT Attending Dr: Álvaro Sheehan M.D. Ordering Physician: Álvaro Sheehan M.D. Date of Service: 04/05/25 Procedure(s): CT lung screening low-dose Accession Number(s): [id number] cc: Álvaro Sheehan M.D. [place] [address] Patient Name: GLORY MCKEON MRN: [id number] date: 1965 Sex: F Assigned Patient Location: CT Current Patient Location: CT Accession/Order Number: [id number] Exam Date: 04/05/2025 15:15 Report Date: 04/05/2025 [...] Jr., D.O. 04/05/2025 3:23 PM Dictation Location: [place] [address] Electronically authenticated by: [id number] Y Date: 04/05/2025 15:23 Dictated By: Jack Leon M.D. Signed By: 04/05/25 1526 DD/ 1523 TD/TT: Digital Strategy Specialist:ECG 12 lead Reviewed date:03/25/2025 08:57:20 PM Interpretation: Performing Lab: Notes/Report: Source Facility: [place] [address] Electrocardiograph Report Signed Patient: GLORY MCKEON MR#: [id number] : 1965 Acct:[id number] Age/Sex: 59 / F ADM Date: 03/25/25 Loc: ER Attending Dr: Ordering Physician: Melina Heath Date of Service: 03/25/25 Procedure(s): ECG 12 lead Accession Number(s): [id number] cc: [facility] Test Date: 2025-03-25 Pat Name: GLORY MCKEON Department: Room: - Gender: Female Cq Developer: : 1965 Requested By: [id number] Order Number: [id number] Reading MD: EDDIE MCKEON M.D. Measurements Intervals Clyde Rate: 79 P: 13 HI: 140 QRS: -4 QRSD: 84 T: 18 QT: 358 QTc: 393 Interpretive Statements 1100 Sinus rhythm [address] depression Abnormal ECG Compared to ECG 12/17/2019 13:26:58 Myocardial infarct finding no longer present ST (T wave) deviation still present Electronically Signed On 03-25-2025 20:45:47 EDT by EDDIE MCKEON M.D. Dictated By: EDDIE MCKEON Signed By: 03/25/252044 DD/ 34 TD/TT: Digital Strategy Specialist:CBC AUTO DIFF Reviewed date:03/25/2025 07:10:39 PM Interpretation: Performing Lab: Notes/Report: [facility] ,White Blood Count7.44.0-11.0 10 3/uLRed Blood Count4.554.20-5.40 10 6/uL Xetiiiapox70.612.0-16.0 g/cMXamxwqjldv11.936.0-48.0 %Mean Corpuscular Yrztqk34.1 81.0-99.0 fLMean Corpuscular Wbqpqryqhv97.126.7-34.0 pgMean Corpuscular HGB Conc 34.829.9-35.2 g/dLRed Cell Distribution Width12.611.0-15.0 %Platelet Ztbbc578 150-450 10 3/uLMean Platelet Volume8.59.5-13.5 fLNeutrophils Percent Auto53.5 43.0-75.0 %Lymphocytes Percent Auto36.220.5-60.0 %Monocytes Percent Auto8.21.7- 12.0 %Eosinophils Percent Auto1.30.9-7.0 %Basophils Percent Auto0.50.2-2.0 % Immature Granulocytes Pct Auto0.30.0-0.5 %Neutrophils Absolute Auto4.01.4-6.5 10 3/uLLymphocytes Absolute Auto2.71.2-3.8 10 3/uLMonocytes Absolute Auto0.60.3-0.8 10 3/uLEosinophils Absolute Auto0.10.0-0.7 10 3/uLBasophils Absolute Auto0.00.0- 0.1 10 3/uLImmature Granulocytes Abs Auto0.020.00-0.03 10 3/uLPerforming Lab:see noteML - [facility] LBMR head/brain wo/w con Reviewed date:03/16/2025 01:29:47 PM Interpretation: Performing Lab: Notes/Report: Source Facility: [place] [address] [place] [address] Magnetic Resonance Report Signed Patient: GLORY MCKEON MR#: [id number] : 1965 Acct:[id number] Age/Sex: 59 / F ADM Date: 03/15/25 Loc: MRI Attending Dr: Álvaro Sheehan M.D. Ordering Physician: Álvaro Sheehan M.D. Date of Service: 03/15/25 Procedure(s): MR head/brain wo/w con Accession Number(s): [id number] cc: Álvaro Sheehan M.D. [place] [address] Patient Name: GLORY MCKEON MRN: [id number] date: 1965 Sex: F Assigned Patient Location: MRI Current Patient Location: Accession/Order Number: [id number] Exam Date: 03/15/2025 15:14 Report Date: 03/16/2025 [...] Pablo Garcia M.D.03/16/2025 9:37 AM Dictation Location: [place] [address] Electronically authenticated by: [id number] Y Date: 03/16/2025 09:37 Dictated By: Juan Pablo Garcia D.O. Signed By: 03/16/2540 DD/ TD/TT: Digital Strategy Specialist:CREATININE Reviewed date:03/15/2025 08:32:31 PM Interpretation: Performing Lab: Notes/Report: [facility] ,Creatinine1.290.55-1.02 mg/dLEstimated GFR ( Wrfvxws01>=60 mL/min/1.73m 2Estimated GFR (Non- Ame42>=60 mL/min/1.73m 2Performing Lab:see noteML - [facility] LBIRON Reviewed date:12/14/2024 01:23:32 PM Interpretation: Performing Lab: Notes[facility]Report: [facility] [facility] ,Iron82.050.0-170.0 ug/dLPerforming Lab:see noteML - [facility] GLYCOHEMOGLOBIN A1C Reviewed date:12/14/2024 01:23:32 PM Interpretation: Performing Lab: Notes/Report: [facility] ,Glycohemoglobin A1C5.04.5-6.2 % ADA RECOMMENDED LIMIT 4.0 - 6.0 ADA THERAPEUTIC TARGET < 7.0 ACTION SUGGESTED > 7.0 Estimated Average Kxxfnwv92Vsgyziezju Lab:see noteML - [facility] Reason For Referral Diagnosis 1 Acute non-recurrent sinusitis, unspecified location (J01.90) Referral Organization [facility] Referring Provider First Name Konrad Referring Provider Last Name Aguila Referring Provider [facility] Referred Provider Katherine Cotton Referred Provider Specialty Otolaryngolo gy Referral Priority Routine Reason needs egd Diagnosis 1 Reflux gastritis (K2 9.60) Referral Organization [facility] Referring Provider First Name Konrad Referring Provider Last Name Aguila [facility] Referred Provider Gael Hong Referred Provider Specialty General Surg nemo Referral Priority Routine Diagnosis 1 Reflux gastritis (K2 9.60) Referral Organization [facility] Referring Provider First Name Konrad Referring Provider Last Name Aguila Referring Provider Speciality Family [facility] haleigh Referred Provider Andrei Coughlin Referred Provider Specialty Gastroentero logy Referral Priority Routine Medications Medication SIG (Take, Route, Frequency, Duration) Notes Start Date End Date Status Ibuprofen 800 MG 1 tablet with food or milk as needed Orally every 8 hrs PRN ActivehydrOXYzine HCl 25 MG1 tablet as needed Orally qid; Duration: 10 daysPRN 5ActiveDupixent 300 MG/2MLas directed SubcutaneousActiveOndansetron 4 MG1 tablet on the tongue and allow to dissolve Orally qid1tive ALPRAZolam 0.5 MG1 tablet Orally Twice a day; Duration: 5 days09/27/2025tive Macrobid 100 MG1 capsule with food Orally every 12 hrs; Duration: 5 day(s) 09/28/2025tiveFamotidine 40 MG1 tablet at bedtime Orally bid; Duration: 90 daysActiveAmmonium Lactate 12 %1 application Externally Twice a day04/14/2025 ActiveLiothyronine Sodium 5 MCG1 tablet on an empty stomach Orally Once a day; Duration: 90 daysActiveLevothyroxine Sodium 75 mcgTAKE 1 TABLET BY MOUTH DAILY IN THE MORNING ON AN EMPTY STOMACH; Duration: 30ActivedilTIAZem HCl ER Coated Beads 240 MG1 capsule Orally Once a day; Duration: 90 daysActiveDesvenlafaxine Succinate ER 100 MG1 tablet Orally Once a day; Duration: 90 daysActive Semaglutide 2.268 mg/0.63 mLBudererActiveBiotinActiveMetoprolol Succinate ER 50 MG1 tablet Orally Once a day; Duration: 90 daysActiveRexulti 2 MG1 tablet Orally Once a day; Duration: 30 days09/28/2025tiveAspirin 81 81 MG1 tablet Orally Once a day; Duration: 90 daysActiveMetoprolol Succinate ER 25 MG1 tablet Orally Once a day- with 50mg tablet; Duration: 90 days5Active Social History Tobacco Use: Social History Observation Description Date Details (start date - stop date) Former Smoker 12/02/1981 - 08/20/2024 Alcohol Screen (Audit-C) Question Answer Notes Did you have a drink containing alcohol in the p ast year? Yes How often did you have 6 or more drinks on one occasion in the past year?Never (0 point)How many drinks did you have on a typical day when you were drinking in the past year?1 or 2 drinks (0 point)How often did you have a drink containing alcohol in the past year?Weekly (3 points)Fvluqf9HmislulxnkjqotNtohlljbEwanytf Control (Standard) Question Answer Notes Tobacco use: Former smoker When did you start smoking?12/02/1981When did you stop smoking?08/20/2024How long has it been since you last smoked?Less than 1 monthAUDIT-C (Standard) Question Answer Notes Did you have a drink containing alcohol in the p ast year? No Qpctxn1DvrmkffegkpuvgAswoyero Problems Problem Type SNOMED Code ICD Code Onset Dates Problem Status W/U Status Risk Notes Problem Syringomyelia and sy ringobulbia (392379937) Syringomyelia and syringobulbia (G95.0) ActiveconfirmedProblemPeripheral venous insufficiency (58814430)Venous insufficiency (chronic) (peripheral) (I87.2)ActiveconfirmedProblemPain in limb (53322138)Pain in unspecified limb (M79.609)ActiveconfirmedProblemAcute cystitis (33692340)Acute cystitis without hematuria (N30.00)ActiveconfirmedProblemAcute cystitis (68726232)Acute cystitis with hematuria (N30.01)ActiveconfirmedProblem Change in bowel habit (66860961)Change in bowel habit (R19.4)Activeconfirmed ProblemSprain of calcaneofibular ligament of left ankle, sequela (S93.412S) ActiveconfirmedProblemHistory of polyp of colon (situation) (600030959)Personal history of colonic polyps (Z86.010)ActiveconfirmedProblemChest pain (76926328) Chest pain (R07.9)ActiveconfirmedProblemFatigue (67809655)Fatigue (R53.83)Active confirmedProblemMigraine variant with headache (disorder) (894708737)Migraine headache (G43.909)ActiveconfirmedProblemHypertension (73302534)Hypertension (I10)ActiveconfirmedProblemAnxiety (27617123)Anxiety (F41.9)Activeconfirmed ProblemMitral valve prolapse (049112459)Mitral valve prolapse (I34.1)Active confirmedProblemEdema (86864896)Edema (R60.9)ActiveconfirmedProblemDepression (283879575)Depression (F32.9)ActiveconfirmedProblemObstructive sleep apnea (01088994)Obstructive sleep apnea (G47.33)ActiveconfirmedProblemInsomnia (771278448)Insomnia (G47.00)ActiveconfirmedProblemPain in limb (74266642)Pain in joint, hand (M79.643)ActiveconfirmedProblemTubular adenoma of colon (067987410) Tubular adenoma of colon (D12.6)ActiveconfirmedProblemPain of right knee region (finding) (475128605451565)Knee pain, right (M25.561)ActiveconfirmedProblem Otitis media (11844183)Otitis media (H66.90)ActiveconfirmedProblemFacial palsy (789534566)Facial droop (R29.810)ActiveconfirmedProblemConstipation (01155866) Constipation (K59.00)ActiveconfirmedProblemDiarrhea (93708149)Diarrhea (R19.7) ActiveconfirmedProblemWell adult (390956721)Well adult (Z00.00)Activeconfirmed ProblemDysphagia (39462903)Dysphagia (R13.10)ActiveconfirmedProblemPanic disorder (812850232)Panic disorder (F41.0)ActiveconfirmedProblemNear syncope (543561348)Near syncope (R55)ActiveconfirmedProblemCervical disc disorder (043862449)DDD (degenerative disc disease), cervical (M50.30)Activeconfirmed ProblemOverweight (462480620)Over weight (E66.3)ActiveconfirmedProblem Superficial phlebitis of arm (I80.8)ActiveconfirmedProblemSeasonal allergic rhinitis (914652354)Allergic rhinitis, seasonal (J30.2)ActiveconfirmedProblem Pain in right leg (821776841)Right leg pain (M79.604)ActiveconfirmedProblemRight upper quadrant pain (834649579)Abdominal pain, RUQ (R10.11)Activeconfirmed ProblemReflux gastritis (86638127)Reflux gastritis (K29.60)Activeconfirmed ProblemRhinorrhea (83505060)Rhinorrhea (J34.89)ActiveconfirmedProblemDog bite (199609180)Dog bite (W54.0XXA)ActiveconfirmedProblemAcute diarrhea (121622564) Acute diarrhea (R19.7)ActiveconfirmedProblemChronic obstructive pulmonary disease (54270779)COPD, mild (J44.9)ActiveconfirmedProblemAcute bronchiolitis (2975206)Acute bronchiolitis (J21.9)ActiveconfirmedProblemIrritable bowel (05066915)Irritable bowel (K58.9)ActiveconfirmedProblemCoronary artery spasm (96191392)Coronary artery spasm (I20.1)ActiveconfirmedProblemShoulder impingement syndrome (423499477)Shoulder impingement syndrome (M75.40)Active confirmedProblemSpider bite wound (523230318)Spider bite (T63.301A)Active confirmedProblemDisorder of musculoskeletal system (414313)Arm weakness (R29.898)ActiveconfirmedProblemLow back pain (956640388)Low back pain, unspecified (M54.50)ActiveconfirmedProblemCough (finding) (28397041)Cough, unspecified (R05.9)ActiveconfirmedProblemLow back pain (finding) (794981681)Low back pain at multiple sites (M54.50)Activeconfirmed Vital Signs Blood pressure diastolic 84 mm Hg 09/28/2025 Bwhmuf32 in09/28/2025lood pressure mm Hg09/28/20256115Qtbixt158.0 lbs 09/28/2025BMI30.89 kg/m209/28/2025 Procedures Procedure Date Ordered Date Performed Result Body Sit e Sleep Study: Retitration BIPAP/CPAP 03/04/2025 N/A Encounters Encounter Location Date Provider Diagnosis [facility] [address] [place] [address] 09/29/2025 Konrad Hoy Migraine headache G43.909 [facility] [address] [facility] [place] [address] 09/29/2025 Konrad Hoy Reflux gastritis K29.60 [facility] [address] [facility] [place] [address] 09/30/2025 Konrad Hoy Reflux gastritis K29.60 [facility] [address] [facility] [place] [address] 04/28/2025 Konrad Hoy [facility] [facility] [place] [address] 05/24/2025Doug HoyInsomnia G47.00 and Acute non-recurrent sinusitis, unspecified location J01.90[facility] [facility] [place] [address]/Doug HoyAcute non-recurrent sinusitis, unspecified location [facility]01.[facility] [facility] [place] [address] 09/21/2025Doug [facility]oyBV[facility] [facility] [place] [address]/Doug HoyMigraine headache G43.909[facility] [facility] [place] [address]/Doug HoyAbnormal liver function test R79.89[facility] [facility] [place] [address]/04/2025Doug [facility] [facility] [place] [address]/11/2025Doug HoyAcute non-recurrent sinusitis, unspecified location J01.90BV[facility] [facility] [place] [address]/Doug [facility]oyBV[facility] [address] [facility] [place] [address]Doug HoyAcute non-recurrent sinusitis, unspecified location J01.90[facility] [place] [address]/Doug [facility] [address] [place] [address]/Doug HoyAnxiety F41.9 [facility] [place] [address] 01/19/2025Doug [facility] [place] [address]/Doug [facility] [place] [address]/Doug [facility] [place] [address]/10/2025Doug [facility] [place] [address]/Doug [facility] [place] [address]/ [facility] [place] [address]/oug [facility] [place] [address]/Doug [facility] [place] [address]/Doug [facility] [place] [address]/Doug HoyBP (high blood pressure) I10 and Hypertension T15ZxkllmiUchealth [facility] Hospital[address] [place] [address]/Doug [facility] [place] [address]/[address] [facility]oy[address] [place] [facility] [place] [address]/oug Hoy [facility] [place] [facility] [address] 11/23/2024oug [facility] [place] [facility] [place] [address]/oug [facility] [place] [facility] [place] [address]/06/2025Doug HoyAnxiety F41.9 and Hypertension I10 [place] [address] [place] [facility] [place] [address] 09/16/2025Doug HoyUrinary frequency R35.0 ; UTI (urinary tract infection), uncomplicated N39.0 and Dysuria R30.0[place] [address] [place] [address]/Doug HoyMigraine headache G43.909 [facility] [place] [facility] [place] [place] [address] 09/28/2025Doug HoyAnxiety F41.9 ; Migraine headache G43.909 and Dysphagia R13.10 [place] [address] [place] [facility] [place] [place] [address] 04/22/2025Doug HoyAnxiety F41.9[place] [place] [address] [place] [place] [address]/Doug HoyInsomnia G47.00 ; Anxiety F41.9 and Depression F32.9[facility] [place] [facility] [place] [place] [address]/Doug HoyChest pain R07.9 and Anxiety F41.9[place] [place] [address] [place] [place] [address]/Doug Hoy Hypertension I10 ; Panic disorder F41.0 and Arm pain, lateral, unspecified laterality M79.603[address] [place] [address]/Doug Hoy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 and Low back pain, unspecified M54.[address] [place] [address]/01/2025Doug HoyAnxiety F41.9B[address] [place] [address]/Doug HoyMigraine headache G43.909 ; Panic disorder F41.0 ; Hypertension I10 and Otitis media H66.[address] [place] [address]/Doug HoyAcute non-recurrent sinusitis, unspecified location J01.90 and Nasal congestion R09.[address] [address]/01/2025Doug HoyFacial droop R29.810 ; Arm weakness R29.898 and Obstructive sleep apnea G47.[address] [address]/Doug Hoy Hypertension I10 ; Fatigue R53.83 and Anxiety F41.[address] [address]/Doug HoyAcute non- recurrent sinusitis, unspecified location J01.90 and Nasal congestion R09.[address] [place] [address] 04/06/2025Doug HoyInsomnia G47.00 ; Panic disorder F41.0 and Hypertension I10 [address] [address] 11/27/2024oug HoyWell adult Z00.00 Assessments Encounter Date Diagnosis (ICD Code) Assessment Notes Treatment Notes Treatment Clinical Notes Section Notes 11/27/2024 Well adult (ICD-10 - Z00.00) doing well on [facility] jazlyn,quabfsvk22/17/2025Migraine headache (ICD-10 - G43.909) 01/18/2025Panic disorder (ICD-10 - F41.0)5Acute non-recurrent sinusitis, unspecified location (ICD-10 - J01.90)Rest and drink more liquids, especially water. You may use a humidifier or vaporizer to help keep the drainage moist. Qxdz-bfb-ccbkvku Nasal Saline may help the stuffy and runny nose. Use Ibuprofen and or Tylenol as needed for fever, chills, body aches or pain. Children 5 years old should not be given ivlg-gvd-lxtutxn cough and cold medications such as guaifenesin and dextromethorphan. If you're over age 5, you may try kuue-hzt-ljuxxzu cold medications such as guaifenesin and dextromethorphan, or multi-symptom cold reliever such as Dayquil to help reduce the symptoms. Antibiotics have been prescribed. You should take these until completed and follow the directions. Antibiotics can sometimescause upset stomach, and in rare cases, serious allergic reactions or serious gastrointestinal problems. If you start having severe abdominal pain, severe vomiting, or bloody diarrhea, you should be reevaluated by your physician or urgent care immediately. Follow up with your Primary Care Provider or return to clinic if symptoms do not improve within 3-5 days03/04/2025Facial droop (ICD-10 - R29.810)03/04/2025rm weakness (ICD-10 - R29.898)03/17/2025Hypertension (ICD- 10 - I10)03/17/2025Fatigue (ICD-10 - R53.83)5Acute non-recurrent sinusitis, unspecified location (ICD-10 - J01.90)Rest and drink more liquids, especially water. You may use a humidifier or vaporizer to help keep the drainage moist. Spbb-xnv-lswejcf Nasal Saline may help the stuffy and runny nose. Use Ibuprofen and or Tylenol as needed for fever, chills, body aches or pain. Children 5 years old should not be given jsbg-ktb-cmdpheu cough and cold medications such as guaifenesin and dextromethorphan. If you're over age 5, you may try wtcj-cdl-uwliwfj cold medications such as guaifenesin and dextromethorphan, or multi-symptom cold reliever such as Dayquil to help reduce the symptoms. Antibiotics have been prescribed. You should take these until completed and follow the directions. Antibiotics can sometimescause upset stomach, and in rare cases, serious allergic reactions or serious gastrointestinal problems. If you start having severe abdominal pain, severe vomiting, or bloody diarrhea, you should be reevaluated by your physician or urgent care immediately. Follow up with your Primary Care Provider or return to clinic if symptoms do not improve within 3-5 days04/22/2025nxiety (ICD-10 - F41.9)failec on seroquel - needs rezulty - side effects and still having anxiety - despite being on the seroquel at 8032405/17/2025Insomnia (ICD-10 - G47.00) 05/17/2025nxiety (ICD-10 - F41.9)06/14/2025hest pain (ICD-10 - R07.9) 06/14/2025nxiety (ICD-10 - F41.9)07/14/2025Syringomyelia and syringobulbia (ICD-10 - G95.0)07/14/2025Low back pain, unspecified (ICD-10 - M54.50)09/03/2025 Anxiety (ICD-10 - F41.9)tapering off the oplanzapine and trial just pristiq - maybe trial of lamictal if not cakfpd5009/16/2025Urinary frequency (ICD-10 - R35.0)06/07/2025nxiety (ICD-10 - F41.9)just staterd 10 mg - needs 2 adde weeks for06/07/2025Hypertension (ICD-10 - I10)06/23/2025Hypertension (ICD-10 - I10) improvin anxiety - still to help with BP06/23/2025Panic disorder (ICD-10 - F41.0)09/21/2025Migraine headache (ICD-10 - G43.909)09/28/2025nxiety (ICD-10 - F41.9) didnt tolerate the lamictal and seroquel unable to focus at work - should not be operateijg heavy equiopment like she dose at work adjusting 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 - counceling tomorrow 09/28/2025Migraine headache (ICD-10 - G43.909)5BP (high blood pressure) (ICD-10 - I10)5Acute non-recurrent sinusitis, unspecified location (ICD-10 - J01.90)5Acute non-recurrent sinusitis, unspecified location (ICD-10 - J01.90)04/27/2025nxiety (ICD-10 - F41.9)05/24/2025Insomnia (ICD-10 - G47.00)5Acute non-recurrent sinusitis, unspecified location (ICD-10 - J01.90)09/27/2025Migraine headache (ICD-10 - G43.909)09/27/2025bnormal liver function test (ICD-10 - R79.89)09/29/2025Migraine headache (ICD-10 - G43.909) 09/29/2025Reflux gastritis (ICD-10 - K29.60)09/30/2025Reflux gastritis (ICD-10 - K29.60)04/06/2025Insomnia (ICD-10 - G47.00)04/06/2025Panic disorder (ICD-10 - F41.0)04/06/2025Hypertension (ICD-10 - I10)5Acute non-recurrent sinusitis, unspecified location (ICD-10 - J01.90)12/28/2024Hypertension (ICD-10 - I10)09/28/2025Dysphagia (ICD-10 - R13.10)09/16/2025UTI (urinary tract infection), uncomplicated (ICD-10 - N39.0)Drink plenty of water. Avoid drinks like coffee, alcohol and soft frinks, as these can irritate your bladder and aggravate your frequent or urgent need to urinate. Apply a warm heating pad to your abdomen to minimize bladder pressure or discomfort. You have been prescribed antibiotics for a urinarytract infection. Antibiotics may bother your stomach, so try taking them with a light meal (unless instructed otherwise by your pharmacist). It is important to take them until they are finished. You can use tvtx-iwc-jrrgkkr acetaminophen or ibuprofen if needed for pain. You should follow up with your Primary Care Physician or return to clinic if not improving in the next 3-5 days.05/17/2025Depression (ICD-10 - F32.9)03/26/2025Nasal congestion (ICD-10 - R09.81)03/17/2025nxiety (ICD-10 - F41.9)03/04/2025 Obstructive sleep apnea (ICD-10 - G47.33)02/12/2025Nasal congestion (ICD-10 - R09.81)01/18/2025Hypertension (ICD-10 - I10)01/18/2025Otitis media (ICD-10 - H66.90)09/16/2025Dysuria (ICD-10 - R30.0)06/23/2025rm pain, lateral, unspecified laterality (ICD-10 - M79.603)arm paoin wrse wtih use - concerning fo circulation issues - needs u/s vasscular Plan Of Treatment Pending Test Test Name Order Date CMP (COMPLETE METABOLIC PANEL) CMP (COMPLETE METABOLIC PANEL) HEMOGLOBIN A1C (GLYCO) 04/24/2024 HEMOGLOBIN A1C (GLYCO) 11/27/2024 HEMOGLOBIN A1C (GLYCO) 06/14/2025 IRON, TOTAL 06/14/2025 IRON, TOTAL 11/27/2024 LIPID PANEL (CHOL/TRIG/HDL/LDL) 06/14/20 25 LIPID PANEL (CHOL/TRIG/HDL/LDL) 11/27/20 LIPID PANEL (CHOL/TRIG/HDL/LDL) 04/24/20 CBC WITH DIFF 04/24/2024 CBC WITH DIFF 11/27/2024 VITAMIN D, 25 LEVEL (TOTAL) 06/14/2025 XR Lumbar Spine (2-3 views) * 05/15/2023 US Lower Extremity LT 02/20/2024 US Gallbladder 09/27/2025 US Lower Extremity RT 02/20/2024 Dressing Change- performed 10/21/2023 Insulin Level 11/27/2024 Insulin Level 06/14/2025 Sleep Study: Retitration BIPAP/CPAP 01/2025 CT Chest Low Dose for Screening* 024 Venous Insufficiency Study 02/23/2024 STOOL OCCULT BLOOD 04/24/2024 US Liver 09/27/2025 XR Upper GI w/ Esophogram 09/28/2025 AMMONIA 12/16/2023 AMMONIA 06/14/2025 CBC AUTO DIFF 12/16/2023 CULTURE SPUTUM 04/15/2023 GI PANEL (PCR) 04/15/2023 PROF 14(COMP METB) 12/16/2023 SED RATE WESTERGREN 12/16/2023 MRI BRAIN WO W CON 03/04/2025 MRI LSPINE WO CON 10/13/2023 MRI TSPINE WO CON 10/13/2023 US ARTERY LEG JULIEN 02/20/2024 US KIDNEYS BLADDER 09/27/2025 XR LSPINE 2_3 VIEWS 05/20/2023 THYROID PANEL (T4/TSH/FREE T3) 4 THYROID PANEL (T4/TSH/FREE T3) 4 THYROID PANEL (T4/TSH/FREE T3) 5 MM screening mammo BI 11/27/2024 US arterial duplex UE BI 06/23/2025 CT CHEST LOW DOSE (LDCT) 03/26/2025 CT CHEST LOW DOSE (LDCT) 11/27/2024 CT sinus w con 03/26/2025 CMP (COMP MET SIMMONS) w/eGFR CKD-EPI 2024 CBC WITH DIFF 06/14/2025 Insurance Providers Payer Name Payer Address Payer Phone Subscriber Number Group Number Insured Name Patient Relationship to Insured Coverage Start Date Coverage End Date [employer] [address] [address] [place] [address] [id number] Kuldiprin Glory Self - patient is the insured Medications Administered Medication Instructions Date of Administration Dosage Notes Ozempic .25 mL Medical (General) History Medical History History [...] F32.9 Constipation K59.00 Surgical History Surgery Date(Month/Year) APPENDECTOMY KyphoplastyGanglion cyst removalBroken left arm- jhkbmDsktnrsmigz83/2023 Hospitalization History Reason Date(Month/Year) Exhaustion Pneumonia/Influenza B/Bronchitis
--- OUTSIDE RECORDS SUMMARY | 2025-10-04 10:54 | XMS_ITS | Encounter Summary ---
Author Organization [facility] No[facility] tem Address [id number] [address] [place] [address] Care Team Providers Care Lead Handler Name Role Phone Lonnie Sheehan MD Primary Care Provider [phone] Encounter Details DateTypeDepartmentCare Team (Latest Contact Info)Flkturjcvrm17/29/2025Travel Social History Tobacco UseTypesPacks/DayYears UsedDateSmoking Tobacco: Every DayCigarettes0.330 Smokeless Tobacco: Never Comments:d/w pt. decreased r isk of stroke, HTN Alcohol UseStandard Drinks/WeekCommentsYes0 (1 standard drink = 0.6 oz pure alcohol)ChildcareAnswerDate MpyublegMgxptxyjbZeuweow74/12/2019EmploymentAnswer Date KnxovhtfBcjqiwjlblLxfqggr74/12/2019Hunger ScreeningAnswerDate Recorded Within the past 12 months we worried whether our food would run out before we got money to buy more.Never True01/26/2023Within the past 12 months the food we bought just didn't last and we didn't have money to get more.Never True 3Purpose - LifeAnswerDate RecordedPurpose and direction in lifeUnknown 1CommentsNoSex and Gender InformationValueDate RecordedSex Assigned at BirthNot on fileLegal KokIqftnu12/06/2015 11:23 AM EDTGender IdentityNot on fileSexual OrientationNot on filedocumented as of this encounter Plan of Treatment Not on file documented as of this encounter Visit Diagnoses Not on filedocumented in this encounter Additional Health Concerns AssessmentNoted TimeA Body Mass Index follow-up plan has been documented for the jgezlpo1803/20/2017 6:34 PM EDTdocumented as of this encounter Care Teams Team MemberRelationshipSpecialtyStart DateEnd Date Lonnie Sheehan MD PCP - GeneralFamily Medicine01/26/23documented as of this encounter
--- OUTSIDE RECORDS SUMMARY | 2025-10-04 10:56 | XMS_ITS | Clinical Summary ---
Author Organization [facility] Healthcare Address [address] [place] [address] Care Team Providers Care Recycle Driver Name Role Phone Lonnie Sheehan MD Primary Care Provider [phone] Allergies Active AllergyReactionsCriticalityNoted EcpdMrhrlrbwMcmhnnpnxnvxs05/05/2025 Other Reaction(s): Unknown Latex03/20/2017 Other Reaction(s): Not available, Unknown Sulfamethoxazole-Dpknzhgxhuiq79/22/2020 Other Reaction(s): Not available, Unknown Medications MedicationSigDispense [...] 15 g 5Active Active Problems ProblemNoted DateDiagnosed SwjqCziabwmfngeytzlosc72/05/2025Lumbosacral spondylosis without /22/2020 Overview (04/05/2025): Added automatically from request for surgery [id number] Vnyfdpl7709/18/20171156Hkbtzi65/18/2017Cervical disc /18/2017Coronary artery spasm09/18/2017Depressive mztetqrd36/18/5575Dsskcnrs78/18/2017Mitral valve goemqktv57/18/2017Obstructive sleep apnea eiztdhcz25/12/2017 Social History Tobacco UseTypesPacks/DayYears UsedDateSmoking Tobacco: FormerCigarettes Smokeless Tobacco: Never Tobacco Cessation:Counseling Given: Not Answered Alcohol UseStandard Drinks/WeekCommentsYes0 (1 standard drink = 0.6 oz pure alcohol)occCommentsUnknownSex and Gender InformationValueDate Recorded Sex Assigned at BirthNot on fileLegal TobFghmwi84/15/2023 7:25 PM EDTGender IdentityNot on fileSexual OrientationNot on file Last Filed Vital Signs Vital SignReadingTime TakenCommentsBlood Knshmsoh541/8005 2:02 PM EDT Fdoxw150004/07/2025 2:02 PM EDTTemperature--Respiratory Rate--Oxygen Saturation-- Inhaled Oxygen Concentration--Hakcwx84.6 kg (160 lb)04/07/2025 2:02 PM EDTHeight 162.6 cm (5' 4 )04/07/2025 2:02 PM EDTBody Mass Index27.46004/07/2025 2:02 PM EDT Plan of Treatment Not on file Insurance * Guarantor: Ciara Kendallunt TypeRelation to PatientDate of BirthPhone Billing AddressPersonal/WpjejlXwsp01/14/1966 [address] [id number] Care Teams Team MemberRelationshipSpecialtyStart DateEnd Date Lonnie Sheehan MD [address] [place] [phone] PCP - GeneralFamily Medicine04/07/25
--- OUTSIDE RECORDS SUMMARY | 2025-10-04 10:56 | XMS_ITS | Clinical Summary ---
Author Organization [facility] [facility] Address [id number] [place] [address] Care Team Providers Care Stabilizer Operator Name Role Phone Lonnie Sheehan MD Primary Care Provider [phone] Allergies Active AllergyReactionsCriticalityNoted DateCommentsCiprofloxacin HclRashMedium 1Latex, Natural Gcqrbv8403/20/2017Sulfamethoxazole-Lqodddaexzut93/22/2020 Medications MedicationSigDispense QuantityRefillsLast FilledStart DateEnd DateStatus metoprolol [...] (09/22/2020): Added automatically from request for surgery [id number] Encounters DateTypeDepartmentCare JelwGddltmnyomq83/29/2025 8:56 AM EDT - 09/29/2025 11:[address] [facility] [address] [place] [phone] Dysphagia, unspecified type Discharge Disposition: Home09/29/2025Travelfrom Last 3 Months Family History Medical HistoryRelationNameCommentsStrokeFatherBreast cancerNeg HxColon cancer Neg HxRelationNameStatusCommentsFatherDeceasedMotherDeceased Social History Tobacco UseTypesPacks/DayYears UsedDateSmoking Tobacco: Every DayCigarettes0.330 Smokeless Tobacco: Never Tobacco Cessation:Ready to Q uit: No; Counseling Given: Yes Comments:d/w pt. decreased risk of stroke, HTN Alcohol UseStandard Drinks/WeekCommentsYes0 (1 standard drink = 0.6 oz pure alcohol)ChildcareAnswerDate EtogfyrfArlgvblzrHeybkml08/12/2019EmploymentAnswer Date LqglbmwuOxihfgmkbkNljzmda18/12/2019Hunger ScreeningAnswerDate Recorded Within the past 12 months we worried whether our food would run out before we got money to buy more.Never True01/26/2023Within the past 12 months the food we bought just didn't last and we didn't have money to get more.Never True 3Purpose - LifeAnswerDate RecordedPurpose and direction in lifeUnknown 1CommentsNoSex and Gender InformationValueDate RecordedSex Assigned at BirthNot on fileLegal MkfJwjeyn57/06/2015 11:23 AM EDTGender IdentityNot on fileSexual OrientationNot on file Last Filed Vital Signs Vital SignReadingTime TakenCommentsBlood Bzpnsidc97/78001/26/2023 9:08 PM EST Uxreg488601/26/2023 9:08 PM RSPKjvmhyyubqe09.7 ??C (98.1 ??F)01/26/2023 9:08 PM ESTRespiratory Lost101101/26/2023 9:08 PM ESTOxygen Wsmegvqweb12%01/26/2023 9:08 PM ESTInhaled Oxygen Concentration--Zdidfu11.1 kg (170 lb)01/26/2023 9:08 PM EST Ukczsi039.6 cm (5' 4 )01/26/2023 9:08 PM ESTBody Mass Index29.18001/26/2023 9:08 PM EST Plan of Treatment Health MaintenanceDue DateLast DoneCommentsDepression Rnejrgslh80/14/1976Tobacco Wzquuiynl77/14/1976DTaP,Tdap and Td Vaccines (1 - Tdap)1982Pap Smear , 03/21/2017Adult BMI Vapjpozaa67OVID-19 Vaccine (2024- season)/, 09/24/2021, 08/22/2021 Influenza Jgdxovf52/, 08/31/2022, 08/10/2021, Additional history existsRSV ( or age 60+ yrs) (1 - 1-dose 75+ series)2038 Zoster (Shingles) VmhdzaiHvbucyauf24/24/2021, 11/04/2020 Medical Devices Not on file Procedures Procedure NamePriorityDate/TimeAssociated DiagnosisCommentsFL UGI WITH ESOPHAGUS Tmcddel9409/29/2025 9:21 AM EDT Dysphagia, unspecified type HIGH RISK HPV W/YDGZRqlhlve33/20/2017 9:35 AM EDT Encounter for gynecological examination without abnormal finding from Last 3 Months or Most Recently Relevant to Health Maintenance Results * Fluoroscopy upper GI with esophagus [...] on 09/29/2025 9:27 AM Authorizing ProviderResult TypeResult StatusDouglas M Hoy MDIMG FLUOROSCOPY ORDERABLESFinal Result * High risk HPV w/tc (03/21/2017 9:35 AM EDT)ComponentValueRef RangeTest MethodAnalysis TimePerformed AtPathologist SignatureHpv specimen typeThinPrep 03/25/2017 9:32 AM EDTSUNQUESTHpv 00DfdbmhslSdjgztrn96/25/2017 12:55 PM EDT [facility]Hpv 02SeuvxsnnOirvlauz77/25/2017 12:55 PM [facility]Other high risk hpvNegativeNegative 03/26/2017 12:55 PM [facility] LABORATORYComment: HPV types 31,33,35,39,45,52,56,58,59,66 and 68 DNA were undetectable. Specimen (Source)Anatomical Location / LateralityCollection Method / Volume Collection TimeReceived Time03/21/2017 9:35 AM EDT03/21/2017 9:35 AM EDT Narrative Authorizing ProviderResult TypeResult StatusMesanket Sheehan SUBASSEMBLY SUPERVISOR-CNMLAB BLOOD ORDERABLESFinal ResultPerforming OrganizationAddressCity/State/ZIP CodePhone Number [facility] [address] [place] [address], [place] from Last 3 Months or Most Recently Relevant to Health [place] [address] Care Teams Team MemberRelationshipSpecialtyStart DateEnd Date Lonnie Sheehan MD PCP - GeneralFamily Medicine01/26/23
== END 2025-10-04 10:49 | disposition home or self-care (01) ==
LOC: US 10:48
PROVIDERS: PCP Family Medicine; Visit Provider Family Medicine
DX: R79.89 Other specified abnormal findings of blood chemistry (principal); N28.89 Other specified disorders of kidney and ureter
CPT/HCPCS: 76705; 76770

== ENCOUNTER 2025-11-12 13:05 | Outpatient (OUT) | payer OTHER, SELFPAY ==
--- OUTSIDE RECORDS SUMMARY | 2025-11-12 13:08 | XMS_ITS | CCD ---
Author Organization [facility] Care Team Providers Care Fitness Sales Associate Name Role Phone PHYSICIAN, DEFAULT Unavailable Unavailable [...] Admitting Unavailable Hoy, Álvaro Primary Care Physician Álvaro Sheehan MD Primary Care Provider [phone] KATHERINE GIRON Attending Unavailable HOY, ÁLVARO M Referring Unavailable Fredy Barton Attending Unavailab le Mick, Fredy Admitting Unavailab le Hoy, Álvaro M Primary Care Unavailable HOY, ÁLVARO M Referring Unavailable HOY, ÁLVARO M Primary Care Unavailable Andrei Coughlin Attending Unavailable Allergies Allergy ClassificationReported Allergen(s)Allergy TypeDate of OnsetReaction(s) Facility (2 sources)ciprofloxacin; Translations: [ciprofloxacin]Drug Ypolurc01-99-1382IMV [facility] Repository (3 sources)sulfamethoxazole / trimethoprimDrug Ofpizma90-91-4354NUNSev [facility] Repository (2 sources)CiprofloxacinDrug Ntwzpkg33-71-4571Wau [facility] Repository (5 sources)Latex; Translations: [Latex]Drug allergy (disorder)63-89-6268Khxzlzr (qualifier value)[facility] Repository (7 sources)Ciprofloxacin; Translations: [ciprofloxacin]Drug Eawmffb91-71-3243 Eruption of skin (disorder)[facility] (9 sources)Sulfamethoxazole / Trimethoprim; Translations: [sulfamethoxazole-trimethoprim]Drug Elrcbal39-07-3233JmgbgelXxupvn-RyforHenry County Hospital (5 sources)LatexAllergy to lxawjylxg02-18-1339[facility] (1 source)Ciprofloxacin; Translations: [CIPROFLOXACIN HCL]Drug Dcrogjd05-63-9813 [facility] Repository (1 source)natural latex rubber; Translations: [LATEX, NATURAL RUBBER]Propensity to adverse reactions to drug (disorder)15-92-3984QwzTlhifp Repository Medications Current Medications MedicationDrug Class(es)DatesSig (Normalized)Sig (Original)1.14 ML dupilumab 175 MG/ML Auto-Injector [Dupixent] (2 sources)Start: 03-00-8103Ktmnmhyx Pre-filled Pen 200 mg/1.14 mL subcutaneous solution as directed, Refills(s) 0 Start Date: 04/26/23 Status: Ordered Medication Dispense Status: Completed Total Allowed Fills: 1 Fills Dispensed: 0 Start: 58-45-0319Stpsloml Pre-filled Pen 200 mg/1.14 mL subcutaneous solution as directed, Refills(s) 0 Start Date: 04/26/23 Status: OrderedALPRAZolam 0.5 mg oral tablet (6 sources)BenzodiazepineStart: 39-87-1787vljx 1 tablet by mouth three times daily as needed for anxietyXanax 0.5 mg Tab 0.5 mg = 1 tab(s), Oral, TID, PRN for anxiety, Refills(s) 0 Start Date: 10/04/25 Status: Ordered Medication Dispense Status: Completed Total Allowed Fills: 1 Fills Dispensed: 0take 1 tablet by mouth three times dailyALPRAZolam (Xanax) 0.25 MG tablet Take 1 tablet 3 times a day by oral route. ActiveARIPiprazole 2 mg oral tablet (1 source)Atypical AntipsychoticStart: 94-39-1956xsqlkf 1 mg oral capsule (5 sources)biotin 1 MG capsule Take by mouth Activebrexpiprazole 2 mg oral tablet (1 source)Atypical AntipsychoticStart: 53-95-8594edwx 2 mg by mouth once daily Rexulti 2 mg, Oral, Daily, Refills(s) 0 Start Date: 10/04/25 Status: Ordered Medication Dispense Status: Completed Total Allowed Fills: 1 Fills Dispensed: 0 24 hr dilTIAZem hydrochloride 240 mg extended release oral capsule (7 sources)Calcium Channel BlockerStart: 02-56-9428akum 1 capsule by mouth once dailyDupilumab (Dupixent) 100 MG/0.67ML solution prefilled syringe (5 sources)Dupilumab (Dupixent) 100 MG/0.67ML solution prefilled syringe as directed Subcutaneous Activefluticasone (4 sources)CorticosteroidFluticasone Propionate (FLONASE ALLERGY RELIEF NA) Administer into affected nostril(s) Activeibuprofen 800 mg oral tablet (6 sources)Nonsteroidal Anti-inflammatory DrugStart: 58-11-1571fjucsobvf 800 MG tablet every 8 (eight) hours Activeammonium lactate 120 mg/ml topical cream (5 sources)ammonium lactate (Amlactin) 12 % cream Apply topically if needed for dry skin Activelevothyroxine sodium 0.075 mg oral tablet (7 sources)l-ThyroxineStart: 76-84-7326oinr 1 tablet by mouth once daily levothyroxine (Synthroid, Levoxyl) 75 MCG tablet Take 75 mcg by mouth Daily Activeliothyronine sodium 0.005 mg oral tablet (7 sources)l-TriiodothyronineStart: 32-00-5906zuhy 1 tablet by mouth once daily liothyronine (Cytomel) 5 MCG tablet Take 5 mcg by mouth Daily Activeloratadine 10 mg oral tablet (4 sources)loratadine (Claritin) 10 MG tablet Take by mouth ActiveMetoprolol (12 sources)beta-Adrenergic BlockerStart: 16-09-3375iuqdwovlpp 75 mg, 50mg and 25mg, Refills(s) 0 Start Date: 10/04/25 Status: Ordered Medication Dispense Status: Completed Total Allowed Fills: 1 Fills Dispensed: 0Start: 33-17-3097hsbx 1 tablet by mouth once dailymetoprolol 25 mg ER Tab 25 mg = 1 tab(s), Oral, Daily, Refills(s) 0 Start Date: 04/26/23 Status: Orderedmetoprolol succinate XL (Toprol-XL) 50 MG 24 hr tablet ActiveQUEtiapine 50 mg oral tablet (5 sources)Atypical Antipsychotictake 1 tablet by mouth at bedtimeQUEtiapine (SEROquel) 50 MG tablet Take 50 mg by mouth at bedtime Activesemaglutide (1 source)Start: 44-65-5585qaqwqqjqpbq See Instructions, Refills(s) 0 Start Date: 10/04/25 Status: Ordered Medication Dispense Status: Completed Total Allowed Fills: 1 Fills Dispensed: 0Semaglutide-Weight Management 2.4 MG/0.75ML solution auto-injector (5 sources)Semaglutide-Weight Management 2.4 MG/0.75ML solution auto-injector Inject under the skin Active Completed/Discontinued Medications MedicationDrug Class(es)DatesSig (Normalized)Sig (Original)aspirin 81 mg delayed release oral tablet (7 sources)Platelet Aggregation Inhibitor, Nonsteroidal Anti-inflammatory Drug Start: 05-13-2115xnhh 1 mg by mouth once dailytake 1 tablet by mouth once daily aspirin 81 MG chewable tablet Chew 1 tablet every day by oral route. Espkrj61 hr desvenlafaxine succinate 100 mg extended release oral tablet (7 sources)Serotonin and Norepinephrine Reuptake InhibitorStart: 17-77-3342cabs 1 tablet by mouth once dailyStart: 08-38-5775wtsk 1 tablet by mouth once daily famotidine 40 mg oral tablet (7 sources)Histamine-2 Receptor AntagonistStart: 55-47-6962vlhb 1 mg by mouth twice daily in the morningmupirocin 0.02 mg/mg topical ointment (6 sources)RNA Synthetase Inhibitor AntibacterialStart: 04-07-2025 End: 24-07-9474xenolruzr (Bactroban) 2 % ointment Indications: Nasal septal perforation Apply to each side of the nose twice daily for 1 month 15 g 1 06/11/2025 06/11/2025 Discontinued Problems Active Problems Problem ClassificationProblemDateDocumented DateEpisodic/ChronicAnxiety disorders (9 sources)Anxiety; Translations: [Panic disorder]Onset: ChronicAsthma (5 sources)Asthma; Translations: [Unspecified asthma, uncomplicated]Onset: 465602-52-6909MkcxgxwAmaukwg obstructive pulmonary disease and bronchiectasis (2 sources)Chronic obstructive lung -33-0803CrrhrfnAbneuozs atherosclerosis and other heart disease (5 sources)Coronary artery spasm; Translations: [Angina pectoris with documented spasm]Onset: 394277-91-2614SlebkjzTsgtxvyjjb and other anemia (1 source)Anemia, unspecified; Translations: [ANEMIA UNSPECIFIED]Onset: 90-40-1766NatcoqnfKhqkzavl mellitus without complication (1 source)Other abnormal glucose; Translations: [OTHER ABNORMAL GLUCOSE]Onset: 70-95-1178JfihrmniTmmysaepx congenital anomalies (2 sources)Other specified congenital malformations of intestine; Translations: [Congenital redundant colon]Onset: 82-79-5657VzxbhvfDvjwigmj; including migraine (7 sources)Migraine; Translations: [Migraine, unspecified, not intractable, without status migrainosus]Onset: 927413-12-3752DdsoqgeCvpvd valve disorders (7 sources)Mitral valve prolapse; Translations: [Nonrheumatic mitral (valve) prolapse]Onset: 817544-25-8202PlzfwooShkawuhutv infection (3 sources)Enterotoxigenic Escherichia coli gastrointestinal tract infection ; Translations: [Enterotoxigenic Escherichia coli infection]Onset: 05-02-2023 EpisodicMood disorders (7 sources)Depressive disorder; Translations: [Depressive disorder]Onset: 924762-26-3672QpwmjtsQfhji and unspecified benign neoplasm (5 sources)History of polyp of colon; Translations: [Personal history of colonic polyps]Onset: 40-72-8475QvzjulcaMwyef gastrointestinal disorders (3 sources)Altered bowel function; Translations: [Change in bowel habit]Onset: 35-81-7853YvkvxyfhAmvnt gastrointestinal disorders (3 sources)Dysphagia, unspecified; Translations: [Dysphagia, unspecified]Onset: 65-92-1836WevchexaAcoos gastrointestinal disorders (1 source)Coxslasas42-68-1144OoctsaesKhadm nervous system disorders (5 sources)Syringomyelia; 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]Onset: 877681-22-4663SbkckoyPcwek nutritional; endocrine; and metabolic disorders (2 sources)Body mass index 30+ - kqomwav93-90-9123JtzvrqrQlqoy screening for suspected conditions (not mental disorders or infectious disease) (1 source)Encounter for screening for malignant neoplasm of rectum; Translations: [ENC SCREEN MALIG NEOPLASM RECTUM]Onset: 78-05-9637BkkcpcanSnerw upper respiratory disease (2 sources)Allergic aogtjgxl86-78-5704QaykisuKxpxz upper respiratory disease (2 sources)Chronic rhinitis; Translations: [Chronic rhinitis]07-59-9208Cyrupfg Other upper respiratory disease (4 sources)Perforation of nasal septum; Translations: [Other specified disorders of nose and nasal sinuses]79-41-1231OdracazoIczsaqfh codes; unclassified (7 sources)Obstructive sleep apnea syndrome; Translations: [Obstructive sleep apnea (adult) (pediatric)]Onset: 980111-31-6993YcabotkRnwpcnph codes; unclassified (2 sources)Jwbaiici27-29-8734EghealfuVumbrthuave; intervertebral disc disorders; other back problems (14 sources)Degeneration of cervical intervertebral disc; Translations: [Lumbosacral spondylosis without myelopathy]Onset: hronic Unclassified (1 source)LOW BACK PAIN, UNSPECIFIED; Translations: [LOW BACK PAIN, UNSPECIFIED] Onset: 04-26-2022 Past or Other Problems Problem ClassificationProblemDateDocumented DateEpisodic/ChronicOther non- traumatic joint disorders (4 sources)Pain in right knee; Translations: [PAIN IN RIGHT KNEE]Onset: 03-90-6785Rbobbsrr Results Test NameValueInterpretationReference RangeFacilityAmbulatory Visit Summaryon 50-62-9714Deoluwibee Visit SummaryAmbulatory Visit Summary GLORY MCKEON :1965 Visit Date:10/04/2025 Ambulatory Visit Instructions Your Diagnosis Dysphagia, Dysphagia when swallowing solid food Redundant colon Your Care Team Attending Physician - Andrei Coughlin MD Primary Care Physician - Álvaro Sheehan MD This Is Your Medications List Contact prescribing physician if questions or concerns alprazolam (Xanax 0.5 mg Tab) aspirin (aspirin 81 mg Oral EC Tab) brexpiprazole (Rexulti) desvenlafaxine (desvenlafaxine 100 mg Tab-) diltiazem (Cartia XT 240 mg/24 hours oral capsule, extended release) dupilumab (Dupixent Pre-filled Pen 200 mg/1.14 mL subcutaneous solution) famotidine (famotidine 40 mg Tab) levothyroxine (levothyroxine 75 mcg (0.075 mg) Tab) liothyronine (liothyronine 5 mcg Tab) metoprolol semaglutide Procedures Performed Colonoscopy (2014), Appendectomy, Closed reduction of fracture of arm, Excision of ganglion cyst. Discharge Vitals Heart Rate (Peripheral) 76 Respiratory Rate 16 Blood Pressure 127/92 Height 162 cm Height 64 in Weight 82.1 kg Weight 180.999 lb BMI 31.28 Medications What How Much When Instructions Unchanged alprazolam (Xanax 0.5 mg Tab) 1 Tablets By Mouth 3 times a day as needed for for anxiety Contact prescribing physician if questions or concerns Unchanged aspirin (aspirin 81 mg Oral EC Tab) 81 Unknown, oral, 1 Refill(s), Take 81 mg by mouth daily. Contact prescribing physician if questions or concerns Unchanged brexpiprazole (Rexulti) 2 Milligram By Mouth Every day Contact prescribing physician if questions or concerns Unchanged desvenlafaxine (desvenlafaxine 100 mg Tab-) 1 Unknown, oral, 1 Refill(s), Take 1 tablet by mouth daily. Contact prescribing physician if questions or concerns Unchanged diltiazem (Cartia XT 240 mg/ 24 hours oral capsule, extended release) 1 Unknown, oral, 12Refill(s), Take 1 capsule by mouth daily. Contact prescribing physician if questions or concerns Unchanged dupilumab (Dupixent Pre-filled Pen 200 mg/ 1.14 mL subcutaneous solution) as directed Contact prescribing physician if questions or concerns Unchanged famotidine (famotidine 40 mg Tab) 1 Tablets 2 times a day 40 Unknown, oral, 1 Refill(s), Take 40 mg by mouth in the morning. Contact prescribing physician if questions or concerns Unchanged levothyroxine (levothyroxine 75 mcg (0.075 mg) Tab) 1 Unknown, oral, 3 Refill(s), Take 1 tablet by mouth daily. Contact prescribing physician if questions or concerns Unchanged liothyronine (liothyronine 5 mcg Tab) 1 Unknown, oral, 12 Refill(s), Take 1 tablet by mouth daily. Contact prescribing physician if questions or concerns Unchanged metoprolol 75 Milligram 50mg and 25mg Contact prescribing physician if questions or concerns Unchanged semaglutide See instructions Contact prescribing physician if questions or concerns Allergies Latex (Unknown) ciprofloxacin (Eruption) sulfamethoxazole-trimethoprim (Unknown) Problems Ongoing - Any problem that you are currently receiving treatment for. Allergic rhinitis Anxiety BMI 30.0-30.9,adult Change in bowel habits Chronic obstructive pulmonary disease DDD (degenerative disc disease), cervical Depression Dysphagia when swallowing solid food Enterotoxigenic Escherichia coli infection History of colon polyps Insomnia Lumbosacral spondylosis without myelopathy Migraines Mitral valve prolapse LAURA (obstructive sleep apnea) Panic disorder Personal history of colonic polyps Redundant colon Patient Survey You may receive a survey via text or e-mail asking about your office visit. Please share your experience with us by completing your survey. We appreciate your feedback and thank you for choosing us for your care. Patient Portal You may access all of your results and other medical record information on our secure patient portal. If you are not signed up for this yet, please contact [employer] at [phone] to get signed up today. Language Information Language assistance services are available as needed. [facility]/Clinic Noteon [id number] Office/Clinic NoteGastroenterology Office/Clinic Note Chief Complaint ref by Aguila for dysphagia to pills HPI Staff NEW, 59 year old female who presents today for a referral by Dr Sheehan for complaints of dysphagia. Denies Blood Thinners. Semaglutide weekly. Dysphagia: taking pepcid When did it start: last week Solids or liquids: pills Denies previous EGD Colonoscopy @ [facility] 05/22/23 Postoperative diagnosis: Redundant colon to cecum History of Present Illness I have reviewed HPI staff note, most recent labs and imaging, I agree with the above documentation with the following additions/exceptions : PT with anxiety after family loss pills are getting stuck in the upper esophagus eating peanut butter on bread could help 2-3 times a day on Pepcid 40mg BID for GERD- well controlled Review of Systems PHQ Score Initial Depression Screen Score: 0 SCORE All systems reviewed, negative except as mentioned above Physical Exam Vitals & Measurements HR: 76(Peripheral) RR: 16 BP: 127/92 HT: 64 in HT: 162 cm WT: 180.999 lb WT: 82.1 kg BMI: 31.28 General: alert, no acute distress HEENT: atraumatic normocephalic Cardiovascular: regular rate and rhythm, normal peripheral perfusion Respiratory: Lungs CTA, respirations non labored Extremities: no deformity, no trauma Abdomen: Benign, soft, nontender nondistended Assessment/Plan 1. Dysphagia, (R13.10: Dysphagia, unspecified)Dysphagia when swallowing solid food Ordered: EGD Endoscopy (Hospital Procedure) 3. Redundant colon (Q43.8: Other specified congenital malformations of intestine) Ordered: EGD Endoscopy (Hospital Procedure) Schedule upper endoscopy with esophageal dilation and biopsies Continue Pepcid 40 mg twice daily Repeat colonoscopy in 2032 Follow-up No qualifying data available Problem List/Past Medical History Ongoing Allergic rhinitis Anxiety BMI 30.0-30.9,adult Change in bowel habits Chronic obstructive pulmonary disease DDD (degenerative disc disease), cervical Depression Dysphagia when swallowing solid food Enterotoxigenic Escherichia coli infection History of colon polyps Insomnia Lumbosacral spondylosis without myelopathy Migraines Mitral valve prolapse LAURA (obstructive sleep apnea) Panic disorder Personal history of colonic polyps Redundant colon Historical No qualifying data Procedure/Surgical History Colonoscopy (2014), Appendectomy, Closed reduction of fracture of arm, Excision of ganglion cyst. Medications aspirin 81 mg Oral EC Tab Cartia XT 240 mg/24 hours oral capsule, extended release desvenlafaxine 100 mg Tab- Dupixent Pre-filled Pen 200 mg/1.14 mL subcutaneous solution famotidine 40 mg Tab, 40 mg= 1 tab(s), BID levothyroxine 75 mcg (0.075 mg) Tab liothyronine 5 mcg Tab metoprolol, 75 mg Rexulti, 2 mg, Oral, Daily semaglutide, See Instructions Xanax 0.5 mg Tab, 0.5 mg= 1 tab(s), Oral, TID, PRN Allergies Latex (Unknown) ciprofloxacin (Eruption) sulfamethoxazole-trimethoprim (Unknown) Social History Alcohol - Denies Alcohol Use, 05/02/2023 Substance Abuse - Denies Substance Abuse, 05/02/2023 Never., 10/01/2025 Tobacco Former smoker, quit more than 30 days ago Tobacco Use:. Never Smokeless Tobacco Use:. Cigarettes, Started age 18.0 Years. Yes, 10/04/2025 Family History Hypertension: Mother. Stroke: Father. Immunizations Vaccine Date Status influenza virus vaccine, inactivated 08/31/2022 Recorded SARS-CoV-2 (COVID-19) mRNAMUL.ORD![id number] 08/31/2022 Recorded SARS-CoV-2 (COVID-19) mRNA-1273 vaccine 09/24/2021 Recorded SARS-CoV-2 (COVID-19) mRNA-1273 vaccine 08/22/2021 RecordedNoMain Campus Medical CenterComment on above:Result Comment: Electronically Signed By: Madyson ROBLES, Andrei García\.br\Date and Time Signed: 10/04/2513:18 ESTFL UGI WITH ESOPHAGUS on 10-79-5253FF UGI WITH ESOPHAGUSFL UGI WITH ESOPHAGUS History: Difficulty swallowing. Nausea. Fills getting stuck. Exam/Technique: Double contrast upper GI exam. The patient ingested effervescent granules, thick and thin barium in the upright and recumbent positions. 2. Minute 12 seconds of fluoroscopy time was utilized. Total images: 24 Reference air kerma 33.3 mGy Comparison: None applicable Findings: The esophagus shows normal course and caliber. No segments of inflammation, ulceration or narrowing. Few episodes of tertiary contractions were demonstrated. Single episode of reflux lower third of the esophagus noted as well. No hiatal hernia visualized. Gastric contour is normal. No mucosal lesions, ulceration or inflammation. Duodenal sweep is retroperitoneal and the ligamentum of Treitz is within the left upper quadrant. Normal proximal mucosal fold pattern of small bowel. IMPRESSION: * Tertiary contractions and reflux to lower third esophagus. Finalized by Ramakrishna Krueger DO on 09/29/2025 9:27 AMNormalProMedica Los [facility]. DIFF PCRon 04-16-2023. DIFFICILE PCRNegativeNormalNEGATIVEThe [facility] SystemComment on above:Performed By: #### CDIFPOC #### [facility] [address] [place] [address] Dr. Kassandra BowenINSULINon 35-48-8670Hmyydqq58.8 uIU/mLNormal2.6-24.9The [facility] SystemComment on above:Performed By: #### INSULIN ####[facility] [address] [address]Dr. Kassandra KnottC AUTO DIFF on 35-70-8585RLMF #0.0 103/ulNormal0.0-0.1The [facility] SystemComment on above: Performed By: #### CBC #### [facility] [address] [address] [address] Kassandra BowenBasophils/100 WBC (Bld)0.7 %Normal0.2-2.0[facility] Comment on above:Performed By: #### CBC #### [facility] [address] [place] [address] Dr. Kassandra Ramos #0.1 103/ulNormal0.0-0.7The [facility] SystemComment on above: Performed By: #### CBC #### [facility] [address] [place] [address] Dr. Kassandra Silvaosinophils/100 WBC (Bld)2.5 %Normal0.9-7.0[facility] Comment on above:Performed By: #### CBC #### [facility] [address] [place] [address] Dr. Kassandra Silvarythrocyte distribution width (RBC) [Ratio]12.4 %Eawuim58.0-15.0 [facility] SystemComment on above:Performed By: #### CBC #### [facility] [address] [place] [address] Dr. Kassandra BowenHematocrit (Bld) [Volume fraction]41.2 %Jymnor42.0-48.0The [facility] SystemComment on above:Performed By: #### CBC #### [facility] [address] [place] [address] Dr. Kassandra BowenHemoglobin (Bld) [Mass/Vol]13.8 g/rWRtyasb70.0-16.0The [facility] SystemComment on above:Performed By: #### CBC #### [facility] [address] [place] [address] Dr. Kassandra Babcock #0.02 10e3/ulNormal0.00-0.03The [facility] SystemCom[facility] on above:Performed By: #### CBC #### [facility] [address] [place] [address] Dr. Kassandra Babcock %0.4 %Normal0.0-0.5The [facility] SystemComment on above: Performed By: #### CBC #### [facility] [address] [place] [address] Dr. Kassandra Jeffries #1.5 103/ulNormal1.2-3.8The [facility] SystemComment on above:Performed By: #### CBC #### [facility] [address] [place] [address] Dr. Kassandra Randhawahocytes/100 WBC (Bld)26.0 %Vatqys25.5-60.0The [facility] SystemComtr[facility] on above:Performed By: #### CBC #### [facility] [address] [place] [address] Dr. Kassandra IslasUAL DIFF REQNONormalThe [facility] SystemComment on above: Performed By: #### CBC #### [facility] [address] [place] [address] Dr. Kassandra Junior (RBC) [Entitic mass]31.5 jdDybvfy20.7-34.0The [facility] SystemComment on above:Performed By: #### CBC #### [facility] [address] [place] [address] Dr. Kassandra Junior (RBC) [Mass/Vol]33.5 g/jNPxlscl34.9-35.2The [facility] SystemComment on above:Performed By: #### CBC #### [facility] [address] [place] [address] Dr. Kassandra Junior (RBC) [Entitic vol]94.1 nWKlskav17.0-99.0The [facility] SystemComment on above:Performed By: #### CBC #### [facility] [address] [address] [address] Kassandra Callejas #0.5 103/ulNormal0.3-0.8The [facility] SystemComment on above:Performed By: #### CBC #### [facility] [address] [address] [address] Kassandra Keeneocytes/100 WBC (Bld)8.7 %Normal1.7-12.0[facility] Comment on above:Performed By: #### CBC #### [facility] [address] [place] [address] Dr. Kassandra Perez #3.5 103/ulNormal1.4-6.5The [facility] SystemComment on above:Performed By: #### CBC #### [facility] [address] [place] [address] Dr. Kassandra Baptisteutrophils/100 WBC (Bld)61.7 %Mlfxky11.0-75.0The [facility] SystemComment on above:Performed By: #### CBC #### [facility] [address] [place] [address] Dr. Kassandra Jerome mean volume (Bld) [Entitic vol]8.3 fLCritically low 9.5-13.5The [facility] SystemComment on above:Performed By: #### CBC #### [facility] [address] [place] [address] Dr. Kassandra BowenPLT395 103/koIfsfkj178-053Ppy [facility] SystemComment on above: Performed By: #### CBC #### [facility] [address] [place] [address] Dr. Kassandra BowenRBC4.38 106/ulNormal4.20-5.40The [facility] SystemComment on above:Performed By: #### CBC #### [facility] [address] [place] [address] Dr. Kassandra BowenWBC5.7 103/ulNormal4.0-11.0The [facility] SystemComment on above: Performed By: #### CBC #### [facility] [address] [place], [place] [address] Dr. Kassandra Valadez THYROXINE INDEX T7on 22-29-9875NBS3.47Wjfqgx5.30-4.50The [facility]Com[facility] on above:Performed By: #### LIPID, TSH, T7, CMP #### [facility] [address] [place] [address] Dr. Kassandra BowenT3U36.0 %Ozsafp83.0-39.0The [facility] SystemComment on above: Performed By: #### LIPID, TSH, T7, CMP #### [facility] [address] [place] [address] Dr. Kassandra BowenT4 [Mass/Vol]5.90 ug/dLNormal4.80-13.90The [facility] Comment on above:Performed By: #### LIPID, TSH, T7, CMP #### [facility] [address] [place] [address] Dr. Kassandra BowenGLYCOHEMOGLOBIN A1Con 02-76-8263JDQ RECOMMENDATIONSEE BELOWNormal The [facility] SystemComment on above:Result Comment: ADA RECOMMENDED LIMIT 4.0 - 6.0 ADA THERAPEUTIC TARGET < 7.0 ACTION SUGGESTED > 7.0Performed By: #### A1C #### [facility] [address] [place] [address] Dr. Kassandra BowenGlucose [Mass/Vol]114 mg/dLNormalThe [facility] SystemComtr[facility] on above:Performed By: #### A1C #### [facility] [address] [place] [address] Dr. Kassandra BowenHbA1c (Bld) [Mass fraction]5.6 %Normal4.5-6.2The [facility] SystemComment on above:Performed By: #### A1C #### [facility] [address] [place] [address] Dr. Kassandra Hough 64-31-1981Yvdx [Mass/Vol]75.0 ug/nQBlcvyy94.0-170.0The [facility] SystemComment on above:Performed By: #### IRON #### [facility] [address] [address] [address] Kassandra AburtoID PROFILEon 51-91-3543KIZX-HDL RATIO NORMSCleveland Clinic Fairview HospitalComtrinity health [facility] on above:Result Comment: 3.3 - 4.4 LOW RISK 4.4 - 7.1 AVERAGE RISK 7.1 - 11.0 MODERATE RISK >11.0 HIGH RISKPerformed By: #### LIPID, TSH, T7, CMP #### [facility] [address] [address] [address] Kassandra BowenCholesterol [Mass/Vol]211 mg/dLCritically high<=200The [facility] on above:Performed By: #### LIPID, TSH, T7, CMP #### [facility] [address] [address] [address] Kassandra Josephesterol in HDL [Mass/Vol]51 mg/jLIhjbrj91-39JyeWVUMedicine [facility] on above:Performed By: #### LIPID, TSH, T7, CMP #### [facility] [address] [address] [address] Kassandra Josephesterol in LDL [Mass/Vol]147.2 mg/dLSumma Health Barberton CampusComtrinity health [facility] hospital on above:Performed By: #### LIPID, TSH, T7, CMP #### [facility] [address] [address] [address] Kassandra Josephesterjordan.total/Cholesterol in HDL [Mass ratio]4.1 {ratio} NormalThe [facility] on above:Performed By: #### LIPID, TSH, T7, CMP #### [facility] [address] [address] [address] Kassandra BowenHDL NORMAL> or = 60 mg/dl - LOW CARDIOVASCULAR RISK <40 mg/dl - HIGH CARDIOVASCULAR RISKSumma Health Barberton CampusComtrinity health [facility] hospital on above:Performed By: #### LIPID, TSH, T7, CMP #### [facility] [address] [address] [address] Kassandra BowenLDL CALC NORMALSEE [facility] HospitalComtr[facility] on above:Result Comment: <100 mg/dl OPTIMAL 100 - 129 mg/dl NEAR OR ABOVE OPTIMAL 130 - 159 mg/dl BORDERLINE HIGH 160 - 189 mg/dl HIGH >190 mg/dl VERY HIGH Performed By: #### LIPID, TSH, T7, CMP #### [facility] [address] [address] [address] Kassandra BowenTriglyceride [Mass/Vol]64 mg/dLNormal<=150The [facility] Comment on above:Performed By: #### LIPID, TSH, T7, CMP #### [facility] [address] [address] [address] Kassandra BowenVLDL CALC12.8 mg/dLNormalThe [facility] SystemComment on above: Performed By: #### LIPID, TSH, T7, CMP #### [facility] [address] [place] [address] Dr. Kassandra Dunne 14(COMP METB)on 34-46-4665Dzmddzd [Mass/Vol]3.6 g/dLNormal 3.4-5.0The [facility] SystemComment on above:Performed By: #### LIPID, TSH, T7, CMP #### [facility] [address] [place] [address] Dr. Kassandra BowenAlbumin/Globulin [Mass ratio]1.0 {ratio}NormalThe [facility] SystemComment on above:Performed By: #### LIPID, TSH, T7, CMP #### [facility] [address] [place] [address] Dr. Kassandra Alvarado [Catalytic activity/Vol]110 U/ZUyyobs54-455Lkx [facility] SystemComment on above:Performed By: #### LIPID, TSH, T7, CMP #### [facility] [address] [address] [address] Kassandra Bullard [Catalytic activity/Vol]21 U/GIxliui75-97Afu [facility] Centerment on above:Performed By: #### LIPID, TSH, T7, CMP #### [facility] [address] [place] [address] Dr. Kassandra Hightower gap [Moles/Vol]10.0 mmol/LNormalThe [facility] Comment on above:Performed By: #### LIPID, TSH, T7, CMP #### [facility] [address] [address] [address] Kassandra BowenAST [Catalytic activity/Vol]14 U/LCritically zgg80-93Euz [facility] SystemComment on above:Performed By: #### LIPID, TSH, T7, CMP #### [facility] [address] [address] [address] Kassandra BowenBilirubin [Mass/Vol]0.3 mg/dLNormal0.2-1.0The [facility] Comment on above:Performed By: #### LIPID, TSH, T7, CMP #### [facility] [address] [place] [address] Dr. Kassandra BowenCalcium [Mass/Vol]9.5 mg/dLNormal8.5-10.1The [facility] Comment on above:Performed By: #### LIPID, TSH, T7, CMP #### [facility] [address] [place] [address] Dr. Kassandra BowenChloride [Moles/Vol]104 mmol/FJxvvok06-157Vxv [facility] Comment on above:Performed By: #### LIPID, TSH, T7, CMP #### [facility] [address] [place] [address] Dr. Kassandra BowenCO2 [Moles/Vol]28.4 mmol/PFzplwi41.0-32.0[facility] Comment on above:Performed By: #### LIPID, TSH, T7, CMP #### [facility] [address] [place] [address] Dr. Kassandra BowenCreatinine [Mass/Vol]1.20 mg/dLCritically high0.55-1.02The [facility] SystemComment on above:Performed By: #### LIPID, TSH, T7, CMP #### [facility] [address] [place] [address] Dr. Kassandra SilvaGFR-AF TIUZQEWM30 mL/min/1.66y3Haoloefllg low>=60The [facility] SystemComment on above:Performed By: #### LIPID, TSH, T7, CMP #### [facility] [address] [address] [address] Kassandra SilvaGFR-NON AF QZEDKWBR47 mL/min/1.75a7Onjhvmtwwm low>=60The [facility] SystemComment on above:Performed By: #### LIPID, TSH, T7, CMP #### [facility] [address] [address] [address] Kassandra BowenGlobulin (S) [Mass/Vol]3.7 g/dLNormalThe [facility] SystemComment on above:Performed By: #### LIPID, TSH, T7, CMP #### [facility] [address] [place] [address] Dr. Kassandra BowenGlucose [Mass/Vol]120 mg/dLCritically qvnk66-617Dab [facility] SystemComment on above:Performed By: #### LIPID, TSH, T7, CMP #### [facility] [address] [place] [address] Dr. Kassandra BowenPotassium [Moles/Vol]4.4 mmol/LNormal3.5-5.1The [facility] Comment on above:Performed By: #### LIPID, TSH, T7, CMP #### [facility] [address] [place] [address] Dr. Kassandra BowenProtein [Mass/Vol]7.3 g/dLNormal6.4-8.2The [facility] Comment on above:Performed By: #### LIPID, TSH, T7, CMP #### [facility] [address] [place] [address] Dr. Kassandra BowenSodium [Moles/Vol]138 mmol/WFphiyc587-892Jxm [facility] Comment on above:Performed By: #### LIPID, TSH, T7, CMP #### [facility] [address] [place] [address] Dr. Kassandra BowenUrea nitrogen [Mass/Vol]8.0 mg/dLNormal7.0-18.0The [facility] SystemComment on above:Performed By: #### LIPID, TSH, T7, CMP #### [facility] [address] [place] [address] Dr. Kassandra BowenUrea nitrogen/Creatinine [Mass ratio]6.7 mg/mgNoRiverview Health InstituteComment on above:Performed By: #### LIPID, TSH, T7, CMP #### [facility] [address] [address] [address] Kassandra Gill 23-75-1444NEC1.651 uIU/mLNormal0.358-3.740The [facility] SystemComment on above:Performed By: #### LIPID, TSH, T7, CMP #### [facility] [id number] Kassandra BowenXR LSPINE MIN 4 VIEWSon 97-97-5457QJ LSPINE MIN 4 VIEWS EXAMINATION: XR LSPINE [...] Electronically authenticated by: ASHIA OGDEN Date: 2022-04-20 17:21[facility] Vital Signs Date TimeVital SignValuePerforming OspnmgsrbNiupvqnl49-57-7569 14:02-0400Body lvnyyp832.6 cmKatherine Giron MD Work Phone: [place] [facility] CenterCygrjphync22-47-4863 14:02-0400Body mass index (BMI) [Ratio]27.46 kg/c5NjidoyKatherine Giron MD Work Phone: [place] [facility] CenterYrqhommvzu63-35-2941 14:02-0400Body .58 kgKatherine Giron MD Work Phone: [place] [facility] CenterTwidheshxf37-43-3718 14:02-0400Diastolic blood hexqgnau48 mm[Hg]Katherine Giron MD Work Phone: [place] [facility] CenterVqrjdkeujt90-08-6505 14:02-0400Heart rate67 /min Katherine Giron MD Work Phone: [place] [facility] CenterWutaupxllm20-65-7712 14:02-0400Systolic blood tacrytdc761 mm[Hg]Katherine Giron MD Work Phone: [place] [facility] CenterGukeqsnrlv99-49-9357 08:56-0400Blood Pressure LocationMichael NILL [phone]-IsogxOhio [facility] [place] 05-02-2023 08:56-0400Diastolic blood ncyhgvot79 mm[Hg]Gael NILL [phone]-EclapOhio [facility] 05-02-2023 08:56-0400Heart rate63 /minMichael NILL [phone]-BqvjbOhio [facility] 05-02-2023 08:56-0400Respiratory rate16 /minMichael NILL [phone]-AnzvmOhio Valley Surgical Hospital 05-02-2023 08:56-0400Systolic blood pwtdoxpb168 mm[Hg]Gael NILL [phone]-ZngbpOhio Valley Surgical Hospital Encounters Encounter DateEncounter TypeCare ProviderFacilityStart: 10-04-2025 End: 57-18-4368ldygucvjnwSvqdqlr A. MouchliFacility:ThomasJonathan DHStart: 10-04-2025 End: 71-88-6612Blpynwx encounter procedureMotalon Coughlin [phone]-BudsaOhio State East Hospital [facility] Start: 27-14-1147ovjamiugfbKtmjjvl Mouchli Facility:GuzmanJonathan DHStart: 10-19-8486lbssutojafQcilbei MouchliFacility:BRENDEN KoMarymount Hospitaltart: 09-29-2025 End: 57-26-1130ywszblnxfmDPYUWOYJoint Township District Memorial Hospitaltart: 67-83-1281kqhlboiqjfKacxszaxggw AbdelazizFacility:[facility] Easttart: 06-11-2025 End: 76-65-7917Zfgoixiyj encounterHicarlos Giron MD Work Phone: [facility] CI ENTComment on above:lost ointmentrx question Start: 04-07-2025 End: 97-22-9063ybkzoanjwgOMEFMW H TIMMISNot AvailableStart: 04-07-2025 End: 36-46-7172Iggxtg flowsheetKatherine Giron MD Work Phone: [facility] ENTStart: 04-07-2025 End: 28-56-0390Slsziq maydaheetKatherine Giron MD Work Phone: [facility] ENTStart: 04-07-2025 End: 50-08-8219Esflbx outpatient new 45 minutesKatherine Giron MD Work Phone: [facility] CI ENTComment on above:Nasal septal perforation (Primary Dx); Chronic rhinitisStart: 05-02-2023 End: 06-69-9820Kutvnjo encounter procedureMichael R NILL [phone]-TulvlOhio State [facility] Hospital [facility] [place] Start: 01-64-6330smfctqndfpDZWMLMO HOYFacility:L4Nfhhe: 32-30-2352Wqfggtgee for general adult medical examination without abnormal findingsDOUGLAS BEVERLEYTriHealth Good Samaritan Hospitalmariya Wilson Healthtart: 02-08-2023 End: 96-75-4235icyhcyjhpoJOROBLV HOYFacility:O3Qtmwy: 02-08-2023 End: 58-90-3312Hqfjungfq for general adult medical examination without abnormal findingsDOUGLAS HOYFacility:B3Ggtxz: 26-01-8365wnnutzdmrrCQAMFGQ HOYFacility:H1 Start: 22-59-9188nnexkcvfkwBHPLNRQ HOYFacility:H4Jnqmv: 04-20-2022 End: 11-07-4501leiqgjtdioJREEMWU HOYFacility:H5Krupp: 09-12-2017 End: 37-73-1479WrtpypfnonFPQSZZO PHYSICIANFacility:[facility] Procedures DateProcedureProcedure DetailPerforming ClinicianStart: 85-73-0627Fhscnrpzelr Gael NILL AppendectomyMichael NILL Closed reduction of fracture of upper limbMichael NILL Excision of ganglion cystMichael NILL Plan of Treatment DateCare ActivityDetailAuthorStart: 45-57-2160Felzhihgt vaccinationNOGA HealthcareStart: 69-18-0150Rrgbinmqk for malignant neoplasm of breastMammogram [facility] HealthcareStart: 86-75-5734Dknflgngq for malignant neoplasm of cervixNOMS HealthcareStart: 94-24-4345Hxzogrnvc for malignant neoplasm of cervixPap Smear [facility] HealthcareStart: 63-79-2226Ttjzdfote for malignant neoplasm of colonNOMS Healthcare Immunizations Immunization DateImmunizationNotesCare MwbsgvqoThfyguqb08-78-2139ksaqdryxm virus vaccine, unspecified formulationKatherine Giron MD Work Phone: [place] [facility] CenterPhhkxebgxx08-20-1573svuhuwpbx virus vaccine, unspecified formulationMichael NILL [phone]-WftxkOhio Valley Surgical Hospital 13-62-5809ZTBA-CoV-2 (COVID-19) mRNAMUL.ORD!u73865Afoebgz NILL [phone]-PmvgjOhio Valley Surgical Hospital 10-79-1189KPNH-CoV-2 (COVID-19) mRNA-1273 vaccineMichael NILL [phone]-TyrsuOhio Valley Surgical Hospital 08-87-2772EQFU-CoV-2 (COVID-19) mRNA-1273 vaccineMichael NILL [phone]-CqgilOhio Valley Surgical Hospital Payers DatePayer CategoryPayerPolicy [id number] Health InsuranceHEALTHSCOPE Member Subscriber Plan / Payer (Effective 2022- Present) Name: Glory Mckeon Relation to Subscriber: Self Name: Glory Mckeon Payer ID: Not on file Group ID: Not on file Type: Not on file Address: [id number] [place] [id number] [id number] 2.16.840.1.164749.3.57[id number] 2.16.840.1.767674.3.57[id number] 2.16840.1.736169.3.57[id number] 2.16.840.1.246989.3.57[id number] 2.16.840.1.999989.3.57[id number] 2.16.840.1.843085.3.57[id number] 2.16840.1.369269.3.57[id number] 2.16.840.1.808848.3.579.2.13964-21-6883Ggzp-hkg92611808370-04-9721Iykqzdy [id number] 2.16840.1.399330.3.579.2.531 Social History DateTypeDetailFacilityStart: 77-50-0838Kirxyfg smoking statusLight tobacco smoker (finding)[facility] HospitalkTobacco smoking statusNeverOhio State [facility] Hospital [facility] Hospitaltart: 60-34-0119Pqr Assigned At BirthFemalMcCullough-Hyde Memorial HospitalTobacco smoking status NHISTobacco smoking consumption unknownNOMS HealthcareStart: 56-77-6367Sov assigned at birthNot on fileNOMS HealthcareStart: 04-07-2025 End: 15-26-1135Pzgkjrg smoking status NHISEx-smokerNOMS HealthcareHistory of tobacco useCurrent smokerNOMS HealthcareHistory of tobacco useCigarette Smoker [facility] HealthcareStart: 91-97-3866Zvdpyfv use and exposureSmokeless tobacco non-userNOMS HealthcareStart: 01-07-3182Acisjdlwe beverage intakeCurrent drinker of alcohol (finding)NOM HealthcareStart: 01-90-7334Bmenruk of Social function [facility] HealthcareStart: 62-44-5041Amsyryd CommentoccNOMS HealthcareSexual OrientationOhio State East Hospital Digestive Health SexFemale (finding)[facility] Functional Status NbfhWsctahxnnsOynawnMczgomsh43-50-6728Wbqgfvslbh StatusN/AFOhioHealth [facility] [place] Clinical Notes 04-20-2022 to 06-11-2025 Note Date & AmmnSfjtOqdgrbax84-63-2940 Telephone encounter Note* Telephone Encounter - Idalia Giron - 06/11/2025 3:59 PM EDT Pharmacy wants to know if she can change it from 15 to 22 for the ointment. [place] [facility] CenterKjfoetgxyq54-70-7898 Miscellaneous Notes* Telephone Encounter - Idalia Giron - 06/11/2025 3:59 PM EDT Pharmacy wants to know if she can change it from 15 to 22 for the ointment. documented in this [facility]07-11-2025 Telephone encounter Note* Telephone Encounter - Idalia Giron - 06/11/2025 3:45 PM EDT Called pt/pt verbalized understanding [place] [facility] CenterDjbgswstak28-77-8662 Miscellaneous Notes* Telephone Encounter - Idalia Giron - 06/11/2025 3:45 PM EDT Called pt/pt verbalized understanding * Telephone Encounter - Katherine Giron MD - 06/11/2025 3:24 PM EDT done * Telephone Encounter - Idalia Giron - 06/11/2025 3:06 PM EDT Pt would like to know if she can have a refill on the nose ointment that was prescribed to her. [place] the medicine. She uses [facility] in [place]. documented in this encounterMadison Medical CenterRefgdiepoa09-39-9378 Telephone encounter Note* Telephone Encounter - Katherine Giron MD - 06/11/2025 3:24 PM EDT done [place] [facility] CenterYlxsfogkgb34-63-0336 Telephone encounter Note* Telephone Encounter - Idalia Giron - 06/11/2025 3:06 PM EDT Pt would like to know if she can have a refill on the nose ointment that was prescribed to her. [place] the medicine. She uses [facility] in [place]. [facility] Rdpzydekhk84-69-1685 History of Present illness Narrative* Katherine Giron MD - 04/07/2025 2:00 PM EDT Subjective Patient ID: Glory Mckeon is a 59 y.o. female who presents for Sinusitis (CT sinus TBH ) Pt states she feels a periodic blockage of her nose. Digs crusts out of her nose with a rolly pin. 04/05 CT sinus shows no abnormalities. Review of Systems All other systems reviewed and are negative. No family history on file. 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 ammonium lactate (Amlactin) 12 % cream Apply topically if needed for dry skin aspirin 81 MG chewable tablet Chew 1 tablet every day by oral route. biotin 1 MG capsule Take by mouth desvenlafaxine (Pristiq) 100 MG 24 hr tablet Take 100 mg by mouth Daily dilTIAZem CD (Cartia XT) 240 MG 24 hr capsule Take 1 capsule every day by oral route. Dupilumab (Dupixent) 100 MG/0.67ML solution prefilled syringe as directed Subcutaneous famotidine (Pepcid) 40 MG tablet Take by mouth Fluticasone Propionate (FLONASE ALLERGY RELIEF NA) Administer into affected nostril(s) ibuprofen 800 MG tablet every 8 (eight) hours levothyroxine (Synthroid, Levoxyl) 75 MCG tablet Take 75 mcg by mouth Daily liothyronine (Cytomel) 5 MCG tablet Take 5 mcg by mouth Daily loratadine (Claritin) 10 MG tablet Take by mouth metoprolol succinate XL (Toprol-XL) 25 MG 24 hr tablet Take 25 mg by mouth Daily metoprolol succinate XL (Toprol-XL) 50 MG 24 hr tablet QUEtiapine (SEROquel) 50 MG tablet Take 50 mg by mouth at bedtime Semaglutide-Weight Management 2.4 MG/0.75ML solution auto-injector Inject under the skin No current facility-administered medications on file prior to visit. Objective Last Recorded Vitals Vitals: 04/07/25 1402 BP: 108/80 Pulse: 67 ENT Physical Exam Constitutional Appearance: patient appears well-developed, well-nourished and well-groomed, Head and Face Appearance: head appears normal and face appears atraumatic; Ear Ear Canals: right ear canal normal; left ear canal normal; Tympanic Membranes: right tympanic membrane normal; left tympanic membrane normal; Nose External Nose: nares patent bilaterally; external nose normal; Nose comments: Ant septal perf. Oral Cavity/Oropharynx Tongue: normal; Oral mucosa: normal; Hard palate: normal; Soft palate: normal; Tonsils: normal; Neck Neck: neck normal; neck palpation normal; Thyroid: thyroid normal; Respiratory Inspection: breathing unlabored; normal breathing rate; Auscultation: breath sounds are clear; Cardiovascular Inspection: extremities are warm and well perfused; no peripheral edema present; Auscultation: regular rate and rhythm; Assessment/Plan documented in this [facility]05-20-2022 NotePROCEDURE: XR KNEE RT 4V or > HISTORY: Pain in right knee since falling one week ago COMPARISON: None. FINDINGS: BONES:No fracture, acute abnormality, or significant arthropathy. SOFT TISSUES:No visible soft tissue swelling. EFFUSION:None visible. OTHER: Negative. IMPRESSION: 1. No acute bone abnormality. Electronically authenticated by: ASHIA OGDEN Date: 2022-04-20 17:22[facility] No data available for this section [facility] [place] Evaluation note* Diagnosis Nasal septal perforation- Primary Other diseases of nasal cavity and sinuses Chronic rhinitis documented in this encounter [facility] HealthcareEvaluation [facility]* Diagnosis Nasal septal perforation- Primary Other diseases of nasal cavity and sinuses documented in this encounter [facility] HealthcareEvaluation [facility]* Diagnosis Nasal septal perforation- Primary Other diseases of nasal cavity and sinuses documented in this encounter [facility] HealthcareHospital Discharge instructions No data available for this section [facility] [place] Progress note No data available for this section [facility] [place] Summary Purpose Family History No Family History Records FoundNo Family History Records FoundNo Family History Records FoundNo Family History Records FoundNo Family History Records FoundNo Family History Records Found No data available for this section Advance Directives No Advanced Directives Records FoundNo Advanced Directives Records FoundNo Advanced Directives Records FoundNo Advanced Directives Records FoundNo Advanced Directives Records FoundNo Advanced Directives Records Found Additional Source Comments INFORMATION SOURCE (unrecogn ized section and content) DATE CREATED AUTHOR 05/27/2018 [facility] DATE CREATED AUTHOR AUTHOR'S ORGANIZ ATION 04/17/2023 [facility] DATE CREATED AUTHOR AUTHOR'S ORGANIZ ATION 04/10/2025 [facility] DATE CREATED AUTHOR AUTHOR'S ORGANIZ ATION 09/06/2025 [facility] DATE CREATED AUTHOR AUTHOR'S ORGANIZ ATION 09/30/2025 [facility] DATE CREATED AUTHOR AUTHOR'S ORGANIZ ATION 10/05/2025 [facility] Patient Care team informatio n (unrecognized section and content) Personnel Name: Álvaro Sheehan MD Address: [address] [place] [address] Telecom: Team MemberRelationshipSpecialtyStart DateEnd Date Álvaro Sheehan MD [address] [place] [phone] PCP - GeneralFamily Medicine04/07/25Team MemberRelationshipSpecialtyStart DateEnd Date Álvaro Sheehan MD [address] [place] [address] PCP - Man [facility]04/07/25Team MemberRelationshipSpecialtyStart DateEnd Date Álvaro Sheehan MD [address] [place] [address] PCP - Man [facility]04/07/25Te MemberRelationshipSpecialtyStart DateEnd Date Álvaro Sheehan MD [address] [place] [address] PCP - Man [facility]04/07/25 Reason for Visit (unrecogniz ed section and content) ReasonCommentsSinusitisCT sinus TBHReasonOnset DateCommentslost ointment 06/11/2025ReasonOnset DateCommentsrx noxifyfv25/11/2025 FOR RECORDS PERTAINING TO PATIENTS WHO ARE [...] BE BASED ON THE PRIMARY CLINICAL RECORDS. [facility] [employer] [facility]. provides no warranty or guarantee of the accuracy or completeness of information in this document.
--- NOTE | 2025-11-12 13:30 | MM_ITS ---
Patient Name: GLORY MCKEON MR#: [id number] : 1965 Exam Date: 11/12/2025 Ordering Doctor: DR ÁLVARO SANTANA . RADIOLOGY REPORT PROCEDURE: MM TOMOSYNTHESIS SCREENING BI COMPARISON: MG MAMM SCREEN JULIEN W CAD, 11/05/2019. MG MAMM SCREEN JULIEN W CAD, 04/07/2018. MAMMO POST BIOPSY RIGHT, 02/05/2017. MG MAMM JULIEN DIAG W CAD, 02/01/2017. INDICATIONS: Screening Calculator Name NCI Breast Cancer Risk Assessment Tool 5 Year Breast Cancer Risk 1.60% Lifetime Breast Cancer Risk 7.70% Personal Breast Cancer No Personal Ovarian Cancer No Treatments None Family Cancers Niece with breast cancer at age 42. LOCATION: [facility] BREAST COMPOSITION: The breasts are heterogeneously dense, which may obscure small masses. FINDINGS: RIGHT BREAST: No significant suspicious finding. There is a similar focal asymmetry. A benign-appearing calcification is noted. LEFT BREAST: No significant suspicious finding. DIAGNOSTIC CATEGORY 2--BENIGN FINDING. NO CHANGE FROM COMPARISON. RECOMMENDATIONS: ROUTINE MAMMOGRAM AND CLINICAL EVALUATION IN 12 MONTHS. Dictated by: Howard Hernandez MD on 11/12/2025 at 15:33 Approved by: Howard Hernandez MD on 11/12/2025 at 15:36
== END 2025-11-12 13:06 | disposition home or self-care (01) ==
LOC: MAMMO 13:05
PROVIDERS: PCP Family Medicine; Visit Provider Family Medicine
DX: Z12.31 Encounter for screening mammogram for malignant neoplasm of breast (principal); Z80.3 Family history of malignant neoplasm of breast
CPT/HCPCS: 77063; 77067

== ENCOUNTER 2025-11-18 15:57 | Outpatient (OUT) | payer OTHER, SELFPAY ==
--- OUTSIDE RECORDS SUMMARY | 2025-09-15 09:00 | XMS_ITS ---
Author Organization [facility] in [place] Address [address] [place] [address] Care Team Providers Care Health And Safety Inspector Name Role Phone Konrad Sheehan Primary Care Provider REASON FOR VISIT anxiety Encounters Encounter Location Date Provider Diagnosis [facility] [address] [place] [address] 09/15/2025 Konrad Sheehan Plan Of Treatment No Information Progress Notes * Ciara KENDALL MDOB:[birth year] (59 yo F)Acc No.[id number]:09/15/2025 UNLOCKED PROGRESS NOTE Progress Note Patient: Ciara LONG :?Lonnie Sheehan (RHYS), MDDOB:1965???Age: 59 Y???Sex:FemaleDate:09/15/2025Phone:[phone]:[address] [place], [place] [address] Subjective: * Chief Complaints: * 1 . Anxiety. * Medical History: Objective: * Vitals: Assessment: Plan: * Treatment: * * Electronic signature of Konrad Sheehan MD, [id number] on 11/18/2025 at 04:01 PM EST Sign off status: PendingVisit Status:?CANC (Cancelled) * Provider: Jazzmine Sheehan MD (TTC) Date: 1 Generated for Printing/Faxing/eTransmitting on:?11/18/2025 04:01 PM EST
--- OUTSIDE RECORDS SUMMARY | 2025-11-18 16:01 | XMS_ITS | Clinical Summary ---
Author Organization [facility] Address [address] [place] [address] Care Team Providers Care Blood Coordinator Name Role Phone Lonnie Sheehan MD Primary Care Provider [phone] Social History Tobacco UseTypesPacks/DayYears UsedDateSmoking Tobacco: Never Assessed CommentsUnknownSex and Gender InformationValueDate RecordedSex Assigned at Not on fileLegal MzlVwgano54/02/2012 8:04 AM ESTGender IdentityNot on fileSexual OrientationNot on file Plan of Treatment Health MaintenanceDue DateLast DoneCommentsAnxiety Vbxltisuf84/14/1982Depression Deqakgoox74/14/1982HIV Enakpfffs66/14/1982Hepatitis C Ewiftgjql06/14/1982 DTaP,Tdap,Td Vaccine (1 - Tdap)1982Cervical Cancer Saczwvszs21/14/1985 Mammogram Lbktvsidg28/14/2004CT Xrmfjjoijqtq27/14/2009Cologuard (FIT-DNA) 12/15/20080614Ycbauslxmuj66/14/2009Colorectal Cancer Tplclgstv66/14/2009Diabetes Wyzarokfr97/14/2009Fecal Occult Blood2008Lipid Fzyonvrgd26/14/2009 Mgenqhejvjlnk29/14/2009Pneumococcal Vaccine: 50+ (1 of 1 - PCV)2013 Shingrix Vaccine (1 of 2)2013Covid-19 Vaccine (1 - season) 2025Influenza Vaccine (#1)2025RSV Vaccine (1 - 1-dose 75+ series) 2038 Care Teams Team MemberRelationshipSpecialtyStart DateEnd Date Lonnie Sheehan MD PCP - [facility]19[facility]16
--- OUTSIDE RECORDS SUMMARY | 2025-11-18 16:01 | XMS_ITS | Patient Health Record ---
Author Organization [facility] [place] Address [address] [place] [address] Care Team Providers Care Charge Attendant Name Role Phone Konrad Sheehan Primary Care Provider [phone] Allergies Allergen (clinical drug ingredient) Drug/Non Drug Allergy documented on EMR Reaction Allergy Type Onset Date Status sulfamethoxazole / trimethoprim Bactrim rash Drug Allergy ActiveciprofloxacinCiproupset stomachDrug AllergyActiveLatexLatexrashAllergy Active Results Component Value Reference Range Notes UA DIP NONAUTO WO MICRO (810 02) - IN OFFICE (Not yet reviewed by provider) Interpretation: Performing Lab: Notes/Report: COLOR lt yellow CLARITYclearGLUCOSEnBILIRUBINnKETONEnSPECIFIC GRAVITY1.457MTBSTiBF8.5PROTEINn UROBILINOGENnNITRITEnLEUKOCYTE ESTERASETraceUA DIP NONAUTO WO MICRO (53164) - IN OFFICE Reviewed date:09/27/2025 06:58:57 PM Interpretation: Performing Lab: Notes/Report: COLORyellowCLARITYclearGLUCOSEnegBILIRUBINnegKETONEnegSPECIFIC GRAVITY1.010BLOOD jxgKK5IDFTLGWuceXNEWYGDHLBSJjuxKWJOVQCjbzAMKZYUQBN ESTERASEposUA DIP NONAUTO WO MICRO (97040) - IN OFFICE Reviewed date:09/28/2025 11:39:19 AM Interpretation: Performing Lab: Notes/Report: COLORYellowCLARITYClearGLUCOSENegBILIRUBINNegKETONE+SPECIFIC GRAVITY1.010BLOOD QyoOK4QDJFWZJCdsZYVRIRVZPKXIUbmJSHXWMKSppIZDHKTAMT ESTERASE+COVID-19, Flu A+B IH Reviewed date:11/13/2025 04:51:42 PM Interpretation: Performing Lab: Notes/Report: COVIDnegFLU AnegFLU BnegControlposFREE T3 Reviewed date:12/14/2024 01:23:32 PM Interpretation: Performing Lab: Notes/Report: [facility] ,Free T32.212.18-3.98 pg/mLPerforming Lab:see note - [facility] LB INSULIN Reviewed date:2024 04:22:39 PM Interpretation: Performing Lab: Notes/Report: [facility] ,Rnpulxl22.82.6-24.9 uIU/mL Performed at: [address] [id number] [employer]: Rico Hidalgo PhD, Phone: [phone] Performing Lab:[facility] LBLIPID PROFILE Reviewed date:12/14/2024 01:23:32 PM Interpretation: Performing Lab: Notes/Report: [facility] ,Ruyatsnqnypfa37<=150 mg/mWHywqhjclxfv102<=200 mg/dLHDL Rwnfpsolkoy1057-76 mg/dL > or =60 mg/dl - LOW CARDIOVASCULAR RISK <40 mg/dl - HIGH CARDIOVASCULAR RISK LDL Cholesterol Nswgchjdut399.0 <100 mg/dl OPTIMAL 100-129 mg/dl NEAR OR ABOVE OPTIMAL 130-159 mg/dl BORDERLINE HIGH 160-189 mg/dl HIGH >190 mg/dl VERY HIGH VLDL SOETUAVQBPD47.2Chol HDL Ratio3.7 3.3 - 4.4 LOW RISK 4.4 - 7.1 AVERAGE RISK 7.1 - 11.0 MODERATE RISK >11.0 HIGH RISK Performing Lab:see note - [facility] LBPROF 14(COMP METB) Reviewed date:12/14/2024 01:23:32 PM Interpretation: Performing Lab: Notes/Report: [facility] ,Pchfty053355-942 mmol/LPotassium4.53.5-5.1 mmol/AHiuvralo87697-161 mmol/LCarbon Dkixajf17.821.0-32.0 mmol/LAnion Gap8.7Hasqizd4734-033 mg/dLBlood Urea Nitrogen 12.07.0-18.0 mg/dLCreatinine1.230.55-1.02 mg/dLEstimated GFR ( Xqdkpab83 >=60 mL/min/1.73m 2Estimated GFR (Non- Ame45>=60 mL/min/1.73m 2BUN Creatinine Ratio9.7Xszlwfz6.58.5-10.1 mg/dLBilirubin Total0.30.2-1.0 mg/dL Aspartate Amino Xsnvkryxgmz9119-30 U/LAlanine Slogeurldwuvbpxg8081-35 U/L Alkaline Olupruritvw67784-098 U/LTotal Protein6.96.4-8.2 g/dLAlbumin Level3.3 3.4-5.0 g/dLGlobulin3.6Albumin Globulin Ratio0.9Performing Lab:see noteML - [facility] LBT4 Reviewed date:12/14/2024 01:23:32 PM Interpretation: Performing Lab: Notes/Report: [facility] ,T4 Thyroxine6.704.80-13.90 ug/dLPerforming Lab:see noteML - [facility] LBTSH Reviewed date:12/14/2024 01:23:32 PM Interpretation: Performing Lab: Notes/Report: [facility] ,Thyroid Stimulating Hormone0.0880.358-3.740 uIU/mLPerforming Lab:see noteML - [facility] LBBNP Reviewed date:03/25/2025 07:10:39 PM Interpretation: Performing Lab: Notes/Report: [facility] ,NT Pro B Type Natriuretic Pept61.0<=900.0 pg/mLPerforming Lab:see noteML - [facility] LBCBC AUTO DIFF Reviewed date:03/25/2025 07:10:39 PM Interpretation: Performing Lab: Notes/Report: [facility] ,White Blood Count7.44.0-11.0 10 3/uLRed Blood Count4.554.20-5.40 10 6/uL Eiyoforpdx64.612.0-16.0 g/tSIgrvmnvdlo95.936.0-48.0 %Mean Corpuscular Hiysxe59.1 81.0-99.0 fLMean Corpuscular Zzipgtugjx08.126.7-34.0 pgMean Corpuscular HGB Conc 34.829.9-35.2 g/dLRed Cell Distribution Width12.611.0-15.0 %Platelet Uesdx154 150-450 10 3/uLMean Platelet Volume8.59.5-13.5 fLNeutrophils Percent Auto53.5 43.0-75.0 %Lymphocytes Percent Auto36.220.5-60.0 %Monocytes Percent Auto8.21.7- 12.0 %Eosinophils Percent Auto1.30.9-7.0 %Basophils Percent Auto0.50.2-2.0 % Immature Granulocytes Pct Auto0.30.0-0.5 %Neutrophils Absolute Auto4.01.4-6.5 10 3/uLLymphocytes Absolute Auto2.71.2-3.8 10 3/uLMonocytes Absolute Auto0.60.3-0.8 10 3/uLEosinophils Absolute Auto0.10.0-0.7 10 3/uLBasophils Absolute Auto0.00.0- 0.1 10 3/uLImmature Granulocytes Abs Auto0.020.00-0.03 10 3/uLPerforming Lab:see noteML - [facility] LBD-DIMER Reviewed date:03/25/2025 07:10:39 PM Interpretation: Performing Lab: Notes/Report: [facility] ,D Dimer0.34<=0.59 mg/L FEU Increases in D-Dimer [...] and generalized hospitalization. Performing Lab:see noteML - [facility] LBPROF 14(COMP METB) Reviewed date:03/25/2025 07:10:39 PM Interpretation: Performing Lab: Notes/Report: [facility] ,Mceqwt192151-844 mmol/LPotassium4.03.5-5.1 mmol/GIlbwlbum70873-156 mmol/LCarbon Lxxczyk11.121.0-32.0 mmol/LAnion Gap13.3Bwubxgl99193-856 mg/dLBlood Urea Gjqmduzo71.07.0-18.0 mg/dLCreatinine1.270.55-1.02 mg/dLEstimated GFR ( Bopgttu75>=60 mL/min/1.73m 2Estimated GFR (Non- Ame43>=60 mL/min/1.73m 2 BUN Creatinine Ratio9.0Kzwumhm5.38.5-10.1 mg/dLBilirubin Total0.30.2-1.0 mg/dL Aspartate Amino Spqlvqgpebp7973-89 U/LAlanine Tjdbgwkmbripdics4624-54 U/L Alkaline Ziuuqjczgij92109-114 U/LTotal Protein7.16.4-8.2 g/dLAlbumin Level3.7 3.4-5.0 g/dLGlobulin3.4Albumin Globulin Ratio1.1Performing Lab:see note - [facility] LBTroponin I High Sensitivity Reviewed date:03/25/2025 07:10:39 PM Interpretation: Performing Lab: Notes/Report: [facility] ,Troponin I High Sensitivity<4.04.0-51.3 pg/mL CUT-OFF POINTS HAVE BEEN ESTABLISHED BASED ON THE FOURTH UNIVERSAL DEFINITION OF MYOCARDIAL INFARCTION. THE UPPER REFERENCE LIMIT (URL) OF TROPONIN, DEFINED THE 99TH PERCENTILE OF cTnI DISTRIBUTION IN A REFERENCE POPULATION, HAS BEEN CONFIRMED THE DECISION THRESHOLD FOR TX DIAGNOSIS. 99TH PERCENTILE = 51.4 PG/ML NOTE: HIGH-SENSITIVITY TROPONIN ASSAY IS NOT INTENDED TO BE USED IN ISOLATION BUT SHOULD BE INTERPRETED IN CONJUNCTION WITH OTHER DIAGNOSTIC AND CLINICAL INFORMATION. Performing Lab:see note - [facility] LBECG 12 lead Reviewed date:03/25/2025 08:57:20 PM Interpretation: Performing Lab: Notes/Report: Source Facility: [facility]-[address] [place] [address] [place] [address] Electrocardiograph Report Signed Patient: GLORY MCKEON MR#: [id number] : 1965 Acct:[id number] Age/Sex: 59 / F ADM Date: 03/25/25 Loc: ER Attending Dr: Ordering Physician: Melina Heath Date of Service: 03/25/25 Procedure(s): ECG 12 lead Accession Number(s): [id number] cc: [facility] Test Date: 2025-03-25 Pat Name: GLORY MCKEON Department: Room: - Gender: Female Board Member: : 1965 Requested By: [id number] Order Number: [id number] Reading MD: EDDIE MCKEON M.D. Measurements Intervals [place] Rate: 79 P: 13 ME: 140 QRS: -4 QRSD: 84 T: 18 QT: 358 QTc: 393 Interpretive Statements 1100 Sinus rhythm [address] depression Abnormal ECG Compared to ECG 12/17/2019 13:26:58 Myocardial infarct finding no longer present ST (T wave) deviation still present Electronically Signed On 03-25-2025 20:45:47 EDT by EDDIE MCKEON M.D. 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 Ordering Physician: Álvaro Sheehan M.D. Date of Service: 04/05/25 Procedure(s): CT lung screening low-dose Accession Number(s): [id number] cc: Álvaro Sheehan M.D. [place] [id number] Patient Name: GLORY MCKEON MRN: [id number] date: 1965 Sex: F Assigned Patient Location: CT Current Patient Location: CT Accession/Order Number: [id number] Exam Date: 04/05/2025 15:15 Report Date: 04/05/2025 [...] 04/05/2025 3:23 PM Dictation Location: [place] [address] Electronically authenticated by: [id number] Y Date: 04/05/2025 15:23 Dictated By: Jack Leon M.D. Signed By: 04/05/25 1526 DD/ 1523 TD/TT: Lawnmower Repair Mechanic:CBC AUTO DIFF Reviewed date:06/09/2025 07:02:15 PM Interpretation: Performing Lab: Notes/Report: [facility] ,White Blood Count9.34.0-11.0 10 3/uLRed Blood Count4.584.20-5.40 10 6/uL Eovanasrcp85.512.0-16.0 g/lDXsngguefta47.336.0-48.0 %Mean Corpuscular Llpowk82.5 81.0-99.0 fLMean Corpuscular Xrjrlwzaqg92.726.7-34.0 pgMean Corpuscular HGB Conc 33.529.9-35.2 g/dLRed Cell Distribution Width12.711.0-15.0 %Platelet Wtfxm533 150-450 10 3/uLMean Platelet Volume8.49.5-13.5 fLNeutrophils Percent Auto74.1 43.0-75.0 %Lymphocytes Percent Auto17.620.5-60.0 %Monocytes Percent Auto7.21.7- 12.0 %Eosinophils Percent Auto0.20.9-7.0 %Basophils Percent Auto0.50.2-2.0 % Immature Granulocytes Pct Auto0.40.0-0.5 %Neutrophils Absolute Auto6.91.4-6.5 10 3/uLLymphocytes Absolute Auto1.61.2-3.8 10 3/uLMonocytes Absolute Auto0.70.3-0.8 10 3/uLEosinophils Absolute Auto0.00.0-0.7 10 3/uLBasophils Absolute Auto0.10.0- 0.1 10 3/uLImmature Granulocytes Abs Auto0.040.00-0.03 10 3/uLPerforming Lab:see noteML - [facility] LBCT angio neck Reviewed date:06/09/2025 07:02:15 PM Interpretation: Performing Lab: Notes/Report: Source Facility: [place] [address] CT Scan Report Signed Patient: GLORY MCKEON MR#: [id number] : 1965 Acct:[id number] Age/Sex: 59 / F ADM Date: 06/09/25 Loc: ER Attending Dr: Ordering Physician: Federico Villafana M.D. Date of Service: 06/09/25 Procedure(s): CT angio neck Accession Number(s): [id number] cc: Álvaro Sheehan M.D. [place] [address] Patient Name: GLORY MCKEON MRN: [id number] date: 1965 Sex: F Assigned Patient Location: ER Current Patient Location: ER Accession/Order Number: [id number] Exam Date: 06/09/2025 18:00 Report Date: 06/09/2025 [...] Cardona M.D. 06/09/2025 6:10 PM Dictation Location: [place] [address] Electronically authenticated by: [id number] Y Date: 06/09/2025 18:10 Dictated By: Arcenio Cardona M.D. 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 Date of Service: 06/09/25 Procedure(s): CT angio head Accession Number(s): [id number] cc: Álvaro Sheehan M.D. [address] [address] Patient Name: GLORY MCKEON MRN: [id number] date: 1965 Sex: F Assigned Patient Location: ER Current Patient Location: ER Accession/Order Number: [id number] Exam Date: 06/09/2025 18:00 Report Date: 06/09/2025 [...] Cardona M.D. 06/09/2025 6:10 PM Dictation Location: [place] [address] Electronically authenticated by: [id number] Y Date: 06/09/2025 18:10 Dictated By: Arcenio Cardona M.D. Signed By: 06/09/251811 DD/ 09 TD/TT: Lawnmower Repair Mechanic:CT head/brain wo con Reviewed date:06/09/2025 07:02:15 PM Interpretation: Performing Lab: Notes/Report: Source Facility: [facility]-[address], [place] [address] [address] [address] Scan Report Signed Patient: GLORY MCKEON MR#: [id number] : 1965 Acct:[id number] Age/Sex: 59 / F ADM Date: 06/09/25 Loc: ER Attending Dr: Ordering Physician: Federico Villafana M.D. Date of Service: 06/09/25 Procedure(s): CT head/brain wo con Accession Number(s): [id number] cc: Álvaro Sheehan M.D. [place] [address] Patient Name: GLORY MCKEON MRN: [id number] date: 1965 Sex: F Assigned Patient Location: ED.MAIN Current Patient Location: ED.MAIN Accession/Order Number: [id number] Exam Date: 06/09/2025 16:05 Report Date: 06/09/2025 [...] Garcia M.D. 06/09/2025 4:07 PM Dictation Location: [place] [address] Electronically authenticated by: [id number] Y Date: 06/09/2025 16:07 Dictated By: Juan Pablo Garcia D.O. Signed By: 06/09/25 1609 DD/ 1607 TD/TT: Lawnmower Repair Mechanic:XR chest 1V Reviewed date:06/09/2025 07:02:15 PM Interpretation: Performing Lab: Notes/Report: Source Facility: [place] [address] XRay Report Signed Patient: GLORY MCKEON MR#: [id number] : 1965 Acct:[id number] Age/Sex: 59 / F ADM Date: 06/09/25 Loc: ER Attending Dr: Ordering Physician: Federico Villafana M.D. Date of Service: 06/09/25 Procedure(s): XR chest 1V Accession Number(s): [id number] cc: Álvaro Sheehan M.D.; Federico Villafana M.D. [place] [address] Patient Name: GLORY MCKEON MRN: [id number] date: 1965 Sex: F Assigned Patient Location: ED.MAIN Current Patient Location: ED.MAIN Accession/Order Number: [id number] Exam Date: 06/09/2025 16:07 Report Date: 06/09/2025 [...] Garcia M.D. 06/09/2025 4:08 PM Dictation Location: [place] [address] Electronically authenticated by: [id number] Y Date: 06/09/2025 16:08 Dictated By: Juan Pablo Garcia D.O. Signed By: 06/09/25 1610 DD/ 1608 TD/TT: Lawnmower Repair Mechanic:AMMONIA Reviewed date:09/27/2025 06:58:57 PM Interpretation: Performing Lab: Notes/Report: [facility] ,Ammonia<1011-32 umol/LPerforming Lab:see [facility] GLYCOHEMOGLOBIN A1C Reviewed date:09/27/2025 06:58:57 PM Interpretation: Performing Lab: Notes/Report: [facility] ,Glycohemoglobin A1C5.44.5-6.2 % ADA RECOMMENDED LIMIT 4.0 - 6.0 ADA THERAPEUTIC TARGET < 7.0 ACTION SUGGESTED > 7.0 Estimated Average Tywbmho213Ywkckwwbwl Lab:see [facility] INSULIN Reviewed date:09/28/2025 07:34:00 PM Interpretation: Performing Lab: Notes/Report: [facility] ,Yykcrki42.72.6-24.9 uIU/mL Performed at: [facility] [address] [id number] [employer]: Rico Hidalgo PhD, Phone: [phone] Performing Lab:[facility] LBIRON Reviewed date:09/27/2025 06:58:57 PM Interpretation: Performing Lab: Notes/Report: [facility] ,Wenq703.050.0-170.0 ug/dLPerforming Lab:see [facility]MM tomosynthesis screening BI Reviewed date:11/13/2025 04:51:42 PM Interpretation: Performing Lab: Notes/Report: Source Facility: [place] [address] Mammography Report Signed Patient: GLORY MCKEON MR#: [id number] : 1965 Acct:[id number] Age/Sex: 59 / F ADM Date: 11/12/25 Loc: MAMMO Attending Dr: Álvaro Sheehan M.D. Ordering Physician: Álvaro Sheehan M.D. Results: Date of Service: 11/12/25 Follow Up: Procedure(s): MM tomosynthesis screening BI Accession Number(s): [id number] cc: Álvaro Sheehan M.D. Patient Name: GLORY MCKEON MR#: [id number] : 1965 Exam Date: 11/12/2025 Ordering Doctor: DR ÁLVARO SHEEHAN . RADIOLOGY REPORT PROCEDURE: MM TOMOSYNTHESIS SCREENING BI COMPARISON: MG MAMM SCREEN JULIEN W CAD, 11/05/2019. MG MAMM SCREEN JULIEN W CAD, 04/07/2018. MAMMO POST BIOPSY RIGHT, 02/05/2017. MG MAMM JULIEN DIAG W CAD, 02/01/2017. INDICATIONS: Screening Calculator Name NCI Breast Cancer Risk Assessment Tool 5 Year Breast Cancer Risk 1.60% Lifetime Breast Cancer Risk 7.70% Personal Breast Cancer No Personal Ovarian Cancer No Treatments None Family Cancers Niece with breast cancer at age 42. LOCATION: [facility] BREAST COMPOSITION: The breasts are heterogeneously dense, which may obscure small masses. FINDINGS: RIGHT BREAST: No significant suspicious finding. There is a similar focal asymmetry. A benign-appearing calcification is noted. LEFT BREAST: No significant suspicious finding. DIAGNOSTIC CATEGORY 2--BENIGN FINDING. NO CHANGE FROM COMPARISON. RECOMMENDATIONS: ROUTINE MAMMOGRAM AND CLINICAL EVALUATION IN 12 MONTHS. Dictated by: Howard Hernandez MD on 11/12/2025 at 15:33 Approved by: Howard Hernandez MD on 11/12/2025 at 15:36 Dictated By: Howard Hernandez M.D. Signed By: 11/12/25 1537 DD/ 1536 TD/TT: Lawnmower Repair Mechanic:VITAMIN D 25 [place] Reviewed date:09/27/2025 06:58:57 PM Interpretation: Performing Lab: Notes/Report: [facility] ,Vitamin D56.3 <20 ng/mL Vit D deficient 20-<30 ng/mL Vit D insufficient 30-100 ng/mL Vit D sufficient >100 ng/mL Potential Toxicity Performing Lab:see noteML - [facility] LBTSH Reviewed date:09/27/2025 06:58:57 PM Interpretation: Performing Lab: Notes/Report: [facility] ,Thyroid Stimulating Hormone0.0940.358-3.740 uIU/mLPerforming Lab:see noteML - [facility] LBT4 Reviewed date:09/27/2025 06:58:57 PM Interpretation: Performing Lab: Notes/Report: [facility] ,T4 Thyroxine6.904.80-13.90 ug/dLPerforming Lab:see noteML - [facility] LBPROF 14(COMP METB) Reviewed date:09/27/2025 06:58:57 PM Interpretation: Performing Lab: Notes/Report: [facility] ,Wfcffa253532-247 mmol/LPotassium4.73.5-5.1 mmol/SWrijfdsz10323-758 mmol/LCarbon Oxyfedp91.521.0-32.0 mmol/LAnion Gap10.4Hiogasj05909-212 mg/dLBlood Urea Vrpwzyzc64.07.0-18.0 mg/dLCreatinine1.310.55-1.02 mg/dLEstimated GFR ( Onncpza59>=60 mL/min/1.73m 2Estimated GFR (Non- Ame41>=60 mL/min/1.73m 2 BUN Creatinine Ratio9.7Tmpmpbj8.88.5-10.1 mg/dLBilirubin Total0.30.2-1.0 mg/dL Aspartate Amino Uvbiunnobfg3193-21 U/LAlanine Nyobmqffabuxxkww3225-04 U/L Alkaline Ujpazmunkkd50338-452 U/LTotal Protein7.66.4-8.2 g/dLAlbumin Level3.8 3.4-5.0 g/dLGlobulin3.8Albumin Globulin Ratio1.0Performing Lab:see noteML - [facility] LBLIPID PROFILE Reviewed date:09/27/2025 06:58:57 PM Interpretation: Performing Lab: Notes/Report: [facility] ,Ssbbmxootmigz48<=150 mg/sAVdtehuumrva989<=200 mg/dLHDL Jfrbjsylfif8430-47 mg/dL > or =60 mg/dl - LOW CARDIOVASCULAR RISK <40 mg/dl - HIGH CARDIOVASCULAR RISK LDL Cholesterol Cnlurjzwgc571.0 <100 mg/dl OPTIMAL 100-129 mg/dl NEAR OR ABOVE OPTIMAL 130-159 mg/dl BORDERLINE HIGH 160-189 mg/dl HIGH >190 mg/dl VERY HIGH VLDL DZAIBEYAKKV40.0Chol HDL Ratio4.1 3.3 - 4.4 LOW RISK 4.4 - 7.1 AVERAGE RISK 7.1 - 11.0 MODERATE RISK >11.0 HIGH RISK Performing Lab:see noteML - [facility] LBFREE T3 Reviewed date:09/27/2025 06:58:57 PM Interpretation: Performing Lab: Notes/Report: [facility] ,Free T32.632.18-3.98 pg/mLPerforming Lab:see noteML - [facility] LB CBC AUTO DIFF Reviewed date:09/27/2025 06:58:57 PM Interpretation: Performing Lab: Notes/Report: [facility] ,White Blood Count7.04.0-11.0 10 3/uLRed Blood Count5.084.20-5.40 10 6/uL Jnbguygnyv21.812.0-16.0 g/pREvbtsgbskf97.936.0-48.0 %Mean Corpuscular Lvfmif58.3 81.0-99.0 fLMean Corpuscular Tcsglunngi02.126.7-34.0 pgMean Corpuscular HGB Conc 33.729.9-35.2 g/dLRed Cell Distribution Width12.411.0-15.0 %Platelet Hxhuc017 150-450 10 3/uLMean Platelet Volume8.59.5-13.5 fLNeutrophils Percent Auto63.1 43.0-75.0 %Lymphocytes Percent Auto28.920.5-60.0 %Monocytes Percent Auto7.01.7- 12.0 %Eosinophils Percent Auto0.00.9-7.0 %Basophils Percent Auto0.70.2-2.0 % Immature Granulocytes Pct Auto0.30.0-0.5 %Neutrophils Absolute Auto4.41.4-6.5 10 3/uLLymphocytes Absolute Auto2.01.2-3.8 10 3/uLMonocytes Absolute Auto0.50.3-0.8 10 3/uLEosinophils Absolute Auto0.00.0-0.7 10 3/uLBasophils Absolute Auto0.10.0- 0.1 10 3/uLImmature Granulocytes Abs Auto0.020.00-0.03 10 3/uLPerforming Lab:see noteML - [facility] LBECG 12 lead Reviewed date:06/10/2025 06:46:40 PM Interpretation: Performing Lab: Notes/Report: Source Facility: [facility]-[address] [place] [address] [place] [address] Electrocardiograph Report Signed Patient: GLORY MCKEON MR#: [id number] : 1965 Acct:[id number] Age/Sex: 59 / F ADM Date: 06/09/25 Loc: ER Attending Dr: Ordering Physician: Federico Villafana M.D. Date of Service: 06/09/25 Procedure(s): ECG 12 lead Accession Number(s): [id number] cc: [facility] Test Date: 2025-06-09 Pat Name: GLORY MCKEON Department: Room: - Gender: Female Board Member: : 1965 Requested By: 1030 Order Number: [id number] Reading MD: MAVERICK RUBIO Measurements Intervals [place] Rate: 60 P: 22 ME: 150 QRS: 27 QRSD: 82 T: 18 QT: 386 QTc: 386 Interpretive Statements 1100 Sinus rhythm [address] depression 9130 borderline ECG Compared to ECG 03/25/2025 14:35:41 No significant changes Electronically Signed On 06-10-2025 9:55:26 EDT by MAVERICK RUBIO Dictated By: Maverick Rubio M.D. Signed By: 06/10/25 0955 DD/ 1513 TD/TT: Lawnmower Repair Mechanic:Troponin I High Sensitivity Reviewed date:06/09/2025 07:02:15 PM Interpretation: Performing Lab: Notes/Report: [facility] ,Troponin I High Sensitivity4.14.0-51.3 pg/mL CUT-OFF POINTS HAVE BEEN ESTABLISHED BASED ON THE FOURTH UNIVERSAL DEFINITION OF MYOCARDIAL INFARCTION. THE UPPER REFERENCE LIMIT (URL) OF TROPONIN, DEFINED THE 99TH PERCENTILE OF cTnI DISTRIBUTION IN A REFERENCE POPULATION, HAS BEEN CONFIRMED THE DECISION THRESHOLD FOR TX DIAGNOSIS. 99TH PERCENTILE = 51.4 PG/ML NOTE: HIGH-SENSITIVITY TROPONIN ASSAY IS NOT INTENDED TO BE USED IN ISOLATION BUT SHOULD BE INTERPRETED IN CONJUNCTION WITH OTHER DIAGNOSTIC AND CLINICAL INFORMATION. Performing Lab:see noteML - [facility] LBPROF CHEM 8 (BAS METB) Reviewed date:06/09/2025 07:02:15 PM Interpretation: Performing Lab: Notes/Report: [facility] ,Ttiefy472761-258 mmol/LPotassium4.23.5-5.1 mmol/VFeklgrgj83267-581 mmol/LCarbon Pylyhoo14.321.0-32.0 mmol/LAnion Gap13.8Lsykwda2792-497 mg/dLBlood Urea Nitrogen 13.07.0-18.0 mg/dLCreatinine1.020.55-1.02 mg/dLEstimated GFR ( Lupe>60 >=60 mL/min/1.73m 2Estimated GFR (Non- Ame55>=60 mL/min/1.73m 2BUN Creatinine Ratio12.6Fchrxnd2.38.5-10.1 mg/dLPerforming Lab:see note - [facility] LBCT sinus wo con Reviewed date:04/05/2025 07:51:39 PM Interpretation: Performing Lab: Notes/Report: Source Facility: [place] [address] CT Scan Report Signed Patient: GLORY MCKEON MR#: [id number] : 1965 Acct:[id number] Age/Sex: 59 / F ADM Date: 04/05/25 Loc: CT Attending Dr: Álvaro Sheehan M.D. Ordering Physician: Álvaro Sheehan M.D. Date of Service: 04/05/25 Procedure(s): CT sinus wo con Accession Number(s): [id number] cc: Álvaro Sheehan M.D. [place] [id number] Patient Name: GLORY MCKEON MRN: [id number] date: 1965 Sex: F Assigned Patient Location: CT Current Patient Location: CT Accession/Order Number: [id number] Exam Date: 04/05/2025 14:41 Report Date: 04/05/2025 [...] DISEASE Impression dictated by: Jack Leon Jr., DCitlalyOCitlaly 04/05/2025 3:15 PM Dictation Location: [place] [address] Electronically authenticated by: [id number] Y Date: 04/05/2025 15:15 Dictated By: Jack Leon M.D. 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 Ordering Physician: Álvaro Sheehan M.D. Date of Service: 03/15/25 Procedure(s): MR head/brain wo/w con Accession Number(s): [id number] cc: Álvaro Sheehan M.D. [place] [address] Patient Name: GLORY MCKEON MRN: [facility]:[id number] date: 1965 Sex: F Assigned Patient Location: MRI Current Patient Location: Accession/Order Number: [id number] Exam Date: 03/15/2025 15:14 Report Date: 03/16/2025 [...] Pablo Garcia M.D.03/16/2025 9:37 AM Dictation Location: [place] [address] Electronically authenticated by: [id number] Y Date: 03/16/2025 09:37 Dictated By: Juan Pablo Garcia D.O. 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:CREATININE Reviewed date:03/15/2025 08:32:31 PM Interpretation: Performing Lab: Notes/Report: [facility] ,Creatinine1.290.55-1.02 mg/dLEstimated GFR ( Uzxymio52>=60 mL/min/1.73m 2Estimated GFR (Non- Ame42>=60 mL/min/1.73m 2Performing Lab:see noteML - [facility] LBIRON Reviewed date:12/14/2024 01:23:32 PM Interpretation: Performing Lab: Notes/Report: [facility] ,Iron82.050.0-170.0 ug/dLPerforming Lab:see noteML - [facility] LB GLYCOHEMOGLOBIN A1C Reviewed date:12/14/2024 01:23:32 PM Interpretation: Performing Lab: Notes/Report: [facility] ,Glycohemoglobin A1C5.04.5-6.2 % ADA RECOMMENDED LIMIT 4.0 - 6.0 ADA THERAPEUTIC TARGET < 7.0 ACTION SUGGESTED > 7.0 Estimated Average Wzupadx45Usgwhctktf Lab:see noteML - [facility] LB CBC AUTO DIFF Reviewed date:12/14/2024 01:23:32 PM Interpretation: Performing Lab: Notes/Report: [facility] ,White Blood Count5.84.0-11.0 10 3/uLRed Blood Count4.674.20-5.40 10 6/uL Ucafkspzmv51.712.0-16.0 g/ySAyxxxmczze06.136.0-48.0 %Mean Corpuscular Ttfnjq67.4 81.0-99.0 fLMean Corpuscular Ozjvadiqdj47.526.7-34.0 pgMean Corpuscular HGB Conc 33.329.9-35.2 g/dLRed Cell Distribution Width12.111.0-15.0 %Platelet Mhhho987 150-450 10 3/uLMean Platelet Volume8.69.5-13.5 fLNeutrophils Percent Auto62.3 43.0-75.0 %Lymphocytes Percent Auto26.620.5-60.0 %Monocytes Percent Auto8.11.7- 12.0 %Eosinophils Percent Auto0.90.9-7.0 %Basophils Percent Auto0.70.2-2.0 % Immature Granulocytes Pct Auto1.40.0-0.5 %Neutrophils Absolute Auto3.61.4-6.5 10 3/uLLymphocytes Absolute Auto1.61.2-3.8 10 3/uLMonocytes Absolute Auto0.50.3-0.8 10 3/uLEosinophils Absolute Auto0.10.0-0.7 10 3/uLBasophils Absolute Auto0.00.0- 0.1 10 3/uLImmature Granulocytes Abs Auto0.080.00-0.03 10 3/uLPerforming Lab:see noteML - [facility] LBUS renal bladder Reviewed date:10/04/2025 02:05:43 PM Interpretation: Performing Lab: Notes/Report: Source Facility: [place] [address] Ultrasound Report Signed Patient: GLORY MCKEON MR#: [id number] : 1965 Acct:[id number] Age/Sex: 59 / F ADM Date: 10/04/25 Loc: US Attending Dr: Álvaro Sheehan M.D. Ordering Physician: Álvaro Sheehan M.D. Date of Service: 10/04/25 Procedure(s): US renal bladder Accession Number(s): [id number] cc: Álvaro Sheehan M.D. [place] [id number] Patient Name: GLORY MCKEON MRN: [id number] date: 1965 Sex: F Assigned Patient Location: US Current Patient Location: US Accession/Order Number: [id number] Exam Date: 10/04/2025 10:53 Report Date: 10/04/2025 12:30 At the request of: ÁLVARO SHEEHAN MD Procedure: US renal bladder CLINICAL DATA: Abnormal liver functions. Frequent urinary tract infections. LIMITED RIGHT UPPER QUADRANT ABDOMINAL ULTRASOUND COMPARISON: 06/05/2019 The gallbladder is physiologically distended without shadowing calculi, wall thickening or pericholecystic fluid. No intra- or extrahepatic biliary dilatation is evident. The common duct is borderline in caliber measuring 5-6 mm. The liver is normal in echogenicity. There are a couple suspected left hepatic cysts. The larger measures 2.6 x 2.3 x 1.9 cm and there are some low-level internal echoes. There is appropriate hepatopetal flow within the main portal vein. The pancreas shows no significant sonographic abnormality. No ascites is seen. US/US renal bladder IMPRESSION: NO GALLBLADDER PATHOLOGY. BORDERLINE CALIBER COMMON DUCT. HEPATIC CYSTS, ONE OF WHICH APPEARS MILDLY COMPLICATED. BILATERAL RENAL AND BLADDER ULTRASOUND COMPARISON: None Estimation of renal size is approximately 10.4 cm on the right and 10.4 cm on the left. Left kidney slightly lobulated. An echogenic focus with twinkle artifact is seen at superior pole on the left measuring approximately 12 x 9 x 3 mm in size. A stone is not excluded. No hydronephrosis is seen. There is a tiny right upper pole renal cyst measuring 7 mm in size. There is no perinephric fluid. The urinary bladder is partially distended with a volume of 66 mL. No contour or intraluminal abnormalities are seen. Bilateral ureteral jets are noted. The postvoid bladder residual is 12 mL. IMPRESSION: TINY RIGHT RENAL CYST AND POSSIBLE LEFT NEPHROLITHIASIS. NO OBSTRUCTIVE UROPATHY. Impression dictated by: Salena Fox M.D. 10/04/2025 12:30 PM Dictation Location: [place] [address] Electronically authenticated by: [id number] Date: 10/04/2025 12:30 Dictated By: Salena Fox M.D. 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 Ordering Physician: Álvaro Sheehan M.D. Date of Service: 10/04/25 Procedure(s): US right upper quadrant Accession Number(s): [id number] cc: Álvaro Sheehan M.D. [place] [address] Patient Name: GLORY MCKEON MRN: [id number] date: 1965 Sex: F Assigned Patient Location: Current Patient Location: US Accession/Order Number: [id number] Exam Date: 10/04/2025 10:53 Report Date: 10/04/2025 12:30 At the request of: ÁLVARO SHEEHAN MD Procedure: US renal bladder CLINICAL DATA: Abnormal liver functions. Frequent urinary tract infections. LIMITED RIGHT UPPER QUADRANT ABDOMINAL ULTRASOUND COMPARISON: 06/05/2019 The gallbladder is physiologically distended without shadowing calculi, wall thickening or pericholecystic fluid. No intra- or extrahepatic biliary dilatation is evident. The common duct is borderline in caliber measuring 5-6 mm. The liver is normal in echogenicity. There are a couple suspected left hepatic cysts. The larger measures 2.6 x 2.3 x 1.9 cm and there are some low-level internal echoes. There is appropriate hepatopetal flow within the main portal vein. The pancreas shows no significant sonographic abnormality. No ascites is seen. US/US right upper quadrant IMPRESSION: NO GALLBLADDER PATHOLOGY. BORDERLINE CALIBER COMMON DUCT. HEPATIC CYSTS, ONE OF WHICH APPEARS MILDLY COMPLICATED. BILATERAL RENAL AND BLADDER ULTRASOUND COMPARISON: None Estimation of renal size is approximately 10.4 cm on the right and 10.4 cm on the left. Left kidney slightly lobulated. An echogenic focus with twinkle artifact is seen at superior pole on the left measuring approximately 12 x 9 x 3 mm in size. A stone is not excluded. No hydronephrosis is seen. There is a tiny right upper pole renal cyst measuring 7 mm in size. There is no perinephric fluid. The urinary bladder is partially distended with a volume of 66 mL. No contour or intraluminal abnormalities are seen. Bilateral ureteral jets are noted. The postvoid bladder residual is 12 mL. IMPRESSION: TINY RIGHT RENAL CYST AND POSSIBLE LEFT NEPHROLITHIASIS. NO OBSTRUCTIVE UROPATHY. Impression dictated by: Salena Fox M.D. 10/04/2025 12:30 PM Dictation Location: [place] [address] Electronically authenticated by: [id number] Y Date: 10/04/2025 12:30 Dictated By: Salena Fox M.D. 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 Diagnosis 1 Acute non-recurrent sinusitis, unspecified location (J01.90) Referral Organization [facility] Referring Provider First Name Konrad Referring Provider Last Name Aguila Referring Provider Speciality [facility] Referred Provider Katherine Cotton Referred Provider Specialty Otolaryngolo gy Referral Priority Routine Reason needs egd Diagnosis 1 Reflux gastritis (K2 9.60) Referral Organization [facility] Referring Provider First Name Konrad Referring Provider Last Name Aguila [facility] Referred Provider Gael Hong Referred Provider Specialty General Surg nemo Referral Priority Routine Diagnosis 1 Reflux gastritis (K2 9.60) Referral Organization [facility] Referring Provider First Name Konrad Referring Provider Last Name Aguila Referring Provider [facility] Referred Provider Andrei Coughlin Referred Provider Specialty Gastroentero logy Referral Priority Routine Medications Medication SIG (Take, Route, Frequency, Duration) Notes Start Date End Date Status LaMICtal 25 MG 1 tablet Orally daily; Duration: 30 days 5ActiveDesvenlafaxine Succinate ER 100 MG1 tablet Orally Once a day; Duration: 90 daysActivePyridium 200 MG1 tablet after meals Orally Three times a day; Duration: 2 days5ActiveLiothyronine Sodium 5 MCG1 tablet on an empty stomach Orally Once a day; Duration: 90 daysActiveBiotinActiveLinzess 72 MCG1 capsule at least 30 minutes before the first meal of the day on an empty stomach Orally Once a day; Duration: 30 days5ActiveCefdinir 300 MG2 capsule Orally once a day; Duration: 10 5ActiveAspirin 81 81 MG1 tablet Orally Once a day; Duration: 90 daysActiveLevothyroxine Sodium 75 mcgTAKE 1 TABLET BY MOUTH DAILY IN THE MORNING ON AN EMPTY STOMACH; Duration: 30Active hydrOXYzine HCl 25 MG1 tablet as needed Orally qid; Duration: 10 daysPRN 5ActiveOndansetron 4 MG1 tablet on the tongue and allow to dissolve Orally qid15ActiveFamotidine 40 MG1 tablet at bedtime Orally bid; Duration: 90 daysActivemetroNIDAZOLE 500 MG1 tablet Orally Three times a day; Duration: 10 days5ActiveDupixent 300 MG/2MLas directed Subcutaneous ActiveMetoprolol Succinate ER 50 MG1 tablet Orally Once a day; Duration: 90 days ActivedilTIAZem HCl ER Coated Beads 240 MG1 capsule Orally Once a day; Duration: 90 daysActiveMetoprolol Succinate ER 25 MG1 tablet Orally Once a day- with 50mg tablet; Duration: 90 days5ActiveAmmonium Lactate 12 %APPLY TO THE AFFECTED AREA TWICE DAILY; Duration: 30ActiveALPRAZolam 0.5 MG1 tablet Orally Twice a day; Duration: 5 days5ActiveLactulose 20 GM/30ML 30 ml Orally bid; Duration: 30 days constipation 5ActiveIbuprofen 800 MG1 tablet with food or milk as needed Orally every 8 hrsPRNActiveSemaglutide 2.268 mg/0.63 mLBudererActive Social History Tobacco Use: Social History Observation [...] containing alcohol in the past year?Weekly (3 points)Rtfzul7PfqwfewqenavypZoakdygwCcasief Control (Standard) Question Answer Notes Tobacco use: Former smoker When did you start smoking?12/02/1981When did you stop smoking?08/20/2024How long has it been since you last smoked?Less than 1 monthAUDIT-C (Standard) Question Answer Notes Did you have a drink containing alcohol in the p ast year? No Ohddrq7JhwxnghzynabtsKmmzixbh Problems Problem Type SNOMED Code ICD Code Onset Dates Problem Status W/U Status Risk Notes Problem Generalized anxiety disorder (01865116) Generalized anxiety disorder (F41.1) ActiveconfirmedProblemSyringomyelia and syringobulbia (818770556)Syringomyelia and syringobulbia (G95.0)ActiveconfirmedProblemPeripheral venous insufficiency (76128263)Venous insufficiency (chronic) (peripheral) (I87.2)Activeconfirmed ProblemPain in limb (67394122)Pain in unspecified limb (M79.609)Activeconfirmed ProblemAcute cystitis (04965754)Acute cystitis without hematuria (N30.00)Active confirmedProblemAcute cystitis (85597402)Acute cystitis with hematuria (N30.01) ActiveconfirmedProblemChange in bowel habit (66466686)Change in bowel habit (R19.4)ActiveconfirmedProblemSprain of calcaneofibular ligament of left ankle, sequela (S93.412S)ActiveconfirmedProblemHistory of polyp of colon (situation) (514293242)Personal history of colonic polyps (Z86.010)ActiveconfirmedProblem Chest pain (10175714)Chest pain (R07.9)ActiveconfirmedProblemFatigue (16415097) Fatigue (R53.83)ActiveconfirmedProblemMigraine variant with headache (disorder) (898161833)Migraine headache (G43.909)ActiveconfirmedProblemHypertension (18132804)Hypertension (I10)ActiveconfirmedProblemAnxiety (06847612)Anxiety (F41.9)ActiveconfirmedProblemMitral valve prolapse (628218488)Mitral valve prolapse (I34.1)ActiveconfirmedProblemEdema (20225039)Edema (R60.9)Active confirmedProblemDepression (012417277)Depression (F32.9)ActiveconfirmedProblem Obstructive sleep apnea (19203347)Obstructive sleep apnea (G47.33)Active confirmedProblemInsomnia (866922988)Insomnia (G47.00)ActiveconfirmedProblemPain in limb (80531129)Pain in joint, hand (M79.643)ActiveconfirmedProblemTubular adenoma of colon (322671122)Tubular adenoma of colon (D12.6)Activeconfirmed ProblemPain of right knee region (finding) (264675787673600)Knee pain, right (M25.561)ActiveconfirmedProblemOtitis media (65761996)Otitis media (H66.90) ActiveconfirmedProblemFacial palsy (208894925)Facial droop (R29.810)Active confirmedProblemConstipation (10795887)Constipation (K59.00)Activeconfirmed ProblemDiarrhea (79896380)Diarrhea (R19.7)ActiveconfirmedProblemWell adult (204524524)Well adult (Z00.00)ActiveconfirmedProblemDysphagia (87412115) Dysphagia (R13.10)ActiveconfirmedProblemDiverticulitis (25831406)Diverticulitis (K57.92)ActiveconfirmedProblemPanic disorder (361116022)Panic disorder (F41.0) ActiveconfirmedProblemNear syncope (825519754)Near syncope (R55)Activeconfirmed ProblemCervical disc disorder (725198143)DDD (degenerative disc disease), cervical (M50.30)ActiveconfirmedProblemOverweight (377751407)Over weight (E66.3) ActiveconfirmedProblemSuperficial phlebitis of arm (I80.8)ActiveconfirmedProblem Seasonal allergic rhinitis (313580253)Allergic rhinitis, seasonal (J30.2)Active confirmedProblemPain in right leg (447209719)Right leg pain (M79.604)Active confirmedProblemRight upper quadrant pain (773421496)Abdominal pain, RUQ (R10.11)ActiveconfirmedProblemReflux gastritis (80327665)Reflux gastritis (K29.60)ActiveconfirmedProblemRhinorrhea (63501497)Rhinorrhea (J34.89)Active confirmedProblemDog bite (691187517)Dog bite (W54.0XXA)ActiveconfirmedProblem Acute diarrhea (012309071)Acute diarrhea (R19.7)ActiveconfirmedProblemHepatic cyst (51864325)Hepatic cyst (K76.89)ActiveconfirmedProblemChronic obstructive pulmonary disease (08712185)COPD, mild (J44.9)ActiveconfirmedProblemAcute bronchiolitis (4224976)Acute bronchiolitis (J21.9)ActiveconfirmedProblem Irritable bowel (20366436)Irritable bowel (K58.9)ActiveconfirmedProblemCoronary artery spasm (17752335)Coronary artery spasm (I20.1)ActiveconfirmedProblem Acquired renal cystic disease (973277816)Kidney cysts (N28.1)Activeconfirmed ProblemShoulder impingement syndrome (591059664)Shoulder impingement syndrome (M75.40)ActiveconfirmedProblemSpider bite wound (713377121)Spider bite (T63.301A)ActiveconfirmedProblemDisorder of musculoskeletal system (890452)Arm weakness (R29.898)ActiveconfirmedProblemLow back pain (185607797)Low back pain, unspecified (M54.50)ActiveconfirmedProblemCough (finding) (57156935)Cough, unspecified (R05.9)ActiveconfirmedProblemLow back pain (finding) (674586935)Low back pain at multiple sites (M54.50)Activeconfirmed Vital Signs Blood pressure diastolic 90 mm Hg 11/18/2025 Eyuubx60 in11/18/2025lood pressure mm Hg11/18/20257175Wwqnuc102.2 lbs 11/18/2025BMI30.07 kg/m211/18/2025 Procedures Procedure Date Ordered Date Performed Result Body Sit e Sleep Study: Retitration BIPAP/CPAP 03/04/2025 N/A Encounters Encounter Location Date Provider Diagnosis [facility] [address] [place] [address] 11/02/2025 Konrad Hoy [address] [address] 11/13/2025Doug HoyPanic disorder F41.0[place] [address] [place] [address]/29/2025Doug HoyMigraine headache G43.909 [place] [address] [place] [address] 09/29/2025Doug HoyReflux gastritis K29.60[place] [address] [place] [address]/30/2025Doug HoyReflux gastritis K29.60 [place] [address] [place] [address] 10/04[facility]20[facility] [facility] [place] [address]/09/2025[facility] [facility] [place] [address]/12/2024Doug HoyPanic disorder F41.0[facility] [facility] [place] [address]/Doug Hoy [facility] [facility] [place] [address] 05/24/2025Doug HoyInsomnia G47.00 and Acute non-recurrent sinusitis, unspecified location J01.90[facility] [facility] [place] [address]/Doug HoyAcute non-recurrent sinusitis, unspecified location J01.90[facility] [facility] [place] [address] 09/21/2025[facility] [facility] [place] [address]/Doug HoyMigraine headache G43.909[facility] [facility] [place] [address]/Doug HoyAbnormal liver function test R79.89[facility] [facility] [place] [address]/04/2025Doug [facility] [facility] [place] [address]/11/2025Doug HoyAcute non-recurrent sinusitis, unspecified location J01.90[facility] [place] [address]/[facility] [address] [facility] [place] [address]/Doug HoyAcute non-recurrent sinusitis, unspecified location J01.90[facility] [place] [address]/Doug [facility] [address] [place] [address]/Doug HoyAnxiety F41.9 [facility] [place] [address] 01/19/2025Doug [facility] [place] [address]/Doug [facility] [place] [address]/Doug [facility] [place] [address]/10/2025Doug [facility] [place] [address]/Doug [facility] [place] [address]/ [facility] [place] [address]/oug [facility] [place] [address]/Doug [facility] [place] [address]/Doug [facility] [place] [address]/Doug HoyBP (high blood pressure) I10 and Hypertension R04LuzedxxSt. [facility] [place] [address]/Doug [facility] [place] [address]Doug [facility] [facility] [place] [address]/ Konrad [facility] [place] [facility] [place] [address]/oug [facility] [place] [facility] [place] [address]/06/2025Doug HoyAnxiety F41.[address] [facility] [place] [facility] [place] [address] 11/27/2024oug HoyWell adult Z00.00[facility] [place] [facility] [address]/Doug HoyUrinary frequency R35.0 ; UTI (urinary tract infection), uncomplicated N39.0 and Dysuria R30.0[place] [address] [place] [facility] [place] [address]/Doug Hoy Migraine headache G43.909[facility] [place] [facility] [place] [address]/Doug HoyAnxiety F41.9 ; Migraine headache G43.909 and Dysphagia R13.10BBrett [place] [address] [facility] [place] [address]/05/2025Doug HoyDepression F32.9 ; Obstructive sleep apnea G47.33 ; Generalized anxiety disorder F41.1 ; Diverticulitis K57.92 ; Fatigue R53.83 and Acute bronchiolitis J21.9B[facility] [facility] [place] [address]/Doug HoyPanic disorder F41.0 and Near syncope Q37BkzixvbKindred Hospital [facility] [facility] [place] [address]/Doug HoyUrinary frequency R35.0 ; UTI (urinary tract infection), uncomplicated N39.0 and Dysuria R30.0[place] [address] [place] [facility] [address]/Doug HoyAnxiety F41.9BBrett [place] [address] [place] [facility] [address] 06Doug HoyInsomnia G47.00 ; Anxiety F41.9 and Depression F32.9BBrett [place] [address] [facility] [place] [address]/ Konrad HoyHypertension I10 ; Panic disorder F41.0 and Arm pain, lateral, unspecified laterality M79.603BBrett [place] [address] [facility] [place] [address]/Doug HoyChest pain R07.9 and Anxiety F41.[address] [place] [address] 07/14/2025Doug Hoy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 and Low back pain, unspecified M54.50[place] [address] [facility] [place] [address]/01/2025Doug HoyAnxiety F41.[address] [place] [address]/Doug HoyMigraine headache G43.909 ; Panic disorder F41.0 ; Hypertension I10 and Otitis media H66.90[place] [address] [facility] [place] [address]/ Konrad HoyAcute non-recurrent sinusitis, unspecified location J01.90 and Nasal congestion R09.81[place] [address] [facility] [place] [address]/01/2025Doug HoyFacial droop R29.810 ; Arm weakness R29.898 and Obstructive sleep apnea G47.[address] [place] [address]/Doug HoyHypertension I10 ; Fatigue R53.83 and Anxiety F41.9BKind[facility] [place] [address]/Doug HoyAcute non-recurrent sinusitis, unspecified location J01.90 and Nasal congestion R09.81[facility] [place] [address]/05/2025Doug HoyInsomnia G47.00 ; Panic disorder F41.0 and Hypertension I10 Assessments Encounter Date Diagnosis (ICD Code) Assessment Notes Treatment Notes Treatment Clinical Notes Section Notes 11/27/2024 Well adult (ICD-10 - Z00.00) doing well on jim jazlyn,pvvmiiih85/17/2025Migraine headache (ICD-10 - G43.909) 01/18/2025Panic disorder (ICD-10 - F41.0)5Acute non-recurrent sinusitis, unspecified location (ICD-10 - J01.90)Rest and drink more liquids, especially water. You may use a humidifier or vaporizer to help keep the drainage moist. Hrpq-rzu-omxwfeq Nasal Saline may help the stuffy and runny nose. Use Ibuprofen and or Tylenol as needed for fever, chills, body aches or pain. Children 5 years old should not be given xxvz-avk-gfkserz cough and cold medications such as guaifenesin and dextromethorphan. If you're over age 5, you may try saxs-gry-onotozv cold medications such as guaifenesin and dextromethorphan, [...] vaporizer to help keep the drainage moist. Ivcf-xuf-amyesjk Nasal Saline may help the stuffy and runny nose. Use Ibuprofen and or Tylenol as needed for fever, chills, body aches or pain. Children 5 years old should not be given crcr-ykq-zxdrsir cough and cold medications such as guaifenesin and dextromethorphan. If you're over age 5, you may try bywp-atc-fivgzha cold medications such as guaifenesin and dextromethorphan, [...] - despite being on the seroquel at 9675105/17/2025Insomnia (ICD-10 - G47.00) 05/17/2025nxiety (ICD-10 - F41.9)06/14/2025hest pain (ICD-10 - R07.9) 06/14/2025nxiety (ICD-10 - F41.9)07/14/2025Syringomyelia and syringobulbia (ICD-10 - G95.0)07/14/2025Low back pain, unspecified (ICD-10 - M54.50)09/03/2025 Anxiety (ICD-10 - F41.9)tapering off the oplanzapine and trial just pristiq - maybe trial of lamictal if not qsywuu4709/16/2025Urinary frequency (ICD-10 - R35.0)06/07/2025nxiety (ICD-10 - F41.9)just [...] - counceling tomorrow 09/28/2025Migraine headache (ICD-10 - G43.909)10/07/2025Depression (ICD-10 - F32.9)10/07/2025Obstructive sleep apnea (ICD-10 - G47.33)10/20/2025Panic disorder (ICD-10 - F41.0) rtw 11/01 rexulti helping samples working well but need tweek int hte dose 10/20/2025Near syncope (ICD-10 - R55)11/18/2025Urinary frequency (ICD-10 - R35.0)5BP (high blood pressure) (ICD-10 - I10)5Acute non- recurrent sinusitis, unspecified location (ICD-10 - J01.90)5Acute non- recurrent sinusitis, unspecified location (ICD-10 - J01.90)04/27/2025nxiety (ICD-10 - F41.9)05/24/2025Insomnia (ICD-10 - G47.00)5Acute non- recurrent sinusitis, unspecified location (ICD-10 - J01.90)09/27/2025Migraine headache (ICD-10 - G43.909)09/27/2025bnormal liver function test (ICD-10 - R79.89)09/29/2025Migraine headache (ICD-10 - G43.909)09/29/2025Reflux gastritis (ICD-10 - K29.60)09/30/2025Reflux gastritis (ICD-10 - K29.60)11/01/2025Panic disorder (ICD-10 - F41.0)11/13/2025Panic disorder (ICD-10 - F41.0)04/06/2025 Insomnia (ICD-10 - G47.00)04/06/2025Panic disorder (ICD-10 - F41.0)04/06/2025 Hypertension (ICD-10 - I10)05/24/2025ute non-recurrent sinusitis, unspecified location (ICD-10 - J01.90)12/28/2024Hypertension (ICD-10 - I10)11/18/2025UTI (urinary tract infection), uncomplicated (ICD-10 - N39.0)Drink [...] take them until they are finished. You c an use blxn-wcc-ppfchjr acetaminophen or ibuprofen if needed for pain. You should follow up with your Primary Care Physician or return to clinic if not improving in the next 3-5 days.10/07/2025Generalized anxiety disorder (ICD-10 - F41.1)09/28/2025Dysphagia (ICD-10 - R13.10)09/16/2025UTI (urinary tract infection), uncomplicated [...] until they are finished. You can use cdup-nic-wgxoysi acetaminophen or ibuprofen if needed for pain. [...] concerning fo circulation issues - needs u/s /06/2025Diverticulitis (ICD-10 - K57.92)11/18/2025Dysuria (ICD-10 - R30.0)10/07/2025Fatigue (ICD-10 - R53.83) 10/07/2025ute bronchiolitis (ICD-10 - J21.9) Plan Of Treatment Pending Test Test Name Order Date CMP (COMPLETE METABOLIC PANEL) CMP (COMPLETE METABOLIC PANEL) 4 HEMOGLOBIN A1C (GLYCO) 04/24/2024 HEMOGLOBIN A1C (GLYCO) 11/27/2024 HEMOGLOBIN A1C (GLYCO) 06/14/2025 IRON, TOTAL 06/14/2025 IRON, TOTAL 11/27/2024 LIPID PANEL (CHOL/TRIG/HDL/LDL) 11/27/20 LIPID PANEL (CHOL/TRIG/HDL/LDL) 04/24/20 LIPID PANEL (CHOL/TRIG/HDL/LDL) 06/14/20 CBC WITH DIFF (EXP 10/2025) 04/24/2024 CBC WITH DIFF (EXP 10/2025) 11/27/2024 VITAMIN D, 25 LEVEL (TOTAL) 06/14/2025 XR Lumbar Spine (2-3 views) * 05/15/2023 US Lower Extremity LT 02/20/2024 US Gallbladder 09/27/2025 US Lower Extremity RT 02/20/2024 Urinalysis Microscopic 11/18/2025 UA DIP NONAUTO WO MICRO (47931) - IN OFF ICE 11/18/2025 Dressing Change- performed 10/21/2023 Insulin Level 06/14/2025 Insulin Level 11/27/2024 Sleep Study: Retitration BIPAP/CPAP 01/2025 CT Chest Low Dose for Screening* 024 Venous Insufficiency Study 02/23/2024 STOOL OCCULT BLOOD 04/24/2024 US Liver 09/27/2025 XR Upper GI w/ Esophogram 09/28/2025 AMMONIA 06/14/2025 AMMONIA 12/16/2023 CBC AUTO DIFF 12/16/2023 CULTURE SPUTUM 04/15/2023 CULTURE URINE 11/18/2025 GI PANEL (PCR) 04/15/2023 PROF 14(COMP METB) 12/16/2023 SED RATE WESTERGREN 12/16/2023 MRI BRAIN WO W CON 03/04/2025 MRI LSPINE WO CON 10/13/2023 MRI TSPINE WO CON 10/13/2023 US ARTERY LEG JULIEN 02/20/2024 US KIDNEYS BLADDER 09/27/2025 XR LSPINE 2_3 VIEWS 05/20/2023 THYROID PANEL (T4/TSH/FREE T3) 4 THYROID PANEL (T4/TSH/FREE T3) 5 THYROID PANEL (T4/TSH/FREE T3) 4 MM screening mammo BI 11/27/2024 US arterial duplex UE BI 06/23/2025 CT CHEST LOW DOSE (LDCT) 11/27/2024 CT CHEST LOW DOSE (LDCT) 03/26/2025 CT sinus w con 03/26/2025 CMP (COMP MET SIMMONS) w/eGFR CKD-EPI 2024 CBC WITH DIFF 06/14/2025 Insurance Providers Payer Name Payer Address Payer Phone Subscriber Number Group Number Insured Name Patient Relationship to Insured Coverage Start Date Coverage End Date [employer] [address] [address] [place] [address] [id number] Glory Mckeon Self - patient is the insured Medications Administered Medication Instructions Date of Administration Dosage Notes Ozempic 40.25 mL Medical (General) History Medical History History [...] 05/2023 Broken left arm- child Ganglion cyst removalKyphoplastyAPPENDECTOMYHospitalization History Reason Date(Month/Year) Pneumonia/Influenza B/Bronchitis Exhaustion
--- OUTSIDE RECORDS SUMMARY | 2025-11-18 16:02 | XMS_ITS | Clinical Summary ---
Author Organization [facility] tem Address [id number] [address] [place] [address] Care Team Providers Care Continuing Education Specialist Name Role Phone Lonnie Sheehan MD Primary Care Provider [phone] Allergies Active AllergyReactionsCriticalityNoted DateCommentsCiprofloxacin HclRashMedium 1Latex, Natural Eqxuui7703/20/2017Sulfamethoxazole-Lavhwiifmqul08/22/2020 Medications MedicationSigDispense QuantityRefillsLast FilledStart DateEnd DateStatus metoprolol [...] (09/22/2020): Added automatically from request for surgery [id number] Encounters DateTypeDepartmentCare AhdkOuhuoizysug59/29/2025 8:56 AM EDT - 09/29/2025 11:59 PM EDTHospital Encounter [facility] [address] [place] [id number] Dysphagia, unspecified type Discharge Disposition: Home09/29/2025Travelfrom Last 3 Months Family History Medical HistoryRelationNameCommentsStrokeFatherBreast cancerNeg HxColon cancer Neg HxRelationNameStatusCommentsFatherDeceasedMotherDeceased Social History Tobacco UseTypesPacks/DayYears UsedDateSmoking Tobacco: Every DayCigarettes0.330 Smokeless Tobacco: Never Tobacco Cessation:Ready to Q uit: No; Counseling Given: Yes Comments:d/w pt. decreased risk of stroke, HTN Alcohol UseStandard Drinks/WeekCommentsYes0 (1 standard drink = 0.6 oz pure alcohol)ChildcareAnswerDate UhdtnzjcItbmkjitoSgcvjgz23/12/2019EmploymentAnswer Date FsgdfgpdEheqszyqymPuzfnik86/12/2019Hunger ScreeningAnswerDate Recorded Within the past 12 months we worried whether our food would run out before we got money to buy more.Never True01/26/2023Within the past 12 months the food we bought just didn't last and we didn't have money to get more.Never True 3Purpose - LifeAnswerDate RecordedPurpose and direction in lifeUnknown 1CommentsNoSex and Gender InformationValueDate RecordedSex Assigned at BirthNot on fileLegal IezDeyhkb01/06/2015 11:23 AM EDTGender IdentityNot on fileSexual OrientationNot on file Last Filed Vital Signs Vital SignReadingTime TakenCommentsBlood Qelrawbz88/78001/26/2023 9:08 PM EST Ztoia648601/26/2023 9:08 PM YVIMxlpaejgsxg08.7 ??C (98.1 ??F)01/26/2023 9:08 PM ESTRespiratory Osze953601/26/2023 9:08 PM ESTOxygen Vkizzfsnxo40%01/26/2023 9:08 PM ESTInhaled Oxygen Concentration--Elfrly53.1 kg (170 lb)01/26/2023 9:08 PM EST Fzltly250.6 cm (5' 4 )01/26/2023 9:08 PM ESTBody Mass Index29.18001/26/2023 9:08 PM EST Plan of Treatment DateTypeDepartmentCare Team (Latest Contact Info)Pyyixawvpjl60/22/2025 1:15 PM ESTOffice Visit [facility] [address] [place] [address] Lou Deluna, PRESS HELPER-CN [address] [facility] [place] [address] Health MaintenanceDue DateLast DoneCommentsDepression Aunyphwju78/14/1976Tobacco Eytepfrld87/14/1976DTaP,Tdap and Td Vaccines (1 - Tdap)1982Pap Smear , 03/21/2017Adult BMI Oxytkpyxx22/OVID-19 Vaccine ( season), 09/24/2021, 08/22/2021 Influenza Vtihipt21/, 08/31/2022, 08/10/2021, Additional history existsRSV ( or age 60+ yrs) (1 - 1-dose 75+ series)2038 Zoster (Shingles) GtnqoytXykinxhxe96/24/2021, 11/04/2020 Medical Devices Not on file Procedures Procedure NamePriorityDate/TimeAssociated DiagnosisCommentsFL UGI WITH ESOPHAGUS Mslriew0909/29/2025 9:21 AM EDT Dysphagia, unspecified type HIGH RISK HPV W/PDTZJgnjxmu69/20/2017 9:35 AM EDT Encounter for gynecological examination [...] on 09/29/2025 9:27 AM Authorizing ProviderResult TypeResult StatusLonnie Sheehan MDIMJhonny FLUOROSCOPY ORDERABLESFinal Result * High risk HPV w/tc (03/21/2017 9:35 AM EDT)ComponentValueRef RangeTest MethodAnalysis TimePerformed AtPathologist SignatureHpv specimen typeThinPrep 03/25/2017 9:32 AM EDTSUNQUESTHpv 10CopnyvkaPrubbrba15/25/2017 12:55 PM EDT [facility] 22GczdnyybZphasqpl89/25/2017 12:55 PM [facility]Other high risk hpvNegativeNegative 03/26/2017 12:55 PM [facility]ATORYComment: HPV types 31,33,35,39,45,52,56,58,59,66 and 68 DNA were undetectable. Specimen (Source)Anatomical Location / LateralityCollection Method / Volume Collection TimeReceived Time03/21/2017 9:35 AM EDT03/21/2017 9:35 AM EDT Narrative Authorizing ProviderResult TypeResult StatusClaudia Sheehan PRESS HELPER-CNMLAB BLOOD ORDERABLESFinal ResultPerforming OrganizationAddressCity/State/ZIP CodePhone Number [facility] [address] [place] [id number], SUN[place] from Last 3 Months or Most Recently Relevant to Health Maintenance Insurance [address] [place] [address] Care Teams Team MemberRelationshipSpecialtyStart DateEnd Date Lonnie Sheehan MD PCP - GeneralFamily Medicine01/26/23
--- OUTSIDE RECORDS SUMMARY | 2025-11-18 16:02 | XMS_ITS | Clinical Summary ---
Author Organization [facility] Address [address], [address] [place] [address] Care Team Providers Care Dials Supervisor Name Role Phone Lonnie Sheehan MD Primary Care Provider [phone] Allergies Active AllergyReactionsCriticalityNoted AaosGpyqcqppWbora59/09/2020 Medications MedicationSigDispense QuantityRefillsLast FilledStart DateEnd DateStatus BABY [...] InformationValueDate RecordedSex Assigned at BirthNot on fileLegal GucLlywrd54/28/2020 3:21 PM EDT Gender IdentityNot on fileSexual OrientationNot on file Last Filed Vital Signs Vital SignReadingTime TakenCommentsBlood Pressure--Pulse--Jjkshulnsmr72.3 ??C (97.4 ??F)09/09/2020 11:50 AM EDTRespiratory Rate--Oxygen Saturation--Inhaled Oxygen Concentration--Zkimpm28.2 kg (168 lb)09/09/2020 11:50 AM XMVZmuiep737.6 cm (5' 4 )09/09/2020 11:50 AM EDTBody Mass Index28.8409/09/2020 11:50 AM EDT Plan of Treatment Not on file Insurance Care Teams Team MemberRelationshipSpecialtyStart DateEnd Date Lonnie Sheehan MD [address] [place] [address] PCP - GeneralFamily Medicine08/30/20
--- OUTSIDE RECORDS SUMMARY | 2025-11-18 16:02 | XMS_ITS | Clinical Summary ---
Author Organization [facility] Address [address] [place] [address] Care Team Providers Care Disability Liaison Officer Name Role Phone Lonnie Sheehan MD Primary Care Provider [phone] Allergies Active AllergyReactionsCriticalityNoted PhldKxlqqlfbIaacrysekzzno74/05/2025 Other Reaction(s): Unknown Latex03/20/2017 Other Reaction(s): Not available, Unknown Sulfamethoxazole-Tgrzuxpvkncf66/22/2020 Other Reaction(s): Not available, Unknown Medications MedicationSigDispense [...] 15 g 5Active Active Problems ProblemNoted DateDiagnosed WrucUwdpxevlnbtfngrinl74/05/2025Lumbosacral spondylosis without /22/2020 Overview (04/05/2025): Added automatically from request for surgery [id number] Luuxzog4109/18/20173935Qgoyht32/18/2017Cervical disc wsljrezk64/18/2017Coronary artery spasm09/18/2017Depressive /18/9991Ghtsfvtc70/18/2017Mitral valve oyktoelp51/18/2017Obstructive sleep apnea jdevhruq05/12/2017 Social History Tobacco UseTypesPacks/DayYears UsedDateSmoking Tobacco: FormerCigarettes Smokeless Tobacco: Never Tobacco Cessation:Counseling Given: Not Answered Alcohol UseStandard Drinks/WeekCommentsYes0 (1 standard drink = 0.6 oz pure alcohol)occCommentsUnknownSex and Gender InformationValueDate Recorded Sex Assigned at BirthNot on fileLegal DkzDykugj65/15/2023 7:25 PM EDTGender IdentityNot on fileSexual OrientationNot on file Last Filed Vital Signs Vital SignReadingTime TakenCommentsBlood Skmuiscc219/8005 2:02 PM EDT Txfqy604704/07/2025 2:02 PM EDTTemperature--Respiratory Rate--Oxygen Saturation-- Inhaled Oxygen Concentration--Inbukr22.6 kg (160 lb)04/07/2025 2:02 PM EDTHeight 162.6 cm (5' 4 )04/07/2025 2:02 PM EDTBody Mass Index27.46004/07/2025 2:02 PM EDT Plan of Treatment Not on file Insurance * Guarantor: Ciara Kendallunt TypeRelation to PatientDate of BirthPhone Billing AddressPersonal/BroczgNchv97/14/1966 [address] [address] Care Teams Team MemberRelationshipSpecialtyStart DateEnd Date Lonnie Sheehan MD [address] [place] [phone] PCP - GeneralFamily Medicine04/07/25
[2025-11-18 16:11] LABS: Glucose Urine UA NEGATIVE (NEGATIVE)
[2025-11-18 16:21] LABS: Cast Seen? NONE SEEN #/LPF (NONE SEEN); Crystals Seen? None Seen #/HPF (None Seen)
== END 2025-11-18 15:58 | disposition home or self-care (01) ==
LOC: LAB 15:58
PROVIDERS: PCP Family Medicine; Visit Provider Family Medicine
DX: R35.0 Frequency of micturition (principal)
CPT/HCPCS: 81001